=== PATIENT | male | born 1950 | race Caucasian/White ===

== ENCOUNTER 2019-10-07 10:40 | Emergency (ER) | payer MEDICARE ==
[2019-10-07 11:36] LABS: HEMATOCRIT 39.1 % (37.9-51.0); HEMOGLOBIN 13.9 g/dL (13.5-17.0); MEAN CORPUSCULAR HEMOGLOBIN 30.3 pg (27.0-33.4); MEAN CORPUSCULAR HGB CONC 35.4 g/dL (32.0-36.0); MEAN CORPUSCULAR VOLUME 86 fl (80-97); PLATELET COUNT 220 10^3/uL (150-450); RED BLOOD COUNT 4.57 10^6/uL (4.35-5.55); RED CELL DISTRIBUTION WIDTH 13.7 % (11.5-14.0); WHITE BLOOD COUNT 6.3 10^3/uL (4.0-10.5)
[2019-10-07 11:53] LABS: ANION GAP 11 (5-19); BLOOD UREA NITROGEN 20 mg/dL (7-20); CALCIUM 8.8 mg/dL (8.4-10.2); CARBON DIOXIDE 23 mmol/L (22-30); CHLORIDE 102 mmol/L (98-107); GLUCOSE 137 mg/dL (75-110); POTASSIUM 3.9 mmol/L (3.6-5.0)
[2019-10-07 11:56] LABS: APPEARANCE,URINE SLIGHTLY-CLOUDY; BILIRUBIN,URINE NEGATIVE (NEGATIVE); COLOR,URINE YELLOW; GLUCOSE, URINE NEGATIVE (NEGATIVE); KETONES,URINE TRACE mg/dL (NEGATIVE); LEUKOCYTE ESTERASE,URINE NEGATIVE (NEGATIVE); NITRITE,URINE NEGATIVE (NEGATIVE); PROTEIN,URINE 100 mg/dL (NEGATIVE); URINE SPECIFIC GRAVITY 1.024
[2019-10-07 12:05] LABS: CREATINE KINASE MB 0.81 ng/mL (<4.55)
[2019-10-07 12:06] LABS: TROPONIN I < 0.012 ng/mL
[2019-10-07] MEDS ORDERED: ONDANSETRON HCL INJ/PF 4 MG/2 ML SDV IV ONE (12:23)
[2019-10-07] MEDS ORDERED: AZITHROMYCIN 250 MG TABLET PO ONE (13:06)
--- NOTE | 2019-10-07 13:07 | ER Document Report ---
ED GI/ - General Chief Complaint: Nausea/Vomiting/Diarrhea Stated Complaint: NAUSEA/VOMITING/FEVER,COUGH Time Seen by Provider: 10/07/19 12:12 Primary Care Provider: ARELI VIVAS MD [ACTIVE STAFF] - Follow up as needed Notes: CHIEF COMPLAINT: Cough for 3 weeks HPI: 68-year-old male presenting to the emergency department for evaluation of cough nonproductive over the last 3 weeks no chest pain no specific shortness of breath. Developed some nausea with 2-3 episodes of vomiting last night, one episode of diarrhea yesterday. Has had one episode of vomiting today. Denies abdominal pain. Denies fever. States that he was tested for COVID through the [facility] over a week ago and did have a negative result 2 days ago. ROS: See HPI - all other systems were reviewed and are otherwise negative Constitutional: no fever Eyes: no drainage, no blurred vision ENT: no runny nose, no sore throat Cardiovascular: no chest pain Resp: no SOB, + cough GI: + vomiting, + diarrhea, no abdominal pain : no dysuria Integumentary: no rash Allergy: no hives Musculoskeletal: no extremity pain or swelling Neurological: no numbness/tingling, no weakness MEDICATIONS: I agree with the patient medications as charted by the RN. ALLERGIES: I agree with the allergies as charted by the RN. PAST MEDICAL HISTORY/PAST SURGICAL HISTORY: Reviewed and agree as charted by RN. SOCIAL HISTORY: Reviewed and agree as charted by RN. FAMILY HISTORY: No significant familial comorbid conditions directly related to patient complaint EXAM: Reviewed vital signs as charted by RN. CONSTITUTIONAL: Alert and oriented and responds appropriately to questions. Well-appearing; well-nourished HEAD: Normocephalic; atraumatic EYES: PERRL; Conjunctivae clear, sclerae non-icteric ENT: normal nose; no rhinorrhea; moist mucous membranes; pharynx without lesions noted, no uvula edema or deviation, no tonsillar hypertrophy, phonation normal NECK: Supple without meningismus; non-tender; no cervical lymphadenopathy, no masses CARD: RRR; no murmurs, no clicks, no rubs, no gallops; symmetric distal pulses RESP: Normal chest excursion without splinting or tachypnea; breath sounds clear and equal bilaterally; no wheezes, no rhonchi, no rales, pulse oximetry 97% on room air not hypoxic. Does not become dyspneic with speaking ABD/GI: Normal bowel sounds; non-distended; soft, non-tender, no rebound, no guarding; no palpable organomegaly or masses. BACK: The back appears normal and is non-tender to palpation, there is no CVA tenderness EXT: Normal ROM in all joints; non-tender to palpation; no cyanosis, no effusions, no edema SKIN: Normal color for age and race; warm; dry; good turgor; no acute lesions noted NEURO: Moves all extremities equally; Motor and sensory function intact PSYCH: The patient's mood and manner are appropriate. Grooming and personal hygiene are appropriate. MDM: 68-year-old male presenting for cough for 3 weeks, had a negative COVID test approximately a week ago. Has started with vomiting and some diarrhea now. No chest pain no shortness of breath. Given patient's age will obtain baseline screening cardiac labs, treat nausea, obtain chest x-ray to evaluate for infiltrate and will reassess. - Related Data Allergies/Adverse Reactions: No Known Allergies Allergy (Unverified 10/07/19 10:59) Home Medications: Pt. came into the hospital today via personal vehicle, states he was tested for Coivd-19 1 week ago. Test results were negative, however he is still having nausea, vomitting ajnd dierrhea. Pt. has been taking aspirin several times a day for the past week to control symptoms. Pt. is A & O X4, breathes are even and unlabored. NAD at this time. Past Medical History - Social History Smoking Status: Former Smoker Chew tobacco use (# tins/day): No Frequency of alcohol use: Occasional Family History: Reviewed & Not Pertinent Patient has homicidal ideation: No Physical Exam - Vital signs Vitals: Temp Pulse Resp BP Pulse Ox 98.1 F 113 H 20 123/79 98 10/07/19 10:52 10/07/19 10:52 10/07/19 10:52 10/07/19 10:52 10/07/19 10:52 Course - Re-evaluation Re-evalutation: 10/07/19 13:06 Patient's lab work does not at this point show acute emergent abnormalities. His troponin is negative. On review of the chest x-ray patient appears to have a right upper lobe infiltrate possibly some nodular densities. Awaiting official radiologist read. 10/07/19 14:29 Official read of the chest x-ray does show right upper lobe infiltrate. Discussed with the patient. He is also aware he has any cover test pending. Person under investigation quarantine at home. I have given the patient antibiotics here. Will also prescribe antibiotics at home and albuterol inhaler. 10/07/19 14:34 patient mildly tachycardic initially, nursing will recheck HR and notify me of any continued abnormalities - Vital Signs Vital signs: Temp Pulse Resp BP Pulse Ox 98.1 F 113 H 20 123/79 98 10/07/19 11:00 10/07/19 10:52 10/07/19 10:52 10/07/19 10:52 10/07/19 10:52 - Laboratory Result Diagrams: 10/07/19 10:55 10/07/19 10:55 Laboratory results interpreted by me: 10/07/19 10/07/19 10:55 10:55 Sodium 135.6 L Est GFR (MDRD) Non-Af 59 L Glucose 137 H Urine Protein 100 H Urine Ketones TRACE H Urine Blood MODERATE H Urine Urobilinogen 2.0 H Discharge - Discharge Clinical Impression: Person under investigation for COVID-19 Pneumonia involving right lung Qualifiers: Pneumonia type: due to unspecified organism Lung location: upper lobe of lung Qualified Code(s): J18.9 - Pneumonia, unspecified organism Condition: Stable Disposition: HOME, SELF-CARE Additional Instructions: 1. take the medications as prescribed 2. if you were prescribed an Albuterol inhaler, use it as instructed, 2 puffs e very 4 hours as needed for cough/wheezing 3. call your primary care provider as soon as possible to schedule recheck appt. in the office. 4. return to the ED for any worsening condition, shortness of breath or continued fever that does not resolve with Motrin/Tylenol 5. You are considered a person under investigation at this time self quarantine at home until you have a negative COVID study. It was noted that you have pneumonia in the right upper lobe of your lungs. Follow this up with your [facility] care provider for reevaluation and reimaging in 3 to 4 weeks to ensure resolution Prescriptions: Albuterol Sulfate [Proair HFA Inhalation Aerosol 8.5 gm MDI] 2 puff IH Q4H PRN #1 mdi PRN Reason: Azithromycin [Zithromax 250 mg Tablet] 250 mg PO ASDIR PRN #6 tablet PRN Reason: Referrals: ARELI VIVAS MD [ACTIVE STAFF] - Follow up as needed
--- NOTE | 2019-10-07 13:16 | RADIOLOGY REPORT (SQ) ---
EXAM DESCRIPTION: CHEST SINGLE VIEW IMAGES COMPLETED DATE/TIME: 10/07/2019 12:01 pm REASON FOR STUDY: cough COMPARISON: None. EXAM PARAMETERS: NUMBER OF VIEWS: One view. TECHNIQUE: Single frontal radiographic view of the chest acquired. RADIATION DOSE: NA LIMITATIONS: None. FINDINGS: LUNGS AND PLEURA: There is focal consolidation in the right upper lobe suspicious for pneu monia. No pleural effusion or pneumothorax. Elevation of the right hemidiaphragm. Calcified granul priscilla in the left lower lung. MEDIASTINUM AND HILAR STRUCTURES: No masses. Contour normal. HEART AND VASCULAR STRUCTURES: Heart normal in size. Normal vasculature. BONES: No acute findings. HARDWARE: None in the chest. OTHER: No other significant finding. IMPRESSION: Right upper lobe pneumonia. TECHNICAL DOCUMENTATION: JOB ID: [id number] 2010 [employer]- All Rights Reserved Reading location - IP/workstation name: [email or web address]
[2019-10-07] MEDS ORDERED: CEFTRIAXONE 1 GM/D5W RTU 1 GM/50 ML RTUPB IV ONE (14:00)
[2019-10-07 15:15] VITALS: BP 114/74
--- NOTE | 2019-10-08 17:34 | EKG REPORT ---
SEVERITY:- BORDERLINE ECG - SINUS TACHYCARDIA VENTRICULAR PREMATURE COMPLEX BORDERLINE LEFT AXIS DEVIATION BORDERLINE T WAVE ABNORMALITIES : Confirmed by: Josephine Escalona MD 08-Oct-2019 17:34:22
== END 2019-10-07 15:30 | disposition home or self-care (01) ==
LOC: ER 10:40
DX: J18.9 Pneumonia, unspecified organism (principal); Z20.828 Contact with and (suspected) exposure to other viral communicable diseases; R11.2 Nausea with vomiting, unspecified; R19.7 Diarrhea, unspecified; R05 Cough; R50.9 Fever, unspecified; R06.02 Shortness of breath; R00.0 Tachycardia, unspecified; Z87.891 Personal history of nicotine dependence
CPT/HCPCS: 93005; 99283; 96375; 96365; 36415; 87040; 82553; 82550; 85027; 80048; 81001; 84484; 71045; 93010; U0003; A9270; J2405; J0696; C9803; 87635

== ENCOUNTER → 2019-10-26 | Outpatient (CLI) | payer MEDICARE ==
--- NOTE | 2019-10-26 10:02 | RADIOLOGY REPORT (SQ) ---
EXAM DESCRIPTION: CHEST 2 VIEWS IMAGES COMPLETED DATE/TIME: 10/26/2019 9:50 am REASON FOR STUDY: OTHER PNEUMONIA, UNSPEC ORGANISM (J18.8) COMPARISON: 10/07/2019 EXAM PARAMETERS: NUMBER OF VIEWS: two views TECHNIQUE: Digital Frontal and Lateral radiographic views of the chest acquired. RADIATION DOSE: NA LIMITATIONS: none FINDINGS: LUNGS AND PLEURA: Minimal residual airspace disease in the right upper lobe. Low lung vol umes. Calcified granuloma in the left base and left hilum. MEDIASTINUM AND HILAR STRUCTURES: No masses or contour abnormalities. HEART AND VASCULAR STRUCTURES: Heart normal size. No evidence for failure. BONES: No acute findings. HARDWARE: None in the chest. OTHER: No other significant finding. IMPRESSION: Resolving right upper lobe pneumonia. TECHNICAL DOCUMENTATION: JOB ID: [id number] 2010 [employer]- All Rights Reserved Reading location - IP/workstation name: [email or web address]
== END ==
LOC: RAD 09:38
PROVIDERS: ATTEND Internal Medicine
DX: J18.8 Other pneumonia, unspecified organism (principal)
CPT/HCPCS: 71046

== ENCOUNTER 2019-12-13 09:58 | Emergency (ER) | payer MEDICARE ==
[2019-12-13 10:13] VITALS: BP 118/83
--- NOTE | 2019-12-13 10:49 | ER Document Report ---
ED General - General Stated Complaint: SHORTNESS OF BREATH Primary Care Provider: ARELI VIVAS MD [Primary Care Provider] - Follow up as needed Information source: Patient Notes: Patient is a 69-year-old male presenting to the emergency department chief complaint of shortness of breath and generalized weakness. Patient states he has been dealing with these issues for about a month. He states that his primary care provider started him on a azithromycin yesterday and was told if he did not feel any better he should probably go to the hospital for evaluation thus patient is presenting today. Patient does report some nausea and vomiting no diarrhea no recent travel history no obvious sick contacts. Patient's visit with his primary care was a virtual. Patient states that he does do a lot of yard work and may be has just exhausted himself because of the heat. TRAVEL OUTSIDE OF THE [place] IN LAST 30 DAYS: No - HPI Onset: Last week Onset/Duration: Waxing and waning, Worse Quality of pain: Achy Severity: Mild Associated symptoms: Nausea, Vomiting, Shortness of breath. denies: Productive cough, Diarrhea Exacerbated by: Movement, Walking Relieved by: Denies Similar symptoms previously: Yes Recently seen / treated by doctor: Yes - Related Data Allergies/Adverse Reactions: No Known Allergies Allergy (Unverified 10/07/19 10:59) Past Medical History - General Information source: Patient - Social History Smoking Status: Unknown if Ever Smoked Chew tobacco use (# tins/day): No Frequency of alcohol use: None Drug Abuse: None Lives with: Spouse/Significant other Family History: Reviewed & Not Pertinent Patient has suicidal ideation: No Patient has homicidal ideation: No Pulmonary Medical History: Reports: Hx Pneumonia Review of Systems - Review of Systems Notes: REVIEW OF SYSTEMS: CONSTITUTIONAL : Denies fever, chills, or sweats. Denies recent illness. EENT: Denies eye, ear, throat, or mouth pain or symptoms. Denies nasal or sinus congestion. CARDIOVASCULAR: Denies chest pain. RESPIRATORY: Per HPI GASTROINTESTINAL: Per HPI GENITOURINARY: Denies difficulty urinating, painful urination, burning, frequency, or blood in urine. MUSCULOSKELETAL: Denies neck or back pain or joint pain or swelling. SKIN: Denies rash or skin lesions. HEMATOLOGIC : Denies easy bruising or bleeding. NEUROLOGICAL: Denies altered mental status or loss of consciousness. Denies headache. Denies weakness or paralysis or loss of use of either side. Denies problems with gait or speech. Denies sensory or motor loss. PSYCHIATRIC: Denies suicidal or homicidal ideations 10 Systems are negative unless otherwise specified above Physical Exam - Vital signs Vitals: Temp Pulse Resp BP Pulse Ox 98.0 F 125 H 18 118/83 97 12/13/19 10:12 12/13/19 10:12 12/13/19 10:12 12/13/19 10:12 12/13/19 10:12 - Notes Notes: PHYSICAL EXAMINATION: GENERAL: Well-appearing, well-nourished and in no acute distress. HEAD: Atraumatic, normocephalic. EYES: Pupils equal round and reactive to light, extraocular movements intact, sclera anicteric, conjunctiva are normal. ENT: nares patent, oropharynx clear without exudates. Moist mucous membranes. NECK: Normal range of motion, supple without lymphadenopathy, no appreciable JVD LUNGS: Lungs clear to auscultation bilaterally and equal. No wheezes rales or rhonchi. HEART: Regular rate and rhythm without murmurs ABDOMEN: Soft, nontender, normal bowel sounds. No guarding, no rebound. No masses appreciated. EXTREMITIES: Active full range of motion, no pitting or edema. No cyanosis. 2+ pulses x4 NEUROLOGICAL: No focal neurological deficits. Moves all extremities spontaneously and on command. SKIN: Warm, Dry, and intact. Normal turgor, no rashes or lesions noted. Course - Re-evaluation Re-evalutation: 12/13/19 11:05 IV access will be obtained labs urinalysis portable chest x-ray and EKG will be evaluated. 12/13/19 12:53 Patient has been maintained on a residential monitor while in emergency department patient has remained stable without any signs of decompensation. I did review the patient's EKG chest x-ray and laboratory studies and find no significant abnormalities. On most recent reevaluation the patient states that he is agreeable with outpatient management. He did request antiemetic because of intermittent nausea and dry heaves. Patient is recommended to follow-up with his primary care provider over the next several days. Patient was virtually seen by his physician and prescribed an antibiotic but at this point in time the patient states he has not started the new antibiotic and I find no signs of infection and recommend further guidance per the PCP. - Vital Signs Vital signs: Temp Pulse Resp BP Pulse Ox 98.0 F 125 H 18 118/83 97 12/13/19 10:12 12/13/19 10:12 12/13/19 10:12 12/13/19 10:12 12/13/19 10:12 - Laboratory Result Diagrams: 12/13/19 11:11 12/13/19 11:11 Laboratory results interpreted by me: 12/13/19 12/13/19 12/13/19 10:38 11:11 11:11 RBC 4.34 L Hgb 13.0 L Hct 37.7 L RDW 15.5 H Lymph % (Auto) 10.5 L Seg Neutrophils % 83.8 H Sodium 136.7 L NT-Pro-B Natriuret Pep Urine Protein 100 H Urine Ketones TRACE H 12/13/19 11:11 RBC Hgb Hct RDW Lymph % (Auto) Seg Neutrophils % Sodium NT-Pro-B Natriuret Pep 169 H Urine Protein Urine Ketones - Diagnostic Test Radiology reviewed: Reports reviewed - EKG Interpretation by Me EKG shows normal: Sinus rhythm Rate: Tachycardia Rhythm: NSR When compared to previous EKG there are: No significant change Discharge - Discharge Clinical Impression: Shortness of breath Nausea and vomiting Qualifiers: Vomiting type: unspecified Vomiting Intractability: non-intractable Qualified Code(s): R11.2 - Nausea with vomiting, unspecified Condition: Stable Disposition: HOME, SELF-CARE Instructions: Antinausea Medication ([facility]), Vomiting ([facility]) Prescriptions: Ondansetron [Zofran Odt 4 mg Tablet] 1 - 2 tab PO Q4H PRN #15 tab.rapdis PRN Reason: For Nausea/Vomiting Referrals: ARELI VIVAS MD [Primary Care Provider] - Follow up as needed
--- NOTE | 2019-12-13 11:29 | RADIOLOGY REPORT (SQ) ---
EXAM DESCRIPTION: CHEST SINGLE VIEW IMAGES COMPLETED DATE/TIME: 12/13/2019 11:17 am REASON FOR STUDY: sob COMPARISON: None. EXAM PARAMETERS: NUMBER OF VIEWS: One view. TECHNIQUE: Single frontal radiographic view of the chest acquired. RADIATION DOSE: NA LIMITATIONS: None. FINDINGS: LUNGS AND PLEURA: Low lung volumes with mild interstitial crowding. No focal consolidatio n, pleural effusion or pneumothorax. Calcified hilar nodes and left basilar granuloma. MEDIASTINUM AND HILAR STRUCTURES: No masses. Contour normal. HEART AND VASCULAR STRUCTURES: Heart normal in size. Normal vasculature. BONES: No acute findings. HARDWARE: None in the chest. OTHER: No other significant finding. IMPRESSION: Low lung volumes without evidence of acute cardiopulmonary process. TECHNICAL DOCUMENTATION: JOB ID: [id number] 2010 [employer]- All Rights Reserved Reading location - IP/workstation name: [email or web address]
[2019-12-13 11:36] LABS: ABSOLUTE LYMPHOCYTES (AUTO) 0.6 10^3/uL (0.5-4.7); ABSOLUTE MONOCYTES (AUTO) 0.3 10^3/uL (0.1-1.4); ABSOLUTE NEUT (AUTO) 5.2 10^3/uL (1.7-8.2); BASOPHILS % (AUTO) 0.3 % (0-2); EOSINOPHILS % (AUTO) 0.8 % (0-6); HEMATOCRIT 37.7 % (37.9-51.0); LYMPHOCYTES % (AUTO) 10.5 % (13-45); MEAN CORPUSCULAR HEMOGLOBIN 29.9 pg (27.0-33.4); MEAN CORPUSCULAR HGB CONC 34.5 g/dL (32.0-36.0); MEAN CORPUSCULAR VOLUME 87 fl (80-97); MONOCYTES % (AUTO) 4.6 % (3-13); PLATELET COUNT 174 10^3/uL (150-450); RED BLOOD COUNT 4.34 10^6/uL (4.35-5.55); RED CELL DISTRIBUTION WIDTH 15.5 % (11.5-14.0); SEGMENTED NEUTROPHILS % (AUTO) 83.8 % (42-78); TOTAL CELLS COUNTED % (AUTO) 100 %; WHITE BLOOD COUNT 6.2 10^3/uL (4.0-10.5)
[2019-12-13 11:57] LABS: ALBUMIN 3.6 g/dL (3.5-5.0); ALKALINE PHOSPHATASE 85 U/L (38-126); ANION GAP 13 (5-19); ASPARTATE AMINO TRANSFERASE 50 U/L (17-59); BILIRUBIN,DIRECT 0.4 mg/dL (0.0-0.4); BILIRUBIN,TOTAL 0.9 mg/dL (0.2-1.3); BLOOD UREA NITROGEN 19 mg/dL (7-20); CALCIUM 8.9 mg/dL (8.4-10.2); CARBON DIOXIDE 23 mmol/L (22-30); CHLORIDE 101 mmol/L (98-107); CREATINE KINASE 69 U/L (55-170); GLUCOSE 107 mg/dL (75-110); POTASSIUM 4.1 mmol/L (3.6-5.0); TOTAL PROTEIN 7.2 g/dL (6.3-8.2)
[2019-12-13 12:09] LABS: NT PRO BNP 169 pg/mL (<125)
[2019-12-13 12:14] LABS: TROPONIN I < 0.012 ng/mL
[2019-12-13 12:40] LABS: APPEARANCE,URINE SLIGHTLY-CLOUDY; BILIRUBIN,URINE NEGATIVE (NEGATIVE); COLOR,URINE YELLOW; GLUCOSE, URINE NEGATIVE (NEGATIVE); KETONES,URINE TRACE mg/dL (NEGATIVE); LEUKOCYTE ESTERASE,URINE NEGATIVE (NEGATIVE); NITRITE,URINE NEGATIVE (NEGATIVE); PROTEIN,URINE 100 mg/dL (NEGATIVE); URINE SPECIFIC GRAVITY 1.026; UROBILINOGEN,URINE NEGATIVE mg/dL (<2.0)
[2019-12-13] MEDS ORDERED: IPRATROPIUM/ALBUTEROL 0.5-2.5 MG/3 ML AMPUL NEB ONE (13:27)
--- NOTE | 2019-12-13 13:56 | EKG REPORT ---
SEVERITY:- ABNORMAL ECG - SINUS TACHYCARDIA LEFT ANTERIOR FASCICULAR BLOCK CONSIDER ANTEROSEPTAL INFARCT : Confirmed by: Arturo Hui MD 13-Dec-2019 13:55:22
== END 2019-12-13 14:08 | disposition home or self-care (01) ==
LOC: ER 09:58
DX: R06.02 Shortness of breath (principal); R11.2 Nausea with vomiting, unspecified; R53.1 Weakness
CPT/HCPCS: 36415; 71045; 80053; 81001; 82550; 82553; 83690; 83880; 84484; 85025; 93005; 93010; 94640; 99285

== ENCOUNTER → 2019-12-28 | Outpatient (CLI) | payer BC, MEDICARE ==
--- NOTE | 2019-12-28 15:59 | RADIOLOGY REPORT (SQ) ---
EXAM DESCRIPTION: CT CHEST WITH IMAGES COMPLETED DATE/TIME: 12/28/2019 3:07 pm REASON FOR STUDY: R63.4 ABNORMAL WEIGHT LOSS R06.02 SHORTNESS OF BREATH R63.4 ABNORMAL WEIGHT LOSS R06.02 SHORTNESS OF BREATH R50.9 FEVER, UNSPECIFIED COMPARISON: They have two view of the chest from 12/13/2019. TECHNIQUE: CT scan of the chest performed using helical scanning technique with dynamic intravenous contrast injection. Images reviewed with lung, soft tissue and bone windows. Reconstructed coronal and sagittal MPR and MIP images reviewed. All images stored on PACS. All CT scanners at this facility use dose modulation, iterative reconstruction, and/or weight based d osing when appropriate to reduce radiation dose to as low as reasonably achievable (ALARA). [facility]: Dose Right [facility]: CareDose [facility]: Dose Right [facility]: Teradose 4D [facility]: New [employer] (III) [employer] CONTRAST TYPE AND DOSE: Contrast/concentration: Isovue 350.00 mmol/ml; Total Contrast Delivered: 79. 9 ml; Total Saline Delivered: 52.2 ml RENAL FUNCTION: GFR > 60. LIMITATIONS: None. FINDINGS: LUNGS AND PLEURA: The trachea and main bronchi are patent. There is no bronchiectasis or mucus plugging. There are asymmetric multifocal peribronchial ground-glass opacities in the left upp er lobe, left lower lobe, right upper lobe and to a lesser extent the right middle and right lower lo bes that are nonspecific and if acute could represent a multifocal pneumonia. There is no pleural ef fusion or pneumothorax. HILAR AND MEDIASTINAL STRUCTURES: No adenopathy or mass. HEART AND VASCULAR STRUCTURES: The main pulmonary artery measures 4.1 cm in transverse diameter - cli nical correlation to exclude pulmonary hypertension is recommended. The ascending pulmonary artery h as a maximum diameter of 4.3 cm. There is no thoracic aortic dissection or pericardial effusion. HARDWARE: None in the chest. UPPER ABDOMEN: Refer to the separate report of the CT of the abdomen. THYROID AND OTHER SOFT TISSUES: No adenopathy or mass. BONES: No acute fracture or osseous lesion. OTHER: No other finding. IMPRESSION: 1. Asymmetric multifocal peribronchial ground-glass opacities in the left upper lobe, le ft lower lobe, right upper lobe and to a lesser extent the right middle and right lower lobes that ar e nonspecific and if acute could represent a multifocal pneumonia. 2. The ascending pulmonary artery has a maximum diameter of 4.3 cm. TECHNICAL DOCUMENTATION: JOB ID: [id number] Quality ID # [id number]: Final reports with documentation of one or more dose reduction techniques (e.g., Au tomated exposure control, adjustment of the mA and/or kV according to patient size, use of iterative reconstruction technique) 2010 [employer]- All Rights Reserved Reading location - IP/workstation name: [email or web address]
--- NOTE | 2019-12-28 16:18 | RADIOLOGY REPORT (SQ) ---
EXAM DESCRIPTION: CT ABD/PELVIS WITH IV ORAL IMAGES COMPLETED DATE/TIME: 12/28/2019 3:07 pm REASON FOR STUDY: R10.84 GENERALIZED ABDOMINAL PAIN R63.4 ABNORMAL WEIGHT LOSS R06.02 SHORTNESS OF BREATH R50.9 FEVER, UNSPECIFIED COMPARISON: None. TECHNIQUE: CT scan of the abdomen and pelvis performed using helical scanning technique with dynamic intravenous contrast injection. No oral contrast. Images reviewed with lung, soft tissue, and bone windows. Reconstructed coronal and sagittal MPR images reviewed. Delayed images for evaluation of the urinary system also acquired. All images stored on PACS. All CT scanners at this facility use dose modulation, iterative reconstruction, and/or weight based d osing when appropriate to reduce radiation dose to as low as reasonably achievable (ALARA). [facility]: Dose Right [facility]: CareDose [facility]: Dose Right [facility]: Teradose 4D [facility]: [employer] CONTRAST TYPE AND DOSE: 80 Omnipaque 350- low osmolar. RENAL FUNCTION: GFR > 60. RADIATION DOSE: CT Rad equipment meets quality standard of care and radiation dose reduction techniq ues were employed. CTDIvol: 9.6 - 20.7 mGy. DLP: 2929 mGy-cm. LIMITATIONS: None. FINDINGS: LOWER CHEST: Refer to the separate report of the CT of the chest. LIVER: The morphology of the liver is noncirrhotic. The ovoid low-attenuation lesion adjacent to the gallbladder fossa (image 87 of series 3) could represent focal hepatic steatosis. The portal veins are patent. There is no hepatic mass. SPLEEN: The subcentimeter low-attenuation lesion in the spleen (image 88 of series 3) is too small to characterize. There is no splenomegaly. PANCREAS: No acute gross abnormality of the pancreas. GALLBLADDER: No abnormality that is apparent on CT. ADRENAL GLANDS: No mass or asymmetry. RIGHT KIDNEY AND URETER: No solid mass, hydronephrosis, nephrolithiasis, hydroureter or ureterolithia sis. LEFT KIDNEY AND URETER: No solid mass, hydronephrosis, nephrolithiasis, hydroureter or ureterolithias is. AORTA AND VESSELS: No aneurysm or dissection of the abdominal aorta. RETROPERITONEUM: No retroperitoneal adenopathy, hemorrhage or mass. BOWEL AND PERITONEAL CAVITY: No bowel obstruction, bowel wall thickening or pericolonic/ perienteric inflammation. No mesenteric adenopathy, free intraperitoneal fluid mesenteric/ omental inflammation. APPENDIX: Unable to identify the appendix. PELVIS: No abnormality of the urinary bladder or prostate gland. ABDOMINAL WALL: No mass or hernia. BONES: No acute findings. OTHER: No other finding. IMPRESSION: 1. No acute intra-abdominal abnormality. 2. The ovoid low-attenuation lesion adjacent to the gallbladder fossa (image 87 of series 3) could re present focal hepatic steatosis. 3. The subcentimeter low-attenuation lesion in the spleen (image 88 of series 3) is too small to tarun acterize. TECHNICAL DOCUMENTATION: JOB ID: [id number] Quality ID # [id number]: Final reports with documentation of one or more dose reduction techniques (e.g., Au tomated exposure control, adjustment of the mA and/or kV according to patient size, use of iterative reconstruction technique) 2010 [employer] All Rights Reserved Reading location - IP/workstation name: [email or web address]
== END ==
LOC: RAD 13:22
PROVIDERS: ATTEND Internal Medicine Hematology & Oncology
DX: R10.84 Generalized abdominal pain (principal); R50.9 Fever, unspecified; R06.02 Shortness of breath; R63.4 Abnormal weight loss; D73.89 Other diseases of spleen
CPT/HCPCS: 71260; 74177

== ENCOUNTER 2019-12-31 11:59 | Inpatient (IN) | payer MEDICARE ==
[2019-12-31] MEDS ORDERED: CEFEPIME 2 GM/D5W RTU 50 ML IV ONE (12:48)
[2019-12-31] MEDS ORDERED: VANCOMYCIN HCL INJ 1000 MG VIAL IV ONE (12:49)
[2019-12-31] MEDS ORDERED: AZITHROMYCIN INJ 500 MG VIAL IV ONE (12:50)
[2019-12-31 12:51] LABS: ABSOLUTE LYMPHOCYTES (AUTO) 1.1 10^3/uL (0.5-4.7); ABSOLUTE MONOCYTES (AUTO) 0.3 10^3/uL (0.1-1.4); ABSOLUTE NEUT (AUTO) 7.4 10^3/uL (1.7-8.2); BASOPHILS % (AUTO) 0.2 % (0-2); HEMATOCRIT 42.2 % (37.9-51.0); HEMOGLOBIN 14.8 g/dL (13.5-17.0); LYMPHOCYTES % (AUTO) 12.8 % (13-45); MEAN CORPUSCULAR HGB CONC 35.2 g/dL (32.0-36.0); MEAN CORPUSCULAR VOLUME 85 fl (80-97); MONOCYTES % (AUTO) 3.1 % (3-13); PLATELET COUNT 236 10^3/uL (150-450); RED BLOOD COUNT 4.94 10^6/uL (4.35-5.55); RED CELL DISTRIBUTION WIDTH 15.5 % (11.5-14.0); SEGMENTED NEUTROPHILS % (AUTO) 83.9 % (42-78); TOTAL CELLS COUNTED % (AUTO) 100 %; WHITE BLOOD COUNT 8.8 10^3/uL (4.0-10.5)
[2019-12-31] MEDS ORDERED: ONDANSETRON HCL INJ/PF 4 MG/2 ML SDV IV ONE (12:55)
--- NOTE | 2019-12-31 12:58 | RADIOLOGY REPORT (SQ) ---
EXAM DESCRIPTION: CHEST SINGLE VIEW IMAGES COMPLETED DATE/TIME: 12/31/2019 12:46 pm REASON FOR STUDY: short of breath COMPARISON: None. EXAM PARAMETERS: NUMBER OF VIEWS: One view. TECHNIQUE: Single frontal radiographic view of the chest acquired. RADIATION DOSE: NA LIMITATIONS: None. FINDINGS: LUNGS AND PLEURA: There is ill-defined opacification in the left mid and lower lung field. The left hemidiaphragm remains well-defined. The right hemidiaphragm is elevated. MEDIASTINUM AND HILAR STRUCTURES: No masses. Contour normal. HEART AND VASCULAR STRUCTURES: Heart normal in size. Normal vasculature. BONES: No acute findings. HARDWARE: None in the chest. OTHER: No other significant finding. IMPRESSION: Cannot exclude airspace disease in the left mid and lower lung, pneumonia versus atelect asis. TECHNICAL DOCUMENTATION: JOB ID: [id number] 2010 [employer]- All Rights Reserved Reading location - IP/workstation name: [email or web address]
[2019-12-31 13:00] LABS: INTERNATIONAL RATION (INR) 0.95; PROTHROMBIN TIME 12.9 SEC (11.4-15.4)
[2019-12-31 13:03] LABS: D-DIMER 0.74 ug/mL (0.00-0.50)
[2019-12-31] MEDS ORDERED: CEFEPIME HCL 2 GM in DEXTROSE 5%-WATER 50 ML IV ONE (13:30)
[2019-12-31] MEDS: NORMAL SALINE 1000 ML 1,000 ML IV PRN ×2 (13:38→15:20)
[2019-12-31 15:47] LABS: VENOUS BLOOD BASE EXCESS -3.1 mmol/L; VENOUS BLOOD HCO3 22.5 mmol/L (20-32); VENOUS BLOOD PCO2 42.4 mmHg (35-63); VENOUS BLOOD PH 7.34 (7.30-7.42)
--- NOTE | 2019-12-31 15:54 | ER Document Report ---
Entered by JONES PAT SCRIBE 12/31/19 0930 Acting as scribe for:SKYLAR SOTELO MD ED Respiratory Problem - General Chief Complaint: Shortness Of Breath Stated Complaint: SHORTNESS OF BREATH Primary Care Provider: VERNON BERNARD MD [Primary Care Provider] - Follow up as needed Mode of Arrival: Wheelchair Information source: Relative - , Emergency Med Personnel Notes: This 69 year old male patient presents to the ED via POV for evaluation of worsening shortness of breath. Patient was seen here on 10/06 for shortness of breath and was diagnosed with pneumonia; he was started on antibiotics at that time without resolve per . states the patient lost about x60 lbs over the last x3 months and has been more confused and unable to ambulate without assistance. She also mentions episodes of urinary incontinence. Patient had an outpatient CT of the chest done x3 days ago that reveals asymmetric multifocal peribronchial ground-glass opacities in the left lower lobe, right upper lobe and to a lesser extent the right middle and right lower lobes. Dr. Bernard saw the patient this morning in her office and has been tracking the patient's weight loss and pancytopenia. She discloses that the patient has been seen here several times over the summer with respiratory complaints and was placed on antibiotics x3 and steroids without resolve. She further states that the patient's pancytopenia improved with a normal CBC recently. She referred the patient to a geophysical laboratory chief, but the geophysical laboratory chief wanted the patient to be evaluated in the ED due to his O2 sats of 78%. TRAVEL OUTSIDE OF THE [place] IN LAST 30 DAYS: No - Related Data Allergies/Adverse Reactions: No Known Allergies Allergy (Unverified 10/07/19 10:59) Past Medical History - General Information source: Relative - - Social History Smoking Status: Current Some Day Smoker Smoking Education Provided: No Lives with: Spouse/Significant other Family History: Reviewed & Not Pertinent Patient has suicidal ideation: No Patient has homicidal ideation: No Pulmonary Medical History: Reports: Hx Pneumonia Review of Systems - Review of Systems Constitutional: No symptoms reported EENT: No symptoms reported Cardiovascular: No symptoms reported Respiratory: See HPI, Short of breath Gastrointestinal: No symptoms reported Genitourinary: See HPI, Incontinence Male Genitourinary: No symptoms reported Musculoskeletal: No symptoms reported Skin: No symptoms reported Hematologic/Lymphatic: No symptoms reported Neurological/Psychological: See HPI, Confusion -: Yes All other systems reviewed and negative Physical Exam - Vital signs Vitals: Temp Pulse Resp BP Pulse Ox 98.4 F 138 H 24 H 126/84 H 75 L 12/31/19 12:10 12/31/19 12:10 12/31/19 12:10 12/31/19 12:10 12/31/19 12:10 Interpretation: Tachycardic, Hypoxic, Tachypneic. No: Febrile - General General appearance: Alert - Speaks in short sentences due to SOB, Anxious In distress: Severe - HEENT Head: Normocephalic, Atraumatic Eyes: Normal Pupils: PERRL - Respiratory Respiratory status: Tachypnea, Other - Hypoxic, 75% on RA upon arrival Chest status: Nontender Breath sounds: Decreased air movement - Diminished breath sounds in the bases. No: Wheezing Chest palpation: Normal - Cardiovascular Rhythm: Regular, Tachycardia Heart sounds: Normal auscultation, S1 appreciated, S2 appreciated Murmur: No Friction rub: No Gallop: None auscultated - Abdominal Inspection: Normal Distension: No distension Bowel sounds: Normal Tenderness: Nontender - Abdomen soft Organomegaly: No organomegaly - Back Back: Normal, Nontender - Extremities General upper extremity: Normal inspection - Neurological Neuro grossly intact: Yes Stacy Coma Scale Eye Opening: Spontaneous Stacy Coma Scale Verbal: Oriented Stacy Coma Scale Motor: Obeys Commands [employer] Coma Scale Total: 15 - Psychological Associated symptoms: Anxious - Skin Skin Temperature: Warm Skin Moisture: Dry Skin Color: Normal Course - Re-evaluation Re-evalutation: 12/31/19 16:40 Patient agitated confused somewhat uncooperative with keeping his BiPAP apparatus on. Patient is disoriented as well. Patient's vital signs shows tachycardia and oxygenation is within normal range on BiPAP and also prior to that on high flow nonrebreather facemask. - Vital Signs Vital signs: Temp Pulse Resp BP Pulse Ox 98.4 F 138 H 28 H 138/82 H 100 12/31/19 12:10 12/31/19 12:10 12/31/19 15:09 12/31/19 14:05 12/31/19 15:09 12/31/19 16:41 Vital signs shows tachycardia 140 afebrile blood pressure within normal range and tachypneic respirations 28 pulse ox with oxygen 100%. - Laboratory Result Diagrams: 12/31/19 12:36 12/31/19 15:30 Laboratory results interpreted by me: 12/31/19 12/31/19 12/31/19 12:36 12:36 12:36 RDW 15.5 H Lymph % (Auto) 12.8 L Seg Neutrophils % 83.9 H D-Dimer 0.74 H Sodium Glucose Lactic Acid 4.0 H Calcium Lactate Dehydrogenase NT-Pro-B Natriuret Pep Total Protein Albumin Lipase Urine Protein Urine Ketones Urine Blood 12/31/19 12/31/19 12/31/19 15:16 15:30 15:30 RDW Lymph % (Auto) Seg Neutrophils % D-Dimer Sodium 129.5 L Glucose 127 H Lactic Acid Calcium 8.0 L Lactate Dehydrogenase 531 H NT-Pro-B Natriuret Pep 228 H Total Protein 5.8 L Albumin 2.6 L Lipase 462.9 H Urine Protein 100 H Urine Ketones 20 H Urine Blood SMALL H Laboratories disclose a sodium of 129 a normal white blood cell count d-dimer e levation and an elevated lactic acid of 4.0. 12/31/19 12/31/19 12/31/19 12:36 12:36 12:36 RDW 15.5 H Lymph % (Auto) 12.8 L Seg Neutrophils % 83.9 H D-Dimer 0.74 H Sodium Glucose Lactic Acid 4.0 H Calcium Lactate Dehydrogenase NT-Pro-B Natriuret Pep Total Protein Albumin Lipase Urine Protein Urine Ketones Urine Blood 12/31/19 12/31/19 12/31/19 15:16 15:30 15:30 RDW Lymph % (Auto) Seg Neutrophils % D-Dimer Sodium 129.5 L Glucose 127 H Lactic Acid Calcium 8.0 L Lactate Dehydrogenase 531 H NT-Pro-B Natriuret Pep 228 H Total Protein 5.8 L Albumin 2.6 L Lipase 462.9 H Urine Protein 100 H Urine Ketones 20 H Urine Blood SMALL H - Diagnostic Test Radiology reviewed: Image reviewed, Reports reviewed Radiology results interpreted by me: 12/31/19 16:47 Chest X-Ray 12/31/19 12:15 IMPRESSION: Cannot exclude airspace disease in the left mid and lower lung, pneumonia versus atelectasis. Chest x-ray today shows airspace disease in the left mid and lower lung pneumonia versus atelectasis severe. Also concern for COVID-19. Recent CT chest scan was done showing groundglass appearance to infiltrates in the left base and concern for COVID-19. - EKG Interpretation by Me Additional EKG results interpreted by me: 12/31/19 16:48 EKG shows increased artifact obscuring the rhythm and interpretation of this EKG therefore repeat EKG is ordered. - Transfer of Care Care transferred to following provider: Initially, transfer care to Dr. Martinez, however pt is now admitted Critical Care Note - Critical Care Note Total time excluding time spent on procedures (mins): 45 - Acute respiratory distress on arrival requiring oxygen support altered mental status requiring some sedation to control patient's behavior to allow BiPAP mass apparatus to remain in place. Patient has mental status changes that that may be due to oxygen deficit over a period of time prior to arrival. Concern for COVID-19 . Sepsis work-up due to pneumonia tachycardia elevated lactic acid. Discharge - Discharge Clinical Impression: Pneumonia, Acute respiratory distress, Suspected 2019-nCoV infection, Altered mental status, Low O2 saturation, Sepsis Condition: Critical Disposition: ADMITTED INPATIENT Admitting Provider: Blanca (Hospitalist) Unit Admitted: IMCU Referrals: VERNON BERNARD MD [Primary Care Provider] - Follow up as needed I personally performed the services described in the documentation, reviewed and edited the documentation which was dictated to the scribe in my presence, and it accurately records my words and actions.
[2019-12-31] MEDS ORDERED: LORAZEPAM INJ 2 MG/1 ML VIAL IV ONE (15:55)
[2019-12-31 16:09] LABS: ALBUMIN 2.6 g/dL (3.5-5.0); ALKALINE PHOSPHATASE 81 U/L (38-126); ANION GAP 8 (5-19); ASPARTATE AMINO TRANSFERASE 57 U/L (17-59); BILIRUBIN,DIRECT 0.3 mg/dL (0.0-0.4); BILIRUBIN,TOTAL 0.5 mg/dL (0.2-1.3); BLOOD UREA NITROGEN 17 mg/dL (7-20); CARBON DIOXIDE 23 mmol/L (22-30); CHLORIDE 99 mmol/L (98-107); CREATINE KINASE 59 U/L (55-170); GLUCOSE 127 mg/dL (75-110); POTASSIUM 4.5 mmol/L (3.6-5.0); TOTAL PROTEIN 5.8 g/dL (6.3-8.2)
[2019-12-31 16:19] LABS: TROPONIN I 0.013 ng/mL
[2019-12-31 16:22] LABS: APPEARANCE,URINE CLEAR; BILIRUBIN,URINE NEGATIVE (NEGATIVE); COLOR,URINE YELLOW; GLUCOSE, URINE NEGATIVE (NEGATIVE); KETONES,URINE 20 mg/dL (NEGATIVE); LEUKOCYTE ESTERASE,URINE NEGATIVE (NEGATIVE); NITRITE,URINE NEGATIVE (NEGATIVE); PROTEIN,URINE 100 mg/dL (NEGATIVE); URINE SPECIFIC GRAVITY 1.012; UROBILINOGEN,URINE NEGATIVE mg/dL (<2.0)
--- NOTE | 2019-12-31 17:46 | RADIOLOGY REPORT (SQ) ---
EXAM DESCRIPTION: CT HEAD WITHOUT IMAGES COMPLETED DATE/TIME: 12/31/2019 5:29 pm REASON FOR STUDY: altered mental status COMPARISON: None. TECHNIQUE: Axial images acquired through the brain without intravenous contrast. Images reviewed wi th bone, brain and subdural windows. Additional sagittal and coronal reconstructions were generated. Images stored on PACS. All CT scanners at this facility use dose modulation, iterative reconstruction, and/or weight based d osing when appropriate to reduce radiation dose to as low as reasonably achievable (ALARA). [facility]: Dose Right [facility]: CareDose [facility]: Dose Right [facility]: Teradose 4D [facility]: Smart GetPromotd RADIATION DOSE: CT Rad equipment meets quality standard of care and radiation dose reduction techniq ues were employed. CTDIvol: 53.2 mGy. DLP: 1044 mGy-cm. mGy. LIMITATIONS: None. FINDINGS: VENTRICLES: Normal size and contour. CEREBRUM: No masses. No hemorrhage. No midline shift. No evidence for acute infarction. Normal gra y/white matter differentiation. No areas of low density in the white matter. CEREBELLUM: No masses. No hemorrhage. No alteration of density. No evidence for acute infarction. EXTRAAXIAL SPACES: No fluid collections. No masses. ORBITS AND GLOBE: No intra- or extraconal masses. Normal contour of globe without masses. CALVARIUM: No fracture. PARANASAL SINUSES: Tiny mucous retention cyst versus polyp within the left maxillary sinus. No fluid levels. SOFT TISSUES: No mass or hematoma. OTHER: No other significant finding. IMPRESSION: Normal CT appearance of the brain. EVIDENCE OF ACUTE STROKE: NO. COMMENT: Quality ID # [id number]: Final reports with documentation of one or more dose reduction techniques (e.g., Automated exposure control, adjustment of the mA and/or kV according to patient size, use of iterative reconstruction technique) TECHNICAL DOCUMENTATION: JOB ID: [id number] 2010 [employer]- All Rights Reserved Reading location - IP/workstation name: [email or web address]
--- NOTE | 2019-12-31 17:52 | RADIOLOGY REPORT (SQ) ---
EXAM DESCRIPTION: CTA CHEST IMAGES COMPLETED DATE/TIME: 12/31/2019 5:29 pm REASON FOR STUDY: sobr/tachycardia/elevated d dimer COMPARISON: 12/31/2019 and 12/28/2019 TECHNIQUE: CT scan of the chest performed using helical scanning technique with dynamic intravenous contrast injection. Images reviewed with lung, soft tissue and bone windows. Reconstructed coronal and sagittal MPR images reviewed. Additional 3 dimensional post-processing performed to develop Maximal Intensity Projection images (DE P). All images stored on PACS. All CT scanners at this facility use dose modulation, iterative reconstruction, and/or weight based d osing when appropriate to reduce radiation dose to as low as reasonably achievable (ALARA). [facility]: Dose Right [facility]: CareDose [facility]: Dose Right [facility]: Teradose 4D [facility]: [employer] CONTRAST TYPE AND DOSE: contrast/concentration: Isovue 350.00 mmol/ml; Total Contrast Delivered: 67. 0 ml; Total Saline Delivered: 75.0 ml Contrast bolus adequate for pulmonary arteries and aorta. RENAL FUNCTION: BUN 17; creatinine 0.82 RADIATION DOSE: CT Rad equipment meets quality standard of care and radiation dose reduction techniq ues were employed. CTDIvol: 9.9 - 29.8 mGy. DLP: 979 mGy-cm. . LIMITATIONS: None. FINDINGS: LUNGS AND PLEURA: Increasing multifocal airspace opacities. No pleural effusion. No pneu mothorax. AORTA AND GREAT VESSELS: Ectatic ascending aorta. No dissection. HEART: No pericardial effusion. No significant coronary artery calcifications. PULMONARY ARTERIES: No emboli visualized in the main pulmonary arteries or the segmental branches. HILAR AND MEDIASTINAL STRUCTURES: No identified masses or abnormal nodes. HARDWARE: None in the chest. UPPER ABDOMEN: No significant findings. Limited exam. THYROID AND OTHER SOFT TISSUES: No masses. No adenopathy. BONES: No acute or significant finding. 3D MIPS: Confirm above findings. OTHER: No other significant finding. IMPRESSION: 1. No central or segmental pulmonary embolus. 2. Increasing multifocal airspace opacities consistent with worsening multi lobar pneumonia. COMMENT: Quality ID # [id number]: Final reports with documentation of one or more dose reduction techniques (e.g., Automated exposure control, adjustment of the mA and/or kV according to patient size, use of iterative reconstruction technique) TECHNICAL DOCUMENTATION: JOB ID: [id number] 2010 [employer]- All Rights Reserved Reading location - IP/workstation name: [email or web address]
[2019-12-31] MEDS ORDERED: IPRATROPIUM/ALBUTEROL 0.5-2.5 MG/3 ML AMPUL NEB PRN (19:38)
[2019-12-31] MEDS ORDERED: ACETAMINOPHEN 325 MG TABLET PO PRN (19:54)
[2019-12-31] MEDS ORDERED: ONDANSETRON 4 MG TAB.RAPDIS PO PRN (19:54)
--- NOTE | 2019-12-31 20:29 | PDOC H&P ---
History of Present Illness Admission Date/PCP: 12/31/19 19:36 VERONN MCCARTY MD History of Present Illness: ADALBERTO OLSON is a 69 year old male with no PMH who presents to ED after 3 mo nths of recurrent PNA refractory to multiple courses of abx. Pt was seen in ED 3 mo ago and given z-doris and steroids without improvement, 1 week later given levaquin by outpt physician, then given an unknown 3rd abx with brief improvement then severe worsening of sx's. Throughout this course, he had severe cough (dry/wet intermittent), fevers/chills/N/V/D/SOB/TELLEZ/Confusion. Pt began urinating in the floor and demanding to wear multiple shirts at times, extremely strange behavior per who states pt is very healthy and has no medical problems, takes no meds. She does note he has had severe GERD and hiccups recently, which could be consistent with aspiration. ST eval ordered. Vanc/Cefepime started. BCx. RCx. Legionella urine Ag's. MRI brain to rule out malignancy or CVA which could be causing confusion and aspiration. CT head did not show acute abnormalities. CT PA here showed multifocal pneumonia primarily in the lower lobes and worse on the right. Prior CT of the chest showed the same and previous CT abdomen/pelvis did not show any acute abnormalities recently. Inflammatory markers are elevated which could be consistent with COVID pneumonia patient will be in the COVID unit until his COVID test returns. Past Medical History Cardiac Medical History: Reports: None Pulmonary Medical History: Reports: Pneumonia Past Surgical History Past Surgical History: Reports: None Social History Information Source: Relative, Emergency Med Personnel Lives with: Spouse/Significant other Smoking Status: Never Smoker Frequency of Alcohol Use: Rare Hx Recreational Drug Use: No Drugs: None Hx Prescription Drug Abuse: No - Advance Directive Resuscitation Status: Full Code Surrogate healthcare decision maker:: Family History Family History: Reviewed & Not Pertinent Parental Family History Reviewed: Yes Children Family History Reviewed: Yes Sibling(s) Family History Reviewed.: Yes Medication/Allergy Home Medications: Albuterol Sulfate [Proair HFA Inhalation Aerosol 8.5 gm MDI] 2 puff IH Q4H PRN #1 mdi 10/07/19 Azithromycin [Zithromax 250 mg Tablet] 250 mg PO ASDIR PRN #6 tablet 10/07/19 Albuterol Sulfate [Proair HFA Inhalation Aerosol 8.5 gm MDI] 2 puff IH Q4H PRN #1 mdi 12/13/19 Ondansetron [Zofran Odt 4 mg Tablet] 1 - 2 tab PO Q4H PRN #15 tab.rapdis 12/13/19 Allergies/Adverse Reactions: No Known Allergies Allergy (Unverified 10/07/19 10:59) Review of Systems ROS unobtainable: Due to mental status All systems: reviewed and no additional remarkable complaints except as stated - Unable to obtain review of systems Physical Exam Vital Signs: Temp Pulse Resp BP Pulse Ox 98.4 F 138 H 19 113/67 100 12/31/19 12:10 12/31/19 12:10 12/31/19 19:46 12/31/19 19:46 12/31/19 19:46 Intake & Output 12/30/19 12/31/19 01/01/20 06:59 06:59 06:59 Intake Total 1167 Balance 1167 Weight 68.039 kg General appearance: PRESENT: cooperative, disheveled, mild distress, thin Head exam: PRESENT: atraumatic, normocephalic Eye exam: PRESENT: conjunctiva pink. ABSENT: scleral icterus Mouth exam: PRESENT: moist Respiratory exam: PRESENT: crackles, rhonchi, tachypnea. ABSENT: accessory muscle use, chest wall tenderness, unlabored, wheezes Cardiovascular exam: PRESENT: RRR. ABSENT: diastolic murmur, rubs, systolic murmur GI/Abdominal exam: PRESENT: normal bowel sounds, soft. ABSENT: distended, guarding, mass, organolmegaly, rebound, tenderness Rectal exam: PRESENT: deferred Extremities exam: ABSENT: pedal edema Neurological exam: PRESENT: altered. ABSENT: alert, awake Skin exam: PRESENT: dry, intact, warm Results Laboratory Results: 12/31/19 12:36 12/31/19 15:30 12/31/19 12/31/19 12/31/19 12:36 12:36 12:36 WBC 8.8 RBC 4.94 Hgb 14.8 Hct 42.2 MCV 85 MCH 30.0 MCHC 35.2 RDW 15.5 H Plt Count 236 Seg Neutrophils % 83.9 H VBG pH VBG pCO2 VBG HCO3 VBG Base Excess Sodium Cancelled Potassium Cancelled Chloride Cancelled Carbon Dioxide Cancelled Anion Gap Cancelled BUN Cancelled Creatinine Cancelled Est GFR ( Amer) Cancelled Est GFR (Non-Af Amer) Cancelled Glucose Cancelled Lactic Acid 4.0 H Calcium Cancelled Ferritin Total Bilirubin Cancelled AST Cancelled Alkaline Phosphatase Cancelled Total Protein Cancelled Albumin Cancelled Lipase Urine Color Urine Appearance Urine pH Ur Specific [place] Urine Protein Urine Glucose (UA) Urine Ketones Urine Blood Urine Nitrite Ur Leukocyte Esterase Urine WBC (Auto) Urine RBC (Auto) 12/31/19 12/31/19 12/31/19 12:36 13:03 15:16 WBC RBC Hgb Hct MCV MCH MCHC RDW Plt Count Seg Neutrophils % VBG pH VBG pCO2 VBG HCO3 VBG Base Excess Sodium Cancelled Potassium Cancelled Chloride Cancelled Carbon Dioxide Cancelled Anion Gap Cancelled BUN Cancelled Creatinine Cancelled Est GFR ( Amer) Cancelled Est GFR (Non-Af Amer) Cancelled Glucose Cancelled Lactic Acid Calcium Cancelled Ferritin Total Bilirubin Cancelled AST Cancelled Alkaline Phosphatase Cancelled Total Protein Cancelled Albumin Cancelled Lipase Cancelled Cancelled Urine Color YELLOW Urine Appearance CLEAR Urine pH 6.0 Ur Specific [place] 1.012 Urine Protein 100 H Urine Glucose (UA) NEGATIVE Urine Ketones 20 H Urine Blood SMALL H Urine Nitrite NEGATIVE Ur Leukocyte Esterase NEGATIVE Urine WBC (Auto) 1 Urine RBC (Auto) 0 12/31/19 12/31/19 12/31/19 15:30 15:30 15:30 WBC RBC Hgb Hct MCV MCH MCHC RDW Plt Count Seg Neutrophils % VBG pH 7.34 VBG pCO2 42.4 VBG HCO3 22.5 VBG Base Excess -3.1 Sodium 129.5 L Potassium 4.5 Chloride 99 Carbon Dioxide 23 Anion Gap 8 BUN 17 Creatinine 0.82 Est GFR ( Amer) > 60 Est GFR (Non-Af Amer) Glucose 127 H Lactic Acid Calcium 8.0 L Ferritin 926.00 H Total Bilirubin 0.5 AST 57 Alkaline Phosphatase 81 Total Protein 5.8 L Albumin 2.6 L Lipase 462.9 H Urine Color Urine Appearance Urine pH Ur Specific [place] Urine Protein Urine Glucose (UA) Urine Ketones Urine Blood Urine Nitrite Ur Leukocyte Esterase Urine WBC (Auto) Urine RBC (Auto) 12/31/19 12/31/19 12/31/19 12:36 12:36 13:03 Creatine Kinase Cancelled Cancelled Troponin I Cancelled NT-Pro-B Natriuret Pep Cancelled 12/31/19 12/31/19 12/31/19 15:30 15:30 18:11 Creatine Kinase 59 Troponin I 0.013 0.016 NT-Pro-B Natriuret Pep 228 H Impressions: Chest X-Ray 12/31/19 12:15 IMPRESSION: Cannot exclude airspace disease in the left mid and lower lung, pneumonia versus atelectasis. Head CT 12/31/19 16:31 IMPRESSION: Normal CT appearance of the brain. EVIDENCE OF ACUTE STROKE: NO. Chest/Abdomen CTA 12/31/19 16:32 IMPRESSION: 1. No central or segmental pulmonary embolus. 2. Increasing multifocal airspace opacities consistent with worsening multi l obar pneumonia. Assessment and Plan - Diagnosis (1) Multifocal pneumonia Is this a current diagnosis for this admission?: Yes Plan: Suspect gram-negative, possibly aspiration pneumonia from recurrent silent aspiration/GERD Vancomycin/cefepime Respiratory culture, blood culture Duo nebs as needed Supplemental oxygen as needed Pulmonology consulted: They have been made aware of case by Dr. Swartz prior to admission Urine Legionella antigen Consider organizing pneumonia or other ILD etiology if work-up is otherwise negative (2) Acute metabolic encephalopathy Is this a current diagnosis for this admission?: Yes Plan: Likely due to sepsis and hypoxemia CT head with no acute abnormalities MRI brain ordered (3) Acute hypoxemic respiratory failure Is this a current diagnosis for this admission?: Yes Plan: Submental oxygen Duo nebs Due to pneumonia (4) Sepsis Qualifiers: Sepsis type: sepsis due to unspecified organism Sepsis acute organ dysfunction status: with acute organ dysfunction Severe sepsis acute organ dysfunction type: acute respiratory failure Acute respiratory failure type: with hypoxia Severe sepsis shock status: without septic shock Qualified Co de(s): A41.9 - Sepsis, unspecified organism; R65.20 - Severe sepsis without septic shock; J96.01 - Acute respiratory failure with hypoxia Is this a current diagnosis for this admission?: Yes Plan: Source is most likely pneumonia Vancomycin/cefepime Blood cultures, respiratory culture IV fluids (5) Recurrent pneumonia Is this a current diagnosis for this admission?: Yes Plan: Unclear etiology Has been through 3 courses of antibiotics and steroids with no lasting improvement (6) Intractable hiccups Is this a current diagnosis for this admission?: Yes Plan: Unclear etiology Consider Thorazine if these continue (7) Acid reflux Is this a current diagnosis for this admission?: Yes Plan: IV Protonix daily Possibly having silent aspiration from reflux (8) Suspected 2019-nCoV infection Is this a current diagnosis for this admission?: Yes Plan: Cover test pending Placed in isolation unit for coronavirus - Time Time Spent with patient: 35 or more minutes Medications reviewed and adjusted accordingly: Yes Anticipated Discharge Disposition: Home with Home Health Anticipated Discharge Timeframe: Unknown - Inpatient Certification Based on my medical assessment, after consideration of the patient's comorbidities, presenting symptoms, or acuity I expect that the services needed warrant INPATIENT care.: Yes I certify that my determination is in accordance with my understanding of Medicare's requirements for reasonable and necessary INPATIENT services [42 CFR 412.3e].: Yes Medical Necessity: Significant Comorbidiites Make Outpatient Treatment Too Risky, Need Close Monitoring Due to Risk of Patient Decompensation, Need For IV Fluids, Need for IV Antibiotics, Risk of Complication if Not Cared For in Hospital, Risk of Diagnosis Which Will Require Inpatient Eval/Care/Monitoring
--- NOTE | 2019-12-31 20:29 | ADVANCED CARE ---
- Diagnosis (1) Multifocal pneumonia Diagnosis Current: Yes (2) Acute metabolic encephalopathy Diagnosis Current: Yes (3) Acute hypoxemic respiratory failure Diagnosis Current: Yes (4) Sepsis Diagnosis Current: Yes (5) Recurrent pneumonia Diagnosis Current: Yes (6) Intractable hiccups Diagnosis Current: Yes (7) Acid reflux Diagnosis Current: Yes (8) Suspected 2019-nCoV infection Diagnosis Current: Yes Attendance: Patient, , physician Resuscitation Status: Full Code Discussion: All aspects of code status discussed with patient/POA including cardioversion, chest compressions, and intubation and the patient/POA indicated they wish to be full code MPOA is designated as: Time Spent: Greater than 16 minutes
[2019-12-31] MEDS: PANTOPRAZOLE SODIUM 40 MG VIAL IV SCH (20:45)
[2019-12-31] MEDS ORDERED: CEFEPIME 2 GM/D5W RTU 2 GM/50 ML RTUPB IV SCH (22:00)
[2019-12-31] MEDS: CEFEPIME HCL 2 GM in DEXTROSE 5%-WATER 50 ML IV SCH (22:17)
[2019-12-31] MEDS: MELATONIN 5 MG TABLET PO SCH (22:18)
--- NOTE | 2019-12-31 22:33 | RADIOLOGY REPORT (SQ) ---
EXAM DESCRIPTION: [facility]: MR BRAIN WITHOUT THEN WITH IV CONTRAST CLINICAL HISTORY: 69 years Male; confusion, ?CVA, ?Malignancy, ?infection; TECHNIQUE: Routine protocol MRI brain with and without intravenous contrast. COMPARISON: CT 12/31/2019 FINDINGS: No diffusion restriction. Mild diffuse cerebral atrophy. No acute edema or mass effect. No enhancing lesions. No significant hemosiderin deposition, although there is significant motion artifact on the gradient echo images. Calvarial marrow is normal. Paranasal sinuses and mastoid air cells are clear. Normal flow-voids are seen in the major intracranial arteries. IMPRESSION: 1. No acute infarct or other acute intracranial findings 2. Mild cerebral atrophy
[2019-12-31] MEDS: RINGERS SOLUTION,LACTATED 1,000 ML IV PRN (23:44)
[2020-01-01] MEDS ORDERED: METOPROLOL TARTRATE PF/INJ 5 MG/5 ML SDV IV PRN (00:22)
[2020-01-01] MEDS ORDERED: HALOPERIDOL LACTATE INJ 5 MG/1 ML VIAL IV PRN (01:28)
[2020-01-01] MEDS ORDERED: IBUPROFEN 800 MG TABLET PO PRN ×2 (01:42→11:49)
[2020-01-01] MEDS ORDERED: LORAZEPAM INJ 2 MG/1 ML VIAL IV PRN (01:43)
[2020-01-01] MEDS: VANCOMYCIN HCL 1,000 MG in DEXTROSE 5%-WATER 250 ML IV SCH ×2 (05:28→17:24)
[2020-01-01 05:34] LABS: ABSOLUTE LYMPHOCYTES (AUTO) 0.4 10^3/uL (0.5-4.7); ABSOLUTE MONOCYTES (AUTO) 0.2 10^3/uL (0.1-1.4); BASOPHILS % (AUTO) 0.2 % (0-2); HEMATOCRIT 32.1 % (37.9-51.0); LYMPHOCYTES % (AUTO) 7.3 % (13-45); MEAN CORPUSCULAR HEMOGLOBIN 29.8 pg (27.0-33.4); MEAN CORPUSCULAR HGB CONC 35.3 g/dL (32.0-36.0); MEAN CORPUSCULAR VOLUME 85 fl (80-97); MONOCYTES % (AUTO) 3.6 % (3-13); PLATELET COUNT 114 10^3/uL (150-450); RED CELL DISTRIBUTION WIDTH 14.7 % (11.5-14.0); SEGMENTED NEUTROPHILS % (AUTO) 88.9 % (42-78); TOTAL CELLS COUNTED % (AUTO) 100 %; WHITE BLOOD COUNT 5.6 10^3/uL (4.0-10.5)
[2020-01-01 05:39] LABS: HEMOGLOBIN 11.3 g/dL (13.5-17.0)
[2020-01-01 05:49] LABS: ANION GAP 9 (5-19); BLOOD UREA NITROGEN 19 mg/dL (7-20); CARBON DIOXIDE 18 mmol/L (22-30); CHLORIDE 105 mmol/L (98-107); GLUCOSE 97 mg/dL (75-110); PHOSPHORUS 4.6 mg/dL (2.5-4.5); POTASSIUM 4.1 mmol/L (3.6-5.0)
--- NOTE | 2020-01-01 07:40 | PDOC CONSULTATION ---
Consultation Consult Date: 01/01/20 Provider Consulted: VERNON MCCARTY Consult reason:: Hematology/Oncology consultation was requested for patient with pancytopenia and pneumonia. History of Present Illness Admission Date/PCP: 12/31/19 19:36 VERNON MCCARTY MD History of Present Illness: I was not able to see patient today due to COVID-19 restrictions, but I did personally examine him in my office yesterday. ADALBERTO OLSON is a 69 year old male who does not like to see physicians. This summer, he began having respiratory complaints with fever. He has been treated as an outpatient and thr ough the ED with multiple rounds of antibiotics, but his symptoms continue to worsen. CT scan was done as outpatient to rule out a neoplastic process, but this only showed further inflammatory changes. He has been tested several times for COVID-19 but thus far these have all been negative. He is now admitted for worsening hypoxia. Past Medical History Cardiac Medical History: Reports: None Pulmonary Medical History: Reports: Pneumonia Psychiatric Medical History: Denies: Depression Past Surgical History Past Surgical History: Reports: None Social History Lives with: Spouse/Significant other Smoking Status: Never Smoker Frequency of Alcohol Use: Rare Hx Recreational Drug Use: No Drugs: None Hx Prescription Drug Abuse: No - Advance Directive Resuscitation Status: Full Code Family History Family History: Reviewed & Not Pertinent Parental Family History Reviewed: Yes Children Family History Reviewed: Yes Sibling(s) Family History Reviewed.: Yes Medication/Allergy Home Medications: Albuterol Sulfate [Proair HFA Inhalation Aerosol 8.5 gm MDI] 2 puff IH Q4HP PRN 01/01/20 Allergies/Adverse Reactions: No Known Allergies Allergy (Unverified 10/07/19 10:59) Review of Systems Constitutional: PRESENT: fatigue, fever(s), weakness Eyes: ABSENT: visual disturbances Ears: ABSENT: hearing changes Nose, Mouth, and Throat: ABSENT: sore throat Cardiovascular: PRESENT: dyspnea on exertion. ABSENT: chest pain Respiratory: PRESENT: dyspnea Gastrointestinal: ABSENT: constipation, nausea Genitourinary: ABSENT: dysuria Integumentary: ABSENT: rash Neurological: PRESENT: confusion, weakness Hematologic/Lymphatic: ABSENT: easy bleeding Physical Exam Vital Signs: Temp Pulse Resp BP Pulse Ox 98.3 F 102 H 18 94/62 L 99 01/01/20 04:36 01/01/20 04:36 01/01/20 04:36 01/01/20 04:36 01/01/20 04:36 Intake & Output 12/31/19 01/01/20 01/02/20 06:59 06:59 06:59 Intake Total 1537 Balance 1537 Weight 74.6 kg General appearance: PRESENT: mild distress, thin Exam: 69 year old male. Head exam: PRESENT: normocephalic Eye exam: PRESENT: EOMI, PERRLA Mouth exam: PRESENT: moist, tongue midline Neck exam: ABSENT: lymphadenopathy, tenderness Respiratory exam: PRESENT: decreased breath sounds - Right base Cardiovascular exam: PRESENT: tachycardia GI/Abdominal exam: PRESENT: soft. ABSENT: tenderness Extremities exam: ABSENT: pedal edema Neurological exam: PRESENT: alert, awake, other - Hard of hearing Skin exam: PRESENT: cyanosis Results Laboratory Results: 01/01/20 05:16 01/01/20 05:16 12/31/19 12/31/19 12/31/19 12:36 12:36 12:36 WBC 8.8 RBC 4.94 Hgb 14.8 Hct 42.2 MCV 85 MCH 30.0 MCHC 35.2 RDW 15.5 H Plt Count 236 Seg Neutrophils % 83.9 H VBG pH VBG pCO2 VBG HCO3 VBG Base Excess Sodium Cancelled Potassium Cancelled Chloride Cancelled Carbon Dioxide Cancelled Anion Gap Cancelled BUN Cancelled Creatinine Cancelled Est GFR ( Amer) Cancelled Est GFR (Non-Af Amer) Cancelled Glucose Cancelled Lactic Acid 4.0 H Calcium Cancelled Phosphorus Magnesium Ferritin Total Bilirubin Cancelled AST Cancelled Alkaline Phosphatase Cancelled Total Protein Cancelled Albumin Cancelled Lipase Urine Color Urine Appearance Urine pH Ur Specific [place] Urine Protein Urine Glucose (UA) Urine Ketones Urine Blood Urine Nitrite Ur Leukocyte Esterase Urine WBC (Auto) Urine RBC (Auto) 12/31/19 12/31/19 12/31/19 12:36 13:03 15:16 WBC RBC Hgb Hct MCV MCH MCHC RDW Plt Count Seg Neutrophils % VBG pH VBG pCO2 VBG HCO3 VBG Base Excess Sodium Cancelled Potassium Cancelled Chloride Cancelled Carbon Dioxide Cancelled Anion Gap Cancelled BUN Cancelled Creatinine Cancelled Est GFR ( Amer) Cancelled Est GFR (Non-Af Amer) Cancelled Glucose Cancelled Lactic Acid Calcium Cancelled Phosphorus Magnesium Ferritin Total Bilirubin Cancelled AST Cancelled Alkaline Phosphatase Cancelled Total Protein Cancelled Albumin Cancelled Lipase Cancelled Cancelled Urine Color YELLOW Urine Appearance CLEAR Urine pH 6.0 Ur Specific [place] 1.012 Urine Protein 100 H Urine Glucose (UA) NEGATIVE Urine Ketones 20 H Urine Blood SMALL H Urine Nitrite NEGATIVE Ur Leukocyte Esterase NEGATIVE Urine WBC (Auto) 1 Urine RBC (Auto) 0 12/31/19 12/31/19 12/31/19 15:30 15:30 15:30 WBC RBC Hgb Hct MCV MCH MCHC RDW Plt Count Seg Neutrophils % VBG pH 7.34 VBG pCO2 42.4 VBG HCO3 22.5 VBG Base Excess -3.1 Sodium 129.5 L Potassium 4.5 Chloride 99 Carbon Dioxide 23 Anion Gap 8 BUN 17 Creatinine 0.82 Est GFR ( Amer) > 60 Est GFR (Non-Af Amer) Glucose 127 H Lactic Acid Calcium 8.0 L Phosphorus Magnesium Ferritin 926.00 H Total Bilirubin 0.5 AST 57 Alkaline Phosphatase 81 Total Protein 5.8 L Albumin 2.6 L Lipase 462.9 H Urine Color Urine Appearance Urine pH Ur Specific [place] Urine Protein Urine Glucose (UA) Urine Ketones Urine Blood Urine Nitrite Ur Leukocyte Esterase Urine WBC (Auto) Urine RBC (Auto) 01/01/20 01/01/20 05:16 05:16 WBC 5.6 RBC 3.80 L Hgb 11.3 L D Hct 32.1 L MCV 85 MCH 29.8 MCHC 35.3 RDW 14.7 H Plt Count 114 L Seg Neutrophils % 88.9 H VBG pH VBG pCO2 VBG HCO3 VBG Base Excess Sodium 131.9 L Potassium 4.1 Chloride 105 Carbon Dioxide 18 L Anion Gap 9 BUN 19 Creatinine 1.12 Est GFR ( Amer) > 60 Est GFR (Non-Af Amer) Glucose 97 Lactic Acid Calcium 8.0 L Phosphorus 4.6 H Magnesium 1.8 Ferritin Total Bilirubin AST Alkaline Phosphatase Total Protein Albumin Lipase Urine Color Urine Appearance Urine pH Ur Specific [place] Urine Protein Urine Glucose (UA) Urine Ketones Urine Blood Urine Nitrite Ur Leukocyte Esterase Urine WBC (Auto) Urine RBC (Auto) 12/31/19 12/31/19 12/31/19 12:36 12:36 13:03 Creatine Kinase Cancelled Cancelled Troponin I Cancelled NT-Pro-B Natriuret Pep Cancelled 0912/31/19 12/31/19 15:30 15:30 18:11 Creatine Kinase 59 Troponin I 0.013 0.016 NT-Pro-B Natriuret Pep 228 H Impressions: Head MRI 12/31/19 00:00 IMPRESSION: 1. No acute infarct or other acute intracranial findings 2. Mild cerebral atrophy Chest X-Ray 12/31/19 12:15 IMPRESSION: Cannot exclude airspace disease in the left mid and lower lung, pneumonia versus atelectasis. Head CT 12/31/19 16:31 IMPRESSION: Normal CT appearance of the brain. EVIDENCE OF ACUTE STROKE: NO. Chest/Abdomen CTA 12/31/19 16:32 IMPRESSION: 1. No central or segmental pulmonary embolus. 2. Increasing multifocal airspace opacities consistent with worsening multi lobar pneumonia. Status: Image reviewed by me Assessment & Plan - Diagnosis (1) Acute respiratory distress Is this a current diagnosis for this admission?: Yes (2) Recurrent pneumonia Is this a current diagnosis for this admission?: Yes - Plan Summary Plan Summary: His pancytopenia has resolved. This was most likely due to infection and antibiotics. There is currently no evidence of cancer. This looks to be an infectious process. I will only follow from a distance. Patient was discussed with Dr. Siddiqi in Pulmonary just prior to admission. Please consult pulmonary for further outpatient follow-up. Please call with any questions or concerns.
--- NOTE | 2020-01-01 08:35 | EKG REPORT ---
SEVERITY:- ABNORMAL ECG - SINUS TACHYCARDIA VENTRICULAR PREMATURE COMPLEX ABNORMAL T, CONSIDER ISCHEMIA, DIFFUSE LEADS : Confirmed by: Josephine Escalona MD 01-Jan-2020 08:35:07
--- NOTE | 2020-01-01 08:36 | EKG REPORT ---
SEVERITY:- ABNORMAL ECG - A-FLUTTER W/ VARIED AV BLOCK, A-RATE 286 ANTERIOR INFARCT, AGE INDETERMINATE NONSPECIFIC T ABNORMALITIES, INFERIOR LEADS : Confirmed by: Josephine Escalona MD 01-Jan-2020 08:35:31
[2020-01-01] MEDS: ENOXAPARIN SODIUM INJ 40 MG/0.4 ML DISP.SYRIN SUBCUT SCH (09:09)
[2020-01-01] MEDS: CHOLECALCIFEROL (D3) 1,000 UNIT (25 MCG) TABLET PO SCH (09:13)
[2020-01-01] MEDS: ZINC SULFATE 220 MG CAPSULE PO SCH (09:13)
[2020-01-01] MEDS: ASCORBIC ACID 500 MG TABLET PO SCH ×2 (09:13→17:24)
[2020-01-01] MEDS: PANTOPRAZOLE SODIUM 40 MG VIAL IV SCH (09:13)
[2020-01-01] MEDS: DEXAMETHASONE SOD PHOS INJ 10 MG/1 ML VIAL IV SCH (09:13)
[2020-01-01] MEDS: CEFEPIME HCL 2 GM in DEXTROSE 5%-WATER 50 ML IV SCH ×2 (09:43→22:04)
[2020-01-01] MEDS ORDERED: VANCOMYCIN HCL INJ 1000 MG VIAL IV SCH (10:00)
[2020-01-01] MEDS ORDERED: ACETAMINOPHEN 325 MG TABLET PO PRN (11:49)
[2020-01-01] MEDS ORDERED: MAG HYDROX/AL HYDROX/SIMETH SUSP 30 ML UDCUP PO PRN (11:50)
[2020-01-01] MEDS ORDERED: PANTOPRAZOLE SODIUM 40 MG TABLET.DR PO SCH (12:00)
--- NOTE | 2020-01-01 12:11 | PDOC PROGRESS REPORT ---
Subjective Progress Note for:: 01/01/20 Subjective:: Patient today complains of heartburn and reflux. He states that he gets this typically at home and complains of it often. He also had some nausea this morning. Notably has been having hiccups. He is able to vocalize and explain his recent history of pneumonias but he is not able to give me a good timeline. Reason For Visit: MULTIFOCAL PNEUMONIA Physical Exam Vital Signs: Temp Pulse Resp BP Pulse Ox 97.9 F 82 18 103/63 94 01/01/20 07:35 01/01/20 07:35 01/01/20 04:36 01/01/20 07:35 01/01/20 07:35 Intake & Output 12/31/19 01/01/20 01/02/20 06:59 06:59 06:59 Intake Total 1537 250 Balance 1537 250 Weight 74.6 kg General appearance: PRESENT: no acute distress, cooperative, hard of hearing. ABSENT: obese Neck exam: ABSENT: JVD Respiratory exam: PRESENT: crackles - Lower lung li, symmetrical, tachypnea, unlabored. ABSENT: accessory muscle use, stridor, wheezes Cardiovascular exam: PRESENT: +S1, +S2. ABSENT: irregular rhythm, tachycardia GI/Abdominal exam: PRESENT: soft. ABSENT: rebound, rigid, tenderness Neurological exam: PRESENT: alert, awake, oriented to person, oriented to place, oriented to time, oriented to situation, other - Conversational Psychiatric exam: ABSENT: agitated, anxious Results Laboratory Results: 01/01/20 05:16 01/01/20 05:16 12/31/19 12/31/19 12/31/19 12:36 12:36 12:36 WBC 8.8 RBC 4.94 Hgb 14.8 Hct 42.2 MCV 85 MCH 30.0 MCHC 35.2 RDW 15.5 H Plt Count 236 Seg Neutrophils % 83.9 H VBG pH VBG pCO2 VBG HCO3 VBG Base Excess Sodium Cancelled Potassium Cancelled Chloride Cancelled Carbon Dioxide Cancelled Anion Gap Cancelled BUN Cancelled Creatinine Cancelled Est GFR ( Amer) Cancelled Est GFR (Non-Af Amer) Cancelled Glucose Cancelled Lactic Acid 4.0 H Calcium Cancelled Phosphorus Magnesium Ferritin Total Bilirubin Cancelled AST Cancelled Alkaline Phosphatase Cancelled Total Protein Cancelled Albumin Cancelled Lipase Urine Color Urine Appearance Urine pH Ur Specific [place] Urine Protein Urine Glucose (UA) Urine Ketones Urine Blood Urine Nitrite Ur Leukocyte Esterase Urine WBC (Auto) Urine RBC (Auto) 12/31/19 12/31/19 12/31/19 12:36 13:03 15:16 WBC RBC Hgb Hct MCV MCH MCHC RDW Plt Count Seg Neutrophils % VBG pH VBG pCO2 VBG HCO3 VBG Base Excess Sodium Cancelled Potassium Cancelled Chloride Cancelled Carbon Dioxide Cancelled Anion Gap Cancelled BUN Cancelled Creatinine Cancelled Est GFR ( Amer) Cancelled Est GFR (Non-Af Amer) Cancelled Glucose Cancelled Lactic Acid Calcium Cancelled Phosphorus Magnesium Ferritin Total Bilirubin Cancelled AST Cancelled Alkaline Phosphatase Cancelled Total Protein Cancelled Albumin Cancelled Lipase Cancelled Cancelled Urine Color YELLOW Urine Appearance CLEAR Urine pH 6.0 Ur Specific [place] 1.012 Urine Protein 100 H Urine Glucose (UA) NEGATIVE Urine Ketones 20 H Urine Blood SMALL H Urine Nitrite NEGATIVE Ur Leukocyte Esterase NEGATIVE Urine WBC (Auto) 1 Urine RBC (Auto) 0 12/31/19 12/31/19 12/31/19 15:30 15:30 15:30 WBC RBC Hgb Hct MCV MCH MCHC RDW Plt Count Seg Neutrophils % VBG pH 7.34 VBG pCO2 42.4 VBG HCO3 22.5 VBG Base Excess -3.1 Sodium 129.5 L Potassium 4.5 Chloride 99 Carbon Dioxide 23 Anion Gap 8 BUN 17 Creatinine 0.82 Est GFR ( Amer) > 60 Est GFR (Non-Af Amer) Glucose 127 H Lactic Acid Calcium 8.0 L Phosphorus Magnesium Ferritin 926.00 H Total Bilirubin 0.5 AST 57 Alkaline Phosphatase 81 Total Protein 5.8 L Albumin 2.6 L Lipase 462.9 H Urine Color Urine Appearance Urine pH Ur Specific [place] Urine Protein Urine Glucose (UA) Urine Ketones Urine Blood Urine Nitrite Ur Leukocyte Esterase Urine WBC (Auto) Urine RBC (Auto) 01/01/20 01/01/20 05:16 05:16 WBC 5.6 RBC 3.80 L Hgb 11.3 L D Hct 32.1 L MCV 85 MCH 29.8 MCHC 35.3 RDW 14.7 H Plt Count 114 L Seg Neutrophils % 88.9 H VBG pH VBG pCO2 VBG HCO3 VBG Base Excess Sodium 131.9 L Potassium 4.1 Chloride 105 Carbon Dioxide 18 L Anion Gap 9 BUN 19 Creatinine 1.12 Est GFR ( Amer) > 60 Est GFR (Non-Af Amer) Glucose 97 Lactic Acid Calcium 8.0 L Phosphorus 4.6 H Magnesium 1.8 Ferritin Total Bilirubin AST Alkaline Phosphatase Total Protein Albumin Lipase Urine Color Urine Appearance Urine pH Ur Specific [place] Urine Protein Urine Glucose (UA) Urine Ketones Urine Blood Urine Nitrite Ur Leukocyte Esterase Urine WBC (Auto) Urine RBC (Auto) 12/31/19 12/31/19 12/31/19 12:36 12:36 13:03 Creatine Kinase Cancelled Cancelled Troponin I Cancelled NT-Pro-B Natriuret Pep Cancelled 12/31/19 12/31/19 12/31/19 15:30 15:30 18:11 Creatine Kinase 59 Troponin I 0.013 0.016 NT-Pro-B Natriuret Pep 228 H Impressions: Head MRI 12/31/19 00:00 IMPRESSION: 1. No acute infarct or other acute intracranial findings 2. Mild cerebral atrophy Chest X-Ray 12/31/19 12:15 IMPRESSION: Cannot exclude airspace disease in the left mid and lower lung, pneumonia versus atelectasis. Head CT 12/31/19 16:31 IMPRESSION: Normal CT appearance of the brain. EVIDENCE OF ACUTE STROKE: NO. Chest/Abdomen CTA 12/31/19 16:32 IMPRESSION: 1. No central or segmental pulmonary embolus. 2. Increasing multifocal airspace opacities consistent with worsening multi lobar pneumonia. Assessment and Plan - Diagnosis (1) Multifocal pneumonia Is this a current diagnosis for this admission?: Yes Plan: Seems to be most prominent in bilateral lower lung li on CT imaging Reviewed his prior chest imaging which checks x-ray showed right upper lobe pneumonia but September which seem to have improved on imaging done in October but now showing significant infiltrates and bilateral lower and mid lung li. Patient is under investigation for COVID-19 infection Also receiving treatment with IV antibiotics has still could be potentially bacterial pneumonia. Pulmonology was consulted. Continue dexamethasone IV (2) Acute hypoxemic respiratory failure Is this a current diagnosis for this admission?: Yes Plan: Secondary to pneumonia. This morning, I placed patient on 6 L nasal cannula and his SPO2 desat to 81%. Will place patient on Oxymizer at 8 to 9 L NC or can try Ventimask at 50% FiO2. (3) Sepsis Qualifiers: Sepsis type: sepsis due to unspecified organism Sepsis acute organ dysfunction status: with acute organ dysfunction Severe sepsis acute organ dysfunction type: acute respiratory failure Acute respiratory failure type: with hypoxia Severe sepsis shock status: without septic shock Qualified Code(s): A41.9 - Sepsis, unspecified organism; R65.20 - Severe sepsis without septic shock; J96.01 - Acute respiratory failure with hypoxia Is this a current diagnosis for this admission?: Yes Plan: Continue treatment for pneumonia. BP is still soft but MAPs have been adequate. Continue IV fluids. Recheck lactic acid level. (4) Acid reflux Qualifiers: Esophagitis presence: esophagitis presence not specified Qualified Code(s): K21.9 - Gastro-esophageal reflux disease without esophagitis Is this a current diagnosis for this admission?: Yes Plan: Will switch to p.o. Protonix every morning and add bedtime famotidine (5) Acute metabolic encephalopathy Is this a current diagnosis for this admission?: Yes Plan: MRI brain only significant for cerebral atrophy. Today patient is conversational and oriented but does seem to have some gaps in memory. (6) Intractable hiccups Is this a current diagnosis for this admission?: Yes Plan: Persist this morning. We will try some p.o. baclofen as needed. - Time Time Spent with patient: 15-24 minutes Anticipated Discharge Disposition: Home, Self Care Anticipated Discharge Timeframe: within 72 hours
[2020-01-01] MEDS: BACLOFEN 10 MG TABLET PO PRN (17:24)
[2020-01-01] MEDS: MELATONIN 5 MG TABLET PO SCH (21:56)
[2020-01-01] MEDS: FAMOTIDINE 20 MG TABLET PO SCH (21:56)
[2020-01-01] MEDS: ONDANSETRON HCL INJ/PF 4 MG/2 ML SDV IV PRN (21:56)
[2020-01-01] MEDS: RINGERS SOLUTION,LACTATED 1,000 ML IV PRN (23:03)
[2020-01-02] MEDS: VANCOMYCIN HCL 1,000 MG in DEXTROSE 5%-WATER 250 ML IV SCH ×2 (05:22→18:27)
[2020-01-02] MEDS: PANTOPRAZOLE SODIUM 40 MG TABLET.DR PO SCH (05:23)
[2020-01-02 05:37] LABS: ANION GAP 7 (5-19); BLOOD UREA NITROGEN 16 mg/dL (7-20); CALCIUM 8.5 mg/dL (8.4-10.2); CARBON DIOXIDE 21 mmol/L (22-30); CHLORIDE 103 mmol/L (98-107); GLUCOSE 120 mg/dL (75-110); POTASSIUM 4.4 mmol/L (3.6-5.0)
[2020-01-02 05:42] LABS: HEMATOCRIT 31.6 % (37.9-51.0); HEMOGLOBIN 11.3 g/dL (13.5-17.0); MEAN CORPUSCULAR HGB CONC 35.7 g/dL (32.0-36.0); MEAN CORPUSCULAR VOLUME 84 fl (80-97); PLATELET COUNT 122 10^3/uL (150-450); RED BLOOD COUNT 3.75 10^6/uL (4.35-5.55); RED CELL DISTRIBUTION WIDTH 14.9 % (11.5-14.0); WHITE BLOOD COUNT 5.3 10^3/uL (4.0-10.5)
[2020-01-02 05:52] LABS: ABSOLUTE LYMPHOCYTES# (MANUAL) 0.2 10^3/uL (0.5-4.7); ABSOLUTE MONOCYTES # (MANUAL) 0.1 10^3/uL (0.1-1.4); BAND NEUTROPHILS % (MANUAL) 1 % (3-5); BASOPHILS % (MANUAL) 0 % (0-2); EOSINOPHILS % (MANUAL) 0 % (0-6); LYMPHOCYTES % (MANUAL) 3 % (13-45); MONOCYTES % (MANUAL) 1 % (3-13); SEGMENTED NEUTROPHILS % (MAN) 95 % (42-78); TOTAL CELLS COUNTED 100
[2020-01-02 05:53] LABS: ANISOCYTOSIS SLIGHT; OVALOCYTES SLIGHT; PLATELET COMMENT DECREASED
[2020-01-02] MEDS: DEXAMETHASONE SOD PHOS INJ 10 MG/1 ML VIAL IV SCH (09:27)
[2020-01-02] MEDS: ENOXAPARIN SODIUM INJ 40 MG/0.4 ML DISP.SYRIN SUBCUT SCH (09:29)
[2020-01-02] MEDS: ASCORBIC ACID 500 MG TABLET PO SCH ×2 (09:29→17:01)
[2020-01-02] MEDS: CHOLECALCIFEROL (D3) 1,000 UNIT (25 MCG) TABLET PO SCH (09:29)
[2020-01-02] MEDS: ZINC SULFATE 220 MG CAPSULE PO SCH (09:29)
[2020-01-02] MEDS: ONDANSETRON HCL INJ/PF 4 MG/2 ML SDV IV PRN (09:38)
[2020-01-02] MEDS: RINGERS SOLUTION,LACTATED 1,000 ML IV PRN (09:46)
[2020-01-02] MEDS: CEFEPIME HCL 2 GM in DEXTROSE 5%-WATER 50 ML IV SCH ×2 (10:48→21:32)
[2020-01-02] MEDS ORDERED: MORPHINE SULFATE 10 MG/ML INJ ONE (11:06)
[2020-01-02] MEDS ORDERED: FUROSEMIDE INJ/PF 20 MG/2 ML SDV IV ONE (11:13)
--- NOTE | 2020-01-02 11:24 | PDOC PROGRESS REPORT ---
Subjective Progress Note for:: 01/02/20 Subjective:: Patient became severely tachypneic overnight and was placed on bipap. This morning, he remains tachypneic and hypoxic. He was placed on the Ventimask with SPO2 in the low 80s at 50% FiO2. He complains of some shortness of breath but mainly fixated on nausea and is having dry heaves for the most part. Reason For Visit: MULTIFOCAL PNEUMONIA Physical Exam Vital Signs: Temp Pulse Resp BP Pulse Ox 98.5 F 104 H 39 H 132/88 H 99 01/02/20 08:28 01/02/20 08:28 01/02/20 08:28 01/02/20 08:28 01/02/20 08:28 Intake & Output 01/01/20 01/02/20 01/03/20 06:59 06:59 06:59 Intake Total 1537 1670 1054 Balance 1537 1670 1054 Weight 74.6 kg 78.9 kg General appearance: PRESENT: cooperative, other - In mild to moderate distress. ABSENT: morbidly obese, obese Head exam: PRESENT: normocephalic Respiratory exam: PRESENT: prolonged expiratory phas, rhonchi - mild, symmet rical, tachypnea. ABSENT: crackles, retraction, stridor, wheezes Cardiovascular exam: PRESENT: +S1, +S2, tachycardia. ABSENT: irregular rhythm GI/Abdominal exam: PRESENT: soft. ABSENT: rebound, rigid, tenderness Neurological exam: PRESENT: alert, awake Psychiatric exam: PRESENT: anxious. ABSENT: agitated Focused psych exam: ABSENT: pressured speech Skin exam: ABSENT: jaundice Results Laboratory Results: 01/02/20 04:55 01/02/20 04:55 01/01/20 01/02/20 01/02/20 13:31 04:55 04:55 WBC 5.3 RBC 3.75 L Hgb 11.3 L Hct 31.6 L MCV 84 MCH 30.0 MCHC 35.7 RDW 14.9 H Plt Count 122 L Seg Neutrophils % Not Reportable Sodium 131.2 L Potassium 4.4 Chloride 103 Carbon Dioxide 21 L Anion Gap 7 BUN 16 Creatinine 0.80 Est GFR ( Amer) > 60 Glucose 120 H Lactic Acid 0.9 Calcium 8.5 12/31/19 12/31/19 12/31/19 12:36 12:36 13:03 Creatine Kinase Cancelled Cancelled Troponin I Cancelled NT-Pro-B Natriuret Pep Cancelled 12/31/19 12/31/19 12/31/19 15:30 15:30 18:11 Creatine Kinase 59 Troponin I 0.013 0.016 NT-Pro-B Natriuret Pep 228 H Impressions: Head MRI 12/31/19 00:00 IMPRESSION: 1. No acute infarct or other acute intracranial findings 2. Mild cerebral atrophy Head CT 12/31/19 16:31 IMPRESSION: Normal CT appearance of the brain. EVIDENCE OF ACUTE STROKE: NO. Chest/Abdomen CTA 12/31/19 16:32 IMPRESSION: 1. No central or segmental pulmonary embolus. 2. Increasing multifocal airspace opacities consistent with worsening multi lobar pneumonia. Assessment and Plan - Diagnosis (1) Acute hypoxemic respiratory failure Is this a current diagnosis for this admission?: Yes Plan: CT shows airspace & interstitial disease with groundglass opacities diffusely- infectious versus inflammatory. No PE noted. BNP is only minimally elevated. Patient is doing worse this morning despite being on broad-spectrum antibiotics and dexamethasone. His COVID-19 test is showing interstitial infiltrates Notably significantly tachypneic. Repeat chest x-ray showing interstitial infiltrates. Will obtain stat ABG Switch dexamethasone to IV Solu-Medrol We will try a dose of 60 mg IV Lasix to see if that helps with his hypoxia Did not tolerate 50% FiO2 on Ventimask with SPO2 dropping down to 82% so placed back on BiPAP at 40% while awaiting blood gas results. Also tried some IV morphine 2 mg for patient's work of breathing Discussed with Dr. Siddiqi who evaluated patient today. Updated patient's about situation (2) Multifocal pneumonia Is this a current diagnosis for this admission?: Yes Plan: Continue vancomycin and cefepime for now. Blood culture is negative so far. (3) Sepsis Qualifiers: Sepsis type: sepsis due to unspecified organism Sepsis acute organ dysfunction status: with acute organ dysfunction Severe sepsis acute organ dysfunction type: acute respiratory failure Acute respiratory failure type: with hypoxia Severe sepsis shock status: without septic shock Qualified Code(s): A41.9 - Sepsis, unspecified organism; R65.20 - Severe sepsis without septic shock; J96.01 - Acute respiratory failure with hypoxia Is this a current diagnosis for this admission?: Yes (4) Acid reflux Qualifiers: Esophagitis presence: esophagitis presence not specified Qualified Code(s): K21.9 - Gastro-esophageal reflux disease without esophagitis Is this a current diagnosis for this admission?: Yes Plan: Will switch to p.o. Protonix every morning and bedtime famotidine (5) Acute metabolic encephalopathy Is this a current diagnosis for this admission?: Yes Plan: MRI brain only significant for cerebral atrophy. Today patient is conversation al and oriented but does seem to have some gaps in memory. (6) Intractable hiccups Is this a current diagnosis for this admission?: Yes Plan: Persist this morning. We will try some p.o. baclofen as needed. - Time Time Spent with patient: 25-34 minutes Anticipated Discharge Disposition: Home, Self Care Anticipated Discharge Timeframe: Undetermined
--- NOTE | 2020-01-02 11:27 | RADIOLOGY REPORT (SQ) ---
EXAM DESCRIPTION: CHEST SINGLE VIEW IMAGES COMPLETED DATE/TIME: 01/02/2020 11:12 am REASON FOR STUDY: respiratory distress COMPARISON: 12/31/2019 NUMBER OF VIEWS: One view. TECHNIQUE: Single frontal radiographic image of the chest acquired. LIMITATIONS: None. FINDINGS: LUNGS AND PLEURA: No significant interval change allowing for slight differences in degree of inspiration. Persistent interstitial airspace disease. MEDIASTINUM AND HILAR STRUCTURES: Stable heart size and mediastinal structures. HEART AND VASCULAR STRUCTURES: Stable appearance. BONES: No acute findings. HARDWARE: None in the chest. OTHER: No other significant finding. IMPRESSION: STABLE APPEARANCE OF THE CHEST. TECHNICAL DOCUMENTATION: JOB ID: [id number] 2010 [employer]- All Rights Reserved Reading location - IP/workstation name: [email or web address]
[2020-01-02 11:28] LABS: ARTERIAL BLOOD BASE EXCESS -2.7 mmol/L; ARTERIAL BLOOD FIO2 100%; ARTERIAL BLOOD H2CO3 0.95 mmol/L (1.05-1.35); ARTERIAL BLOOD HCO3 20.7 mmol/L (20-24); ARTERIAL BLOOD PCO2 31.5 mmHg (35-45); ARTERIAL BLOOD PH 7.44 (7.35-7.45); ARTERIAL BLOOD PO2 105.5 mmHg (80-100); ARTERIAL BLOOD TOTAL CO2 21.6 mmol/L (23-27)
[2020-01-02] MEDS ORDERED: FUROSEMIDE INJ/PF 100 MG/10 ML SDV IV ONE (12:00)
[2020-01-02] MEDS ORDERED: LORAZEPAM INJ 2 MG/1 ML VIAL IV ONE (12:45)
[2020-01-02 12:51] LABS: A TYPE INFLUENZA AG NEGATIVE (NEGATIVE); B INFLUENZA AG NEGATIVE (NEGATIVE)
[2020-01-02] MEDS ORDERED: MORPHINE SULFATE 10 MG/ML INJ IV ONE (13:00)
[2020-01-02] MEDS: METHYLPREDNISOLONE INJ 40 MG/1 ML SDV IV SCH ×2 (13:07→21:32)
--- NOTE | 2020-01-02 13:59 | PDOC CONSULTATION ---
Consultation Consult Date: 01/02/20 Provider Consulted: DWIGHT JORGENSEN History of Present Illness Admission Date/PCP: 12/31/19 19:36 VERNON MCCARTY MD History of Present Illness: ADALBERTO OLSON is a 69 year old male Who presents with increasing dyspnea and shortness of breath. His CT scan done as an outpatient reveals diffuse pulmonary infiltrates and he is admitted with increasing breathlessness. This patient's history begins approximately 9 months ago when his noted a cough. Parenthetically I will note that all of the history was obtained from the from a telephone call as the patient was not able to give any historical data. The noted also that he has had approximately a 40 to 50 pound weight loss over the last 6 months or so. Beginning approximately 5 months ago the patient complained of cough mild shortness of breath loss of sense of smell and loss of taste. Approximately 3 to 4 months ago the breathlessness increased and he was evaluated in the emergency room on approximately October 07, 2019. Chest x-ray at that time revealed bilateral infiltrates most prominently in the right apical area. Apparently beginning around this time he took several courses of antibiotics. Also around this time he was noted to have pancytopenia. Subsequently because of his pancytopenia weight loss and abnormal chest films he was referred to Dr. Swartz for evaluation for potential cancer. She evaluated the patient on Tuesday of this week after a CT scan done on 12/28/2019 was performed. At the time of her evaluation he was quite short of breath and his CT scan revealed diffuse pulmonary infiltrates. He was admitted to the hospital at that time and a subsequent COVID test has been negative. I am now asked to help evaluate this patient's underlying pulmonary process. Patient's states that he was not a cigarette smoker. She also states he was quite healthy in the recent past. He apparently was also on no medication. Other than the symptoms described above his review of systems was essentially negative. Patient previously worked at [employer]. Past Medical History Cardiac Medical History: Reports: None Pulmonary Medical History: Reports: Pneumonia Psychiatric Medical History: Denies: Depression Past Surgical History Past Surgical History: Unknown at this time because of the patient's overall condition Past Surgical History: Reports: None Social History Information Source: Relative - Occupation: He previously worked for [employer]. Lives with: Spouse/Significant other Smoking Status: Never Smoker Frequency of Alcohol Use: Rare Hx Recreational Drug Use: No Drugs: None Hx Prescription Drug Abuse: No - Advance Directive Resuscitation Status: Full Code Family History Family History: None, Reviewed & Not Pertinent - No significant history of pulmonary disease Parental Family History Reviewed: No - Unable to obtain because the patient is intubated Children Family History Reviewed: No Sibling(s) Family History Reviewed.: No Medication/Allergy Home Medications: Albuterol Sulfate [Proair HFA Inhalation Aerosol 8.5 gm MDI] 2 puff IH Q4HP PRN 01/01/20 Allergies/Adverse Reactions: No Known Allergies Allergy (Unverified 10/07/19 10:59) Review of Systems ROS unobtainable: Due to endotracheal tube Physical Exam Vital Signs: Temp Pulse Resp BP Pulse Ox 98.8 F 115 H 42 H 101/66 97 01/02/20 12:40 01/02/20 12:40 01/02/20 12:40 01/02/20 12:40 01/02/20 12:40 Intake & Output 01/01/20 01/02/20 01/03/20 06:59 06:59 06:59 Intake Total 1537 1670 1330 Balance 1537 1670 1330 Weight 74.6 kg 78.9 kg Exam: This patient's examination was somewhat limited. He was seen in bed with a BiPAP device in place. He was confused and unable to answer direct questions. His respiratory rate was elevated at approximately 26-30. He appeared to be in mild to moderate respiratory distress. His extraocular movements appear to be roughly intact. His neck was supple without adenopathy or bruits. Heart exam revealed tachycardia without obvious murmur. Lung exam revealed diffuse rhonchi no obvious wheezes were appreciated tactile and vocal fremitus could not be obtained abdominal exam revealed absent abdominal sounds. Extremity exam revealed no clubbing or edema he did have faint nailbed cyanosis. Neurologically he grossly appeared confused. Results Laboratory Results: 01/02/20 04:55 01/02/20 04:55 01/01/20 01/02/20 01/02/20 13:31 04:55 04:55 WBC 5.3 RBC 3.75 L Hgb 11.3 L Hct 31.6 L MCV 84 MCH 30.0 MCHC 35.7 RDW 14.9 H Plt Count 122 L Seg Neutrophils % Not Reportable Carbonic Acid HCO3/H2CO3 Ratio ABG pH ABG pCO2 ABG pO2 ABG HCO3 ABG O2 Saturation ABG Base Excess FiO2 Sodium 131.2 L Potassium 4.4 Chloride 103 Carbon Dioxide 21 L Anion Gap 7 BUN 16 Creatinine 0.80 Est GFR ( Amer) > 60 Glucose 120 H Lactic Acid 0.9 Calcium 8.5 01/02/20 10:50 WBC RBC Hgb Hct MCV MCH MCHC RDW Plt Count Seg Neutrophils % Carbonic Acid 0.95 L HCO3/H2CO3 Ratio 21:1 ABG pH 7.44 ABG pCO2 31.5 L ABG pO2 105.5 H ABG HCO3 20.7 ABG O2 Saturation 98.0 ABG Base Excess -2.7 FiO2 100% Sodium Potassium Chloride Carbon Dioxide Anion Gap BUN Creatinine Est GFR ( Amer) Glucose Lactic Acid Calcium 12/31/19 12/31/19 12/31/19 12:36 12:36 13:03 Creatine Kinase Cancelled Cancelled Troponin I Cancelled NT-Pro-B Natriuret Pep Cancelled 12/31/19 12/31/19 12/31/19 15:30 15:30 18:11 Creatine Kinase 59 Troponin I 0.013 0.016 NT-Pro-B Natriuret Pep 228 H Impressions: Head MRI 12/31/19 00:00 IMPRESSION: 1. No acute infarct or other acute intracranial findings 2. Mild cerebral atrophy Head CT 12/31/19 16:31 IMPRESSION: Normal CT appearance of the brain. EVIDENCE OF ACUTE STROKE: NO. Chest/Abdomen CTA 12/31/19 16:32 IMPRESSION: 1. No central or segmental pulmonary embolus. 2. Increasing multifocal airspace opacities consistent with worsening multi lobar pneumonia. Chest X-Ray 01/02/20 00:00 IMPRESSION: STABLE APPEARANCE OF THE CHEST. Status: Image reviewed by me - I have reviewed a series of x-rays as well as CT scans dated back to October 07, 2019. In particular the images of the chest reveal a persistent lung infiltrative process. This is been somewhat waxing and waning and present in different regions of the lung. Assessment & Plan - Diagnosis (1) Acute metabolic encephalopathy Is this a current diagnosis for this admission?: Yes (2) Acute respiratory distress Is this a current diagnosis for this admission?: Yes (5) Multifocal pneumonia Is this a current diagnosis for this admission?: Yes (6) Recurrent pneumonia Is this a current diagnosis for this admission?: Yes (7) Acute hypoxemic respiratory failure Is this a current diagnosis for this admission?: Yes - Plan Summary Plan Summary: This patient presents with a several month history of pulmonary infiltrates and increasing shortness of breath. Notably there does not appear to be a significant history of white cell count elevation or significant prolonged fever. While he should certainly receive aggressive broad-spectrum antibiotic coverage for his pulmonary infiltrative process it seems unlikely that this is an acute pneumonia. More concerning for me is the fact that this may be sequelae from COVID-19. In particular this patient had a loss of taste and sense of smell. While this is not particularly sensitive it is quite specific for COVID-19. Also concerning is the fact that he has had pulmonary infiltrates going back to September of this year. This also would fit a typical post COVID pulmonary complication course. Notably it appears as if the patient had some symptomatology going back as far as 9 months ago which would have been around the April timeframe. The indicates that he noted a cough at that time. She also notes over roughly the last 6 months that he has had a significant weight loss. Additionally this patient had a pancytopenia at some point in the summertime again which would be consistent with a post COVID sequelae. Other diagnoses include autoimmune lung disease, acute interstitial pneumonias, eosinophilic pneumonia, allergic alveolitis, lymphangitic spread of carcinoma, and alveolar cell carcinoma. Should his symptoms worsen I think intubation and transfer to the intensive care unit may be appropriate. At some point we may need to perform a bronchoscopy and/or potentially a lung biopsy. I discussed all of these possibilities with the who is agreeable to proceed with any therapies or diagnostic studies which would be helpful. We will follow with you during this patient's hospitalization.
--- NOTE | 2020-01-02 14:45 | EKG REPORT ---
SEVERITY:- ABNORMAL ECG - SINUS TACHYCARDIA BORDERLINE LEFT AXIS DEVIATION CONSIDER ANTEROSEPTAL INFARCT NONSPECIFIC T ABNORMALITIES, INFERIOR LEADS : Confirmed by: Josephine Escalona MD 02-Jan-2020 14:44:46
[2020-01-02 18:15] LABS: VANCOMYCIN,TROUGH 12.1 ug/mL (5.0-20.0)
[2020-01-02] MEDS: MELATONIN 5 MG TABLET PO SCH (21:32)
[2020-01-02] MEDS: FAMOTIDINE 20 MG TABLET PO SCH (21:33)
[2020-01-03 02:59] LABS: ARTERIAL BLOOD BASE EXCESS -0.7 mmol/L; ARTERIAL BLOOD H2CO3 1.07 mmol/L (1.05-1.35); ARTERIAL BLOOD HCO3 23.1 mmol/L (20-24); ARTERIAL BLOOD PCO2 35.6 mmHg (35-45); ARTERIAL BLOOD PH 7.43 (7.35-7.45); ARTERIAL BLOOD PO2 148.8 mmHg (80-100); ARTERIAL BLOOD TOTAL CO2 24.2 mmol/L (23-27)
[2020-01-03 03:01] LABS: ARTERIAL BLOOD FIO2 65%
[2020-01-03] MEDS: LORAZEPAM INJ 2 MG/1 ML VIAL IV PRN ×3 (03:16→22:30)
[2020-01-03] MEDS: VANCOMYCIN HCL 1,000 MG in DEXTROSE 5%-WATER 250 ML IV SCH ×2 (06:18→18:30)
[2020-01-03] MEDS: PANTOPRAZOLE SODIUM 40 MG TABLET.DR PO SCH (06:19)
[2020-01-03 07:36] LABS: HEMATOCRIT 33.7 % (37.9-51.0); HEMOGLOBIN 11.9 g/dL (13.5-17.0); MEAN CORPUSCULAR HEMOGLOBIN 29.7 pg (27.0-33.4); MEAN CORPUSCULAR HGB CONC 35.2 g/dL (32.0-36.0); MEAN CORPUSCULAR VOLUME 84 fl (80-97); PLATELET COUNT 160 10^3/uL (150-450); RED BLOOD COUNT 3.99 10^6/uL (4.35-5.55); RED CELL DISTRIBUTION WIDTH 14.9 % (11.5-14.0); WHITE BLOOD COUNT 3.7 10^3/uL (4.0-10.5)
[2020-01-03 07:52] LABS: ANION GAP 10 (5-19); BLOOD UREA NITROGEN 27 mg/dL (7-20); CALCIUM 8.8 mg/dL (8.4-10.2); CARBON DIOXIDE 24 mmol/L (22-30); CHLORIDE 102 mmol/L (98-107); GLUCOSE 155 mg/dL (75-110); POTASSIUM 4.3 mmol/L (3.6-5.0)
[2020-01-03 08:16] LABS: ABSOLUTE LYMPHOCYTES# (MANUAL) 0.2 10^3/uL (0.5-4.7); ABSOLUTE MONOCYTES # (MANUAL) 0.2 10^3/uL (0.1-1.4); BASOPHILS % (MANUAL) 0 % (0-2); EOSINOPHILS % (MANUAL) 0 % (0-6); LYMPHOCYTES % (MANUAL) 5 % (13-45); MONOCYTES % (MANUAL) 6 % (3-13); SEGMENTED NEUTROPHILS % (MAN) 89 % (42-78); TOTAL CELLS COUNTED 100
[2020-01-03 08:20] LABS: ANISOCYTOSIS SLIGHT; OVALOCYTES 1+; PLATELET COMMENT ADEQUATE; POIKILOCYTOSIS 1+
[2020-01-03] MEDS: ENOXAPARIN SODIUM INJ 40 MG/0.4 ML DISP.SYRIN SUBCUT SCH (09:44)
[2020-01-03] MEDS: ASCORBIC ACID 500 MG TABLET PO SCH ×2 (09:44→18:30)
[2020-01-03] MEDS: METHYLPREDNISOLONE INJ 40 MG/1 ML SDV IV SCH ×2 (09:46→21:32)
[2020-01-03] MEDS: BACLOFEN 10 MG TABLET PO PRN (09:51)
[2020-01-03] MEDS: CEFEPIME HCL 2 GM in DEXTROSE 5%-WATER 50 ML IV SCH ×2 (09:51→21:32)
[2020-01-03] MEDS: CHOLECALCIFEROL (D3) 1,000 UNIT (25 MCG) TABLET PO SCH (09:56)
[2020-01-03] MEDS: ZINC SULFATE 220 MG CAPSULE PO SCH (09:56)
[2020-01-03] MEDS ORDERED: ONDANSETRON HCL INJ/PF 4 MG/2 ML SDV IV PRN (15:00)
--- NOTE | 2020-01-03 15:45 | PDOC PROGRESS REPORT ---
Subjective Progress Note for:: 01/03/20 Subjective:: In the interim the patient has improved. While he is not completely oriented he is more appropriate today. He is aware of his name and place. He is currently not oriented to time. He indicates that he does feel breathless. He denies cough or mucus production. Reason For Visit: MULTIFOCAL PNEUMONIA Physical Exam Vital Signs: Temp Pulse Resp BP Pulse Ox 97.4 F 100 20 95/62 L 95 01/03/20 10:00 01/03/20 07:00 01/03/20 07:42 01/03/20 04:00 01/03/20 07:42 Intake & Output 01/02/20 01/03/20 01/04/20 06:59 06:59 06:59 Intake Total 1670 1580 Output Total 1850 Balance 1670 -270 Weight 78.9 kg 73.6 kg Exam: Exam today is largely unchanged. He continues to have rales and rhonchi throughout all lung li. Remainder of exam is unchanged. Results Laboratory Results: 01/03/20 06:40 01/03/20 06:40 01/03/20 01/03/20 01/03/20 02:30 06:40 06:40 WBC 3.7 L RBC 3.99 L Hgb 11.9 L Hct 33.7 L MCV 84 MCH 29.7 MCHC 35.2 RDW 14.9 H Plt Count 160 Seg Neutrophils % Not Reportable Carbonic Acid 1.07 HCO3/H2CO3 Ratio 21:1 ABG pH 7.43 ABG pCO2 35.6 ABG pO2 148.8 H ABG HCO3 23.1 ABG O2 Saturation 99.0 H ABG Base Excess -0.7 FiO2 65% Sodium 136.1 L Potassium 4.3 Chloride 102 Carbon Dioxide 24 Anion Gap 10 BUN 27 H Creatinine 0.91 Est GFR ( Amer) > 60 Glucose 155 H Calcium 8.8 12/31/19 12/31/19 12/31/19 12:36 12:36 13:03 Creatine Kinase Cancelled Cancelled Troponin I Cancelled NT-Pro-B Natriuret Pep Cancelled 12/31/19 12/31/19 12/31/19 15:30 15:30 18:11 Creatine Kinase 59 Troponin I 0.013 0.016 NT-Pro-B Natriuret Pep 228 H Impressions: Head MRI 12/31/19 00:00 IMPRESSION: 1. No acute infarct or other acute intracranial findings 2. Mild cerebral atrophy Head CT 12/31/19 16:31 IMPRESSION: Normal CT appearance of the brain. EVIDENCE OF ACUTE STROKE: NO. Chest/Abdomen CTA 12/31/19 16:32 IMPRESSION: 1. No central or segmental pulmonary embolus. 2. Increasing multifocal airspace opacities consistent with worsening multi lobar pneumonia. Chest X-Ray 01/02/20 00:00 IMPRESSION: STABLE APPEARANCE OF THE CHEST. Assessment & Plan - Diagnosis (1) Acute metabolic encephalopathy Is this a current diagnosis for this admission?: Yes (2) Acute respiratory distress Is this a current diagnosis for this admission?: Yes (5) Multifocal pneumonia Is this a current diagnosis for this admission?: Yes (6) Recurrent pneumonia Is this a current diagnosis for this admission?: Yes (7) Acute hypoxemic respiratory failure Is this a current diagnosis for this admission?: Yes - Time Time Spent with patient: 35 or more minutes - Plan Summary Plan Summary: Again this patient has diffuse pulmonary infiltrates with respiratory failure. He is improved in the last 24 hours with marked decrease in his respiratory rate. He has improved oxygen saturations. His chest film is largely unchanged and continues to show a diffuse infiltrative process. While I am still concerned that he may have sequelae from a recent COVID infection he appears to be responding to intravenous antibiotics at this time. We will certainly continue the intravenous antibiotics as well as intravenous steroids. I discussed with the lab possible additional testing including antibody testing for COVID 19. At this time we will proceed with antibody testing to see if he has a recent infection. Going forward I think broad-spectrum antibiotic coverage and intravenous steroids are appropriate. Will continue noninvasive ventilatory support as well. We will follow closely with you during his acute hospital stay.
[2020-01-03] MEDS ORDERED: GABAPENTIN 100 MG CAPSULE PO PRN (18:07)
--- NOTE | 2020-01-03 18:20 | PDOC PROGRESS REPORT ---
Subjective Progress Note for:: 01/03/20 Subjective:: Patient is not tachypneic today. He does still feel short of breath still having persistent hiccups. He was able to walk pretty decently with physical therapy today. Reason For Visit: MULTIFOCAL PNEUMONIA Physical Exam Vital Signs: Temp Pulse Resp BP Pulse Ox 97.4 F 100 20 95/62 L 95 01/03/20 10:00 01/03/20 07:00 01/03/20 07:42 01/03/20 04:00 01/03/20 07:42 Intake & Output 01/02/20 01/03/20 01/04/20 06:59 06:59 06:59 Intake Total 1670 1580 250 Output Total 1850 Balance 1670 -270 250 Weight 78.9 kg 73.6 kg General appearance: PRESENT: no acute distress, cooperative Neck exam: ABSENT: JVD Respiratory exam: PRESENT: rales, symmetrical, tachypnea - MILD, unlabored. ABSENT: stridor, wheezes Cardiovascular exam: PRESENT: RRR, +S1, +S2. ABSENT: tachycardia GI/Abdominal exam: PRESENT: soft. ABSENT: rebound, rigid, tenderness Neurological exam: PRESENT: alert, awake, oriented to person, oriented to place, oriented to time - Disoriented to year but is able to voice month and president Results Laboratory Results: 01/03/20 06:40 01/03/20 06:40 01/03/20 01/03/20 01/03/20 02:30 06:40 06:40 WBC 3.7 L RBC 3.99 L Hgb 11.9 L Hct 33.7 L MCV 84 MCH 29.7 MCHC 35.2 RDW 14.9 H Plt Count 160 Seg Neutrophils % Not Reportable Carbonic Acid 1.07 HCO3/H2CO3 Ratio 21:1 ABG pH 7.43 ABG pCO2 35.6 ABG pO2 148.8 H ABG HCO3 23.1 ABG O2 Saturation 99.0 H ABG Base Excess -0.7 FiO2 65% Sodium 136.1 L Potassium 4.3 Chloride 102 Carbon Dioxide 24 Anion Gap 10 BUN 27 H Creatinine 0.91 Est GFR ( Amer) > 60 Glucose 155 H Calcium 8.8 12/31/19 12/31/19 12/31/19 12:36 12:36 13:03 Creatine Kinase Cancelled Cancelled Troponin I Cancelled NT-Pro-B Natriuret Pep Cancelled 12/31/19 12/31/19 12/31/19 15:30 15:30 18:11 Creatine Kinase 59 Troponin I 0.013 0.016 NT-Pro-B Natriuret Pep 228 H Impressions: Head MRI 12/31/19 00:00 IMPRESSION: 1. No acute infarct or other acute intracranial findings 2. Mild cerebral atrophy Head CT 12/31/19 16:31 IMPRESSION: Normal CT appearance of the brain. EVIDENCE OF ACUTE STROKE: NO. Chest/Abdomen CTA 12/31/19 16:32 IMPRESSION: 1. No central or segmental pulmonary embolus. 2. Increasing multifocal airspace opacities consistent with worsening multi lobar pneumonia. Chest X-Ray 01/02/20 00:00 IMPRESSION: STABLE APPEARANCE OF THE CHEST. Assessment and Plan - Diagnosis (1) Acute hypoxemic respiratory failure Is this a current diagnosis for this admission?: Yes Plan: CT shows airspace & interstitial disease with groundglass opacities diffusely- infectious versus inflammatory. No PE noted. BNP is only minimally elevated. His COVID-19 test is negative -however I do wonder if patient had COVID in the past. Tachypnea has improved. He is tolerating on high flow nasal cannula at FiO2 40% with flow rate of 40 Will wean as tolerated (2) Multifocal pneumonia Is this a current diagnosis for this admission?: Yes Plan: Continue vancomycin and cefepime for now. Blood culture is negative so far. Sputum culture only positive for Matilda which is likely chronic colonization. Fevers have resolved COVID-19 test negative Pulmonology following-recommendations appreciated. Likely need bronch at some point. (3) Intractable hiccups Is this a current diagnosis for this admission?: Yes Plan: Likely etiologies are acid reflux and his pulmonary disease. His MRI of the brain was negative ruling out stroke Receiving PPI therapy. Baclofen 10 mg 3 times daily We will add gabapentin 3 times a day as needed (4) Acid reflux Qualifiers: Esophagitis presence: esophagitis presence not specified Qualified Code(s): K21.9 - Gastro-esophageal reflux disease without esophagitis Is this a current diagnosis for this admission?: Yes Plan: p.o. Protonix every morning and bedtime famotidine (5) Acute metabolic encephalopathy Is this a current diagnosis for this admission?: Yes Plan: MRI brain only significant for cerebral atrophy. Patient is conversational and oriented but does seem to have some gaps in memory. Does not remember the year but does remember the month and who is president. May have some underlying neurocognitive impairment especially given cerebral atrophy. Was able to be taken off restraints. Seems MORE delirious last night. (6) Sepsis Qualifiers: Sepsis type: sepsis due to unspecified organism Sepsis acute organ dysfunction status: with acute organ dysfunction Severe sepsis acute organ dysfunction type: acute respiratory failure Acute respiratory failure type: with hypoxia Severe sepsis shock status: without septic shock Qualified Code(s): A41.9 - Sepsis, unspecified organism; R65.20 - Severe sepsis without septic shock; J96.01 - Acute respiratory failure with hypoxia Is this a current diagnosis for this admission?: Yes Plan: Resolved - Time Time Spent with patient: 15-24 minutes Anticipated Discharge Disposition: Home with Home Health Anticipated Discharge Timeframe: within 72 hours
[2020-01-03] MEDS: BACLOFEN 10 MG TABLET PO SCH (18:30)
[2020-01-03] MEDS: MELATONIN 5 MG TABLET PO SCH (21:32)
[2020-01-03] MEDS: FAMOTIDINE 20 MG TABLET PO SCH (21:32)
[2020-01-04] MEDS: LORAZEPAM INJ 2 MG/1 ML VIAL IV PRN (04:34)
[2020-01-04] MEDS: VANCOMYCIN HCL 1,000 MG in DEXTROSE 5%-WATER 250 ML IV SCH ×2 (05:30→17:26)
[2020-01-04] MEDS: PANTOPRAZOLE SODIUM 40 MG TABLET.DR PO SCH (05:30)
[2020-01-04] MEDS ORDERED: LORAZEPAM INJ 2 MG/1 ML VIAL IV PRN (09:01)
[2020-01-04] MEDS: CEFEPIME HCL 2 GM in DEXTROSE 5%-WATER 50 ML IV SCH ×2 (09:18→22:58)
[2020-01-04] MEDS: BACLOFEN 10 MG TABLET PO SCH ×3 (09:19→17:22)
[2020-01-04] MEDS: CHOLECALCIFEROL (D3) 1,000 UNIT (25 MCG) TABLET PO SCH (09:19)
[2020-01-04] MEDS: ASCORBIC ACID 500 MG TABLET PO SCH ×2 (09:19→17:23)
[2020-01-04] MEDS: ZINC SULFATE 220 MG CAPSULE PO SCH (09:20)
[2020-01-04] MEDS: METHYLPREDNISOLONE INJ 40 MG/1 ML SDV IV SCH (09:21)
[2020-01-04] MEDS: ENOXAPARIN SODIUM INJ 40 MG/0.4 ML DISP.SYRIN SUBCUT SCH (09:21)
--- NOTE | 2020-01-04 12:44 | PDOC PROGRESS REPORT ---
Subjective Progress Note for:: 01/04/20 Subjective:: Overall this patient appears to be slightly worse. He is back on BiPAP. He continues to be quite confused. His respiratory rate is approximately 20-26. He is unable to answer any questions. He continues on Solu-Medrol as well as broad-spectrum antibiotics. Reason For Visit: MULTIFOCAL PNEUMONIA Physical Exam Vital Signs: Temp Pulse Resp BP Pulse Ox 98.1 F 118 H 35 H 145/86 H 97 01/04/20 08:52 01/04/20 08:52 01/04/20 10:50 01/04/20 08:52 01/04/20 10:50 Intake & Output 01/03/20 01/04/20 01/05/20 06:59 06:59 06:59 Intake Total 1580 838 Output Total 1850 1675 Balance -270 -837 Weight 73.6 kg 73.6 kg Exam: On exam today the patient is confused and somewhat combative. Abnormality chest exam revealed scattered rhonchi but otherwise is unremarkable heart exam regular tachycardia without obvious murmur abdomen revealed markedly diminished bowel sounds. Extremity exam revealed no clubbing cyanosis or edema. Results Laboratory Results: 01/03/20 06:40 01/03/20 06:40 12/31/19 15:16 Catheterized Urine Legionella Urinary Antigen - Final 01/01/20 18:50 Sputum Gram Stain - Final 01/01/20 18:50 Sputum Sputum Culture - Final C.albicans/C.dubliniensis Normal Kaylin 12/31/19 12/31/19 12/31/19 12:36 12:36 13:03 Creatine Kinase Cancelled Cancelled Troponin I Cancelled NT-Pro-B Natriuret Pep Cancelled 12/31/19 12/31/19 12/31/19 15:30 15:30 18:11 Creatine Kinase 59 Troponin I 0.013 0.016 NT-Pro-B Natriuret Pep 228 H Impressions: Head MRI 12/31/19 00:00 IMPRESSION: 1. No acute infarct or other acute intracranial findings 2. Mild cerebral atrophy Head CT 12/31/19 16:31 IMPRESSION: Normal CT appearance of the brain. EVIDENCE OF ACUTE STROKE: NO. Chest/Abdomen CTA 12/31/19 16:32 IMPRESSION: 1. No central or segmental pulmonary embolus. 2. Increasing multifocal airspace opacities consistent with worsening multi lobar pneumonia. Chest X-Ray 01/02/20 00:00 IMPRESSION: STABLE APPEARANCE OF THE CHEST. Assessment & Plan - Diagnosis (1) Acute metabolic encephalopathy Is this a current diagnosis for this admission?: Yes (2) Acute respiratory distress Is this a current diagnosis for this admission?: Yes (5) Multifocal pneumonia Is this a current diagnosis for this admission?: Yes (6) Recurrent pneumonia Is this a current diagnosis for this admission?: Yes (7) Acute hypoxemic respiratory failure Is this a current diagnosis for this admission?: Yes - Time Time Spent with patient: 35 or more minutes - Plan Summary Plan Summary: Patient continues to represent something about [place] as to his underlying primary diagnosis. He has an approximately 9-month history of cough, approximately 6 months history of weight loss of approximately 50 to 60 pounds. And multiple hospital evaluations over the last 3 months with pulmonary infiltrates on chest x-ray. He clearly responded to some degree to initiation of broad-spectrum antibiotics and intravenous steroids. However I do not believe that acute bacterial infection as the entire explanation. I have ordered COVID-19 antibodies. According to the [facility] site this involves both IgG, A, and E antibodies. Beyond that somewhat chronic interstitial infiltrates leading to a cough and weight loss would include the acute interstitial pneumonitis lilliam, as well as the more chronic interstitial lung diseases. Transbronchial or open lung biopsy may be indicated at some point in the future if he fails to improve. We will follow with you during this hospitalization.
[2020-01-04] MEDS: DEXTROSE 5%-NORMAL SALINE 1,000 ML IV PRN ×2 (14:49→23:06)
--- NOTE | 2020-01-04 18:27 | PDOC PROGRESS REPORT ---
Subjective Progress Note for:: 01/04/20 Subjective:: Patient continues to get very confused. He did receive some Ativan yesterday as well as earlier in the very early mornings. We will discontinue all Ativan. He also notably still remains hypoxic. Required BiPAP briefly and was transitioned to Ventimask. Reason For Visit: MULTIFOCAL PNEUMONIA Physical Exam Vital Signs: Temp Pulse Resp BP Pulse Ox 97.5 F 119 H 25 H 153/91 H 95 01/04/20 16:57 01/04/20 16:57 01/04/20 16:57 01/04/20 16:57 01/04/20 16:57 Intake & Output 01/03/20 01/04/20 01/05/20 06:59 06:59 06:59 Intake Total 1580 838 250 Output Total 1850 1675 Balance -270 -837 250 Weight 73.6 kg 73.6 kg General appearance: PRESENT: no acute distress, cooperative Neck exam: ABSENT: JVD Respiratory exam: PRESENT: crackles, symmetrical, tachypnea, unlabored. ABSENT: wheezes Cardiovascular exam: PRESENT: +S1, +S2, tachycardia. ABSENT: irregular rhythm GI/Abdominal exam: PRESENT: soft. ABSENT: rebound, rigid, tenderness Neurological exam: PRESENT: alert, awake, oriented to person, other - Quite confused this morning. ABSENT: oriented to place, oriented to time, oriented to situation Psychiatric exam: PRESENT: anxious. ABSENT: agitated Results Laboratory Results: 01/03/20 06:40 01/03/20 06:40 12/31/19 15:16 Catheterized Urine Legionella Urinary Antigen - Final 01/01/20 18:50 Sputum Gram Stain - Final 01/01/20 18:50 Sputum Sputum Culture - Final C.albicans/C.dubliniensis Normal Kaylin 12/31/19 12/31/19 12/31/19 12:36 12:36 13:03 Creatine Kinase Cancelled Cancelled Troponin I Cancelled NT-Pro-B Natriuret Pep Cancelled 12/31/19 12/31/19 12/31/19 15:30 15:30 18:11 Creatine Kinase 59 Troponin I 0.013 0.016 NT-Pro-B Natriuret Pep 228 H Impressions: Head MRI 12/31/19 00:00 IMPRESSION: 1. No acute infarct or other acute intracranial findings 2. Mild cerebral atrophy Head CT 12/31/19 16:31 IMPRESSION: Normal CT appearance of the brain. EVIDENCE OF ACUTE STROKE: NO. Chest/Abdomen CTA 12/31/19 16:32 IMPRESSION: 1. No central or segmental pulmonary embolus. 2. Increasing multifocal airspace opacities consistent with worsening multi lobar pneumonia. Chest X-Ray 01/02/20 00:00 IMPRESSION: STABLE APPEARANCE OF THE CHEST. Assessment and Plan - Diagnosis (1) Acute hypoxemic respiratory failure Is this a current diagnosis for this admission?: Yes Plan: CT shows airspace & interstitial disease with groundglass opacities diffusely- infectious versus inflammatory. No PE noted. BNP is only minimally elevated. His COVID-19 test is negative -however I do wonder if patient had COVID in the past. Required BiPAP earlier this morning as he was noted to be de-satting well on high flow nasal cannula 42% FiO2. I was informed that he was mostly mild breathing and that may have contributed. We did take him off BiPAP and put him to Ventimask which is doing well on currently at 50% FiO2 with adequate SPO2. (2) Multifocal pneumonia Is this a current diagnosis for this admission?: Yes Plan: Continue vancomycin and cefepime for now. Blood culture is negative so far. Sputum culture only positive for Matilda which is likely chronic colonization. Fevers have resolved COVID-19 test negative Pulmonology following-recommendations appreciated. Likely need bronch at some p oint. (3) Acute metabolic encephalopathy Is this a current diagnosis for this admission?: Yes Plan: MRI brain only significant for cerebral atrophy. Patient is conversational and oriented but does seem to have some gaps in memory. Does not remember the year but does remember the month and who is president. May have some underlying neurocognitive impairment especially given cerebral atrophy. Seems to be having a lot of acute delirium in setting of his acute severe illness. Also gets quite anxious persisting with Ativan has only worsened his delirium. Will discontinue all Ativan. We will try to use redirection as much as possible and some soft mittens restraints if needed to deal with his anxiety, agitation and pulling at tubes. I will also put him on small dose of Seroquel nightly. (4) Intractable hiccups Is this a current diagnosis for this admission?: Yes Plan: Likely etiologies are acid reflux and his pulmonary disease. His MRI of the brain was negative ruling out stroke Receiving PPI therapy. Baclofen 10 mg 3 times daily gabapentin 3 times a day as needed (5) Acid reflux Qualifiers: Esophagitis presence: esophagitis presence not specified Qualified Code(s): K21.9 - Gastro-esophageal reflux disease without esophagitis Is this a current diagnosis for this admission?: Yes Plan: p.o. Protonix every morning and bedtime famotidine (6) Sepsis Qualifiers: Sepsis type: sepsis due to unspecified organism Sepsis acute organ dysfunction status: with acute organ dysfunction Severe sepsis acute organ dysfunction type: acute respiratory failure Acute respiratory failure type: with hypoxia Severe sepsis shock status: without septic shock Qualified Code(s): A41.9 - Sepsis, unspecified organism; R65.20 - Severe sepsis without septic shock; J96.01 - Acute respiratory failure with hypoxia Is this a current diagnosis for this admission?: Yes Plan: Resolved - Time Time Spent with patient: 15-24 minutes Anticipated Discharge Disposition: Home with Home Health Anticipated Discharge Timeframe: Undetermined
[2020-01-04] MEDS ORDERED: QUETIAPINE FUMARATE 25 MG TABLET PO SCH (22:00)
[2020-01-04] MEDS: MELATONIN 5 MG TABLET PO SCH (22:56)
[2020-01-04] MEDS: FAMOTIDINE 20 MG TABLET PO SCH (22:56)
[2020-01-05] MEDS: VANCOMYCIN HCL 1,000 MG in DEXTROSE 5%-WATER 250 ML IV SCH ×2 (05:29→17:55)
[2020-01-05] MEDS: PANTOPRAZOLE SODIUM 40 MG TABLET.DR PO SCH (05:30)
[2020-01-05 08:43] LABS: HEMOGLOBIN 12.3 g/dL (13.5-17.0); MEAN CORPUSCULAR HEMOGLOBIN 29.1 pg (27.0-33.4); MEAN CORPUSCULAR HGB CONC 34.2 g/dL (32.0-36.0); MEAN CORPUSCULAR VOLUME 85 fl (80-97); PLATELET COUNT 193 10^3/uL (150-450); RED BLOOD COUNT 4.22 10^6/uL (4.35-5.55); RED CELL DISTRIBUTION WIDTH 14.8 % (11.5-14.0); WHITE BLOOD COUNT 6.1 10^3/uL (4.0-10.5)
[2020-01-05 09:02] LABS: ALBUMIN 2.9 g/dL (3.5-5.0); ALKALINE PHOSPHATASE 72 U/L (38-126); ANION GAP 7 (5-19); ASPARTATE AMINO TRANSFERASE 40 U/L (17-59); BILIRUBIN,DIRECT 0.4 mg/dL (0.0-0.4); BILIRUBIN,TOTAL 0.8 mg/dL (0.2-1.3); BLOOD UREA NITROGEN 30 mg/dL (7-20); CARBON DIOXIDE 26 mmol/L (22-30); CHLORIDE 106 mmol/L (98-107); GLUCOSE 98 mg/dL (75-110); POTASSIUM 3.8 mmol/L (3.6-5.0); TOTAL PROTEIN 6.1 g/dL (6.3-8.2)
[2020-01-05 09:15] LABS: ABSOLUTE LYMPHOCYTES# (MANUAL) 0.1 10^3/uL (0.5-4.7); ABSOLUTE MONOCYTES # (MANUAL) 0.1 10^3/uL (0.1-1.4); ANISOCYTOSIS SLIGHT; BASOPHILS % (MANUAL) 0 % (0-2); EOSINOPHILS % (MANUAL) 0 % (0-6); LYMPHOCYTES % (MANUAL) 2 % (13-45); MONOCYTES % (MANUAL) 1 % (3-13); PLATELET COMMENT ADEQUATE; SEGMENTED NEUTROPHILS % (MAN) 97 % (42-78); TOTAL CELLS COUNTED 100
--- NOTE | 2020-01-05 10:41 | EKG REPORT ---
SEVERITY:- ABNORMAL ECG - SINUS TACHYCARDIA BORDERLINE LEFT AXIS DEVIATION CONSIDER ANTEROSEPTAL INFARCT NONSPECIFIC T ABNORMALITIES, INFERIOR LEADS : Confirmed by: Jsoephine Escalona MD 05-Jan-2020 10:40:44
[2020-01-05] MEDS: CEFEPIME HCL 2 GM in DEXTROSE 5%-WATER 50 ML IV SCH (12:28)
[2020-01-05] MEDS: CHOLECALCIFEROL (D3) 1,000 UNIT (25 MCG) TABLET PO SCH (12:30)
[2020-01-05] MEDS: ASCORBIC ACID 500 MG TABLET PO SCH ×2 (12:30→17:12)
[2020-01-05] MEDS: METHYLPREDNISOLONE INJ 40 MG/1 ML SDV IV SCH (12:31)
[2020-01-05] MEDS: ENOXAPARIN SODIUM INJ 40 MG/0.4 ML DISP.SYRIN SUBCUT SCH (12:31)
[2020-01-05] MEDS: BACLOFEN 10 MG TABLET PO SCH ×3 (12:32→17:12)
[2020-01-05] MEDS ORDERED: MORPHINE SULFATE 10 MG/ML INJ ONE ×2 (12:35→16:06)
[2020-01-05] MEDS ORDERED: MORPHINE SULFATE 10 MG/ML INJ IV ONE ×3 (12:36→17:00)
--- NOTE | 2020-01-05 14:29 | PDOC PROGRESS REPORT ---
Subjective Progress Note for:: 01/05/20 Subjective:: Patient still confused this morning. He was notably restless all night and could not get much sleep. His oxygenation is not getting any worse but does not seem to have improved significantly. I did reduce his Solu-Medrol dosing yesterday to only dually dosing due to confusion. Discussed plan with his over the phone. Reason For Visit: MULTIFOCAL PNEUMONIA Physical Exam Vital Signs: Temp Pulse Resp BP Pulse Ox 97.4 F 108 H 18 142/88 H 92 01/05/20 10:00 01/05/20 09:41 01/05/20 13:36 01/05/20 08:40 01/05/20 13:36 Intake & Output 01/04/20 01/05/20 01/06/20 06:59 06:59 06:59 Intake Total 838 997 Output Total 1675 500 Balance -837 497 Weight 73.6 kg 73.6 kg General appearance: PRESENT: cooperative, mild distress Respiratory exam: PRESENT: crackles - Right base, rhonchi, symmetrical, tachypnea, unlabored. ABSENT: stridor Cardiovascular exam: PRESENT: +S1, +S2, tachycardia. ABSENT: irregular rhythm GI/Abdominal exam: PRESENT: soft. ABSENT: rebound, rigid, tenderness Neurological exam: PRESENT: alert, awake, oriented to person, oriented to place, other - confused. ABSENT: oriented to time, oriented to situation Psychiatric exam: PRESENT: agitated. ABSENT: anxious Results Laboratory Results: 01/05/20 07:38 01/05/20 07:38 01/05/20 01/05/20 07:38 07:38 WBC 6.1 RBC 4.22 L Hgb 12.3 L Hct 36.0 L MCV 85 MCH 29.1 MCHC 34.2 RDW 14.8 H Plt Count 193 Seg Neutrophils % Not Reportable Sodium 139.0 Potassium 3.8 Chloride 106 Carbon Dioxide 26 Anion Gap 7 BUN 30 H Creatinine 0.95 Est GFR ( Amer) > 60 Glucose 98 Calcium 9.0 Magnesium 2.5 H Total Bilirubin 0.8 AST 40 Alkaline Phosphatase 72 Total Protein 6.1 L Albumin 2.9 L 12/31/19 15:16 Catheterized Urine Legionella Urinary Antigen - Final 01/01/20 18:50 Sputum Gram Stain - Final 01/01/20 18:50 Sputum Sputum Culture - Final C.albicans/C.dubliniensis Normal Kaylin 12/31/19 12/31/19 12/31/19 12:36 12:36 13:03 Creatine Kinase Cancelled Cancelled Troponin I Cancelled NT-Pro-B Natriuret Pep Cancelled 12/31/19 12/31/19 12/31/19 15:30 15:30 18:11 Creatine Kinase 59 Troponin I 0.013 0.016 NT-Pro-B Natriuret Pep 228 H Impressions: Head MRI 12/31/19 00:00 IMPRESSION: 1. No acute infarct or other acute intracranial findings 2. Mild cerebral atrophy Head CT 12/31/19 16:31 IMPRESSION: Normal CT appearance of the brain. EVIDENCE OF ACUTE STROKE: NO. Chest/Abdomen CTA 12/31/19 16:32 IMPRESSION: 1. No central or segmental pulmonary embolus. 2. Increasing multifocal airspace opacities consistent with worsening multi lobar pneumonia. Assessment and Plan - Diagnosis (1) Acute hypoxemic respiratory failure Is this a current diagnosis for this admission?: Yes Plan: CT shows airspace & interstitial disease with groundglass opacities diffusely- infectious versus inflammatory. No PE noted. BNP is only minimally elevated. His COVID-19 test is negative -however I do wonder if patient had COVID in the past. Continue on high flow nasal cannula. FiO2 is 40%. (2) Multifocal pneumonia Is this a current diagnosis for this admission?: Yes Plan: Continue vancomycin and cefepime for now. Blood culture is negative so far. Sputum culture only positive for Matilda which is likely chronic colonization. Fevers have resolved COVID-19 test negative Pulmonology following-recommendations appreciated. Likely need bronch at some point. (3) Acute metabolic encephalopathy Is this a current diagnosis for this admission?: Yes Plan: MRI brain only significant for cerebral atrophy. Patient is conversational and oriented but does seem to have some gaps in memory. I did discuss with patient's who states that patient was completely normal mentally w/o dementia and only until about 2 weeks prior to admission before becoming like this. Delirium precautions. Avoid benzodiazepine. Reduced steroid dosing to daily to help limit confusion. We will try to use redirection as much as possible and some soft mittens restraints if needed to deal with his anxiety, agitation and pulling at tubes. Increase Seroquel to 50 mg nightly to help with sleep (4) Intractable hiccups Is this a current diagnosis for this admission?: Yes Plan: Currently seems to be resolving. Likely etiologies are acid reflux and his pulmonary disease. His MRI of the brain was negative ruling out stroke Receiving PPI therapy. Baclofen 10 mg 3 times daily gabapentin 3 times a day as needed--has not needed this so far (5) Acid reflux Qualifiers: Esophagitis presence: esophagitis presence not specified Qualified Code(s): K21.9 - Gastro-esophageal reflux disease without esophagitis Is this a current diagnosis for this admission?: Yes Plan: p.o. Protonix every morning and bedtime famotidine (6) Sepsis Qualifiers: Sepsis type: sepsis due to unspecified organism Sepsis acute organ dysfunction status: with acute organ dysfunction Severe sepsis acute organ dysfunction type: acute respiratory failure Acute respiratory failure type: with hypoxia Severe sepsis shock status: without septic shock Qualified Code(s): A41.9 - Sepsis, unspecified organism; R65.20 - Severe sepsis without septic shock; J96.01 - Acute respiratory failure with hypoxia Is this a current diagnosis for this admission?: Yes Plan: Resolved - Time Time Spent with patient: 15-24 minutes Anticipated Discharge Disposition: Home with Home Health Anticipated Discharge Timeframe: Undetermined
--- NOTE | 2020-01-05 15:45 | RADIOLOGY REPORT (SQ) ---
EXAM DESCRIPTION: CHEST 2 VIEWS IMAGES COMPLETED DATE/TIME: 01/05/2020 12:06 pm REASON FOR STUDY: hypoxia COMPARISON: 01/02/2020. EXAM PARAMETERS: NUMBER OF VIEWS: two views TECHNIQUE: Digital Frontal and Lateral radiographic views of the chest acquired. RADIATION DOSE: NA LIMITATIONS: none FINDINGS: LUNGS AND PLEURA: Low lung volumes. Persistent elevation of the right hemidiaphragm. John nt parenchymal opacities. MEDIASTINUM AND HILAR STRUCTURES: No masses or contour abnormalities. HEART AND VASCULAR STRUCTURES: Heart normal size. No evidence for failure. BONES: No acute findings. HARDWARE: None in the chest. OTHER: No other significant finding. IMPRESSION: NO SIGNIFICANT CHANGE IN APPEARANCE OF CHEST. LOW LUNG VOLUMES WITH FAINT BILATERAL AIR SPACE DISEASE. TECHNICAL DOCUMENTATION: JOB ID: [id number] 2010 [employer]- All Rights Reserved Reading location - IP/workstation name: [email or web address]
[2020-01-05 16:10] LABS: ARTERIAL BLOOD BASE EXCESS -0.7 mmol/L; ARTERIAL BLOOD H2CO3 0.94 mmol/L (1.05-1.35); ARTERIAL BLOOD HCO3 22.1 mmol/L (20-24); ARTERIAL BLOOD O2 SATURATION 89.4 % (94-98); ARTERIAL BLOOD PCO2 31.2 mmHg (35-45); ARTERIAL BLOOD PH 7.47 (7.35-7.45); ARTERIAL BLOOD PO2 52.2 mmHg (80-100); ARTERIAL BLOOD TOTAL CO2 23.1 mmol/L (23-27)
[2020-01-05 17:33] LABS: FREE T4 (FREE THYROXINE) 1.58 ng/dL (0.78-2.19)
[2020-01-05 17:47] LABS: THYROID STIMULATING HORMONE 0.25 uIU/mL (0.47-4.68)
--- NOTE | 2020-01-05 18:32 | Progress Note ---
Provider Note Provider Note: Earlier this afternoon, patient became very tachypneic and tachycardic. Respiratory rate was in the 40s and heart rate was in the 120s to 130s. bus driver/monitor appeared to be sinus tachycardia. On exam patient was very confused with labored respirations and significant tachypnea. Noted retractions. Abdomen was nontender and soft, nondistended. Patient was very restless and agitated but not really able to communicate much. No swelling in his legs. Exam auscultation reveals dry rails with some crackles overall lung bases. No JVD notable. Patient appears dry on exam. Vital signs shows SPO2 of 91%. ABG was obtained while patient was on high flow nasal cannula 55% FiO2 which shows respiratory alkalosis metabolic compensation and significant hypoxia with PO2 of 52. Patient was tried on BiPAP but was still tachypneic in the 50s pulling very large volumes and hyperventilating with tidal volumes in the 700s to 900s. Patient likely has a respiratory alkalosis with hypoxic respiratory failure and ARDS secondary to his interstitial pneumonia. Give patient dose of morphine which helped significantly with his tachypnea and hyperventilation. Put him on FiO2 of 40% on a BiPAP and he is doing much better. His tachycardia has improved into the 100s and his tachypnea has reduced into the 20s. His tidal volumes are now in the 400s. We will continue to treat his interstitial pneumonia which she is getting steroids and broad-spectrum antibiotics. 40 minutes of critical time spent
[2020-01-05] MEDS ORDERED: LORAZEPAM INJ 2 MG/1 ML VIAL IV PRN (18:37)
[2020-01-05] MEDS ORDERED: LEVALBUTEROL HCL NEB 1.25 MG/3 ML AMPUL NEB PRN (18:37)
[2020-01-05] MEDS ORDERED: PIPERACILLIN/TAZOBACTAM 3.375 GM VIAL IV SCH (18:45)
[2020-01-05] MEDS ORDERED: PIPERACILLIN/TAZOBACTAM 3.375 GM VIAL IV PRN (18:52)
[2020-01-05] MEDS: LORAZEPAM INJ 2 MG/1 ML VIAL IV PRN (21:48)
[2020-01-05] MEDS: MORPHINE SULFATE 10 MG/ML INJ IV PRN (21:48)
[2020-01-05] MEDS: MELATONIN 5 MG TABLET PO SCH (21:58)
[2020-01-05] MEDS: FAMOTIDINE 20 MG TABLET PO SCH (21:59)
[2020-01-05] MEDS: QUETIAPINE FUMARATE 25 MG TABLET PO SCH (21:59)
[2020-01-05] MEDS ORDERED: LORAZEPAM INJ 2 MG/1 ML VIAL ONE (22:33)
[2020-01-05] MEDS ORDERED: LORAZEPAM INJ 2 MG/1 ML VIAL IV ONE (23:00)
[2020-01-05] MEDS: PIPERACILLIN SODIUM/TAZOBACTAM 3.375 GM in NORMAL SALINE 100 ML IV SCH (23:38)
[2020-01-06] MEDS: DEXTROSE 5%-NORMAL SALINE 1,000 ML IV PRN ×2 (02:09→18:14)
[2020-01-06] MEDS: LORAZEPAM INJ 2 MG/1 ML VIAL IV PRN ×2 (06:09→22:10)
[2020-01-06] MEDS: PANTOPRAZOLE SODIUM 40 MG TABLET.DR PO SCH (06:10)
[2020-01-06] MEDS: VANCOMYCIN HCL 1,000 MG in DEXTROSE 5%-WATER 250 ML IV SCH (06:13)
[2020-01-06 06:30] LABS: ARTERIAL BLOOD BASE EXCESS -1.4 mmol/L; ARTERIAL BLOOD H2CO3 1.04 mmol/L (1.05-1.35); ARTERIAL BLOOD HCO3 22.3 mmol/L (20-24); ARTERIAL BLOOD O2 SATURATION 94.9 % (94-98); ARTERIAL BLOOD PCO2 34.5 mmHg (35-45); ARTERIAL BLOOD PH 7.43 (7.35-7.45); ARTERIAL BLOOD PO2 71.6 mmHg (80-100); ARTERIAL BLOOD TOTAL CO2 23.3 mmol/L (23-27)
[2020-01-06 06:32] LABS: ARTERIAL BLOOD FIO2 40%
[2020-01-06] MEDS: PIPERACILLIN SODIUM/TAZOBACTAM 3.375 GM in NORMAL SALINE 100 ML IV SCH ×2 (07:00→14:39)
[2020-01-06] MEDS: CHOLECALCIFEROL (D3) 1,000 UNIT (25 MCG) TABLET PO SCH (09:10)
[2020-01-06] MEDS: ASCORBIC ACID 500 MG TABLET PO SCH (09:10)
[2020-01-06] MEDS: BACLOFEN 10 MG TABLET PO SCH ×3 (09:10→17:41)
[2020-01-06] MEDS ORDERED: LIDOCAINE 1% INJ-PF (10 MG/ML) 30 ML SDV ONE (09:38)
[2020-01-06] MEDS ORDERED: MORPHINE SULFATE 10 MG/ML INJ ONE (09:41)
[2020-01-06] MEDS ORDERED: LORAZEPAM INJ 2 MG/1 ML VIAL ONE (09:43)
[2020-01-06] MEDS: METHYLPREDNISOLONE INJ 40 MG/1 ML SDV IV SCH (10:49)
[2020-01-06] MEDS: ENOXAPARIN SODIUM INJ 40 MG/0.4 ML DISP.SYRIN SUBCUT SCH (10:50)
[2020-01-06] MEDS: MORPHINE SULFATE 10 MG/ML INJ IV PRN ×2 (10:57→19:29)
[2020-01-06] MEDS ORDERED: LORAZEPAM INJ 2 MG/1 ML VIAL IV ONE (11:00)
[2020-01-06] MEDS ORDERED: MORPHINE SULFATE 10 MG/ML INJ IV ONE (11:00)
[2020-01-06] MEDS ORDERED: LIDOCAINE 1% INJ-PF (10 MG/ML) 30 ML SDV IV ONE (11:00)
[2020-01-06] MEDS ORDERED: GLUCAGON,HUMAN RECOMB 1 MG INJ SUBCUT PRN (16:44)
[2020-01-06] MEDS ORDERED: DEXTROSE 40% GEL 15 GM TUBE PO PRN ×2 (16:44)
[2020-01-06] MEDS ORDERED: DEXTROSE 50%-WATER 25 GM/50 ML DISP.SYRIN IV PRN ×2 (16:44)
[2020-01-06] MEDS ORDERED: DEXAMETHASONE SOD PHOS INJ 10 MG/1 ML VIAL IV ONE (16:54)
--- NOTE | 2020-01-06 17:46 | PDOC PROGRESS REPORT ---
Subjective Progress Note for:: 01/06/20 Subjective:: Patient still completely out of it. Has bouts where he gets tachypneic and then tachycardic. Often needs medication to help improve his breathing. His oxygenation has actually remained adequate in the mid to high 90s on pulse oximetry on 40% FiO2. I discussed with patient's today who informs me that patient does not drink alcohol and was very healthy before his decline started just about 5 months ago. Initially started with cough constantly hacking, loss of smell, loss of taste and some shortness of breath developed. However, he did get COVID-19 PCR done about 2 weeks after the onset of his symptoms which was negative. This was done at [facility]. Subsequently treated with antibiotics and steroids with no improvement. Treated once again for pneumonia with no improvement still. 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 They do not have any pets besides dogs. No frequent encounters with pigeons/birds. No history of unexplained rashes or arthritis though he has had chronic problems with his back. She endorses 60 pound weight loss past 3-5 months as previously noted. Reason For Visit: MULTIFOCAL PNEUMONIA Physical Exam Vital Signs: Temp Pulse Resp BP Pulse Ox 98.0 F 109 H 21 H 109/66 99 01/06/20 11:56 01/06/20 11:56 01/06/20 14:34 01/06/20 11:56 01/06/20 14:34 Intake & Output 01/05/20 01/06/20 01/07/20 06:59 06:59 06:59 Intake Total 997 1500 250 Output Total 500 1075 Balance 497 425 250 Weight 73.6 kg 71.9 kg General appearance: PRESENT: no acute distress, cooperative Eye exam: PRESENT: EOMI, PERRLA Neck exam: ABSENT: JVD Respiratory exam: PRESENT: rales, symmetrical, tachypnea. ABSENT: accessory muscle use, rhonchi, stridor, wheezes Cardiovascular exam: PRESENT: +S1, +S2, tachycardia. ABSENT: irregular rhythm GI/Abdominal exam: PRESENT: soft. ABSENT: ascites, distended, rebound, rigid, tenderness Extremities exam: ABSENT: pedal edema Neurological exam: PRESENT: altered, other - Altered completely confused agit ated on conversation neurologist mumbles sounds. Moving all extremities.. ABSENT: alert, awake, oriented to person, oriented to place, oriented to time, oriented to situation Results Laboratory Results: 01/05/20 07:38 01/05/20 07:38 01/05/20 01/05/20 01/05/20 15:57 16:35 16:35 Carbonic Acid 0.94 L HCO3/H2CO3 Ratio 23:1 ABG pH 7.47 H ABG pCO2 31.2 L ABG pO2 52.2 L ABG HCO3 22.1 ABG O2 Saturation 89.4 L ABG Base Excess -0.7 FiO2 55% Phosphorus 3.6 TSH 0.25 L Free T4 1.58 01/05/20 01/06/20 20:45 06:05 Carbonic Acid Cancelled 1.04 L HCO3/H2CO3 Ratio Cancelled 21:1 ABG pH Cancelled 7.43 ABG pCO2 Cancelled 34.5 L ABG pO2 Cancelled 71.6 L ABG HCO3 Cancelled 22.3 ABG O2 Saturation Cancelled 94.9 ABG Base Excess Cancelled -1.4 FiO2 Cancelled 40% Phosphorus TSH Free T4 12/31/19 12:55 Blood Blood Culture - Final NO GROWTH IN 5 DAYS 12/31/19 12:36 Blood Blood Culture - Final NO GROWTH IN 5 DAYS 12/31/19 12/31/19 12/31/19 12:36 12:36 13:03 Creatine Kinase Cancelled Cancelled Troponin I Cancelled NT-Pro-B Natriuret Pep Cancelled 12/31/19 12/31/19 12/31/19 15:30 15:30 18:11 Creatine Kinase 59 Troponin I 0.013 0.016 NT-Pro-B Natriuret Pep 228 H 01/05/20 16:35 Creatine Kinase Troponin I < 0.012 NT-Pro-B Natriuret Pep Impressions: Head MRI 12/31/19 00:00 IMPRESSION: 1. No acute infarct or other acute intracranial findings 2. Mild cerebral atrophy Head CT 12/31/19 16:31 IMPRESSION: Normal CT appearance of the brain. EVIDENCE OF ACUTE STROKE: NO. Chest/Abdomen CTA 12/31/19 16:32 IMPRESSION: 1. No central or segmental pulmonary embolus. 2. Increasing multifocal airspace opacities consistent with worsening multi lobar pneumonia. Chest X-Ray 01/05/20 00:00 IMPRESSION: NO SIGNIFICANT CHANGE IN APPEARANCE OF CHEST. LOW LUNG VOLUMES WITH FAINT BILATERAL AIRSPACE DISEASE. Assessment and Plan - Diagnosis (1) Interstitial pneumonia of both lungs Is this a current diagnosis for this admission?: Yes Plan: Has been on broad-spectrum IV antibiotic for 6 days now. Blood culture is negative so far. Sputum culture only positive for Matilda which is likely chronic colonization. Fevers have resolved but cough and hypoxia persistent Influenza test negative COVID-19 test negative I will go ahead and discontinue IV antibiotics as I do not think they are helpful at this point. Continue steroids Will discuss further with pulmonology regarding proceeding with bronchoscopy with BAL to get a tissue specimen as it is still unclear if this is an infectious versus inflammatory interstitial pneumonia/pneumonitis. (2) Acute metabolic encephalopathy Is this a current diagnosis for this admission?: Yes Plan: MRI brain only significant for cerebral atrophy. Patient is conversational and oriented but does seem to have some gaps in memory. I did discuss with patient's who states that patient was completely normal mentally w/o dementia and only until about 2 weeks prior to admission before becoming like this. plan for LP tomorrow (3) Acute hypoxemic respiratory failure Is this a current diagnosis for this admission?: Yes Plan: CT shows airspace & interstitial disease with groundglass opacities diffusely- infectious versus inflammatory. No PE noted. BNP is only minimally elevated. His COVID-19 test is negative -however I do wonder if patient had COVID in the past. placed on oxymizer at 8L (4) Intractable hiccups Is this a current diagnosis for this admission?: Yes Plan: Currently seems to be resolving. Likely etiologies are acid reflux and his pulmonary disease. His MRI of the brain was negative ruling out stroke Receiving PPI therapy. Baclofen 10 mg 3 times daily gabapentin 3 times a day as needed--has not needed this so far (5) Acid reflux Qualifiers: Esophagitis presence: esophagitis presence not specified Qualified Code(s): K21.9 - Gastro-esophageal reflux disease without esophagitis Is this a current diagnosis for this admission?: Yes Plan: IV. Protonix every morning and bedtime famotidine (6) Sepsis Qualifiers: Sepsis type: sepsis due to unspecified organism Sepsis acute organ dysfunction status: with acute organ dysfunction Severe sepsis acute organ dysfunction type: acute respiratory failure Acute respiratory failure type: with hypoxia Severe sepsis shock status: without septic shock Qualified Code(s): A41.9 - Sepsis, unspecified organism; R65.20 - Severe sepsis without septic shock; J96.01 - Acute respiratory failure with hypoxia Is this a current diagnosis for this admission?: Yes - Time Time Spent with patient: 15-24 minutes Anticipated Discharge Disposition: UNKNOWN Anticipated Discharge Timeframe: UNDETERMINED
[2020-01-06] MEDS ORDERED: TUBERCULIN,PURIF.PROT.DERIV. 5 TU/0.1 ML TEST 1 ML VIAL ID ONE ×2 (17:58→18:32)
[2020-01-06] MEDS ORDERED: FAMOTIDINE INJ/PF 20 MG/2 ML SDV IV SCH (22:00)
[2020-01-06] MEDS ORDERED: DEXAMETHASONE SOD PHOSPHATE INJ 4 MG/1 ML VIAL IV SCH (22:00)
[2020-01-06] MEDS: MELATONIN 5 MG TABLET PO SCH (22:12)
[2020-01-06] MEDS: QUETIAPINE FUMARATE 25 MG TABLET PO SCH (22:12)
[2020-01-07] MEDS: MORPHINE SULFATE 10 MG/ML INJ IV PRN ×4 (00:16→14:31)
[2020-01-07] MEDS: LORAZEPAM INJ 2 MG/1 ML VIAL IV PRN ×2 (04:03→10:06)
[2020-01-07] MEDS: DEXTROSE 5%-NORMAL SALINE 1,000 ML IV PRN (05:50)
[2020-01-07 05:59] LABS: INTERNATIONAL RATION (INR) 1.13; PROTHROMBIN TIME 14.7 SEC (11.4-15.4)
[2020-01-07] MEDS ORDERED: DEXAMETHASONE SOD PHOSPHATE INJ 4 MG/1 ML VIAL IV SCH (06:00)
[2020-01-07 06:26] LABS: ALBUMIN 2.4 g/dL (3.5-5.0); ALKALINE PHOSPHATASE 59 U/L (38-126); ANION GAP 5 (5-19); ASPARTATE AMINO TRANSFERASE 66 U/L (17-59); BILIRUBIN,DIRECT 0.3 mg/dL (0.0-0.4); BILIRUBIN,TOTAL 0.7 mg/dL (0.2-1.3); BLOOD UREA NITROGEN 28 mg/dL (7-20); CALCIUM 8.5 mg/dL (8.4-10.2); CARBON DIOXIDE 26 mmol/L (22-30); CHLORIDE 110 mmol/L (98-107); GLUCOSE 152 mg/dL (75-110); TOTAL PROTEIN 5.3 g/dL (6.3-8.2)
[2020-01-07 06:28] LABS: VANCOMYCIN,TROUGH 7.6 ug/mL (5.0-20.0)
[2020-01-07 07:30] LABS: FOLATE 3.12 ng/mL (>2.76)
--- NOTE | 2020-01-07 09:17 | PDOC PROGRESS REPORT ---
Subjective Progress Note for:: 01/07/20 Subjective:: This patient is seen in follow-up for faint diffuse interstitial infiltrates with hypoxemia. In the interim he continues to have significant O2 requirements. He also continues to be confused and poorly responsive to questioning. Reason For Visit: MULTIFOCAL PNEUMONIA Physical Exam Vital Signs: Temp Pulse Resp BP Pulse Ox 97.9 F 101 H 24 H 129/69 H 96 01/07/20 08:03 01/07/20 07:00 01/07/20 00:00 01/06/20 23:48 01/07/20 00:00 Intake & Output 01/06/20 01/07/20 01/08/20 06:59 06:59 06:59 Intake Total 1500 1250 1000 Output Total 1075 595 Balance 550 071 3724 Weight 71.9 kg 74.8 kg Exam: Physical examination today is largely unchanged. He continues on a BiPAP device. His respiratory rate is elevated in the range of 16-20 times per minute. He again exhibits diffuse rhonchi throughout all lung li no obvious wheezes are appreciated. Heart exam reveals a tachycardia without obvious murmur abdominal exam is nondistended nontender although bowel sounds are absent. Logic the patient is nonresponsive to questioning he generally has his eyes closed. Results Laboratory Results: 01/05/20 07:38 01/07/20 05:29 01/07/20 05:29 Sodium 140.7 Potassium 4.0 Chloride 110 H Carbon Dioxide 26 Anion Gap 5 BUN 28 H Creatinine 0.92 Est GFR ( Amer) > 60 Glucose 152 H Calcium 8.5 Magnesium 2.4 H Ferritin 890.00 H Total Bilirubin 0.7 AST 66 H Alkaline Phosphatase 59 Total Protein 5.3 L Albumin 2.4 L Vitamin B12 275.0 Folate 3.12 12/31/19 12/31/19 12/31/19 12:36 12:36 13:03 Creatine Kinase Cancelled Cancelled Troponin I Cancelled NT-Pro-B Natriuret Pep Cancelled 12/31/19 12/31/19 12/31/19 15:30 15:30 18:11 Creatine Kinase 59 Troponin I 0.013 0.016 NT-Pro-B Natriuret Pep 228 H 01/05/20 16:35 Creatine Kinase Troponin I < 0.012 NT-Pro-B Natriuret Pep Impressions: Head MRI 12/31/19 00:00 IMPRESSION: 1. No acute infarct or other acute intracranial findings 2. Mild cerebral atrophy Head CT 12/31/19 16:31 IMPRESSION: Normal CT appearance of the brain. EVIDENCE OF ACUTE STROKE: NO. Chest/Abdomen CTA 12/31/19 16:32 IMPRESSION: 1. No central or segmental pulmonary embolus. 2. Increasing multifocal airspace opacities consistent with worsening multi lobar pneumonia. Chest X-Ray 01/05/20 00:00 IMPRESSION: NO SIGNIFICANT CHANGE IN APPEARANCE OF CHEST. LOW LUNG VOLUMES W ITH FAINT BILATERAL AIRSPACE DISEASE. Status: Image reviewed by me - I have reviewed the chest x-ray from 01/05/2020. This reveals persistent faint diffuse interstitial infiltrates. Assessment & Plan - Diagnosis (1) Acute metabolic encephalopathy Is this a current diagnosis for this admission?: Yes (2) Acute respiratory distress Is this a current diagnosis for this admission?: Yes (5) Multifocal pneumonia Is this a current diagnosis for this admission?: Yes (6) Recurrent pneumonia Is this a current diagnosis for this admission?: Yes (7) Acute hypoxemic respiratory failure Is this a current diagnosis for this admission?: Yes - Time Time Spent with patient: 35 or more minutes - Plan Summary Plan Summary: Because of this patient's confusion a LP is being performed shortly. This is appropriate given that his mental status is inappropriate for his level of oxygenation. While he is in some respiratory distress he is not in extremis. His saturations and PaO2 are maintained on an FiO2 of 0.4. COVID-19 antibiotics are pending at this time. I believe if his COVID-19 antibodies are negative that we should proceed with a bronchoscopy to include brushings washings lavage and potentially transbronchial lung biopsy. I will discuss this further with the patient's . If all of the above are nondiagnostic I think the next step is transfer to a facility with a thoracic surgeon who can perform an open lung biopsy.
[2020-01-07] MEDS: PANTOPRAZOLE SODIUM 40 MG VIAL IV SCH (10:07)
[2020-01-07] MEDS: BACLOFEN 10 MG TABLET PO SCH (10:41)
--- NOTE | 2020-01-07 11:12 | RADIOLOGY REPORT (SQ) ---
EXAM DESCRIPTION: LUMBAR PUNCTURE IMAGES COMPLETED DATE/TIME: 01/07/2020 10:48 am REASON FOR STUDY: rapid mental status decline COMPARISON: None. FLUOROSCOPY TIME: 0.5 minutes. 1 image submitted to PACS. TECHNIQUE: Fluoroscopic Guided Lumbar Puncture. LIMITATIONS: None. PROCEDURE: After written consent and assessment were obtained, the patient was brought into the fluo roscopy room and placed prone on the table. The patient's lower back was prepped in a sterile fashio n and an entry site was selected under live fluoroscopic guidance. The entry site was anesthetized wi th 1% lidocaine. A 20 gauge needle was advanced through the skin and into the thecal sac at the level of L3-L4. After approximately 9 ml was drained, the needle was removed and a sterile bandage was freida nena of the site. Specimens were sent to the lab for testing. A fluoroscopic spot image was saved to PACS confirming level access. FINDINGS: Clear CSF. IMPRESSION: Lumbar puncture under fluoroscopy. No immediate complication. COMMENT: Patient medication list reviewed: Yes- Quality ID# [id number]:Eligible professional attests to doc umenting in the medical record they obtained, updated, or reviewed the patient's current medications. . Quality ID 145: Final reports for procedures using fluoroscopy that document radiation exposure iliana trinh, or exposure time and number of fluorographic images (if radiation exposure indices are not avail able) TECHNICAL DOCUMENTATION: JOB ID: [id number] 2010 [employer]- All Rights Reserved Reading location - IP/workstation name: [email or web address] [id number]
[2020-01-07 11:37] LABS: GLUCOSE,CSF 88 mg/dL (40-70); PROTEIN,CSF 39 mg/dL (12-60)
[2020-01-07 12:18] LABS: APPEARANCE ALL TUBES CLEAR; COLOR ALL TUBES COLORLESS; CSF TUBE NUMBER 3
[2020-01-07 12:20] LABS: RED BLOOD CELL,CSF 11 /uL (0-10)
[2020-01-07 12:25] LABS: WHITE BLOOD CELL,CSF 1 /uL (0-5)
--- NOTE | 2020-01-07 14:14 | PDOC PROGRESS REPORT ---
Subjective Progress Note for:: 01/07/20 Subjective:: No improvement in patient mental status this morning. Still very much altered. Not able to carry out a conversation. Reason For Visit: MULTIFOCAL PNEUMONIA Physical Exam Vital Signs: Temp Pulse Resp BP Pulse Ox 97.9 F 115 H 16 157/85 H 94 01/07/20 12:39 01/07/20 12:39 01/07/20 12:39 01/07/20 12:39 01/07/20 12:39 Intake & Output 01/06/20 01/07/20 01/08/20 06:59 06:59 06:59 Intake Total 1500 1250 1000 Output Total 1075 595 Balance 637 803 2036 Weight 71.9 kg 74.8 kg General appearance: PRESENT: no acute distress, cooperative Neck exam: ABSENT: JVD Respiratory exam: PRESENT: crackles, symmetrical, unlabored. ABSENT: tachypnea, wheezes Cardiovascular exam: PRESENT: +S1, +S2, tachycardia. ABSENT: irregular rhythm GI/Abdominal exam: PRESENT: soft. ABSENT: rebound, rigid, tenderness Neurological exam: PRESENT: alert, awake, other - not conversationsal. mumbles words and grabs at everything.. ABSENT: oriented to person, oriented to place, oriented to time, oriented to situation Psychiatric exam: PRESENT: agitated Results Laboratory Results: 01/05/20 07:38 01/07/20 05:29 01/07/20 01/07/20 01/07/20 05:29 10:36 10:36 Sodium 140.7 Potassium 4.0 Chloride 110 H Carbon Dioxide 26 Anion Gap 5 BUN 28 H Creatinine 0.92 Est GFR ( Amer) > 60 Glucose 152 H Calcium 8.5 Magnesium 2.4 H Ferritin 890.00 H Total Bilirubin 0.7 AST 66 H Alkaline Phosphatase 59 Total Protein 5.3 L Albumin 2.4 L Vitamin B12 275.0 Folate 3.12 Fluid Tube Number 3 CSF Volume 9.0 CSF Appearance CLEAR CSF Color COLORLESS CSF WBC 1 CSF RBC 11 CSF Glucose 88 H CSF Total Protein 39 12/31/19 12/31/19 12/31/19 12:36 12:36 13:03 Creatine Kinase Cancelled Cancelled Troponin I Cancelled NT-Pro-B Natriuret Pep Cancelled 12/31/19 12/31/19 12/31/19 15:30 15:30 18:11 Creatine Kinase 59 Troponin I 0.013 0.016 NT-Pro-B Natriuret Pep 228 H 01/05/20 16:35 Creatine Kinase Troponin I < 0.012 NT-Pro-B Natriuret Pep Impressions: Head MRI 12/31/19 00:00 IMPRESSION: 1. No acute infarct or other acute intracranial findings 2. Mild cerebral atrophy Head CT 12/31/19 16:31 IMPRESSION: Normal CT appearance of the brain. EVIDENCE OF ACUTE STROKE: NO. Chest/Abdomen CTA 12/31/19 16:32 IMPRESSION: 1. No central or segmental pulmonary embolus. 2. Increasing multifocal airspace opacities consistent with worsening multi lobar pneumonia. Chest X-Ray 01/05/20 00:00 IMPRESSION: NO SIGNIFICANT CHANGE IN APPEARANCE OF CHEST. LOW LUNG VOLUMES WITH FAINT BILATERAL AIRSPACE DISEASE. Lumbar Puncture 01/07/20 06:00 IMPRESSION: Lumbar puncture under fluoroscopy. No immediate complication. Assessment and Plan - Diagnosis (1) Interstitial pneumonia of both lungs Is this a current diagnosis for this admission?: Yes Plan: Received broad-spectrum IV antibiotic for 6 days. Blood cultures are negative so far. Sputum culture only positive for Matilda which is likely chronic colonization. Fevers have resolved but cough and hypoxia persistent Influenza test negative COVID-19 test negative COVID Abs requested by Pulm Continue steroids for now. Pulmonology planning for bronchoscopy with BAL to get a tissue specimen as it is still unclear if this is an infectious versus inflammatory interstitial pneumonia/pneumonitis- pending covid antibodies result. (2) Acute metabolic encephalopathy Is this a current diagnosis for this admission?: Yes Plan: Began gradually 2 weeks prior to admission according to but mental status has declined significantly in the past few days and remains persistently altered and not conversational. MRI brain only significant for cerebral atrophy. LP done 01/07/2020: Basic analysis is essentially unremarkable and does not indicate any inflammatory/infectious process. Viral culture, Gram stain/culture, adenosine deaminase and cytology are pending. (3) Acute hypoxemic respiratory failure Is this a current diagnosis for this admission?: Yes Plan: CT shows airspace & interstitial disease with groundglass opacities diffusely- infectious versus inflammatory. No PE noted. BNP is only minimally elevated. His COVID-19 test is negative -however I do wonder if patient had COVID in the past. placed on oxymizer at 8L. Sleeps with CPAP. (4) Intractable hiccups Is this a current diagnosis for this admission?: Yes Plan: Currently improved but still recurrent Likely etiologies are acid reflux vs neck pathology vs interstitial pneumonia. His MRI of the brain was negative ruling out stroke. Receiving PPI therapy. Has not received baclofen in past couple of days -we will discontinue gabapentin 3 times a day prn--has not needed this so far Will probably need to visualize his neck to see if any pathology obstruction (5) Acid reflux Qualifiers: Esophagitis presence: esophagitis presence not specified Qualified Code(s): K21.9 - Gastro-esophageal reflux disease without esophagitis Is this a current diagnosis for this admission?: Yes Plan: IV. Protonix every morning and bedtime famotidine. Switch to po once mental status improves. - Time Time Spent with patient: 15-24 minutes Anticipated Discharge Disposition: Home, Self Care Anticipated Discharge Timeframe: >72hours
[2020-01-07 15:03] LABS: ANTINUCLEAR ANTIBODIES Negative (Negative); SCLERODERMA-70 ANTIBODIES <0.2 AI (0.0-0.9)
[2020-01-07] MEDS ORDERED: LORAZEPAM INJ 2 MG/1 ML VIAL IV PRN (15:05)
[2020-01-07 15:37] LABS: ANTIMYELOPEROXIDASE (MPO) AB <9.0 U/mL (0.0-9.0)
--- NOTE | 2020-01-07 16:02 | RADIOLOGY REPORT (SQ) ---
EXAM DESCRIPTION: CT HEAD WITHOUT IMAGES COMPLETED DATE/TIME: 01/07/2020 3:50 pm REASON FOR STUDY: persistent confusion and not communicating COMPARISON: MRI of the head without contrast from 12/31/2019. TECHNIQUE: Axial images acquired through the brain without intravenous contrast. Images reviewed wi th bone, brain and subdural windows. Additional sagittal and coronal reconstructions were generated. Images stored on PACS. All CT scanners at this facility use dose modulation, iterative reconstruction, and/or weight based d osing when appropriate to reduce radiation dose to as low as reasonably achievable (ALARA). [facility]: Dose Right [facility]: CareDose [facility]: Dose Right [facility]: Teradose 4D [facility]: FilmDoo RADIATION DOSE: CT Rad equipment meets quality standard of care and radiation dose reduction techniq ues were employed. CTDIvol: 53.2 mGy. DLP: 1177 mGy-cm. LIMITATIONS: None. FINDINGS: There is diffuse age-appropriate cerebral and cerebellar volume loss. The caliber of the ventricles is concordant with the degree of sulcation. There is no acute intracranial hemorrhage, va scular territorial infarct, extra-axial fluid collection, mass effect or midline shift. The schroeder-whi te matter differentiation is preserved. There is no effacement of the cerebral sulci or basal subara chnoid cisterns. The orbits and globes are intact. The paranasal sinuses are clear. There is no fracture of the calv arium. IMPRESSION: No acute intracranial abnormality. EVIDENCE OF ACUTE STROKE: NO. COMMENT: Quality ID # 436: Final reports with documentation of one or more dose reduction techniques (e.g., Automated exposure control, adjustment of the mA and/or kV according to patient size, use of iterative reconstruction technique) TECHNICAL DOCUMENTATION: JOB ID: [id number] 2010 [employer]- All Rights Reserved Reading location - IP/workstation name: [email or web address]
--- NOTE | 2020-01-07 16:13 | RADIOLOGY REPORT (SQ) ---
EXAM DESCRIPTION: CT SOFT TISSUE NECK WITH IMAGES COMPLETED DATE/TIME: 01/07/2020 3:50 pm REASON FOR STUDY: persistent hiccups, SOB, weight loss COMPARISON: CT of the chest from 12/31/2019. TECHNIQUE: Post IV contrasted scanning from skull base through lung apices with review of bone, soft tissue and lung windows. Reconstructed coronal and sagittal MPR images reviewed. All images stored on PACS. All CT scanners at this facility use dose modulation, iterative reconstruction, and/or weight based d osing when appropriate to reduce radiation dose to as low as reasonably achievable (ALARA). [facility]: Dose Right [facility]: CareDose [facility]: Dose Right [facility]: Teradose 4D [facility]: Evikon [facility] CONTRAST TYPE AND DOSE: Contrast/concentration: Isovue 350.00 mmol/ml; Total Contrast Delivered: 73. 9 ml; Total Saline Delivered: 51.0 ml RENAL FUNCTION: Creatinine 0.92 milligrams/deciliter. RADIATION DOSE: CT Rad equipment meets quality standard of care and radiation dose reduction techniq ues were employed. CTDIvol: 10.9 mGy. DLP: 332 mGy-cm. LIMITATIONS: None. FINDINGS: SKULL BASE: Intact. MAJOR SALIVARY GLANDS: No mass or asymmetry. LYMPHADENOPATHY: No adenopathy. MUCOSAL MASSES OR ASYMMETRY: No mass or asymmetry. LARYNX/CORDS: No abnormality. VASCULAR STRUCTURES: Patent. LUNG APICES: Patchy bilateral mixed areas of consolidation and ground-glass opacification. BONES: Degenerative spondylosis of the cervical spine. There is no fracture osseous lesion. THYROID: No mass or asymmetry. PARANASAL SINUSES: Clear. OTHER: No other finding. IMPRESSION: 1. No abnormality of the soft tissues of the neck. 2. Patchy bilateral mixed areas of consolidation and ground-glass opacification that have increased s julius 12/31/2019. TECHNICAL DOCUMENTATION: JOB ID: [id number] Quality ID # [id number]: Final reports with documentation of one or more dose reduction techniques (e.g., Au tomated exposure control, adjustment of the mA and/or kV according to patient size, use of iterative reconstruction technique) 2010 [employer]- All Rights Reserved Reading location - IP/workstation name: [email or web address]
[2020-01-07] MEDS ORDERED: PROPOFOL INJ 200 MG/20 ML VIAL IV ONE (16:49)
[2020-01-07] MEDS ORDERED: DEXMEDETOMIDINE IN 0.9 % NACL 400 MCG/100 ML RTUPB IV ONE (17:28)
[2020-01-07] MEDS: DEXMEDETOMIDINE IN 0.9 % NACL 400 MCG/100 ML RTUPB IV PRN ×2 (17:28→22:34)
--- NOTE | 2020-01-07 17:29 | Progress Note ---
Provider Note Provider Note: Patient this afternoon continued to decline in terms of his respiratory status. He became more hypoxic and was placed on nonrebreather. On nonrebreather his SPO2 was in the 70s. He was subsequently placed on the CPAP of 10 at 90% FiO2 with improvement of SPO2 to 96% but remained remained tachypneic in the 40s. She was intubated. Given propofol and sandra. Blood pressure dropped down to 90s over 50s. Given 1 L normal saline bolus. Patient will be transferred to the ICU. Have discussed case and given signout to photo studio assistant. Notified valve seater operator about patient's development. Discussed development with patient's brother and patient's .
--- NOTE | 2020-01-07 17:31 | CRITICAL CARE ADMISSION REPORT ---
HPI Date:: 01/07/20 Time:: 17:00 Reason for ICU Reason:: Intubated for increased WOB Admission Date/Time & PCP: Admission Date/Time: 12/31/19 19:36 Primary Care Provider: VERNON MCCARTY MD HPI: This patient is a 69 yo man with no major past history, no smoking, COPD/asthma who was just intubated for highRR to 40 and WOB. His pulmonary issues include a multifocal PNA or an airspace disease process as he has mbeen on abx for 7 days and has worsened. He is COVID negative by nasopharyngeal testing but a post COVI D sequelae has been suggested by Dr. Siddiqi who has seen him in consult. He also has had an unexplained delerium for which he has had an unremarkable LP and MRI. Chronic aspiration is possible also. He has an elevated R hemidiaphrgm. He has been intubated on the 3rd floor by anesthesia. History obtained from:: Dr. Guillory, old records. - Diagnosis/Plan (1) Acute hypoxemic respiratory failure Is this a current diagnosis for this admission?: Yes Plan: Oxygen saturations have been in the 70s. Not hypoxic now. (2) Acid reflux Qualifiers: Esophagitis presence: esophagitis presence not specified Qualified Code(s): K21.9 - Gastro-esophageal reflux disease without esophagitis Is this a current diagnosis for this admission?: Yes Plan: Chronic aspiration may be possible but this presentation is fairly dramatic for aspiration. (3) Acute metabolic encephalopathy Is this a current diagnosis for this admission?: Yes Plan: He has had a delerium, the cause of which is not known. (4) Intractable hiccups Is this a current diagnosis for this admission?: Yes Plan: With his elevated R diaphragm I'm sure this is related. (5) Suspected 2019-nCoV infection Is this a current diagnosis for this admission?: Yes Plan: His testing is negative but a post COVID sequelae is possible. Plan Summary: Transfer to ICU and Dr. Siddiqi has seen and suggets a brochoscopy. Past Medical History Cardiac Medical History: Reports: None Pulmonary Medical History: Reports: Pneumonia Psychiatric Medical History: Denies: Depression Past Surgical History Past Surgical History: Reports: None Social/Family History - Social History Lives with: Spouse/Significant other Smoking Status: Never Smoker Frequency of Alcohol Use: Rare Hx Recreational Drug Use: No Drugs: None Hx Prescription Drug Abuse: No - Medication/Allergies Home Medications: Albuterol Sulfate [Proair HFA Inhalation Aerosol 8.5 gm MDI] 2 puff IH Q4HP PRN 01/01/20 Allergies/Adverse Reactions: No Known Allergies Allergy (Unverified 10/07/19 10:59) Review of Systems ROS unobtainable: Due to endotracheal tube, Due to mental status Physical Exam Vital Signs: Temp Pulse Resp BP Pulse Ox 97.9 F 115 H 16 157/85 H 94 01/07/20 12:39 01/07/20 12:39 01/07/20 12:39 01/07/20 12:39 01/07/20 12:39 Intake & Output 01/06/20 01/07/20 01/08/20 06:59 06:59 06:59 Intake Total 1500 1250 1000 Output Total 1075 595 Balance 863 976 0424 Weight 71.9 kg 74.8 kg Weight/Height Weight 74.8 kg Height 5 ft 10 in General appearance: PRESENT: disheveled, mild distress Head exam: PRESENT: atraumatic, normocephalic Eye exam: PRESENT: conjunctiva pink, EOMI, PERRLA. ABSENT: scleral icterus Ear exam: PRESENT: normal external ear exam Mouth exam: PRESENT: moist, tongue midline Respiratory exam: PRESENT: clear to auscultation ahsan, decreased breath sounds. ABSENT: rales, rhonchi, wheezes Cardiovascular exam: PRESENT: RRR, tachycardia. ABSENT: diastolic murmur, rubs, systolic murmur GI/Abdominal exam: PRESENT: normal bowel sounds, soft. ABSENT: distended, guarding, mass, organolmegaly, rebound, tenderness Rectal exam: PRESENT: deferred Gentrourinary exam: PRESENT: indwelling catheter Extremities exam: PRESENT: full ROM. ABSENT: calf tenderness, clubbing, pedal e dianne Musculoskeletal exam: PRESENT: normal inspection Neurological exam: PRESENT: altered, CN II-XII grossly intact Psychiatric exam: PRESENT: agitated Skin exam: PRESENT: dry, intact, warm. ABSENT: cyanosis, rash Tubes/Lines: PRESENT: Endotracheal Tube, Nasogastic Tube Laboratory/Radiographs Laboratory Results: 01/05/20 07:38 01/07/20 05:29 01/07/20 01/07/2020 05:29 10:36 10:36 Sodium 140.7 Potassium 4.0 Chloride 110 H Carbon Dioxide 26 Anion Gap 5 BUN 28 H Creatinine 0.92 Est GFR ( Amer) > 60 Glucose 152 H Calcium 8.5 Magnesium 2.4 H Ferritin 890.00 H Total Bilirubin 0.7 AST 66 H Alkaline Phosphatase 59 Total Protein 5.3 L Albumin 2.4 L Vitamin B12 275.0 Folate 3.12 Fluid Tube Number 3 Fluid LDH CSF Volume 9.0 CSF Appearance CLEAR CSF Color COLORLESS CSF WBC 1 CSF RBC 11 CSF Glucose 88 H CSF Total Protein 39 CSF VDRL 01/07/20 01/07/20 10:36 10:36 Sodium Potassium Chloride Carbon Dioxide Anion Gap BUN Creatinine Est GFR ( Amer) Glucose Calcium Magnesium Ferritin Total Bilirubin AST Alkaline Phosphatase Total Protein Albumin Vitamin B12 Folate Fluid Tube Number Fluid LDH Cancelled CSF Volume CSF Appearance CSF Color CSF WBC CSF RBC CSF Glucose CSF Total Protein CSF VDRL Cancelled 12/31/19 12/31/19 12/31/19 12:36 12:36 13:03 Creatine Kinase Cancelled Cancelled Troponin I Cancelled NT-Pro-B Natriuret Pep Cancelled 12/31/19 12/31/19 12/31/19 15:30 15:30 18:11 Creatine Kinase 59 Troponin I 0.013 0.016 NT-Pro-B Natriuret Pep 228 H 01/05/20 16:35 Creatine Kinase Troponin I < 0.012 NT-Pro-B Natriuret Pep Impressions: Head MRI 12/31/19 00:00 IMPRESSION: 1. No acute infarct or other acute intracranial findings 2. Mild cerebral atrophy Chest/Abdomen CTA 12/31/19 16:32 IMPRESSION: 1. No central or segmental pulmonary embolus. 2. Increasing multifocal airspace opacities consistent with worsening multi lobar pneumonia. Chest X-Ray 01/05/20 00:00 IMPRESSION: NO SIGNIFICANT CHANGE IN APPEARANCE OF CHEST. LOW LUNG VOLUMES WITH FAINT BILATERAL AIRSPACE DISEASE. Head CT 01/07/20 00:00 IMPRESSION: No acute intracranial abnormality. EVIDENCE OF ACUTE STROKE: NO. Soft Tissue Neck CT 01/07/20 00:00 IMPRESSION: 1. No abnormality of the soft tissues of the neck. 2. Patchy bilateral mixed areas of consolidation and ground-glass opacification that have increased since 12/31/2019. Lumbar Puncture 01/07/20 06:00 IMPRESSION: Lumbar puncture under fluoroscopy. No immediate complication. All labs, radiographs, diagnostic studies and EKGs were personally reviewed: Yes In addition, reports of radiographic and diagnostic studies were read: Yes Critical Time Critical Time (minutes): 40 -: The care of a critically ill patient is dynamic. This note represents a static moment in the admission process. Orders and treatments may be given simultaneously and urgently, and time is not sales representative facility services of the treatment process. This patient requires Critical Care secondary to life threatening organ or limb dysfunction. Without Critical Care services, the patient is at risk for increased mortality and morbidity.
[2020-01-07] MEDS ORDERED: ONDANSETRON 4 MG TAB.RAPDIS PO PRN (17:32)
[2020-01-07] MEDS ORDERED: IPRATROPIUM/ALBUTEROL 0.5-2.5 MG/3 ML AMPUL NEB PRN (17:32)
[2020-01-07 17:36] LABS: CYTOPLASMIC (C-ANCA) <1:20 titer (Neg:<1:20)
[2020-01-07] MEDS ORDERED: MORPHINE SULFATE 10 MG/ML INJ IV PRN (17:39)
[2020-01-07] MEDS ORDERED: PHARMACY COMMUNICATION ORDER MC NR (17:45)
[2020-01-07] MEDS ORDERED: GABAPENTIN 100 MG CAPSULE NG PRN (17:50)
[2020-01-07] MEDS ORDERED: MAG HYDROX/AL HYDROX/SIMETH SUSP 30 ML UDCUP NG PRN (17:50)
[2020-01-07 17:57] LABS: ARTERIAL BLOOD H2CO3 1.23 mmol/L (1.05-1.35); ARTERIAL BLOOD HCO3 23.2 mmol/L (20-24); ARTERIAL BLOOD O2 SATURATION 98.8 % (94-98); ARTERIAL BLOOD PH 7.37 (7.35-7.45); ARTERIAL BLOOD PO2 146.2 mmHg (80-100); ARTERIAL BLOOD TOTAL CO2 24.4 mmol/L (23-27)
[2020-01-07 17:58] LABS: ARTERIAL BLOOD FIO2 100%
[2020-01-07] MEDS ORDERED: ROCURONIUM BROMIDE INJ 50 MG/5 ML VIAL IV ONE (18:37)
--- NOTE | 2020-01-07 18:45 | RADIOLOGY REPORT (SQ) ---
EXAM DESCRIPTION: CHEST SINGLE VIEW IMAGES COMPLETED DATE/TIME: 01/07/2020 6:32 pm REASON FOR STUDY: ETT and NG verification COMPARISON: 01/05/2020 EXAM PARAMETERS: NUMBER OF VIEWS: One view. TECHNIQUE: Single frontal radiographic view of the chest acquired. RADIATION DOSE: NA LIMITATIONS: None. FINDINGS: LUNGS AND PLEURA: Perihilar edema, slightly asymmetrical, more prominent on the right. MEDIASTINUM AND HILAR STRUCTURES: No masses. Contour normal. HEART AND VASCULAR STRUCTURES: Heart normal in size. Normal vasculature. BONES: No acute findings. HARDWARE: Endotracheal tube has its tip 2 cm above the goyo. An NG tube extends to the stomach. OTHER: No other significant finding. IMPRESSION: Endotracheal tube and NG tube as described. Pulmonary edema. TECHNICAL DOCUMENTATION: JOB ID: [id number] 2010 [employer]- All Rights Reserved Reading location - IP/workstation name: [email or web address]
[2020-01-07] MEDS: ACETAMINOPHEN 325 MG TABLET NG PRN (20:31)
[2020-01-07] MEDS: RINGERS SOLUTION,LACTATED 1,000 ML IV PRN (20:40)
[2020-01-07] MEDS ORDERED: QUETIAPINE FUMARATE 25 MG TABLET PO SCH (22:00)
[2020-01-07] MEDS ORDERED: RINGERS SOLUTION,LACTATED 1,000 ML IV ONE ×2 (22:10→23:27)
[2020-01-07] MEDS ORDERED: PIPERACILLIN/TAZOBACTAM 3.375 GM VIAL IV PRN (22:19)
[2020-01-07] MEDS: QUETIAPINE FUMARATE 25 MG TABLET NG SCH (22:19)
[2020-01-07] MEDS ORDERED: DEXTROSE 5%-WATER 250 ML with NOREPINEPHRINE BITARTRATE 4 MG IV PRN ×2 (23:26)
[2020-01-07] MEDS ORDERED: NOREPINEPHRINE BITARTRATE INJ/PF 4 MG/4 ML SDV IV ONE (23:32)
[2020-01-08] MEDS ORDERED: PIPERACILLIN/TAZOBACTAM 3.375 GM VIAL IV ONE ×2 (00:46→05:13)
[2020-01-08] MEDS: PIPERACILLIN SODIUM/TAZOBACTAM 3.375 GM in NORMAL SALINE 100 ML IV SCH ×5 (01:00→23:32)
[2020-01-08] MEDS: FENTANYL CITRATE/PF 600 MCG/60 ML BAG IV PRN ×4 (04:00→22:10)
[2020-01-08] MEDS: DEXMEDETOMIDINE IN 0.9 % NACL 400 MCG/100 ML RTUPB IV PRN ×4 (04:00→22:43)
[2020-01-08] MEDS: ACETAMINOPHEN 325 MG TABLET NG PRN (05:15)
[2020-01-08 05:39] LABS: HEMATOCRIT 30.8 % (37.9-51.0); HEMOGLOBIN 10.8 g/dL (13.5-17.0); MEAN CORPUSCULAR HEMOGLOBIN 29.7 pg (27.0-33.4); MEAN CORPUSCULAR HGB CONC 34.9 g/dL (32.0-36.0); MEAN CORPUSCULAR VOLUME 85 fl (80-97); PLATELET COUNT 153 10^3/uL (150-450); RED BLOOD COUNT 3.63 10^6/uL (4.35-5.55); RED CELL DISTRIBUTION WIDTH 14.6 % (11.5-14.0)
[2020-01-08 06:04] LABS: ALBUMIN 2.1 g/dL (3.5-5.0); ALKALINE PHOSPHATASE 62 U/L (38-126); ANION GAP 5 (5-19); ASPARTATE AMINO TRANSFERASE 66 U/L (17-59); BILIRUBIN,DIRECT 0.5 mg/dL (0.0-0.4); BLOOD UREA NITROGEN 27 mg/dL (7-20); CALCIUM 8.3 mg/dL (8.4-10.2); CARBON DIOXIDE 25 mmol/L (22-30); CHLORIDE 110 mmol/L (98-107); GLUCOSE 79 mg/dL (75-110); TOTAL PROTEIN 4.8 g/dL (6.3-8.2)
[2020-01-08 06:37] LABS: ABSOLUTE LYMPHOCYTES# (MANUAL) 0.1 10^3/uL (0.5-4.7); ABSOLUTE MONOCYTES # (MANUAL) 0.1 10^3/uL (0.1-1.4); BASOPHILS % (MANUAL) 0 % (0-2); EOSINOPHILS % (MANUAL) 0 % (0-6); LYMPHOCYTES % (MANUAL) 1 % (13-45); MONOCYTES % (MANUAL) 1 % (3-13); SEGMENTED NEUTROPHILS % (MAN) 98 % (42-78); TOTAL CELLS COUNTED 100
[2020-01-08 06:38] LABS: ANISOCYTOSIS SLIGHT; OVALOCYTES SLIGHT
[2020-01-08 06:39] LABS: PLATELET COMMENT ADEQUATE
[2020-01-08 07:12] LABS: ATYPICAL PANCA <1:20 titer (Neg:<1:20)
[2020-01-08] MEDS: RINGERS SOLUTION,LACTATED 1,000 ML IV PRN ×2 (08:06→16:08)
--- NOTE | 2020-01-08 09:16 | PDOC CRITICAL CARE PROG REPORT ---
General Date:: 01/08/20 ICU Day:: 2 Ventilator Day:: 2 Hospital Day:: 8 Resuscitation Status: Full Code Events in the past 12 to 24 Hours:: Intubated and to get a bronchoscopy today. Review of systems relevant to events:: Pulmonary. Reason for ICU Addmission:: Intubated for increased WOB - Medications: Medications reviewed and adjusted accordingly: Yes Vasopressors:: Was on norepinephrine overnight. Sedation:: Precedex. Physical Exam Vital Signs: Temp Pulse Resp BP Pulse Ox 104 F H 119 H 18 118/72 95 01/08/20 06:15 01/08/20 05:42 01/08/20 06:00 01/08/20 05:49 01/08/20 08:00 Intake & Output 01/07/20 01/08/20 01/09/20 06:59 06:59 06:59 Intake Total 1250 2200 83 Output Total 595 710 175 Balance 655 1490 -92 Weight 74.8 kg 75.1 kg Weight/Height Weight 75.1 kg Height 5 ft 10 in General appearance: PRESENT: no acute distress, thin Head exam: PRESENT: atraumatic, normocephalic Eye exam: PRESENT: conjunctiva pink, EOMI, PERRLA. ABSENT: scleral icterus Ear exam: PRESENT: normal external ear exam Respiratory exam: PRESENT: clear to auscultation ahsan, decreased breath sounds, rhonchi. ABSENT: rales, wheezes Cardiovascular exam: PRESENT: RRR. ABSENT: diastolic murmur, rubs, systolic murmur GI/Abdominal exam: PRESENT: normal bowel sounds, soft. ABSENT: distended, guarding, mass, organolmegaly, rebound, tenderness Rectal exam: PRESENT: deferred Gentrourinary exam: PRESENT: indwelling catheter Extremities exam: PRESENT: +1 edema Musculoskeletal exam: PRESENT: normal inspection Neurological exam: PRESENT: altered, other - Sedated. Skin exam: PRESENT: dry, intact, warm. ABSENT: cyanosis, rash Tubes/Lines: PRESENT: Endotracheal Tube, Nasogastic Tube Laboratory/Radiographs Laboratory Results: 01/08/20 05:14 01/08/20 05:14 01/07/20 01/07/20 01/07/20 10:36 10:36 10:36 WBC RBC Hgb Hct MCV MCH MCHC RDW Plt Count Seg Neutrophils % Carbonic Acid HCO3/H2CO3 Ratio ABG pH ABG pCO2 ABG pO2 ABG HCO3 ABG O2 Saturation ABG Base Excess FiO2 Sodium Potassium Chloride Carbon Dioxide Anion Gap BUN Creatinine Est GFR ( Amer) Glucose Calcium Total Bilirubin AST Alkaline Phosphatase Total Protein Albumin Fluid Tube Number 3 Fluid LDH CSF Volume 9.0 CSF Appearance CLEAR CSF Color COLORLESS CSF WBC 1 CSF RBC 11 CSF Glucose 88 H CSF Total Protein 39 CSF VDRL Cancelled 01/07/20 01/07/20 01/08/20 10:36 17:43 05:14 WBC 5.0 RBC 3.63 L Hgb 10.8 L Hct 30.8 L MCV 85 MCH 29.7 MCHC 34.9 RDW 14.6 H Plt Count 153 Seg Neutrophils % Not Reportable Carbonic Acid 1.23 HCO3/H2CO3 Ratio 18:1 ABG pH 7.37 ABG pCO2 41.0 ABG pO2 146.2 H ABG HCO3 23.2 ABG O2 Saturation 98.8 H ABG Base Excess -2.0 FiO2 100% Sodium Potassium Chloride Carbon Dioxide Anion Gap BUN Creatinine Est GFR ( Amer) Glucose Calcium Total Bilirubin AST Alkaline Phosphatase Total Protein Albumin Fluid Tube Number Fluid LDH Cancelled CSF Volume CSF Appearance CSF Color CSF WBC CSF RBC CSF Glucose CSF Total Protein CSF VDRL 01/08/20 05:14 WBC RBC Hgb Hct MCV MCH MCHC RDW Plt Count Seg Neutrophils % Carbonic Acid HCO3/H2CO3 Ratio ABG pH ABG pCO2 ABG pO2 ABG HCO3 ABG O2 Saturation ABG Base Excess FiO2 Sodium 140.1 Potassium 4.0 Chloride 110 H Carbon Dioxide 25 Anion Gap 5 BUN 27 H Creatinine 0.89 Est GFR ( Amer) > 60 Glucose 79 Calcium 8.3 L Total Bilirubin 1.0 AST 66 H Alkaline Phosphatase 62 Total Protein 4.8 L Albumin 2.1 L Fluid Tube Number Fluid LDH CSF Volume CSF Appearance CSF Color CSF WBC CSF RBC CSF Glucose CSF Total Protein CSF VDRL 12/31/19 12/31/19 12/31/19 12:36 12:36 13:03 Creatine Kinase Cancelled Cancelled Troponin I Cancelled NT-Pro-B Natriuret Pep Cancelled 12/31/19 12/31/19 12/31/19 15:30 15:30 18:11 Creatine Kinase 59 Troponin I 0.013 0.016 NT-Pro-B Natriuret Pep 228 H 01/05/20 16:35 Creatine Kinase Troponin I < 0.012 NT-Pro-B Natriuret Pep Impressions: Head MRI 12/31/19 00:00 IMPRESSION: 1. No acute infarct or other acute intracranial findings 2. Mild cerebral atrophy Chest/Abdomen CTA 12/31/19 16:32 IMPRESSION: 1. No central or segmental pulmonary embolus. 2. Increasing multifocal airspace opacities consistent with worsening multi lobar pneumonia. Chest X-Ray 01/07/20 00:00 IMPRESSION: Endotracheal tube and NG tube as described. Pulmonary edema. Head CT 01/07/20 00:00 IMPRESSION: No acute intracranial abnormality. EVIDENCE OF ACUTE STROKE: NO. Soft Tissue Neck CT 01/07/20 00:00 IMPRESSION: 1. No abnormality of the soft tissues of the neck. 2. Patchy bilateral mixed areas of consolidation and ground-glass opacification that have increased since 12/31/2019. Lumbar Puncture 01/07/20 06:00 IMPRESSION: Lumbar puncture under fluoroscopy. No immediate complication. All labs, radiographs, diagnostic studies and EKGs were personally reviewed: Yes In addition, reports of radiographic and diagnostic studies were read: Yes Assessment and Plan - Diagnosis (1) Acute hypoxemic respiratory failure Is this a current diagnosis for this admission?: Yes Plan: He has made little progres overnight but is to get a bronchoscopy by Dr. Siddiqi today. 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 Possible PNA or even lung CA. Very much doubt TB. (2) Acid reflux Qualifiers: Esophagitis presence: esophagitis presence not specified Qualified Code(s): K21.9 - Gastro-esophageal reflux disease without esophagitis Is this a current diagnosis for this admission?: Yes Plan: Not enough to exhibit severity of symptoms. (3) Acute metabolic encephalopathy Is this a current diagnosis for this admission?: Yes Plan: Likely as a consequence of his illness. (4) Intractable hiccups Is this a current diagnosis for this admission?: Yes Plan: He has had none overnight. Probably related to elevated R hemidiaphragm Plan Summary: Try to wean after bronchoscopy. I doubt he will be extubatable and will start TF. Critical Time Critical Time (minutes): 35 Level of Care: ICU Anticipated discharge: SNF Anticipated DC Timeframe: Other -: 1. The care of a critical patient is a dynamic process. 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 The timeframe for treatments given in order is not necessarily the actual time these treatments may have been done. 2. This patient requires critical care secondary to ongoing requirements for therapy not offered or safe outside the critical care environment. Transfer to a lower level of care will result in altered life or limb morbidity and mortality. 3. Multidisciplinary rounds completed. 4. ABCDE bundle addressed.
[2020-01-08] MEDS: PANTOPRAZOLE SODIUM 40 MG VIAL IV SCH (10:16)
[2020-01-08] MEDS: ENOXAPARIN SODIUM INJ 40 MG/0.4 ML DISP.SYRIN SUBCUT SCH (10:17)
[2020-01-08] MEDS ORDERED: HYDROMORPHONE HCL INJ/PF 2 MG/ML AMPULE IV ONE (10:50)
[2020-01-08] MEDS ORDERED: HYDROMORPHONE HCL INJ/PF 2 MG/ML AMPULE ONE ×2 (10:50→18:44)
--- NOTE | 2020-01-08 12:27 | Operative Report ---
Operative Report DATE OF SURGERY: 01/08/20 PREOPERATIVE DIAGNOSIS: Diffuse pulmonary infiltrates all li. POSTOPERATIVE DIAGNOSIS: Diffuse pulmonary infiltrates all li. No obvious endobronchial tumor. No obvious mucus plugging. OPERATION: Fiberoptic bronchoscopy via endotracheal tube. SURGEON: DWIGHT JORGENSEN ANESTHESIA: Moderate Sedation TISSUE REMOVED OR ALTERED: BAL right middle lobe. COMPLICATIONS: None ESTIMATED BLOOD LOSS: Less than 5 cc PROCEDURE: Informed consent was obtained from the . Patient was prepped and draped in the usual fashion. FiO2 was placed on 1.0. Bronchoscope was introduced via the endotracheal tube without complication. The tip of the endotracheal tube was in good position above the goyo. Goyo was visualized and was sharp. The left mainstem left upper lobe left lower lobe bronchi as well as her segments and subsegments were visualized and were normal. Social Media Marketing Manager photographs were taken of this left side. The right mainstem right upper lobe bronchus intermedius right middle lobe and right lower lobe bronchi were visualized and were normal. Photographs were also taken of the right side. Bronchoscope was then wedged in a lateral subsegment of the right middle lobe. Approximately 120 cc of cold saline was instilled. Approximately 55 cc of return was aspirated. The bronchoscope was then withdrawn slightly and additional washings were taken as the bronchoscope was withdrawn. Patient tolerated procedure well specimens were sent for cell count flow cytometry cytology routine AFB and fungal culture and smear. Further discussed with Dr. Jernigan and the patient's .
[2020-01-08] MEDS ORDERED: METHYLPREDNISOLONE INJ 40 MG/1 ML SDV IV SCH (15:00)
[2020-01-08] MEDS: METHYLPREDNISOLONE INJ 125 MG/2 ML SDV IV SCH ×2 (16:08→21:58)
[2020-01-08 16:30] LABS: FLUID APPEARANCE TURBID; FLUID COLOR RED; FLUID SOURCE LUNG; FLUID TYPE BRONCHIAL WASH; FLUID VISCOSITY LIQUID
[2020-01-08] MEDS: HYDROMORPHONE HCL INJ/PF 2 MG/ML AMPULE IV PRN ×2 (18:49→22:52)
[2020-01-08] MEDS: QUETIAPINE FUMARATE 25 MG TABLET NG SCH (22:09)
[2020-01-09] MEDS: RINGERS SOLUTION,LACTATED 1,000 ML IV PRN ×2 (02:41→12:36)
[2020-01-09] MEDS: FENTANYL CITRATE/PF 600 MCG/60 ML BAG IV PRN ×5 (03:41→20:28)
[2020-01-09] MEDS: DEXMEDETOMIDINE IN 0.9 % NACL 400 MCG/100 ML RTUPB IV PRN ×2 (04:12→10:26)
[2020-01-09 04:35] LABS: HEMATOCRIT 31.2 % (37.9-51.0); HEMOGLOBIN 10.9 g/dL (13.5-17.0); MEAN CORPUSCULAR HGB CONC 34.9 g/dL (32.0-36.0); MEAN CORPUSCULAR VOLUME 86 fl (80-97); PLATELET COUNT 149 10^3/uL (150-450); RED BLOOD COUNT 3.63 10^6/uL (4.35-5.55); WHITE BLOOD COUNT 5.4 10^3/uL (4.0-10.5)
[2020-01-09 04:53] LABS: ANION GAP 6 (5-19); BLOOD UREA NITROGEN 31 mg/dL (7-20); CALCIUM 7.8 mg/dL (8.4-10.2); CARBON DIOXIDE 24 mmol/L (22-30); CHLORIDE 108 mmol/L (98-107); GLUCOSE 206 mg/dL (75-110); POTASSIUM 4.1 mmol/L (3.6-5.0)
[2020-01-09] MEDS: PIPERACILLIN SODIUM/TAZOBACTAM 3.375 GM in NORMAL SALINE 100 ML IV SCH ×3 (05:45→17:02)
[2020-01-09] MEDS: HYDROMORPHONE HCL INJ/PF 2 MG/ML AMPULE IV PRN ×3 (06:47→17:27)
[2020-01-09 08:00] LABS: EPSTEIN BARR NUCLEAR AG IGG AB 23.3 U/mL (0.0-17.9); EPSTEIN BARR VCA IGM AB <36.0 U/mL (0.0-35.9); HOMOCYST(E)INE PLASMA 8.4 umol/L (0.0-17.2)
[2020-01-09] MEDS ORDERED: HYDROMORPHONE HCL INJ/PF 2 MG/ML AMPULE IV ONE ×2 (08:54→22:30)
[2020-01-09] MEDS: PANTOPRAZOLE SODIUM 40 MG VIAL IV SCH (09:48)
[2020-01-09] MEDS: ENOXAPARIN SODIUM INJ 40 MG/0.4 ML DISP.SYRIN SUBCUT SCH (09:48)
[2020-01-09] MEDS: METHYLPREDNISOLONE INJ 125 MG/2 ML SDV IV SCH ×2 (09:48→22:06)
[2020-01-09 10:13] LABS: ARTERIAL BLOOD BASE EXCESS -4.7 mmol/L; ARTERIAL BLOOD H2CO3 1.03 mmol/L (1.05-1.35); ARTERIAL BLOOD HCO3 19.7 mmol/L (20-24); ARTERIAL BLOOD O2 SATURATION 95.9 % (94-98); ARTERIAL BLOOD PCO2 34.1 mmHg (35-45); ARTERIAL BLOOD PH 7.38 (7.35-7.45); ARTERIAL BLOOD PO2 80.8 mmHg (80-100); ARTERIAL BLOOD TOTAL CO2 20.8 mmol/L (23-27)
[2020-01-09 10:55] LABS: ARTERIAL BLOOD FIO2 80%
--- NOTE | 2020-01-09 11:55 | PDOC CRITICAL CARE PROG REPORT ---
General Date:: 01/09/20 ICU Day:: 2 Ventilator Day:: 2 Hospital Day:: 10 Resuscitation Status: Full Code Events in the past 12 to 24 Hours:: Labs show HIV-1 positivity. Review of systems relevant to events:: Pulmonary Reason for ICU Addmission:: Intubated for increased WOB - Medications: Medications reviewed and adjusted accordingly: Yes Vasopressors:: None Sedation:: None Physical Exam Vital Signs: Temp Pulse Resp BP Pulse Ox 100.2 F 74 20 107/71 95 01/09/20 08:00 01/09/20 10:00 01/09/20 10:00 01/09/20 10:00 01/09/20 10:00 Intake & Output 01/08/20 01/09/20 01/10/20 06:59 06:59 06:59 Intake Total 2200 2470 93 Output Total 710 1388 210 Balance 1490 1082 -117 Weight 75.1 kg 80.2 kg Weight/Height Weight 80.2 kg Height 5 ft 10 in General appearance: PRESENT: no acute distress, thin Head exam: PRESENT: atraumatic, normocephalic Eye exam: PRESENT: conjunctiva pink, EOMI, PERRLA. ABSENT: scleral icterus Ear exam: PRESENT: normal external ear exam Mouth exam: PRESENT: moist, tongue midline Respiratory exam: PRESENT: clear to auscultation ahsan, crackles, rhonchi. ABSENT: rales, wheezes Cardiovascular exam: PRESENT: RRR. ABSENT: diastolic murmur, rubs, systolic murmur GI/Abdominal exam: PRESENT: normal bowel sounds, soft. ABSENT: distended, guarding, mass, organolmegaly, rebound, tenderness Rectal exam: PRESENT: deferred Extremities exam: PRESENT: full ROM. ABSENT: calf tenderness, clubbing, pedal edema Musculoskeletal exam: PRESENT: normal inspection Neurological exam: PRESENT: altered, other - Sedated. Skin exam: PRESENT: dry, intact, warm. ABSENT: cyanosis, rash Tubes/Lines: PRESENT: Endotracheal Tube, Nasogastic Tube Laboratory/Radiographs Laboratory Results: 01/09/20 04:23 01/09/20 04:23 01/08/20 01/09/20 01/09/20 11:50 04:23 04:23 WBC 5.4 RBC 3.63 L Hgb 10.9 L Hct 31.2 L MCV 86 MCH 30.0 MCHC 34.9 RDW 15.0 H Plt Count 149 L Carbonic Acid HCO3/H2CO3 Ratio ABG pH ABG pCO2 ABG pO2 ABG HCO3 ABG O2 Saturation ABG Base Excess FiO2 Sodium 138.4 Potassium 4.1 Chloride 108 H Carbon Dioxide 24 Anion Gap 6 BUN 31 H Creatinine 0.81 Est GFR ( Amer) > 60 Glucose 206 H Calcium 7.8 L Fluid Type BRONCHIAL WASH Fluid Source LUNG Fluid Color RED Fluid Appearance TURBID Fluid Viscosity LIQUID Fluid WBC 960 Fluid RBC 46452 01/09/20 09:38 WBC RBC Hgb Hct MCV MCH MCHC RDW Plt Count Carbonic Acid 1.03 L HCO3/H2CO3 Ratio 19:1 ABG pH 7.38 ABG pCO2 34.1 L ABG pO2 80.8 ABG HCO3 19.7 L ABG O2 Saturation 95.9 ABG Base Excess -4.7 FiO2 80% Sodium Potassium Chloride Carbon Dioxide Anion Gap BUN Creatinine Est GFR ( Amer) Glucose Calcium Fluid Type Fluid Source Fluid Color Fluid Appearance Fluid Viscosity Fluid WBC Fluid RBC 12/31/19 12/31/19 12/31/19 12:36 12:36 13:03 Creatine Kinase Cancelled Cancelled Troponin I Cancelled NT-Pro-B Natriuret Pep Cancelled 12/31/19 12/31/19 12/31/19 15:30 15:30 18:11 Creatine Kinase 59 Troponin I 0.013 0.016 NT-Pro-B Natriuret Pep 228 H 01/05/20 16:35 Creatine Kinase Troponin I < 0.012 NT-Pro-B Natriuret Pep Impressions: Head MRI 12/31/19 00:00 IMPRESSION: 1. No acute infarct or other acute intracranial findings 2. Mild cerebral atrophy Chest/Abdomen CTA 12/31/19 16:32 IMPRESSION: 1. No central or segmental pulmonary embolus. 2. Increasing multifocal airspace opacities consistent with worsening multi lobar pneumonia. Chest X-Ray 01/07/20 00:00 IMPRESSION: Endotracheal tube and NG tube as described. Pulmonary edema. Head CT 01/07/20 00:00 IMPRESSION: No acute intracranial abnormality. EVIDENCE OF ACUTE STROKE: NO. Soft Tissue Neck CT 01/07/20 00:00 IMPRESSION: 1. No abnormality of the soft tissues of the neck. 2. Patchy bilateral mixed areas of consolidation and ground-glass opacification that have increased since 12/31/2019. Lumbar Puncture 01/07/20 06:00 IMPRESSION: Lumbar puncture under fluoroscopy. No immediate complication. All labs, radiographs, diagnostic studies and EKGs were personally reviewed: Yes In addition, reports of radiographic and diagnostic studies were read: Yes Assessment and Plan - Diagnosis (1) Acute hypoxemic respiratory failure Is this a current diagnosis for this admission?: Yes Plan: He is still intubated, weaning begun. RR decreased but still at 80% and O2 saturations 92-94% Not extubatable. (2) Acid reflux Qualifiers: Esophagitis presence: esophagitis presence not specified Qualified Code(s): K21.9 - Gastro-esophageal reflux disease without esophagitis Is this a current diagnosis for this admission?: Yes Plan: Not a significant problem and not the reason for his lung disorder. (3) Acute metabolic encephalopathy Is this a current diagnosis for this admission?: Yes Plan: Impossible to say how severe while sedated. (4) Intractable hiccups Is this a current diagnosis for this admission?: Yes Plan: Resolved (5) HIV antibody positive Is this a current diagnosis for this admission?: Yes Plan: His labs show positivity for HIV-1. informed. ID consult pending. Dr. Siddiqi notified. Plan Summary: There is an ID consult pending. IV bactrim until then. Critical Time Critical Time (minutes): 45 Level of Care: ICU Anticipated discharge: Home Anticipated DC Timeframe: Other -: 1. The care of a critical patient is a dynamic process. This note is a operations representative synopsis but static in nature. The timeframe for treatments given in order is not necessarily the actual time these treatments may have been done. 2. This patient requires critical care secondary to ongoing requirements for therapy not offered or safe outside the critical care environment. Transfer to a lower level of care will result in altered life or limb morbidity and mortality. 3. Multidisciplinary rounds completed. 4. ABCDE bundle addressed.
[2020-01-09] MEDS: ACETAMINOPHEN 325 MG TABLET NG PRN (12:01)
--- NOTE | 2020-01-09 12:56 | PDOC PROGRESS REPORT ---
Subjective Progress Note for:: 01/09/20 Subjective:: On mechanical ventilation in the intensive care unit Reason For Visit: MULTIFOCAL PNA INTUBATED This patient remains on mechanical ventilation with an FiO2 of 0.8. In the interim diagnostic studies have returned. Clinically he has little changed from yesterday. He continues on moderately high ventilatory settings to maintain an appropriate saturation. The nurses note no other new findings at this time. Note is made of the fact that he is medically sedated. Physical Exam Vital Signs: Temp Pulse Resp BP Pulse Ox 100.8 F H 71 22 H 115/78 96 01/09/20 11:55 01/09/20 11:55 01/09/20 11:55 01/09/20 11:55 01/09/20 11:55 Intake & Output 01/08/20 01/09/20 01/10/20 06:59 06:59 06:59 Intake Total 2200 2470 1085 Output Total 710 1388 360 Balance 1490 1082 725 Weight 75.1 kg 80.2 kg Exam: Exam is largely unchanged from yesterday. He continues to have scattered rhonchi throughout all lung li. Remainder of exam is unchanged. Results Laboratory Results: 01/09/20 04:23 01/09/20 04:23 01/08/20 01/09/20 01/09/20 11:50 04:23 04:23 WBC 5.4 RBC 3.63 L Hgb 10.9 L Hct 31.2 L MCV 86 MCH 30.0 MCHC 34.9 RDW 15.0 H Plt Count 149 L Carbonic Acid HCO3/H2CO3 Ratio ABG pH ABG pCO2 ABG pO2 ABG HCO3 ABG O2 Saturation ABG Base Excess FiO2 Sodium 138.4 Potassium 4.1 Chloride 108 H Carbon Dioxide 24 Anion Gap 6 BUN 31 H Creatinine 0.81 Est GFR ( Amer) > 60 Glucose 206 H Calcium 7.8 L Fluid Type BRONCHIAL WASH Fluid Source LUNG Fluid Color RED Fluid Appearance TURBID Fluid Viscosity LIQUID Fluid WBC 960 Fluid [place] 7[address] 01/09/20 09:38 WBC RBC Hgb Hct MCV MCH MCHC RDW Plt Count Carbonic Acid 1.03 L HCO3/H2CO3 Ratio 19:1 ABG pH 7.38 ABG pCO2 34.1 L ABG pO2 80.8 ABG HCO3 19.7 L ABG O2 Saturation 95.9 ABG Base Excess -4.7 FiO2 80% Sodium Potassium Chloride Carbon Dioxide Anion Gap BUN Creatinine Est GFR ( Amer) Glucose Calcium Fluid Type Fluid Source Fluid Color Fluid Appearance Fluid Viscosity Fluid WBC Fluid RBC 12/31/19 12/31/19 12/31/19 12:36 12:36 13:03 Creatine Kinase Cancelled Cancelled Troponin I Cancelled NT-Pro-B Natriuret Pep Cancelled 12/31/19 12/31/19 12/31/19 15:30 15:30 18:11 Creatine Kinase 59 Troponin I 0.013 0.016 NT-Pro-B Natriuret Pep 228 H 01/05/20 16:35 Creatine Kinase Troponin I < 0.012 NT-Pro-B Natriuret Pep Impressions: Head MRI 12/31/19 00:00 IMPRESSION: 1. No acute infarct or other acute intracranial findings 2. Mild cerebral atrophy Chest/Abdomen CTA 12/31/19 16:32 IMPRESSION: 1. No central or segmental pulmonary embolus. 2. Increasing multifocal airspace opacities consistent with worsening multi lobar pneumonia. Chest X-Ray 01/07/20 00:00 IMPRESSION: Endotracheal tube and NG tube as described. Pulmonary edema. Head CT 01/07/20 00:00 IMPRESSION: No acute intracranial abnormality. EVIDENCE OF ACUTE STROKE: NO. Soft Tissue Neck CT 01/07/20 00:00 IMPRESSION: 1. No abnormality of the soft tissues of the neck. 2. Patchy bilateral mixed areas of consolidation and ground-glass opacification that have increased since 12/31/2019. Lumbar Puncture 01/07/20 06:00 IMPRESSION: Lumbar puncture under fluoroscopy. No immediate complication. Assessment & Plan - Diagnosis (1) Acute metabolic encephalopathy Is this a current diagnosis for this admission?: Yes (2) Acute respiratory distress Is this a current diagnosis for this admission?: Yes (5) Multifocal pneumonia Is this a current diagnosis for this admission?: Yes (6) Recurrent pneumonia Is this a current diagnosis for this admission?: Yes (7) Acute hypoxemic respiratory failure Is this a current diagnosis for this admission?: Yes - Time Time Spent with patient: 35 or more minutes - Plan Summary Plan Summary: Most significant finding in the interim is that of his positive HIV-1 antibodies. Clinically this actually makes sense now. The patient had approximately 6 to 9-month history of weight loss. An approximately 6-month history of cough. And beginning early in the summer he noted shortness of breath accompanied by a diffuse interstitial infiltrate on chest x-ray. Serial antibiotics and treatment did not resolve this patient's infiltrative process. It now seems likely that he has an opportunistic lung infection possibly pneu mocystis possibly other fungal organisms. A bronchoscopy was performed yesterday with BAL. Cytologic evaluation as well as AFB and fungal smears are still pending at this time. I will discuss these findings further with the .
[2020-01-09] MEDS ORDERED: PROPOFOL 1,000 MG/100 ML INFUS..BTL IV PRN (15:01)
[2020-01-09] MEDS: SULFAMETHOXAZOLE/TRIMETHOPRIM 400 MG in DEXTROSE 5%-WATER 500 ML IV SCH ×2 (15:46→21:30)
--- NOTE | 2020-01-09 16:04 | RADIOLOGY REPORT (SQ) ---
EXAM DESCRIPTION: CHEST SINGLE VIEW IMAGES COMPLETED DATE/TIME: 01/09/2020 3:39 pm REASON FOR STUDY: Sudden desaturation COMPARISON: 01/07/2020 NUMBER OF VIEWS: One view. TECHNIQUE: Single frontal radiographic image of the chest acquired. LIMITATIONS: Expiratory film. FINDINGS: LUNGS AND PLEURA: Diffuse bilateral airspace disease with partial silhouetting of both diaz phragms. No pneumothorax. No evidence of cavitation. MEDIASTINUM AND HEART: Stable heart size and mediastinal structures. SUPPORT DEVICES: Appropriate location without change. BONY STRUCTURES: No acute findings. HARDWARE: None. OTHER: No other significant finding. IMPRESSION: Worsening edema or sepsis. No pneumothorax. Reading location - IP[facility]workstation name[email or web address]
[2020-01-09] MEDS: ALBUMIN HUMAN 12.5 GM/50 ML RTUINJ IV SCH ×2 (17:02→17:30)
[2020-01-09] MEDS: DEXMEDETOMIDINE IN NS 400 MCG/100 ML RTUPB IV PRN (17:31)
[2020-01-09] MEDS: QUETIAPINE FUMARATE 25 MG TABLET NG SCH (22:06)
--- NOTE | 2020-01-10 00:04 | Operative Report ---
Bedside Procedure - History of Present Illness History of Present Illness: Procedure: Central line placement Indication: Vasoactive medications, IV fluids, blood draws. Procedure track laying equipment operator: ETHEL Vázquez Attending physician: Dr. Madrid Consent: Consent was obtained from_prior to the procedure. Indications, risks, and benefits were explained and all questions were addressed. Procedure summary: The [facility] central line insertion practice form was completed by RN. A timeout was performed. My hands were washed immediately prior to the procedure. I wore surgical cap, mask with protective eyewear, full gown and sterile gloves throughout the procedure. The patient was placed in Trendelenburg position. Right chest region was prepped using chlorhexidine scrub and draped in sterile fashion using a full drape. Sterile probe cover was placed on ultrasound probe. The medial and lateral heads of the sternocle idomastoid muscle were identified as was the carotid pulse. The internal jugular vein was identified using ultrasound. Anesthesia was achieved over the vein using 4 cc of 1% lidocaine. Using real-time out of plane guidance, the introducer needle was inserted into the internal jugular vein under direct ultrasound visualization. Venous blood was withdrawn. The syringe was removed and a guidewire was advanced into the introducer needle. The guidewire was visualized in the internal jugular vein by ultrasound. A small incision was made at the skin surface with a scalpel and the introducer needle was exchanged for a dilator over the guidewire. After appropriate dilation was obtained, the dilator was exchanged over a wire for a 7 Welsh, 20 cm central venous catheter. The wire was removed and the catheter was sutured in place at 15 cm. A IO patch was placed and a sterile Sorbaview shield was placed over the catheter at the insertion site. The patient tolerated the procedure well without any hemodynamic compromise. At time of procedure completion, all ports aspirated and flushed properly. Postprocedure x-ray shows central line in proper place. Estimated blood loss is approximately 10 cc. Indication for Procedure: Vasoactive medications, antibiotics, blood draws. Date: 01/09/20 Provider: CAMILLE BRICEÑO - Central Line Right Internal jugular Time completed: 11:45 Consent obtained: Yes Central line pre-insertion: Sterile PPE donned, Chloraprep applied, Sterile drapes applied Central line lumen type: Triple Anesthetic type: 1% Lidocaine mL's of anesthesia: 3 Ultrasound guided: Yes CM at insertion site: 15 Line secured with sutures: Yes Central line post-insertion: Blood return from lumens, Biopatch applied, Sutured, Sterile dressing applied, Position confirmed w/ CXR Number of attempts: 1 Complications: No
[2020-01-10] MEDS ORDERED: NORMAL SALINE INJ/PF 0.9% 10 ML SDV IV PRN (00:20)
[2020-01-10] MEDS: FENTANYL CITRATE/PF 600 MCG/60 ML BAG IV PRN ×8 (00:27→23:37)
[2020-01-10] MEDS: PIPERACILLIN SODIUM/TAZOBACTAM 3.375 GM in NORMAL SALINE 100 ML IV SCH ×5 (00:27→23:37)
[2020-01-10] MEDS: DEXMEDETOMIDINE IN NS 400 MCG/100 ML RTUPB IV PRN ×2 (00:33→05:10)
--- NOTE | 2020-01-10 01:01 | RADIOLOGY REPORT (SQ) ---
EXAM DESCRIPTION: XR CHEST 1 VIEW COMPLETED DATE/TME: 01/09/2020 00:00 CLINICAL HISTORY: 69 years, Male, Central Line Placement COMPARISON: 01/09/2020 chest NUMBER OF VIEWS: 1 TECHNIQUE: Portable chest LIMITATIONS: None. FINDINGS: Stable cardiomegaly. Central venous catheter with the tip in the cavoatrial junction. Endotracheal and enteric tubes remain in place. Extensive interstitial and airspace opacities bilaterally. No pneumothorax IMPRESSION: Tip of the central line in the cavoatrial junction. Other findings stable. copyright 2010 [email or web address]- All Rights Reserved
[2020-01-10] MEDS: SULFAMETHOXAZOLE/TRIMETHOPRIM 400 MG in DEXTROSE 5%-WATER 500 ML IV SCH ×4 (02:15→22:32)
[2020-01-10] MEDS: HYDROMORPHONE HCL INJ/PF 2 MG/ML AMPULE IV PRN ×4 (03:35→19:42)
[2020-01-10] MEDS: RINGERS SOLUTION,LACTATED 1,000 ML IV PRN ×2 (03:42→13:45)
[2020-01-10 04:23] LABS: ARTERIAL BLOOD BASE EXCESS -2.2 mmol/L; ARTERIAL BLOOD H2CO3 1.22 mmol/L (1.05-1.35); ARTERIAL BLOOD HCO3 22.9 mmol/L (20-24); ARTERIAL BLOOD O2 SATURATION 94.2 % (94-98); ARTERIAL BLOOD PCO2 40.6 mmHg (35-45); ARTERIAL BLOOD PH 7.37 (7.35-7.45); ARTERIAL BLOOD PO2 72.6 mmHg (80-100); ARTERIAL BLOOD TOTAL CO2 24.2 mmol/L (23-27)
[2020-01-10 04:24] LABS: ARTERIAL BLOOD FIO2 80%
[2020-01-10 04:25] LABS: HEMATOCRIT 26.8 % (37.9-51.0); HEMOGLOBIN 9.4 g/dL (13.5-17.0); MEAN CORPUSCULAR HEMOGLOBIN 30.2 pg (27.0-33.4); MEAN CORPUSCULAR HGB CONC 35.1 g/dL (32.0-36.0); MEAN CORPUSCULAR VOLUME 86 fl (80-97); PLATELET COUNT 150 10^3/uL (150-450); RED BLOOD COUNT 3.12 10^6/uL (4.35-5.55); RED CELL DISTRIBUTION WIDTH 15.2 % (11.5-14.0); WHITE BLOOD COUNT 7.2 10^3/uL (4.0-10.5)
[2020-01-10] MEDS ORDERED: IPRATROPIUM/ALBUTEROL 0.5-2.5 MG/3 ML AMPUL NEB PRN (04:34)
[2020-01-10 04:45] LABS: ANION GAP 6 (5-19); BLOOD UREA NITROGEN 28 mg/dL (7-20); CALCIUM 7.8 mg/dL (8.4-10.2); CARBON DIOXIDE 25 mmol/L (22-30); CHLORIDE 105 mmol/L (98-107); GLUCOSE 195 mg/dL (75-110); POTASSIUM 4.2 mmol/L (3.6-5.0)
[2020-01-10] MEDS ORDERED: RINGERS SOLUTION,LACTATED 1,000 ML IV ONE (05:41)
[2020-01-10 08:08] LABS: HSV SOURCE CSF
[2020-01-10] MEDS ORDERED: HYDROMORPHONE HCL INJ/PF 2 MG/ML AMPULE IV ONE ×3 (08:52→21:20)
[2020-01-10] MEDS ORDERED: HYDROMORPHONE HCL INJ/PF 2 MG/ML AMPULE ONE ×3 (08:52→20:59)
--- NOTE | 2020-01-10 09:05 | PDOC CRITICAL CARE PROG REPORT ---
General Date:: 01/10/20 ICU Day:: 3 Ventilator Day:: 3 Hospital Day:: 11 Resuscitation Status: Full Code Events in the past 12 to 24 Hours:: HIV test back as positive. Found to be in ARDS. Review of systems relevant to events:: Pulmonary, ID Reason for ICU Addmission:: Intubated for increased WOB - Medications: Medications reviewed and adjusted accordingly: Yes Vasopressors:: None Sedation:: Propofol Physical Exam Vital Signs: Temp Pulse Resp BP Pulse Ox 96.8 F L 59 L 17 89/69 L 92 01/10/20 08:00 01/10/20 08:00 01/10/20 08:00 01/10/20 08:00 01/10/20 08:00 Intake & Output 01/09/20 01/10/20 01/11/20 06:59 06:59 06:59 Intake Total 2470 3832 Output Total 1388 1595 150 Balance 1082 2237 -150 Weight 80.2 kg 82.9 kg Weight/Height Weight 82.9 kg Height 5 ft 10 in General appearance: PRESENT: mild distress, thin Head exam: PRESENT: atraumatic, normocephalic Eye exam: PRESENT: conjunctiva pink, EOMI, PERRLA. ABSENT: scleral icterus Ear exam: PRESENT: normal external ear exam Mouth exam: PRESENT: moist, tongue midline Respiratory exam: PRESENT: accessory muscle use, clear to auscultation ahsan, decreased breath sounds, symmetrical Cardiovascular exam: PRESENT: RRR. ABSENT: diastolic murmur, rubs, systolic murmur GI/Abdominal exam: PRESENT: normal bowel sounds, soft. ABSENT: distended, guarding, mass, organolmegaly, rebound, tenderness Rectal exam: PRESENT: deferred Gentrourinary exam: PRESENT: indwelling catheter Extremities exam: PRESENT: full ROM. ABSENT: calf tenderness, clubbing, pedal edema Musculoskeletal exam: PRESENT: normal inspection Neurological exam: PRESENT: altered, other - Sedated. Skin exam: PRESENT: dry, intact, warm. ABSENT: cyanosis, rash Tubes/Lines: PRESENT: Endotracheal Tube, Central Line, Nasogastic Tube Laboratory/Radiographs Laboratory Results: 01/10/20 04:07 01/10/20 04:07 01/09/20 01/09/20 01/10/20 09:38 16:17 04:07 WBC RBC Hgb Hct MCV MCH MCHC RDW Plt Count Carbonic Acid 1.03 L HCO3/H2CO3 Ratio 19:1 ABG pH 7.38 ABG pCO2 34.1 L ABG pO2 80.8 ABG HCO3 19.7 L ABG O2 Saturation 95.9 ABG Base Excess -4.7 FiO2 80% Sodium 135.7 L Potassium 4.2 Chloride 105 Carbon Dioxide 25 Anion Gap 6 BUN 28 H Creatinine 0.90 Est GFR ( Amer) > 60 Glucose 195 H Calcium 7.8 L Triglycerides 124 01/10/20 01/10/20 04:07 04:07 WBC 7.2 RBC 3.12 L Hgb 9.4 L Hct 26.8 L MCV 86 MCH 30.2 MCHC 35.1 RDW 15.2 H Plt Count 150 Carbonic Acid 1.22 HCO3/H2CO3 Ratio 18:1 ABG pH 7.37 ABG pCO2 40.6 ABG pO2 72.6 L ABG HCO3 22.9 ABG O2 Saturation 94.2 ABG Base Excess -2.2 FiO2 80% Sodium Potassium Chloride Carbon Dioxide Anion Gap BUN Creatinine Est GFR ( Amer) Glucose Calcium Triglycerides 12/31/19 12/31/19 12/31/19 12:36 12:36 13:03 Creatine Kinase Cancelled Cancelled Troponin I Cancelled NT-Pro-B Natriuret Pep Cancelled 12/31/19 12/31/19 12/31/19 15:30 15:30 18:11 Creatine Kinase 59 Troponin I 0.013 0.016 NT-Pro-B Natriuret Pep 228 H 01/05/20 16:35 Creatine Kinase Troponin I < 0.012 NT-Pro-B Natriuret Pep Impressions: Head MRI 12/31/19 00:00 IMPRESSION: 1. No acute infarct or other acute intracranial findings 2. Mild cerebral atrophy Chest/Abdomen CTA 12/31/19 16:32 IMPRESSION: 1. No central or segmental pulmonary embolus. 2. Increasing multifocal airspace opacities consistent with worsening multi lobar pneumonia. Head CT 01/07/20 00:00 IMPRESSION: No acute intracranial abnormality. EVIDENCE OF ACUTE STROKE: NO. Soft Tissue Neck CT 01/07/20 00:00 IMPRESSION: 1. No abnormality of the soft tissues of the neck. 2. Patchy bilateral mixed areas of consolidation and ground-glass opacification that have increased since 12/31/2019. Lumbar Puncture 01/07/20 06:00 IMPRESSION: Lumbar puncture under fluoroscopy. No immediate complication. Chest X-Ray 01/09/20 14:57 IMPRESSION: Worsening edema or sepsis. No pneumothorax. All labs, radiographs, diagnostic studies and EKGs were personally reviewed: Yes In addition, reports of radiographic and diagnostic studies were read: Yes Assessment and Plan - Diagnosis (1) Acute respiratory distress syndrome (ARDS) Is this a current diagnosis for this admission?: Yes Plan: By [place] criteria he had a PaO2/Fio2 gradient of 80 with bilateral non- cardiogenic infiltrates. Ratio today 112. Still in ARDS. On low volume ventilat ion and pressure control. (2) Acute hypoxemic respiratory failure Is this a current diagnosis for this admission?: Yes Plan: Improved somewhat don to 65% FiO2. (3) HIV antibody positive Is this a current diagnosis for this admission?: Yes Plan: On IV bactrim to treat presumed pneumocystis. Zosyn for other bacteria with cultures pending. (4) Acid reflux Qualifiers: Esophagitis presence: esophagitis presence not specified Qualified Code(s): K21.9 - Gastro-esophageal reflux disease without esophagitis Is this a current diagnosis for this admission?: Yes Plan: Inactive (5) Acute metabolic encephalopathy Is this a current diagnosis for this admission?: Yes Plan: Impossible to gauge with sedation. (6) Intractable hiccups Is this a current diagnosis for this admission?: Yes Plan: Resolved Plan Summary: Continue to wean FiO2. Await ID input. Not extubatable. Critical Time Critical Time (minutes): 35 Level of Care: ICU Anticipated discharge: SNF Anticipated DC Timeframe: Other -: 1. The care of a critical patient is a dynamic process. This note is a call center support representative synopsis but static in nature. The timeframe for treatments given in order is not necessarily the actual time these treatments may have been done. 2. This patient requires critical care secondary to ongoing requirements for therapy not offered or safe outside the critical care environment. Transfer to a lower level of care will result in altered life or limb morbidity and mortality. 3. Multidisciplinary rounds completed. 4. ABCDE bundle addressed.
[2020-01-10] MEDS: METHYLPREDNISOLONE INJ 125 MG/2 ML SDV IV SCH ×2 (09:34→22:31)
[2020-01-10] MEDS: PANTOPRAZOLE SODIUM 40 MG VIAL IV SCH (09:34)
[2020-01-10] MEDS: ENOXAPARIN SODIUM INJ 40 MG/0.4 ML DISP.SYRIN SUBCUT SCH (09:34)
[2020-01-10] MEDS ORDERED: DEXMEDETOMIDINE IN 0.9 % NACL 400 MCG/100 ML RTUPB IV ONE (11:43)
[2020-01-10] MEDS: AMINO AC/PROTEIN HYDR/WHEY PRO 11 GM/45 ML PKT NG SCH ×3 (12:24→17:21)
--- NOTE | 2020-01-10 12:26 | Progress Note ---
Provider Note Provider Note: [facility] Telephone Advice Consultation Chart reviewed, patient not examined. This is a 69-year-old man who was admitted on 12/30 due to altered mental status, weight loss and chronic shortness of breath. He has lost around 50 lb within the past 6 months. His behavior was also changing per . He started presenting a dry cough few months ago. He was seen by other physicians and he completed different courses of antibiotics including azithromycin, levofloxacin, etc. He also received steroids as outpatient. His symptoms kept worsening, mental status worsening as well. He was evaluated in the ED. WBC in lower side, anemia, thrombocytopenia, LDH 531. He had a CT scan of the head an MRI, which didn't show significant abnormalities except for some cerebral atrophy (age related vs disease related?). CXR was consistent with pneumonia. CT scan of the chest described multifocal pneumonia. He developed hiccups. Patient was started on vancomycin and cefepime. He was evaluated by hematology/oncology, an infectious etiology for his symptoms was suggested. Pulmonary consult as well. He continued worsening with mild improvement in between his hospital admission. He had a lumbar puncture on 01/06, opening pressure was not documented, but WBC was 1, RBC 11, glucose 88 and protein 39. He was intubated on 01/06 and required pressors as well. His HIV test came back positive. He had a diagnostic bronchoscopy on 01/06. BAL cultures (fungal and AFB) are in process. Cytology didn't identify any cells suggestive of malignancy. BAL WBC 960, RBC 36,850. Unable to find if pathology performed stains (GMS) for PJP. He was started on Bactrim for presumptive PJP. He continued with low grade fever. ID consulted for recommendations. Allergies: No Known Allergies Allergy (Unverified 10/07/19 10:59) Medications: Albuterol Sulfate [Proair HFA Inhalation Aerosol 8.5 gm MDI] 2 puff IH Q4HP PRN 01/01/20 Vital Signs: Temp Pulse Resp BP Pulse Ox 96.8 F L 74 16 99/76 L 90 L 01/10/20 08:00 01/10/20 09:53 01/10/20 09:53 01/10/20 09:53 01/10/20 09:53 Intake & Output 01/09/20 01/10/20 01/11/20 06:59 06:59 06:59 Intake Total 5114 5870 Output Total 1181 1595 275 Balance 1082 2762 -275 Weight 80.2 kg 82.9 kg Weight/Height Weight 82.9 kg Height 5 ft 10 in Laboratories: 01/10/20 04:07 01/10/20 04:07 MCV 86 fl (80-97) 01/10/20 04:07 MCH 30.2 pg (27.0-33.4) 01/10/20 04:07 MCHC 35.1 g/dL (32.0-36.0) 01/10/20 04:07 RDW 15.2 % (11.5-14.0) H 01/10/20 04:07 Seg Neutrophils % Not Reportable 01/08/20 05:14 Carbonic Acid 1.22 mmol/L (1.05-1.35) 01/10/20 04:07 HCO3/H2CO3 Ratio 18:1 01/10/20 04:07 ABG pH 7.37 (7.35-7.45) 01/10/20 04:07 ABG pCO2 40.6 mmHg (35-45) 01/10/20 04:07 ABG pO2 72.6 mmHg (80-100) L 01/10/20 04:07 ABG HCO3 22.9 mmol/L (20-24) 01/10/20 04:07 ABG O2 Saturation 94.2 % (94-98) 01/10/20 04:07 ABG Base Excess -2.2 mmol/L 01/10/20 04:07 VBG pH 7.34 (7.30-7.42) 12/31/19 15:30 VBG pCO2 42.4 mmHg (35-63) 12/31/19 15:30 VBG HCO3 22.5 mmol/L (20-32) 12/31/19 15:30 VBG Base Excess -3.1 mmol/L 12/31/19 15:30 FiO2 80% 01/10/20 04:07 Chloride 105 mmol/L (98-107) 01/10/20 04:07 Carbon Dioxide 25 mmol/L (22-30) 01/10/20 04:07 Anion Gap 6 (5-19) 01/10/20 04:07 Est GFR ( Amer) > 60 (>60) 01/10/20 04:07 Est GFR (Non-Af Amer) Cancelled 12/31/19 13:03 Glucose 195 mg/dL (75-110) H 01/10/20 04:07 Lactic Acid 0.9 mmol/L (0.7-2.1) 01/01/20 13:31 Calcium 7.8 mg/dL (8.4-10.2) L 01/10/20 04:07 Phosphorus 3.6 mg/dL (2.5-4.5) 01/05/20 16:35 Magnesium 2.4 mg/dL (1.6-2.3) H 01/07/20 05:29 Ferritin 890.00 ng/mL (17.9-464.0) H 01/07/20 05:29 Total Bilirubin 1.0 mg/dL (0.2-1.3) 01/08/20 05:14 AST 66 U/L (17-59) H 01/08/20 05:14 Alkaline Phosphatase 62 U/L (38-126) 01/08/20 05:14 Total Protein 4.8 g/dL (6.3-8.2) L 01/08/20 05:14 Albumin 2.1 g/dL (3.5-5.0) L 01/08/20 05:14 Triglycerides 124 mg/dL (<150) 01/09/20 16:17 Lipase 462.9 U/L (23-300) H 12/31/19 15:30 Vitamin B12 275.0 pg/mL (239-931) 01/07/20 05:29 Folate 3.12 ng/mL (>2.76) 01/07/20 05:29 TSH 0.25 uIU/mL (0.47-4.68) L 01/05/20 16:35 Free T4 1.58 ng/dL (0.78-2.19) 01/05/20 16:35 Urine Color YELLOW 12/31/19 15:16 Urine Appearance CLEAR 12/31/19 15:16 Urine pH 6.0 (5.0-9.0) 12/31/19 15:16 Ur Specific Grandin 1.012 12/31/19 15:16 Urine Protein 100 mg/dL (NEGATIVE) H 12/31/19 15:16 Urine Glucose (UA) NEGATIVE mg/dL (NEGATIVE) 12/31/19 15:16 Urine Ketones 20 mg/dL (NEGATIVE) H 12/31/19 15:16 Urine Blood SMALL (NEGATIVE) H 12/31/19 15:16 Urine Nitrite NEGATIVE (NEGATIVE) 12/31/19 15:16 Ur Leukocyte Esterase NEGATIVE (NEGATIVE) 12/31/19 15:16 Urine WBC (Auto) 1 /HPF 12/31/19 15:16 Urine RBC (Auto) 0 /HPF 12/31/19 15:16 Fluid Type BRONCHIAL WASH 01/08/20 11:50 Fluid Source LUNG 01/08/20 11:50 Fluid Tube Number 3 01/07/20 10:36 Fluid Color RED 01/08/20 11:50 Fluid Appearance TURBID 01/08/20 11:50 Fluid Viscosity LIQUID 01/08/20 11:50 Fluid WBC 960 /uL 01/08/20 11:50 Fluid RBC 11564 /uL 01/08/20 11:50 Fluid LDH Cancelled 01/07/20 10:36 CSF Volume 9.0 CC 01/07/20 10:36 CSF Appearance CLEAR 01/07/20 10:36 CSF Color COLORLESS 01/07/20 10:36 CSF WBC 1 /uL (0-5) 01/07/20 10:36 CSF RBC 11 /uL (0-10) 01/07/20 10:36 CSF Glucose 88 mg/dL (40-70) H 01/07/20 10:36 CSF Total Protein 39 mg/dL (12-60) 01/07/20 10:36 CSF VDRL Cancelled 01/07/20 10:36 12/31/19 12/31/19 12/31/19 12:36 12:36 13:03 Creatine Kinase Cancelled Cancelled Troponin I Cancelled NT-Pro-B Natriuret Pep Cancelled 12/31/19 12/31/19 12/31/19 15:30 15:30 18:11 Creatine Kinase 59 Troponin I 0.013 0.016 NT-Pro-B Natriuret Pep 228 H 01/05/20 16:35 Creatine Kinase Troponin I < 0.012 NT-Pro-B Natriuret Pep Microbiology: Blood culture 12/30 Negative Respiratory culture 12/31 Matilda spp, normal rome CSF culture 01/06 Negative CMV pending Viral culture pending HSV negative AFB pending BAL culture 01/07 AFB and Fungal pending Matilda spp Cytology - no malignancy Radiology: Head MRI 12/31/19 00:00 IMPRESSION: 1. No acute infarct or other acute intracranial findings 2. Mild cerebral atrophy Chest/Abdomen CTA 12/31/19 16:32 IMPRESSION: 1. No central or segmental pulmonary embolus. 2. Increasing multifocal airspace opacities consistent with worsening multi lobar pneumonia. Head CT 01/07/20 00:00 IMPRESSION: No acute intracranial abnormality. EVIDENCE OF ACUTE STROKE: NO. Soft Tissue Neck CT 01/07/20 00:00 IMPRESSION: 1. No abnormality of the soft tissues of the neck. 2. Patchy bilateral mixed areas of consolidation and ground-glass opacification that have increased since 12/31/2019. Lumbar Puncture 01/07/20 06:00 IMPRESSION: Lumbar puncture under fluoroscopy. No immediate complication. Chest X-Ray 01/09/20 14:57 IMPRESSION: Worsening edema or sepsis. No pneumothorax. Assessment and Recommendations: Patient newly diagnosed with HIV initially admitted for multifocal pneumonia of unknown etiology and encephalopathy. He has been on broad spectrum antibiotics for about 10 days. No bacterial infection has been proven so far, consider to discontinue zosyn. Due to his HIV status, will need HIV RNA and CD4 count (not reliable during acute illness though). Differential diagnosis is broad, although the most common would be PJP for which he is already on Bactrim. 1,3 Beta D glucan has a good positive predictive value for PJP, can order it toget her with GMS from BAL. Other potential causes of pneumonia would be Cryptococcus neoformans which can affect [employer] as well. Consider Cryptococcal antigen from serum and CSF. MTB always in the differential of pneumonia in HIV patients and can affect [employer] as well, AFBs in process, consider Quantiferon Gold. MAC can also cause infection in AIDS patients although usually disseminated > pulmonary disease. CMV can cause [employer] infection, viral culture pending. Syphilis can also cause AMS, consider T pal Abs and RPR. Rhodococcus equii can also cause pulmonary and [employer] infection in these patients, but different findings. Nocardia as well, bust usually presents with abscesses. For now, continue Bactrim awaiting for GMS stains from BAL (histopathology) and rest of work up. Once HIV RNA is available, may consider ordering a genotype, patients with HIV and PJP should initiate ARV within 2 weeks. He will need to be linked to an HIV clinic/provider for follow up. Please call if any questions/updates. Natalee Mei MD [facility] [id number]
[2020-01-10] MEDS: DEXMEDETOMIDINE IN 0.9 % NACL 400 MCG/100 ML RTUPB IV PRN ×3 (13:10→22:31)
--- NOTE | 2020-01-10 13:16 | PDOC PROGRESS REPORT ---
Subjective Progress Note for:: 01/10/20 Reason For Visit: MULTIFOCAL PNA INTUBATED Above the recent studies noted. Further diagnostic studies are pending. Unfortunately we do not yet have his fungal smears available. I think this will establish the underlying causative organism. In the interim the patient has a slightly smaller oxygen requirement. FiO2 has been decreased to 0.6. Physical Exam Vital Signs: Temp Pulse Resp BP Pulse Ox 98.8 F 69 16 91/69 L 92 01/10/20 12:55 01/10/20 12:00 01/10/20 12:55 01/10/20 12:55 01/10/20 12:55 Intake & Output 01/09/20 01/10/20 01/11/20 06:59 06:59 06:59 Intake Total 2470 4357 180 Output Total 1388 1595 450 Balance 1082 2762 -270 Weight 80.2 kg 82.9 kg Exam: Physical examination today is largely unchanged he still has coarse breath s ounds throughout her lung li. Results Laboratory Results: 01/10/20 04:07 01/10/20 04:07 01/09/20 01/10/20 01/10/20 16:17 04:07 04:07 WBC 7.2 RBC 3.12 L Hgb 9.4 L Hct 26.8 L MCV 86 MCH 30.2 MCHC 35.1 RDW 15.2 H Plt Count 150 Carbonic Acid HCO3/H2CO3 Ratio ABG pH ABG pCO2 ABG pO2 ABG HCO3 ABG O2 Saturation ABG Base Excess FiO2 Sodium 135.7 L Potassium 4.2 Chloride 105 Carbon Dioxide 25 Anion Gap 6 BUN 28 H Creatinine 0.90 Est GFR ( Amer) > 60 Glucose 195 H Calcium 7.8 L Triglycerides 124 01/10/20 04:07 WBC RBC Hgb Hct MCV MCH MCHC RDW Plt Count Carbonic Acid 1.22 HCO3/H2CO3 Ratio 18:1 ABG pH 7.37 ABG pCO2 40.6 ABG pO2 72.6 L ABG HCO3 22.9 ABG O2 Saturation 94.2 ABG Base Excess -2.2 FiO2 80% Sodium Potassium Chloride Carbon Dioxide Anion Gap BUN Creatinine Est GFR ( Amer) Glucose Calcium Triglycerides 01/08/20 11:50 Bronchial Washings Gram Stain - Final 01/08/20 11:50 Bronchial Washings Bronchial Washings Culture - Final Yeast, Not Matilda Albicans Reduced Normal Kaylin 01/07/20 10:36 Cerebral Spinal Fluid - Csf Gram Stain - Final 01/07/20 10:36 Cerebral Spinal Fluid - Csf CSF Culture - Final NO GROWTH 3 DAYS 12/31/19 12/31/19 12/31/19 12:36 12:36 13:03 Creatine Kinase Cancelled Cancelled Troponin I Cancelled NT-Pro-B Natriuret Pep Cancelled 12/31/19 12/31/19 12/31/19 15:30 15:30 18:11 Creatine Kinase 59 Troponin I 0.013 0.016 NT-Pro-B Natriuret Pep 228 H 01/05/20 16:35 Creatine Kinase Troponin I < 0.012 NT-Pro-B Natriuret Pep Impressions: Head MRI 12/31/19 00:00 IMPRESSION: 1. No acute infarct or other acute intracranial findings 2. Mild cerebral atrophy Chest/Abdomen CTA 12/31/19 16:32 IMPRESSION: 1. No central or segmental pulmonary embolus. 2. Increasing multifocal airspace opacities consistent with worsening multi lobar pneumonia. Head CT 01/07/20 00:00 IMPRESSION: No acute intracranial abnormality. EVIDENCE OF ACUTE STROKE: NO. Soft Tissue Neck CT 01/07/20 00:00 IMPRESSION: 1. No abnormality of the soft tissues of the neck. 2. Patchy bilateral mixed areas of consolidation and ground-glass opacification that have increased since 12/31/2019. Lumbar Puncture 01/07/20 06:00 IMPRESSION: Lumbar puncture under fluoroscopy. No immediate complication. Chest X-Ray 01/09/20 14:57 IMPRESSION: Worsening edema or sepsis. No pneumothorax. Assessment & Plan - Diagnosis (1) Acute metabolic encephalopathy Is this a current diagnosis for this admission?: Yes (2) Acute respiratory distress Is this a current diagnosis for this admission?: Yes (5) Multifocal pneumonia Is this a current diagnosis for this admission?: Yes (6) Recurrent pneumonia Is this a current diagnosis for this admission?: Yes (7) Acute hypoxemic respiratory failure Is this a current diagnosis for this admission?: Yes - Time Time Spent with patient: 25-34 minutes - Plan Summary Plan Summary: Of course the most significant findings here are the recent diagnosis of HIV an tibodies. Again this likely explains his underlying patient's clinical course. We are awaiting GMS and fungal smears to establish a diagnosis. Have discussed extensively with the . Wait further recommendations per ID related to anti- retroviral therapy. Continue to wean FiO2 as tolerated by his oxygenation.
[2020-01-10 15:37] LABS: ALPHA-1-GLOBULIN 1 4.8 % (1.1-6.6); ALPHA-2-GLOBULIN 8.3 % (3.0-12.6); CSF ALBUMIN 50.8 % (56.8-76.4); PRE ALBUMIN 4.1 % (2.2-7.1); TOTAL PROTEIN CSF PE 23.5 mg/dL (0.0-44.0)
[2020-01-10] MEDS: ACETAMINOPHEN 325 MG TABLET NG PRN (20:29)
[2020-01-10] MEDS: QUETIAPINE FUMARATE 25 MG TABLET NG SCH (22:31)
[2020-01-11] MEDS: HYDROMORPHONE HCL INJ/PF 2 MG/ML AMPULE IV PRN ×5 (02:27→20:12)
[2020-01-11] MEDS: RINGERS SOLUTION,LACTATED 1,000 ML IV PRN ×2 (02:32→12:47)
[2020-01-11] MEDS: SULFAMETHOXAZOLE/TRIMETHOPRIM 400 MG in DEXTROSE 5%-WATER 500 ML IV SCH ×4 (02:32→21:22)
[2020-01-11] MEDS: FENTANYL CITRATE/PF 600 MCG/60 ML BAG IV PRN ×8 (02:33→22:45)
[2020-01-11] MEDS ORDERED: MIDAZOLAM 2 MG/2 ML INJ ONE (03:43)
[2020-01-11] MEDS: MIDAZOLAM 2 MG/2 ML INJ IV PRN ×5 (03:45→20:12)
[2020-01-11] MEDS: DEXMEDETOMIDINE IN 0.9 % NACL 400 MCG/100 ML RTUPB IV PRN ×5 (03:51→20:06)
[2020-01-11 04:42] LABS: ANION GAP 9 (5-19); BLOOD UREA NITROGEN 28 mg/dL (7-20); CALCIUM 7.7 mg/dL (8.4-10.2); CARBON DIOXIDE 22 mmol/L (22-30); CHLORIDE 103 mmol/L (98-107); GLUCOSE 174 mg/dL (75-110); POTASSIUM 4.1 mmol/L (3.6-5.0)
[2020-01-11 05:01] LABS: HEMATOCRIT 25.3 % (37.9-51.0); HEMOGLOBIN 8.8 g/dL (13.5-17.0); MEAN CORPUSCULAR HEMOGLOBIN 30.1 pg (27.0-33.4); MEAN CORPUSCULAR HGB CONC 34.8 g/dL (32.0-36.0); MEAN CORPUSCULAR VOLUME 87 fl (80-97); PLATELET COUNT 133 10^3/uL (150-450); RED BLOOD COUNT 2.93 10^6/uL (4.35-5.55); RED CELL DISTRIBUTION WIDTH 15.2 % (11.5-14.0); WHITE BLOOD COUNT 4.6 10^3/uL (4.0-10.5)
[2020-01-11 05:05] LABS: ABSOLUTE LYMPHOCYTES# (MANUAL) 0.1 10^3/uL (0.5-4.7); BAND NEUTROPHILS % (MANUAL) 1 % (3-5); BASOPHILS % (MANUAL) 0 % (0-2); EOSINOPHILS % (MANUAL) 0 % (0-6); LYMPHOCYTES % (MANUAL) 2 % (13-45); MONOCYTES % (MANUAL) 1 % (3-13); SEGMENTED NEUTROPHILS % (MAN) 96 % (42-78); TOTAL CELLS COUNTED 100
[2020-01-11 05:06] LABS: ANISOCYTOSIS SLIGHT; OVALOCYTES SLIGHT; PLATELET COMMENT DECREASED; POIKILOCYTOSIS SLIGHT; POLYCHROMASIA SLIGHT; TOXIC GRANULATION SLIGHT
[2020-01-11] MEDS: PIPERACILLIN SODIUM/TAZOBACTAM 3.375 GM in NORMAL SALINE 100 ML IV SCH ×3 (06:18→17:49)
[2020-01-11 07:01] LABS: CSF PE GAMMA GLOBULIN 9.2 % (3.0-13.0)
[2020-01-11 07:02] LABS: PROT ELEC MSPIKE Not Observed % (Not Observ)
[2020-01-11] MEDS: AMINO AC/PROTEIN HYDR/WHEY PRO 11 GM/45 ML PKT NG SCH ×3 (09:30→17:49)
[2020-01-11] MEDS: PANTOPRAZOLE SODIUM 40 MG VIAL IV SCH (09:31)
[2020-01-11] MEDS: ENOXAPARIN SODIUM INJ 40 MG/0.4 ML DISP.SYRIN SUBCUT SCH (09:31)
[2020-01-11] MEDS: METHYLPREDNISOLONE INJ 125 MG/2 ML SDV IV SCH ×2 (09:31→21:22)
--- NOTE | 2020-01-11 09:31 | PDOC CRITICAL CARE PROG REPORT ---
General Date:: 01/11/20 ICU Day:: 4 Ventilator Day:: 4 Hospital Day:: 11 Resuscitation Status: Full Code Events in the past 12 to 24 Hours:: Still about the same Review of systems relevant to events:: Pulmonary, ID Reason for ICU Addmission:: Intubated for increased WOB, multifocal PNA - Medications: Medications reviewed and adjusted accordingly: Yes Vasopressors:: None Sedation:: Precedex Physical Exam Vital Signs: Temp Pulse Resp BP Pulse Ox 100.6 F H 73 24 H 102/72 92 01/11/20 06:05 01/11/20 07:38 01/11/20 06:05 01/11/20 06:05 01/11/20 06:05 Intake & Output 01/10/20 01/11/20 01/12/20 06:59 06:59 06:59 Intake Total 4357 4760 100 Output Total 1595 1910 Balance 2762 2850 100 Weight 82.9 kg 87.6 kg Weight/Height Weight 87.6 kg Height 5 ft 10 in General appearance: PRESENT: no acute distress, disheveled Head exam: PRESENT: atraumatic, normocephalic Eye exam: PRESENT: conjunctiva pink, EOMI, PERRLA. ABSENT: scleral icterus Ear exam: PRESENT: normal external ear exam Mouth exam: PRESENT: moist, tongue midline Respiratory exam: PRESENT: crackles, decreased breath sounds, rhonchi, tachypnea - Mild Cardiovascular exam: PRESENT: RRR. ABSENT: diastolic murmur, rubs, systolic murmur GI/Abdominal exam: PRESENT: normal bowel sounds, soft. ABSENT: distended, guarding, mass, organolmegaly, rebound, tenderness Rectal exam: PRESENT: deferred Gentrourinary exam: PRESENT: indwelling catheter Extremities exam: PRESENT: full ROM. ABSENT: calf tenderness, clubbing, pedal edema Neurological exam: PRESENT: altered, other - Sedated. Tubes/Lines: PRESENT: Endotracheal Tube, Nasogastic Tube Laboratory/Radiographs Laboratory Results: 01/11/20 04:10 01/11/20 04:10 01/07/20 01/11/20 01/11/20 10:36 04:10 04:10 WBC 4.6 RBC 2.93 L Hgb 8.8 L Hct 25.3 L MCV 87 MCH 30.1 MCHC 34.8 RDW 15.2 H Plt Count 133 L Seg Neutrophils % Not Reportable Sodium 134.4 L Potassium 4.1 Chloride 103 Carbon Dioxide 22 Anion Gap 9 BUN 28 H Creatinine 1.06 Est GFR ( Amer) > 60 Glucose 174 H Calcium 7.7 L CSF Total Protein PEP 23.5 CSF Prealbumin 4.1 CSF Albumin 50.8 L CSF Uxyqp-8-Qjdqoxcw 4.8 CSF Xpfgm-4-Hcwcozne 8.3 CSF Beta Globulin 22.8 H CSF Gamma Globulin 9.2 CSF PEP M-Cruz Not Observed 01/09/20 12:20 Sputum AFB Smear Concentration - Final 01/09/20 12:20 Sputum Acid Fast Bacilli Smear - Final 01/08/20 11:50 Bronchial Washings AFB Smear Concentration - Final 01/08/20 11:50 Bronchial Washings Acid Fast Bacilli Smear - Final 01/07/20 10:36 Cerebral Spinal Fluid - Csf AFB Smear Concentration - Final 01/07/20 10:36 Cerebral Spinal Fluid - Csf Acid Fast Bacilli Smear - Final 01/08/20 11:50 Bronchial Washings Gram Stain - Final 01/08/20 11:50 Bronchial Washings Bronchial Washings Culture - Final Yeast, Not Matilda Albicans Reduced Normal Kaylin 01/07/20 10:36 Cerebral Spinal Fluid - Csf Gram Stain - Final 01/07/20 10:36 Cerebral Spinal Fluid - Csf CSF Culture - Final NO GROWTH 3 DAYS 12/31/19 12/31/19 12/31/19 12:36 12:36 13:03 Creatine Kinase Cancelled Cancelled Troponin I Cancelled NT-Pro-B Natriuret Pep Cancelled 12/31/19 12/31/19 12/31/19 15:30 15:30 18:11 Creatine Kinase 59 Troponin I 0.013 0.016 NT-Pro-B Natriuret Pep 228 H 01/05/20 16:35 Creatine Kinase Troponin I < 0.012 NT-Pro-B Natriuret Pep Impressions: Head MRI 12/31/19 00:00 IMPRESSION: 1. No acute infarct or other acute intracranial findings 2. Mild cerebral atrophy Chest/Abdomen CTA 12/31/19 16:32 IMPRESSION: 1. No central or segmental pulmonary embolus. 2. Increasing multifocal airspace opacities consistent with worsening multi lobar pneumonia. Head CT 01/07/20 00:00 IMPRESSION: No acute intracranial abnormality. EVIDENCE OF ACUTE STROKE: NO. Soft Tissue Neck CT 01/07/20 00:00 IMPRESSION: 1. No abnormality of the soft tissues of the neck. 2. Patchy bilateral mixed areas of consolidation and ground-glass opacification that have increased since 12/31/2019. Lumbar Puncture 01/07/20 06:00 IMPRESSION: Lumbar puncture under fluoroscopy. No immediate complication. Chest X-Ray 01/09/20 14:57 IMPRESSION: Worsening edema or sepsis. No pneumothorax. All labs, radiographs, diagnostic studies and EKGs were personally reviewed: Yes In addition, reports of radiographic and diagnostic studies were read: Yes Assessment and Plan - Diagnosis (1) Acute respiratory distress syndrome (ARDS) Is this a current diagnosis for this admission?: Yes Plan: Still on low volume ventilation. (2) Acute hypoxemic respiratory failure Is this a current diagnosis for this admission?: Yes Plan: Patient is still hypoxic at 80% FiO2 with an O2 saturation of 93%. Try to wean as tolerated. (3) HIV antibody positive Is this a current diagnosis for this admission?: Yes Plan: The possibility that this could be pneumocystis or other opportunistic infection exists. Keep on Bactrim and await cultures, (4) Acid reflux Qualifiers: Esophagitis presence: esophagitis presence not specified Qualified Code(s): K21.9 - Gastro-esophageal reflux disease without esophagitis Is this a current diagnosis for this admission?: Yes Plan: Inactive. (5) Acute metabolic encephalopathy Is this a current diagnosis for this admission?: Yes Plan: Difficult to gauge. Plan Summary: Try to wean FiO2 and await cultures. Critical Time Critical Time (minutes): 35 Level of Care: ICU Anticipated discharge: SNF Anticipated DC Timeframe: Other -: 1. The care of a critical patient is a dynamic process. This note is a rep resentative synopsis but static in nature. The timeframe for treatments given in order is not necessarily the actual time these treatments may have been done. 2. This patient requires critical care secondary to ongoing requirements for therapy not offered or safe outside the critical care environment. Transfer to a lower level of care will result in altered life or limb morbidity and mortality. 3. Multidisciplinary rounds completed. 4. ABCDE bundle addressed.
[2020-01-11] MEDS ORDERED: BISACODYL 10 MG SUPP.RECT PR ONE (11:00)
[2020-01-11 12:37] LABS: CD BASOPHILS 0 % (Not Estab.); CD EOSINOPHILS 0 % (Not Estab.); CD MONOCYTES 2 % (Not Estab.); CD NEUTROPHILS 97 % (Not Estab.); IMMATURE GRANULOCYTES 0 % (Not Estab.); LYMPHS(ABSOLUTE) 0.1 x10E3/uL (0.7-3.1); MCHC 32.3 g/dL (31.5-35.7); MCV 90 fL (79-97); PLATELETS 162 x10E3/uL (150-450); RBC 3.09 x10E6/uL (4.14-5.80); RDW 14.7 % (11.6-15.4); WBC 6.6 x10E3/uL (3.4-10.8)
--- NOTE | 2020-01-11 13:31 | PDOC PROGRESS REPORT ---
Subjective Progress Note for:: 01/11/20 Subjective:: He is on mechanical ventilation. Reason For Visit: MULTIFOCAL PNA INTUBATED Patient continues on mechanical ventilation. Unfortunately fungal smears are not yet available. Patient's FiO2 is increased to 0.8. His respiratory rate is approximately 24-26. Family conference was held yesterday evening. No other subjective new findings are noted. Physical Exam Vital Signs: Temp Pulse Resp BP Pulse Ox 100.8 F H 75 24 H 110/80 94 01/11/20 12:00 01/11/20 12:00 01/11/20 12:00 01/11/20 12:00 01/11/20 12:00 Intake & Output 01/10/20 01/11/20 01/12/20 06:59 06:59 06:59 Intake Total 4357 4760 1200 Output Total 1595 1910 410 Balance 2762 2850 790 Weight 82.9 kg 87.6 kg Exam: Exam today is largely unchanged. He continues to have coarse breath sounds throughout all lung li. Remainder of exam is unchanged. Results Laboratory Results: 01/11/20 04:10 01/11/20 04:10 01/07/20 01/11/20 01/11/20 10:36 04:10 04:10 WBC 4.6 RBC 2.93 L Hgb 8.8 L Hct 25.3 L MCV 87 MCH 30.1 MCHC 34.8 RDW 15.2 H Plt Count 133 L Seg Neutrophils % Not Reportable Sodium 134.4 L Potassium 4.1 Chloride 103 Carbon Dioxide 22 Anion Gap 9 BUN 28 H Creatinine 1.06 Est GFR ( Amer) > 60 Glucose 174 H Calcium 7.7 L CSF Total Protein PEP 23.5 CSF Prealbumin 4.1 CSF Albumin 50.8 L CSF Wlumq-9-Ljdupyur 4.8 CSF Lndkv-2-Btetdkvg 8.3 CSF Beta Globulin 22.8 H CSF Gamma Globulin 9.2 CSF PEP M-Cruz Not Observed 01/09/20 12:20 Sputum AFB Smear Concentration - Final 01/09/20 12:20 Sputum Acid Fast Bacilli Smear - Final 01/08/20 11:50 Bronchial Washings AFB Smear Concentration - Final 01/08/20 11:50 Bronchial Washings Acid Fast Bacilli Smear - Final 01/07/20 10:36 Cerebral Spinal Fluid - Csf AFB Smear Concentration - Final 01/07/20 10:36 Cerebral Spinal Fluid - Csf Acid Fast Bacilli Smear - Final 01/08/20 11:50 Bronchial Washings Gram Stain - Final 01/08/20 11:50 Bronchial Washings Bronchial Washings Culture - Final Yeast, Not Matilda Albicans Reduced Normal Kaylin 01/07/20 10:36 Cerebral Spinal Fluid - Csf Gram Stain - Final 01/07/20 10:36 Cerebral Spinal Fluid - Csf CSF Culture - Final NO GROWTH 3 DAYS 12/31/19 12/31/19 12/31/19 12:36 12:36 13:03 Creatine Kinase Cancelled Cancelled Troponin I Cancelled NT-Pro-B Natriuret Pep Cancelled 12/31/19 12/31/19 12/31/19 15:30 15:30 18:11 Creatine Kinase 59 Troponin I 0.013 0.016 NT-Pro-B Natriuret Pep 228 H 01/05/20 16:35 Creatine Kinase Troponin I < 0.012 NT-Pro-B Natriuret Pep Impressions: Head MRI 12/31/19 00:00 IMPRESSION: 1. No acute infarct or other acute intracranial findings 2. Mild cerebral atrophy Chest/Abdomen CTA 12/31/19 16:32 IMPRESSION: 1. No central or segmental pulmonary embolus. 2. Increasing multifocal airspace opacities consistent with worsening multi lobar pneumonia. Head CT 01/07/20 00:00 IMPRESSION: No acute intracranial abnormality. EVIDENCE OF ACUTE STROKE: NO. Soft Tissue Neck CT 01/07/20 00:00 IMPRESSION: 1. No abnormality of the soft tissues of the neck. 2. Patchy bilateral mixed areas of consolidation and ground-glass opacification that have increased since 12/31/2019. Lumbar Puncture 01/07/20 06:00 IMPRESSION: Lumbar puncture under fluoroscopy. No immediate complication. Chest X-Ray 01/09/20 14:57 IMPRESSION: Worsening edema or sepsis. No pneumothorax. Status: Image reviewed by me - Chest x-rays as well as arterial blood gases have been reviewed by me. He continues to have a diffuse interstitial infiltrative process that is worsening over time. Assessment & Plan - Diagnosis (1) Acute metabolic encephalopathy Is this a current diagnosis for this admission?: Yes (2) Acute respiratory distress Is this a current diagnosis for this admission?: Yes (5) Multifocal pneumonia Is this a current diagnosis for this admission?: Yes (6) Recurrent pneumonia Is this a current diagnosis for this admission?: Yes (7) Acute hypoxemic respiratory failure Is this a current diagnosis for this admission?: Yes (8) HIV antibody positive Is this a current diagnosis for this admission?: Yes (9) Interstitial pneumonia of both lungs Is this a current diagnosis for this admission?: Yes - Time Time Spent with patient: 35 or more minutes - Plan Summary Plan Summary: Patient continues on mechanical ventilation. I think we can matches set rate with his current ventilatory rate. Await further recommendations per ID. Also await further bronchoscopy findings from Tuesday. Overall prognosis is still somewhat guarded given his acutely ill state. We will follow with you.
[2020-01-11 13:37] LABS: METHYLMALONIC ACID TEST 184 nmol/L (0-378)
[2020-01-11] MEDS ORDERED: HYDROMORPHONE HCL INJ/PF 2 MG/ML AMPULE ONE (13:40)
[2020-01-11] MEDS ORDERED: HYDROMORPHONE HCL INJ/PF 2 MG/ML AMPULE IV ONE (15:30)
[2020-01-11] MEDS ORDERED: MIDAZOLAM HCL 50 MG/100 ML RTUINJ ONE (16:32)
[2020-01-11] MEDS: MIDAZOLAM HCL 50 MG/100 ML RTUINJ IV PRN (16:36)
[2020-01-11] MEDS: ACETAMINOPHEN 325 MG TABLET NG PRN (17:56)
[2020-01-11] MEDS ORDERED: NORMAL SALINE 1000 ML 1,000 ML IV ONE (20:15)
[2020-01-11] MEDS: QUETIAPINE FUMARATE 25 MG TABLET NG SCH (21:22)
[2020-01-11 22:27] LABS: ARTERIAL BLOOD BASE EXCESS -7.4 mmol/L; ARTERIAL BLOOD H2CO3 1.09 mmol/L (1.05-1.35); ARTERIAL BLOOD HCO3 18.1 mmol/L (20-24); ARTERIAL BLOOD O2 SATURATION 87.8 % (94-98); ARTERIAL BLOOD PCO2 36.3 mmHg (35-45); ARTERIAL BLOOD PH 7.32 (7.35-7.45); ARTERIAL BLOOD PO2 57.4 mmHg (80-100); ARTERIAL BLOOD TOTAL CO2 19.2 mmol/L (23-27)
[2020-01-11 22:28] LABS: ARTERIAL BLOOD FIO2 70%
[2020-01-12] MEDS: PIPERACILLIN SODIUM/TAZOBACTAM 3.375 GM in NORMAL SALINE 100 ML IV SCH ×4 (00:14→17:03)
[2020-01-12] MEDS: DEXMEDETOMIDINE IN 0.9 % NACL 400 MCG/100 ML RTUPB IV PRN ×8 (00:15→21:57)
[2020-01-12] MEDS: FENTANYL CITRATE/PF 600 MCG/60 ML BAG IV PRN ×7 (00:46→20:36)
[2020-01-12] MEDS: MIDAZOLAM 2 MG/2 ML INJ IV PRN ×2 (01:25→19:28)
[2020-01-12] MEDS: HYDROMORPHONE HCL INJ/PF 2 MG/ML AMPULE IV PRN ×5 (01:25→22:26)
[2020-01-12] MEDS: RINGERS SOLUTION,LACTATED 1,000 ML IV PRN ×2 (02:17→10:28)
[2020-01-12] MEDS: SULFAMETHOXAZOLE/TRIMETHOPRIM 400 MG in DEXTROSE 5%-WATER 500 ML IV SCH ×4 (02:17→21:55)
[2020-01-12 04:28] LABS: ANION GAP 6 (5-19); BLOOD UREA NITROGEN 28 mg/dL (7-20); CALCIUM 7.5 mg/dL (8.4-10.2); CARBON DIOXIDE 23 mmol/L (22-30); CHLORIDE 105 mmol/L (98-107); GLUCOSE 201 mg/dL (75-110); POTASSIUM 4.4 mmol/L (3.6-5.0)
[2020-01-12 04:41] LABS: HEMATOCRIT 24.6 % (37.9-51.0); HEMOGLOBIN 8.4 g/dL (13.5-17.0); MEAN CORPUSCULAR HEMOGLOBIN 29.9 pg (27.0-33.4); MEAN CORPUSCULAR HGB CONC 34.3 g/dL (32.0-36.0); MEAN CORPUSCULAR VOLUME 87 fl (80-97); PLATELET COUNT 139 10^3/uL (150-450); RED BLOOD COUNT 2.82 10^6/uL (4.35-5.55); RED CELL DISTRIBUTION WIDTH 15.1 % (11.5-14.0); WHITE BLOOD COUNT 4.4 10^3/uL (4.0-10.5)
[2020-01-12 04:57] LABS: BASOPHILS % (MANUAL) 0 % (0-2); EOSINOPHILS % (MANUAL) 0 % (0-6); LYMPHOCYTES % (MANUAL) 1 % (13-45); MONOCYTES % (MANUAL) 1 % (3-13); NUCLEATED RED BLOOD CELLS 1 /100 WBC (0); SEGMENTED NEUTROPHILS % (MAN) 98 % (42-78); TOTAL CELLS COUNTED 100
[2020-01-12 04:58] LABS: ANISOCYTOSIS SLIGHT; POIKILOCYTOSIS SLIGHT; POLYCHROMASIA SLIGHT; TOXIC GRANULATION 1+
[2020-01-12 04:59] LABS: OVALOCYTES 1+; PLATELET COMMENT ADEQUATE; SCHISTOCYTES SLIGHT
--- NOTE | 2020-01-12 09:27 | PDOC CRITICAL CARE PROG REPORT ---
General Date:: 01/12/20 ICU Day:: 5 Ventilator Day:: 5 Hospital Day:: 13 Resuscitation Status: Full Code Events in the past 12 to 24 Hours:: Essentially no change Review of systems relevant to events:: Pulmonary Reason for ICU Addmission:: Intubated for increased WOB, multifocal PNA, HIV may be pneumocystis - Medications: Medications reviewed and adjusted accordingly: Yes Vasopressors:: None Sedation:: Precedex Physical Exam Vital Signs: Temp Pulse Resp BP Pulse Ox 98.9 F 68 26 H 103/73 93 01/12/20 08:00 01/12/20 08:00 01/12/20 08:00 01/12/20 08:00 01/12/20 08:00 Intake & Output 01/11/20 01/12/20 01/13/20 06:59 06:59 06:59 Intake Total 4760 5826 Output Total 1910 3357 325 Balance 2850 2469 -325 Weight 87.6 kg 92.5 kg Weight/Height Weight 92.5 kg Height 5 ft 10 in General appearance: PRESENT: mild distress, other - Breathing fast. Head exam: PRESENT: atraumatic, normocephalic Eye exam: PRESENT: conjunctiva pink, EOMI, PERRLA. ABSENT: scleral icterus Ear exam: PRESENT: normal external ear exam Mouth exam: PRESENT: moist, tongue midline Respiratory exam: PRESENT: crackles, decreased breath sounds, rhonchi, symmetrical, tachypnea Cardiovascular exam: PRESENT: RRR. ABSENT: diastolic murmur, rubs, systolic murmur GI/Abdominal exam: PRESENT: normal bowel sounds, soft. ABSENT: distended, guarding, mass, organolmegaly, rebound, tenderness Rectal exam: PRESENT: deferred Extremities exam: PRESENT: full ROM. ABSENT: calf tenderness, clubbing, pedal edema Musculoskeletal exam: PRESENT: normal inspection Neurological exam: PRESENT: altered, other - Sedated Psychiatric exam: PRESENT: agitated - At times Skin exam: PRESENT: dry, intact, warm. ABSENT: cyanosis, rash Tubes/Lines: PRESENT: Endotracheal Tube, Nasogastic Tube Laboratory/Radiographs Laboratory Results: 01/12/20 03:50 01/12/20 03:50 01/11/20 01/12/20 01/12/20 22:05 03:50 03:50 WBC RBC Hgb Hct MCV MCH MCHC RDW Plt Count Seg Neutrophils % Carbonic Acid 1.09 HCO3/H2CO3 Ratio 16:1 ABG pH 7.32 L ABG pCO2 36.3 ABG pO2 57.4 L ABG HCO3 18.1 L ABG O2 Saturation 87.8 L ABG Base Excess -7.4 FiO2 70% Sodium 133.5 L Potassium 4.4 Chloride 105 Carbon Dioxide 23 Anion Gap 6 BUN 28 H Creatinine 1.02 Est GFR ( Amer) > 60 Glucose 201 H Calcium 7.5 L Ionized Calcium Minoo 1.12 L 01/12/20 03:50 WBC 4.4 RBC 2.82 L Hgb 8.4 L Hct 24.6 L MCV 87 MCH 29.9 MCHC 34.3 RDW 15.1 H Plt Count 139 L Seg Neutrophils % Not Reportable Carbonic Acid HCO3/H2CO3 Ratio ABG pH ABG pCO2 ABG pO2 ABG HCO3 ABG O2 Saturation ABG Base Excess FiO2 Sodium Potassium Chloride Carbon Dioxide Anion Gap BUN Creatinine Est GFR ( Amer) Glucose Calcium Ionized Calcium Minoo 12/31/19 12/31/19 12/31/19 12:36 12:36 13:03 Creatine Kinase Cancelled Cancelled Troponin I Cancelled NT-Pro-B Natriuret Pep Cancelled 12/31/19 12/31/19 12/31/19 15:30 15:30 18:11 Creatine Kinase 59 Troponin I 0.013 0.016 NT-Pro-B Natriuret Pep 228 H 01/05/20 16:35 Creatine Kinase Troponin I < 0.012 NT-Pro-B Natriuret Pep Impressions: Head MRI 12/31/19 00:00 IMPRESSION: 1. No acute infarct or other acute intracranial findings 2. Mild cerebral atrophy Chest/Abdomen CTA 12/31/19 16:32 IMPRESSION: 1. No central or segmental pulmonary embolus. 2. Increasing multifocal airspace opacities consistent with worsening multi lobar pneumonia. Head CT 01/07/20 00:00 IMPRESSION: No acute intracranial abnormality. EVIDENCE OF ACUTE STROKE: NO. Soft Tissue Neck CT 01/07/20 00:00 IMPRESSION: 1. No abnormality of the soft tissues of the neck. 2. Patchy bilateral mixed areas of consolidation and ground-glass opacification that have increased since 12/31/2019. Lumbar Puncture 01/07/20 06:00 IMPRESSION: Lumbar puncture under fluoroscopy. No immediate complication. Chest X-Ray 01/09/20 14:57 IMPRESSION: Worsening edema or sepsis. No pneumothorax. All labs, radiographs, diagnostic studies and EKGs were personally reviewed: Yes In addition, reports of radiographic and diagnostic studies were read: Yes Assessment and Plan - Diagnosis (1) Acute respiratory distress syndrome (ARDS) Is this a current diagnosis for this admission?: Yes Plan: Still on PCV at low volume ventilation. Very slightly improved (2) Acute hypoxemic respiratory failure Is this a current diagnosis for this admission?: Yes Plan: There is still a high O2 need. He is on 70% with an O2 saturation of only 92%. (3) HIV antibody positive Is this a current diagnosis for this admission?: Yes Plan: Pending are final cultures, other labs that are likely send out labs. (4) Acute metabolic encephalopathy Is this a current diagnosis for this admission?: Yes Plan: Sedated difficult to tell. Plan Summary: Keep on low volume ventilation until out of ARDS. Bactrim pending final cultures and TF. Anticipate fairly long ICU course. Critical Time Critical Time (minutes): 35 Level of Care: ICU Anticipated discharge: SNF Anticipated DC Timeframe: Other -: 1. The care of a critical patient is a dynamic process. This note is a circulation representative synopsis but static in nature. The timeframe for treatments given in order is not necessarily the actual time these treatments may have been done. 2. This patient requires critical care secondary to ongoing requirements for therapy not offered or safe outside the critical care environment. Transfer to a lower level of care will result in altered life or limb morbidity and mortality. 3. Multidisciplinary rounds completed. 4. ABCDE bundle addressed.
[2020-01-12] MEDS ORDERED: CALCIUM GLUCONATE 1000 MG/10 ML INJ IV ONE (09:28)
[2020-01-12] MEDS: PANTOPRAZOLE SODIUM 40 MG VIAL IV SCH (09:57)
[2020-01-12] MEDS: AMINO AC/PROTEIN HYDR/WHEY PRO 11 GM/45 ML PKT NG SCH ×3 (09:57→17:03)
[2020-01-12] MEDS: ENOXAPARIN SODIUM INJ 40 MG/0.4 ML DISP.SYRIN SUBCUT SCH (09:57)
[2020-01-12] MEDS: METHYLPREDNISOLONE INJ 125 MG/2 ML SDV IV SCH ×2 (09:58→22:15)
[2020-01-12] MEDS: MIDAZOLAM HCL 50 MG/100 ML RTUINJ IV PRN ×2 (10:18→21:28)
[2020-01-12] MEDS: CALCIUM GLUCONATE 1 GM/NS 50 ML RTU IV SCH ×2 (10:41→11:53)
[2020-01-12] MEDS ORDERED: DEXTROSE 50%-WATER 25 GM/50 ML DISP.SYRIN IV PRN ×2 (18:59)
[2020-01-12] MEDS ORDERED: GLUCAGON,HUMAN RECOMB 1 MG INJ IM PRN (18:59)
[2020-01-12] MEDS ORDERED: DEXTROSE 40% GEL 15 GM TUBE PO PRN ×2 (18:59)
[2020-01-12] MEDS: INSULIN REG, HUMAN 100 UNIT/ML 3 ML VIAL (PYX) SUBCUT SCH (19:44)
[2020-01-12] MEDS: FLUCONAZOLE 200 MG/NS RTU 200 MG/100 ML RTUPB IV SCH (22:21)
[2020-01-13] MEDS: FENTANYL CITRATE/PF 600 MCG/60 ML BAG IV PRN ×7 (00:21→22:37)
[2020-01-13] MEDS: RINGERS SOLUTION,LACTATED 1,000 ML IV PRN ×2 (00:23→10:49)
[2020-01-13] MEDS: INSULIN REG, HUMAN 100 UNIT/ML 3 ML VIAL (PYX) SUBCUT SCH ×4 (00:31→17:56)
[2020-01-13] MEDS: PIPERACILLIN SODIUM/TAZOBACTAM 3.375 GM in NORMAL SALINE 100 ML IV SCH ×4 (00:32→17:26)
[2020-01-13] MEDS: DEXMEDETOMIDINE IN 0.9 % NACL 400 MCG/100 ML RTUPB IV PRN ×5 (01:04→13:37)
[2020-01-13] MEDS: SULFAMETHOXAZOLE/TRIMETHOPRIM 400 MG in DEXTROSE 5%-WATER 500 ML IV SCH ×4 (03:26→20:33)
[2020-01-13] MEDS: HYDROMORPHONE HCL INJ/PF 2 MG/ML AMPULE IV PRN ×5 (04:17→21:59)
[2020-01-13 05:09] LABS: HEMATOCRIT 28.6 % (37.9-51.0); HEMOGLOBIN 9.9 g/dL (13.5-17.0); MEAN CORPUSCULAR HEMOGLOBIN 29.8 pg (27.0-33.4); MEAN CORPUSCULAR HGB CONC 34.6 g/dL (32.0-36.0); MEAN CORPUSCULAR VOLUME 86 fl (80-97); PLATELET COUNT 165 10^3/uL (150-450); RED BLOOD COUNT 3.33 10^6/uL (4.35-5.55); RED CELL DISTRIBUTION WIDTH 15.2 % (11.5-14.0); WHITE BLOOD COUNT 8.7 10^3/uL (4.0-10.5)
[2020-01-13 05:24] LABS: ANION GAP 9 (5-19); BLOOD UREA NITROGEN 25 mg/dL (7-20); CALCIUM 7.8 mg/dL (8.4-10.2); CARBON DIOXIDE 22 mmol/L (22-30); CHLORIDE 103 mmol/L (98-107); GLUCOSE 141 mg/dL (75-110); POTASSIUM 4.7 mmol/L (3.6-5.0)
[2020-01-13] MEDS: MIDAZOLAM 2 MG/2 ML INJ IV PRN ×3 (05:45→20:23)
[2020-01-13 06:25] LABS: ARTERIAL BLOOD BASE EXCESS -5.8 mmol/L; ARTERIAL BLOOD FIO2 65%; ARTERIAL BLOOD H2CO3 1.02 mmol/L (1.05-1.35); ARTERIAL BLOOD HCO3 18.9 mmol/L (20-24); ARTERIAL BLOOD PH 7.36 (7.35-7.45); ARTERIAL BLOOD PO2 61.4 mmHg (80-100); ARTERIAL BLOOD TOTAL CO2 19.9 mmol/L (23-27)
--- NOTE | 2020-01-13 07:55 | PDOC CRITICAL CARE PROG REPORT ---
General Date:: 01/13/20 ICU Day:: 7 Ventilator Day:: 7 Hospital Day:: 14 Resuscitation Status: Full Code Events in the past 12 to 24 Hours:: Ventilator adjusted by Ra Mcclure overnight with better tolerance Review of systems relevant to events:: Pulmonary, ID Reason for ICU Addmission:: Intubated for increased WOB, multifocal PNA, HIV may be pneumocystis - Medications: Medications reviewed and adjusted accordingly: Yes Vasopressors:: None Sedation:: Precedex, versed Physical Exam Vital Signs: Temp Pulse Resp BP Pulse Ox 98.9 F 74 28 H 117/75 91 L 01/13/20 05:41 01/12/20 20:00 01/13/20 06:00 01/13/20 05:53 01/13/20 06:00 Intake & Output 01/12/20 01/13/20 01/14/20 06:59 06:59 06:59 Intake Total 5826 4404 625 Output Total 3357 3925 Balance 2469 479 625 Weight 92.5 kg 93 kg Weight/Height Weight 93 kg Height 5 ft 10 in General appearance: PRESENT: no acute distress Head exam: PRESENT: atraumatic, normocephalic Eye exam: PRESENT: conjunctiva pink, EOMI, PERRLA. ABSENT: scleral icterus Ear exam: PRESENT: normal external ear exam Mouth exam: PRESENT: moist, tongue midline Respiratory exam: PRESENT: clear to auscultation ahsan, crackles - Crackles heard more on L side at end expiration., decreased breath sounds. ABSENT: rales, rhonchi, wheezes Cardiovascular exam: PRESENT: RRR. ABSENT: diastolic murmur, rubs, systolic murmur GI/Abdominal exam: PRESENT: normal bowel sounds, soft. ABSENT: distended, guarding, mass, organolmegaly, rebound, tenderness Rectal exam: PRESENT: deferred Gentrourinary exam: PRESENT: indwelling catheter Extremities exam: PRESENT: full ROM. ABSENT: calf tenderness, clubbing, pedal edema Musculoskeletal exam: PRESENT: normal inspection Neurological exam: PRESENT: altered, other - Sedated Skin exam: PRESENT: dry, intact, warm. ABSENT: cyanosis, rash Tubes/Lines: PRESENT: Endotracheal Tube, Nasogastic Tube Laboratory/Radiographs Laboratory Results: 01/13/20 04:35 01/13/20 04:35 01/12/20 01/13/20 01/13/20 19:10 04:35 04:35 WBC 8.7 RBC 3.33 L Hgb 9.9 L Hct 28.6 L MCV 86 MCH 29.8 MCHC 34.6 RDW 15.2 H Plt Count 165 Carbonic Acid Cancelled HCO3/H2CO3 Ratio Cancelled ABG pH Cancelled ABG pCO2 Cancelled ABG pO2 Cancelled ABG HCO3 Cancelled ABG O2 Saturation Cancelled ABG Base Excess Cancelled FiO2 Cancelled Sodium Potassium Chloride Carbon Dioxide Anion Gap BUN Creatinine Est GFR ( Amer) Glucose Calcium Ionized Calcium Minoo 1.19 Triglycerides 226 H 01/13/20 01/13/20 04:35 05:22 WBC RBC Hgb Hct MCV MCH MCHC RDW Plt Count Carbonic Acid 1.02 L HCO3/H2CO3 Ratio 18:1 ABG pH 7.36 ABG pCO2 34.0 L ABG pO2 61.4 L ABG HCO3 18.9 L ABG O2 Saturation 91.0 L ABG Base Excess -5.8 FiO2 65% Sodium 133.5 L Potassium 4.7 Chloride 103 Carbon Dioxide 22 Anion Gap 9 BUN 25 H Creatinine 0.92 Est GFR ( Amer) > 60 Glucose 141 H Calcium 7.8 L Ionized Calcium Minoo Triglycerides 01/08/20 11:50 Bronchial Washings Fungal Smear - Final 01/08/20 11:50 Bronchial Washings Fungal Smear - Final 12/31/19 12/31/19 12/31/19 12:36 12:36 13:03 Creatine Kinase Cancelled Cancelled Troponin I Cancelled NT-Pro-B Natriuret Pep Cancelled 12/31/19 12/31/19 12/31/19 15:30 15:30 18:11 Creatine Kinase 59 Troponin I 0.013 0.016 NT-Pro-B Natriuret Pep 228 H 01/05/20 16:35 Creatine Kinase Troponin I < 0.012 NT-Pro-B Natriuret Pep Impressions: Head MRI 12/31/19 00:00 IMPRESSION: 1. No acute infarct or other acute intracranial findings 2. Mild cerebral atrophy Chest/Abdomen CTA 12/31/19 16:32 IMPRESSION: 1. No central or segmental pulmonary embolus. 2. Increasing multifocal airspace opacities consistent with worsening multi lobar pneumonia. Head CT 01/07/20 00:00 IMPRESSION: No acute intracranial abnormality. EVIDENCE OF ACUTE STROKE: NO. Soft Tissue Neck CT 01/07/20 00:00 IMPRESSION: 1. No abnormality of the soft tissues of the neck. 2. Patchy bilateral mixed areas of consolidation and ground-glass opacification that have increased since 12/31/2019. Lumbar Puncture 01/07/20 06:00 IMPRESSION: Lumbar puncture under fluoroscopy. No immediate complication. All labs, radiographs, diagnostic studies and EKGs were personally reviewed: Yes In addition, reports of radiographic and diagnostic studies were read: Yes Assessment and Plan - Diagnosis (1) Acute respiratory distress syndrome (ARDS) Is this a current diagnosis for this admission?: Yes Plan: His CXR is improved, he no longer has bilateral infiltrates although there is still an elevated R hemidiphragm. Maybe paralyzed which would contribute to his WOB before intubation. (2) Acute hypoxemic respiratory failure Is this a current diagnosis for this admission?: Yes Plan: He is still having an O2 saturation of 92% on 65% FiO2 (3) HIV antibody positive Is this a current diagnosis for this admission?: Yes Plan: Awaiting outside labs. (4) Acute metabolic encephalopathy Is this a current diagnosis for this admission?: Yes Plan: Hard to tell on sedation. Plan Summary: Wean as tolerated but not much progress. Now that CXR looks improved hope that his clinical status also improves. Critical Time Critical Time (minutes): 35 Level of Care: ICU Anticipated discharge: SNF Anticipated DC Timeframe: Other -: 1. The care of a critical patient is a dynamic process. This note is a renewals representative synopsis but static in nature. The timeframe for treatments given in order is not necessarily the actual time these treatments may have been done. 2. This patient requires critical care secondary to ongoing requirements for therapy not offered or safe outside the critical care environment. Transfer to a lower level of care will result in altered life or limb morbidity and mortality. 3. Multidisciplinary rounds completed. 4. ABCDE bundle addressed.
[2020-01-13] MEDS ORDERED: BISACODYL 10 MG SUPP.RECT PR PRN (08:09)
--- NOTE | 2020-01-13 08:10 | RADIOLOGY REPORT (SQ) ---
EXAM DESCRIPTION: CHEST SINGLE VIEW IMAGES COMPLETED DATE/TIME: 01/13/2020 5:43 am REASON FOR STUDY: Respiratory Failure COMPARISON: 01/10/2020. EXAM PARAMETERS: NUMBER OF VIEWS: One view. TECHNIQUE: Single frontal radiographic view of the chest acquired. RADIATION DOSE: NA LIMITATIONS: None. FINDINGS: LUNGS AND PLEURA: Diffuse bilateral airspace disease. Somewhat improved aeration. MEDIASTINUM AND HILAR STRUCTURES: No masses. Contour normal. HEART AND VASCULAR STRUCTURES: Heart normal in size. Normal vasculature. BONES: No acute findings. HARDWARE: Stable endotracheal tube, nasogastric tube, and central line. OTHER: No other significant finding. IMPRESSION: DIFFUSE AIRSPACE DISEASE. SOMEWHAT IMPROVED AERATION. TECHNICAL DOCUMENTATION: JOB ID: [id number] 2010 [employer] All Rights Reserved Reading location - IP/workstation name: [email or web address]
[2020-01-13] MEDS: MIDAZOLAM HCL 50 MG/100 ML RTUINJ IV PRN ×2 (10:26→21:18)
[2020-01-13] MEDS: METHYLPREDNISOLONE INJ 125 MG/2 ML SDV IV SCH ×2 (10:48→21:43)
[2020-01-13] MEDS: ENOXAPARIN SODIUM INJ 40 MG/0.4 ML DISP.SYRIN SUBCUT SCH (10:48)
[2020-01-13] MEDS: PANTOPRAZOLE SODIUM 40 MG VIAL IV SCH (10:48)
[2020-01-13] MEDS: AMINO AC/PROTEIN HYDR/WHEY PRO 11 GM/45 ML PKT NG SCH ×3 (11:01→17:29)
[2020-01-13] MEDS ORDERED: PROPOFOL 1,000 MG/100 ML INFUS..BTL IV ONE (14:03)
[2020-01-13] MEDS: PROPOFOL 1,000 MG/100 ML INFUS..BTL IV PRN ×2 (14:05→19:45)
[2020-01-13] MEDS ORDERED: FUROSEMIDE INJ/PF 40 MG/4 ML SDV ONE (14:20)
[2020-01-13] MEDS ORDERED: FUROSEMIDE INJ/PF 40 MG/4 ML SDV IV ONE (14:21)
[2020-01-13] MEDS: FLUCONAZOLE 200 MG/NS RTU 200 MG/100 ML RTUPB IV SCH (21:43)
[2020-01-14] MEDS: INSULIN REG, HUMAN 100 UNIT/ML 3 ML VIAL (PYX) SUBCUT SCH ×4 (00:42→18:03)
[2020-01-14] MEDS: PIPERACILLIN SODIUM/TAZOBACTAM 3.375 GM in NORMAL SALINE 100 ML IV SCH ×4 (00:44→18:04)
[2020-01-14] MEDS: FENTANYL CITRATE/PF 600 MCG/60 ML BAG IV PRN ×6 (02:18→21:44)
[2020-01-14] MEDS: HYDROMORPHONE HCL INJ/PF 2 MG/ML AMPULE IV PRN ×2 (02:25→04:50)
[2020-01-14] MEDS: PROPOFOL 1,000 MG/100 ML INFUS..BTL IV PRN ×5 (02:28→21:32)
[2020-01-14] MEDS ORDERED: NA PHOS,M-B/NA PHOS,DI-BA (ADULT) 133 ML ENEMA PR ONE (02:30)
[2020-01-14] MEDS: SULFAMETHOXAZOLE/TRIMETHOPRIM 400 MG in DEXTROSE 5%-WATER 500 ML IV SCH ×4 (03:38→21:40)
[2020-01-14 05:30] LABS: HEMOGLOBIN 9.7 g/dL (13.5-17.0); MEAN CORPUSCULAR HEMOGLOBIN 29.9 pg (27.0-33.4); MEAN CORPUSCULAR HGB CONC 34.5 g/dL (32.0-36.0); MEAN CORPUSCULAR VOLUME 87 fl (80-97); PLATELET COUNT 171 10^3/uL (150-450); RED BLOOD COUNT 3.23 10^6/uL (4.35-5.55); RED CELL DISTRIBUTION WIDTH 15.4 % (11.5-14.0); WHITE BLOOD COUNT 14.8 10^3/uL (4.0-10.5)
[2020-01-14 05:49] LABS: ARTERIAL BLOOD BASE EXCESS -5.1 mmol/L; ARTERIAL BLOOD H2CO3 1.76 mmol/L (1.05-1.35); ARTERIAL BLOOD HCO3 23.3 mmol/L (20-24); ARTERIAL BLOOD O2 SATURATION 86.8 % (94-98); ARTERIAL BLOOD PCO2 58.4 mmHg (35-45); ARTERIAL BLOOD PH 7.22 (7.35-7.45); ARTERIAL BLOOD PO2 62.6 mmHg (80-100)
[2020-01-14 05:50] LABS: ARTERIAL BLOOD FIO2 70%
[2020-01-14 06:13] LABS: ALBUMIN 2.1 g/dL (3.5-5.0); ALKALINE PHOSPHATASE 80 U/L (38-126); ANION GAP 13 (5-19); ASPARTATE AMINO TRANSFERASE 24 U/L (17-59); BILIRUBIN,DIRECT 0.3 mg/dL (0.0-0.4); BILIRUBIN,TOTAL 0.3 mg/dL (0.2-1.3); BLOOD UREA NITROGEN 25 mg/dL (7-20); CALCIUM 7.3 mg/dL (8.4-10.2); CARBON DIOXIDE 21 mmol/L (22-30); CHLORIDE 100 mmol/L (98-107); GLUCOSE 187 mg/dL (75-110); POTASSIUM 3.9 mmol/L (3.6-5.0); TOTAL PROTEIN 4.2 g/dL (6.3-8.2)
[2020-01-14] MEDS: MIDAZOLAM HCL 50 MG/100 ML RTUINJ IV PRN ×2 (06:52→16:00)
[2020-01-14] MEDS: ENOXAPARIN SODIUM INJ 40 MG/0.4 ML DISP.SYRIN SUBCUT SCH (09:55)
[2020-01-14] MEDS: PANTOPRAZOLE SODIUM 40 MG VIAL IV SCH (09:55)
[2020-01-14 10:03] LABS: ARTERIAL BLOOD H2CO3 1.53 mmol/L (1.05-1.35); ARTERIAL BLOOD HCO3 21.3 mmol/L (20-24); ARTERIAL BLOOD O2 SATURATION 92.6 % (94-98); ARTERIAL BLOOD PCO2 50.7 mmHg (35-45); ARTERIAL BLOOD PH 7.24 (7.35-7.45); ARTERIAL BLOOD PO2 75.3 mmHg (80-100); ARTERIAL BLOOD TOTAL CO2 22.9 mmol/L (23-27)
[2020-01-14 10:04] LABS: ARTERIAL BLOOD FIO2 80%
[2020-01-14] MEDS: METHYLPREDNISOLONE INJ 125 MG/2 ML SDV IV SCH ×2 (10:23→22:09)
[2020-01-14] MEDS: AMINO AC/PROTEIN HYDR/WHEY PRO 11 GM/45 ML PKT NG SCH ×3 (10:24→18:05)
[2020-01-14 13:17] LABS: HIV-1 RNA PCR QUANT 922000 copies/mL (.)
[2020-01-14] MEDS: METOCLOPRAMIDE HCL ORAL SOLN 10 MG/10 ML UDCUP NG SCH ×2 (13:26→18:04)
[2020-01-14 13:48] LABS: POTASSIUM 4.3 mmol/L (3.6-5.0)
[2020-01-14] MEDS: ALBUMIN HUMAN 12.5 GM/50 ML RTUINJ IV SCH ×4 (14:10→18:04)
--- NOTE | 2020-01-14 15:13 | RADIOLOGY REPORT (SQ) ---
EXAM DESCRIPTION: CHEST SINGLE VIEW IMAGES COMPLETED DATE/TIME: 01/14/2020 1:47 pm REASON FOR STUDY: Acute Ventricular ectopy on vent With absent bs R COMPARISON: None. EXAM PARAMETERS: NUMBER OF VIEWS: One view. TECHNIQUE: Single frontal radiographic view of the chest acquired. RADIATION DOSE: NA LIMITATIONS: None. FINDINGS: LUNGS AND PLEURA: Considerable opacification bilaterally, right more than left. There is fairly dense opacification right upper lobe particularly. Air bronchograms are seen. MEDIASTINUM AND HILAR STRUCTURES: No masses. Contour normal. HEART AND VASCULAR STRUCTURES: Heart normal in size. Normal vasculature. BONES: No acute findings. HARDWARE: Endotracheal tube terminates 3 cm above the goyo. Right internal jugular catheter is pre sent. OTHER: No other significant finding. IMPRESSION: Bilateral airspace disease, right worse than left. TECHNICAL DOCUMENTATION: JOB ID: [id number] 2010 [employer]- All Rights Reserved Reading location - IP/workstation name: [email or web address]
[2020-01-14] MEDS ORDERED: ACETAMINOPHEN 325 MG TABLET NG PRN (18:03)
--- NOTE | 2020-01-14 18:53 | PDOC CRITICAL CARE PROG REPORT ---
General Date:: 01/14/20 ICU Day:: 8 Ventilator Day:: 8 Hospital Day:: 15 Resuscitation Status: Full Code Events in the past 12 to 24 Hours:: This 69-year-old male presented to [facility] on 12/31/19 and was admitted with a clinical impression of refractory pneumonia despite multiple courses of antibiotics. He was initially admitted to the floor. On 01/07/2020 the patient demonstrated increased work of breathing, prompting endotracheal intubation and transfer to the ICU. 01/13: Case discussed with Dr. Siddiqi. He is on propofol, Versed and fentanyl infusions for sedation. ABG this a.m. 7./63 on FiO2 70%. He is empirically on Zosyn/Bactrim/Diflucan for empiric coverage of pneumonia in an immunocompromised host. Clinically, suspicious for Pneumocystis jiroveci pneumonia, although Dr. Siddiqi reports that GMS stain of BAL fluid was negative for Pneumocystis. Currently off tube feeds due to high residuals. Having short runs of nonsustained ventricular tachycardia. Review of systems relevant to events:: Pulmonary, ID Reason for ICU Addmission:: Intubated for increased WOB, multifocal PNA, HIV may be pneumocystis - Medications: Medications reviewed and adjusted accordingly: Yes Physical Exam Vital Signs: Temp Pulse Resp BP Pulse Ox 98.6 F 114 H 24 H 103/65 91 L 01/14/20 11:23 01/14/20 10:00 01/14/20 11:23 01/14/20 11:23 01/14/20 11:23 Intake & Output 01/13/20 01/14/20 01/15/20 06:59 06:59 06:59 Intake Total 4387 0167 525 Output Total 8285 5495 800 Balance 479 -719 -275 Weight 93 kg 92.5 kg Weight/Height Weight 92.5 kg Height 1.78 m General appearance: PRESENT: no acute distress, well-developed Head exam: PRESENT: atraumatic, normocephalic Eye exam: PRESENT: conjunctiva pink, EOMI, PERRLA. ABSENT: scleral icterus Mouth exam: PRESENT: moist, tongue midline Respiratory exam: PRESENT: rales, rhonchi. ABSENT: accessory muscle use, wheezes Cardiovascular exam: PRESENT: RRR, tachycardia. ABSENT: diastolic murmur, rubs, systolic murmur Pulses: PRESENT: normal dorsalis pedis pul GI/Abdominal exam: PRESENT: normal bowel sounds, soft. ABSENT: distended, guarding, mass, organolmegaly, rebound, tenderness Gentrourinary exam: PRESENT: indwelling catheter Extremities exam: PRESENT: full ROM. ABSENT: calf tenderness, clubbing, pedal edema Neurological exam: PRESENT: altered, CN II-XII grossly intact. ABSENT: motor sensory deficit Psychiatric exam: ABSENT: agitated, anxious Skin exam: PRESENT: dry, intact, warm. ABSENT: cyanosis, rash Tubes/Lines: PRESENT: Central Line - Right IJ Laboratory/Radiographs Laboratory Results: 01/14/20 05:00 01/14/20 05:00 01/14/20 01/14/20 01/14/20 05:00 05:00 05:00 WBC 14.8 H RBC 3.23 L Hgb 9.7 L Hct 28.0 L MCV 87 MCH 29.9 MCHC 34.5 RDW 15.4 H Plt Count 171 Carbonic Acid 1.76 H HCO3/H2CO3 Ratio 13:1 ABG pH 7.22 L ABG pCO2 58.4 H ABG pO2 62.6 L ABG HCO3 23.3 ABG O2 Saturation 86.8 L ABG Base Excess -5.1 FiO2 70% Sodium 133.7 L Potassium 3.9 Chloride 100 Carbon Dioxide 21 L Anion Gap 13 BUN 25 H Creatinine 0.85 Est GFR ( Amer) > 60 Glucose 187 H Calcium 7.3 L Magnesium 2.4 H Total Bilirubin 0.3 AST 24 Alkaline Phosphatase 80 Total Protein 4.2 L Albumin 2.1 L 01/14/20 09:42 WBC RBC Hgb Hct MCV MCH MCHC RDW Plt Count Carbonic Acid 1.53 H HCO3/H2CO3 Ratio 13:1 ABG pH 7.24 L ABG pCO2 50.7 H ABG pO2 75.3 L ABG HCO3 21.3 ABG O2 Saturation 92.6 L ABG Base Excess -6.0 FiO2 80% Sodium Potassium Chloride Carbon Dioxide Anion Gap BUN Creatinine Est GFR ( Amer) Glucose Calcium Magnesium Total Bilirubin AST Alkaline Phosphatase Total Protein Albumin 12/31/19 12/31/19 12/31/19 12:36 12:36 13:03 Creatine Kinase Cancelled Cancelled Troponin I Cancelled NT-Pro-B Natriuret Pep Cancelled 12/31/19 12/31/19 12/31/19 15:30 15:30 18:11 Creatine Kinase 59 Troponin I 0.013 0.016 NT-Pro-B Natriuret Pep 228 H 01/05/20 16:35 Creatine Kinase Troponin I < 0.012 NT-Pro-B Natriuret Pep Impressions: Head MRI 12/31/19 00:00 IMPRESSION: 1. No acute infarct or other acute intracranial findings 2. Mild cerebral atrophy Chest/Abdomen CTA 12/31/19 16:32 IMPRESSION: 1. No central or segmental pulmonary embolus. 2. Increasing multifocal airspace opacities consistent with worsening multi lobar pneumonia. Head CT 01/07/20 00:00 IMPRESSION: No acute intracranial abnormality. EVIDENCE OF ACUTE STROKE: NO. Soft Tissue Neck CT 01/07/20 00:00 IMPRESSION: 1. No abnormality of the soft tissues of the neck. 2. Patchy bilateral mixed areas of consolidation and ground-glass opacification that have increased since 12/31/2019. Lumbar Puncture 01/07/20 06:00 IMPRESSION: Lumbar puncture under fluoroscopy. No immediate complication. Chest X-Ray 01/13/20 00:00 IMPRESSION: DIFFUSE AIRSPACE DISEASE. SOMEWHAT IMPROVED AERATION. All labs, radiographs, diagnostic studies and EKGs were personally reviewed: Yes In addition, reports of radiographic and diagnostic studies were read: Yes Assessment and Plan - Diagnosis (1) Acute hypoxemic respiratory failure Is this a current diagnosis for this admission?: Yes Plan: Titrate vent settings based on ABG results. Treat sedation for RASS -2. (2) Recurrent pneumonia Is this a current diagnosis for this admission?: Yes Plan: * Unclear etiology. Clinically, suspicious for pneumocystis pneumonia. Has been through 3 courses of antibiotics and steroids with no lasting improvement. * Continue empiric Zosyn/Bactrim/fluconazole. (3) Acute metabolic encephalopathy Is this a current diagnosis for this admission?: Yes Plan: Hard to tell on sedation. (4) Interstitial pneumonia of both lungs Is this a current diagnosis for this admission?: Yes Plan: * Received broad-spectrum IV antibiotic for 6 days. Blood cultures are negative so far. Sputum culture only positive for Matilda which is likely chronic colonization. * Fevers have resolved but cough and hypoxia persistent * Influenza negative * COVID-19 negative * COVID Abs PENDING * Continue steroids for now. (6) HIV antibody positive Is this a current diagnosis for this admission?: Yes Plan: Awaiting outside labs. (7) Hypoalbuminemia due to protein-calorie malnutrition Is this a current diagnosis for this admission?: Yes Plan: * Check prealbumin. * Add Reglan in hopes of improving gastric motility. (8) NSVT (nonsustained ventricular tachycardia) Is this a current diagnosis for this admission?: Yes Plan: * Recheck potassium, magnesium. * Ggive albumin 50 g IV in lieu of fluid bolus. Critical Time Critical Time (minutes): 60 Level of Care: ICU -: 1. The care of a critical patient is a dynamic process. This note is a insurance sales representative synopsis but static in nature. The timeframe for treatments given in order is not necessarily the actual time these treatments may have been done. 2. This patient requires critical care secondary to ongoing requirements for therapy not offered or safe outside the critical care environment. Transfer to a lower level of care will result in altered life or limb morbidity and mortality. 3. Multidisciplinary rounds completed. 4. ABCDE bundle addressed.
[2020-01-14] MEDS ORDERED: FUROSEMIDE INJ/PF 40 MG/4 ML SDV IV ONE (19:00)
--- NOTE | 2020-01-14 21:54 | EKG REPORT ---
SEVERITY:- ABNORMAL ECG - SINUS TACHYCARDIA MULTIFORM VENTRICULAR PREMATURE COMPLEXES PROBABLE LEFT ATRIAL ABNORMALITY NONSPECIFIC T ABNORMALITIES, DIFFUSE LEADS : Confirmed by: Josephine Escalona MD 14-Jan-2020 21:53:14
[2020-01-14] MEDS: FLUCONAZOLE 200 MG/NS RTU 200 MG/100 ML RTUPB IV SCH (22:09)
[2020-01-15] MEDS: PIPERACILLIN SODIUM/TAZOBACTAM 3.375 GM in NORMAL SALINE 100 ML IV SCH ×2
[2020-01-15] MEDS: METOCLOPRAMIDE HCL ORAL SOLN 10 MG/10 ML UDCUP NG SCH ×3 (00:01→11:55)
[2020-01-15] MEDS: MIDAZOLAM HCL 50 MG/100 ML RTUINJ IV PRN ×3 (01:00→18:32)
[2020-01-15] MEDS: FENTANYL CITRATE/PF 600 MCG/60 ML BAG IV PRN ×6 (01:26→20:16)
[2020-01-15] MEDS: SULFAMETHOXAZOLE/TRIMETHOPRIM 400 MG in DEXTROSE 5%-WATER 500 ML IV SCH (03:45)
[2020-01-15] MEDS: PROPOFOL 1,000 MG/100 ML INFUS..BTL IV PRN ×4 (04:01→21:42)
[2020-01-15 04:41] LABS: ARTERIAL BLOOD BASE EXCESS -4.7 mmol/L; ARTERIAL BLOOD H2CO3 1.67 mmol/L (1.05-1.35); ARTERIAL BLOOD HCO3 22.9 mmol/L (20-24); ARTERIAL BLOOD O2 SATURATION 96.9 % (94-98); ARTERIAL BLOOD PCO2 55.6 mmHg (35-45); ARTERIAL BLOOD PH 7.23 (7.35-7.45); ARTERIAL BLOOD PO2 107.2 mmHg (80-100); ARTERIAL BLOOD TOTAL CO2 24.6 mmol/L (23-27)
[2020-01-15 04:43] LABS: ARTERIAL BLOOD FIO2 80%
[2020-01-15] MEDS: INSULIN REG, HUMAN 100 UNIT/ML 3 ML VIAL (PYX) SUBCUT SCH ×4 (05:42→17:57)
[2020-01-15 06:03] LABS: HEMATOCRIT 24.7 % (37.9-51.0); HEMOGLOBIN 8.6 g/dL (13.5-17.0); MEAN CORPUSCULAR HEMOGLOBIN 30.3 pg (27.0-33.4); MEAN CORPUSCULAR VOLUME 87 fl (80-97); PLATELET COUNT 130 10^3/uL (150-450); RED BLOOD COUNT 2.85 10^6/uL (4.35-5.55); RED CELL DISTRIBUTION WIDTH 15.6 % (11.5-14.0); WHITE BLOOD COUNT 7.9 10^3/uL (4.0-10.5)
[2020-01-15 06:34] LABS: ANION GAP 11 (5-19); BLOOD UREA NITROGEN 30 mg/dL (7-20); CARBON DIOXIDE 24 mmol/L (22-30); CHLORIDE 101 mmol/L (98-107); GLUCOSE 187 mg/dL (75-110); POTASSIUM 4.8 mmol/L (3.6-5.0)
[2020-01-15 06:55] LABS: CALCIUM 6.9 mg/dL (8.4-10.2)
--- NOTE | 2020-01-15 09:59 | PDOC PROGRESS REPORT ---
Subjective Progress Note for:: 01/14/20 Subjective:: He continues on mechanical ventilation without significant regional climate change analyst the last 24 hours. In the last 15 minutes he is developed some neck arrhythmia. Otherwise there is not significant change in his overall status. Reason For Visit: MULTIFOCAL PNA INTUBATED Continues on MV without sig change. Physical Exam Vital Signs: Temp Pulse Resp BP Pulse Ox 98.2 F 109 H 24 H 104/51 L 96 01/14/20 21:50 01/14/20 18:00 01/14/20 18:13 01/14/20 18:13 01/14/20 20:01 Intake & Output 01/13/20 01/14/20 01/15/20 06:59 06:59 06:59 Intake Total 7065 0552 2005 Output Total 0905 3022 4681 Balance 994 -229 -183 Weight 93 kg 92.5 kg Exam: Largely unchanged. He continues to have coarse breath sounds throughout all lung li. Results Laboratory Results: 01/14/20 05:00 01/14/20 13:04 01/14/20 01/14/20 01/14/20 05:00 05:00 05:00 WBC 14.8 H RBC 3.23 L Hgb 9.7 L Hct 28.0 L MCV 87 MCH 29.9 MCHC 34.5 RDW 15.4 H Plt Count 171 Carbonic Acid 1.76 H HCO3/H2CO3 Ratio 13:1 ABG pH 7.22 L ABG pCO2 58.4 H ABG pO2 62.6 L ABG HCO3 23.3 ABG O2 Saturation 86.8 L ABG Base Excess -5.1 FiO2 70% Sodium 133.7 L Potassium 3.9 Chloride 100 Carbon Dioxide 21 L Anion Gap 13 BUN 25 H Creatinine 0.85 Est GFR ( Amer) > 60 Glucose 187 H Calcium 7.3 L Magnesium 2.4 H Total Bilirubin 0.3 AST 24 Alkaline Phosphatase 80 Total Protein 4.2 L Albumin 2.1 L 01/14/20 01/14/20 09:42 13:04 WBC RBC Hgb Hct MCV MCH MCHC RDW Plt Count Carbonic Acid 1.53 H HCO3/H2CO3 Ratio 13:1 ABG pH 7.24 L ABG pCO2 50.7 H ABG pO2 75.3 L ABG HCO3 21.3 ABG O2 Saturation 92.6 L ABG Base Excess -6.0 FiO2 80% Sodium Potassium 4.3 Chloride Carbon Dioxide Anion Gap BUN Creatinine Est GFR ( Amer) Glucose Calcium Magnesium 2.5 H Total Bilirubin AST Alkaline Phosphatase Total Protein Albumin 12/31/19 12/31/19 12/31/19 12:36 12:36 13:03 Creatine Kinase Cancelled Cancelled Troponin I Cancelled NT-Pro-B Natriuret Pep Cancelled 12/31/19 12/31/19 12/31/19 15:30 15:30 18:11 Creatine Kinase 59 Troponin I 0.013 0.016 NT-Pro-B Natriuret Pep 228 H 01/05/20 16:35 Creatine Kinase Troponin I < 0.012 NT-Pro-B Natriuret Pep Impressions: Head MRI 12/31/19 00:00 IMPRESSION: 1. No acute infarct or other acute intracranial findings 2. Mild cerebral atrophy Chest/Abdomen CTA 12/31/19 16:32 IMPRESSION: 1. No central or segmental pulmonary embolus. 2. Increasing multifocal airspace opacities consistent with worsening multi lobar pneumonia. Head CT 01/07/20 00:00 IMPRESSION: No acute intracranial abnormality. EVIDENCE OF ACUTE STROKE: NO. Soft Tissue Neck CT 01/07/20 00:00 IMPRESSION: 1. No abnormality of the soft tissues of the neck. 2. Patchy bilateral mixed areas of consolidation and ground-glass opacification that have increased since 12/31/2019. Lumbar Puncture 01/07/20 06:00 IMPRESSION: Lumbar puncture under fluoroscopy. No immediate complication. Chest X-Ray 01/14/20 00:00 IMPRESSION: Bilateral airspace disease, right worse than left. Assessment & Plan - Diagnosis (1) Acute metabolic encephalopathy Is this a current diagnosis for this admission?: Yes (2) Acute respiratory distress Is this a current diagnosis for this admission?: Yes (5) Multifocal pneumonia Is this a current diagnosis for this admission?: Yes (6) Recurrent pneumonia Is this a current diagnosis for this admission?: Yes (7) Acute hypoxemic respiratory failure Is this a current diagnosis for this admission?: Yes (8) HIV antibody positive Is this a current diagnosis for this admission?: Yes (9) Interstitial pneumonia of both lungs Is this a current diagnosis for this admission?: Yes - Time Time Spent with patient: 35 or more minutes - Plan Summary Plan Summary: Little to add to his current treatment plan. Continues critically ill. We will sign off for now. If help is needed in the future please not hesitate to contact me.
[2020-01-15 10:00] LABS: ARTERIAL BLOOD BASE EXCESS -1.6 mmol/L; ARTERIAL BLOOD FIO2 70%; ARTERIAL BLOOD H2CO3 1.53 mmol/L (1.05-1.35); ARTERIAL BLOOD HCO3 24.9 mmol/L (20-24); ARTERIAL BLOOD O2 SATURATION 98.3 % (94-98); ARTERIAL BLOOD PCO2 50.7 mmHg (35-45); ARTERIAL BLOOD PH 7.31 (7.35-7.45); ARTERIAL BLOOD PO2 130.6 mmHg (80-100); ARTERIAL BLOOD TOTAL CO2 26.5 mmol/L (23-27)
[2020-01-15] MEDS: SULFAMETHOXAZOLE IV SCH ×3 (10:06→21:15)
[2020-01-15] MEDS: TRIMETHOPRIM IV SCH ×3 (10:06→21:15)
[2020-01-15] MEDS: DEXTROSE 5% IV SCH ×3 (10:06→21:15)
[2020-01-15] MEDS: WATER IV SCH ×3 (10:06→21:15)
[2020-01-15] MEDS: METHYLPREDNISOLONE INJ 125 MG/2 ML SDV IV SCH ×2 (10:29→21:16)
[2020-01-15] MEDS: ENOXAPARIN SODIUM INJ 40 MG/0.4 ML DISP.SYRIN SUBCUT SCH (10:29)
[2020-01-15] MEDS: AMINO AC/PROTEIN HYDR/WHEY PRO 11 GM/45 ML PKT NG SCH ×3 (10:29→17:57)
[2020-01-15] MEDS ORDERED: PANTOPRAZOLE SODIUM 40 MG VIAL IV SCH (12:00)
--- NOTE | 2020-01-15 13:55 | Progress Note ---
Provider Note Provider Note: ID Note- I was asked to give recommendations for treatment of newly diagnosed HIV. Please see note of Dr. Mei. Easiest medication for this patient would be a single-tablet regimen. While awaiting the HIV genotype, I would recommend one of the followin. Biktarvy- one tablet daily. 2. Symtuza- one tablet daily. 3. Descovy and Tivicay- one tablet of each daily. Please contact me if there are questions. Janes Rankin MD Pager: [phone]
--- NOTE | 2020-01-15 14:10 | Progress Note ---
Provider Note Provider Note: ID Note (addendum)- Based on what HIV medications are available in the hospital, I recommend the following medications while the patient is hospitalized: Truvada- one tab per day. Isentress- 400 mg tab BID. Both of these can be crushed and put down an NG tube. Once the patient is ready for discharge, would send home with Biktarvy- one tab daily. He can follow up in our HIV clinic if he needs a place to go for HIV care after this hospitalization. Please call if there are questions. Janes Rankin MD Pager: [phone]
[2020-01-15] MEDS ORDERED: FUROSEMIDE INJ/PF 40 MG/4 ML SDV IV ONE (15:30)
--- NOTE | 2020-01-15 17:23 | PDOC CRITICAL CARE PROG REPORT ---
General Date:: 01/15/20 ICU Day:: 9 Ventilator Day:: 9 Hospital Day:: 16 Resuscitation Status: Full Code Events in the past 12 to 24 Hours:: This 69-year-old male presented to [facility] on 12/31/19 and was admitted with a clinical impression of refractory pneumonia despite multiple courses of antibiotics. He was initially admitted to the floor. On 01/07/2020 the patient demonstrated increased work of breathing, prompting endotracheal intubation and transfer to the ICU. 01/13: Case discussed with Dr. Siddiqi. He is on propofol, Versed and fentanyl infusions for sedation. ABG this a.m. 7./ on FiO2 70%. He is empirically on Zosyn/Bactrim/Diflucan for empiric coverage of pneumonia in an immunocompromised host. Clinically, suspicious for Pneumocystis jiroveci pneumonia, although Dr. Siddiqi reports that GMS stain of BAL fluid was negative for Pneumocystis. Currently off tube feeds due to high residuals. Having short runs of nonsustained ventricular tachycardia. 01/14: Had bouts of nonsustained ventricular tachycardia yesterday. No overt electrolyte abnormalities. Twelve-lead EKG showed sinus tachycardia with multiform PVCs. Rhythm appeared to stabilize to normal sinus rhythm/sinus tachycardia with improvement in sedation. Still having high tube feed residuals (over 300 mL) despite initiation of Reglan. Review of systems relevant to events:: Pulmonary, ID Reason for ICU Addmission:: Intubated for increased WOB, multifocal PNA, HIV may be pneumocystis - Medications: Medications reviewed and adjusted accordingly: Yes Physical Exam Vital Signs: Temp Pulse Resp BP Pulse Ox 97.9 F 98 22 H 110/71 90 L 01/15/20 08:14 01/15/20 07:47 01/15/20 08:14 01/15/20 08:14 01/15/20 08:14 Intake & Output 01/14/20 01/15/20 01/16/20 06:59 06:59 06:59 Intake Total 3397 3417 170 Output Total 5495 5100 0 Balance -184 -7962 170 Weight 92.5 kg 88.4 kg Weight/Height Weight 88.4 kg Height 1.78 m General appearance: PRESENT: no acute distress, well-developed Head exam: PRESENT: atraumatic, normocephalic Eye exam: PRESENT: conjunctiva pink, EOMI, PERRLA. ABSENT: scleral icterus Mouth exam: PRESENT: moist, tongue midline Neck exam: ABSENT: carotid bruit, JVD, lymphadenopathy, thyromegaly Respiratory exam: PRESENT: clear to auscultation ahsan. ABSENT: rales, rhonchi, wheezes Cardiovascular exam: PRESENT: RRR, tachycardia. ABSENT: diastolic murmur, rubs, systolic murmur Pulses: PRESENT: normal dorsalis pedis pul Vascular exam: PRESENT: normal capillary refill GI/Abdominal exam: PRESENT: normal bowel sounds, soft. ABSENT: distended, guarding, mass, organolmegaly, rebound, tenderness Gentrourinary exam: PRESENT: indwelling catheter Extremities exam: PRESENT: full ROM, pedal edema, +1 edema. ABSENT: calf tenderness, clubbing Musculoskeletal exam: PRESENT: normal inspection. ABSENT: deformity Neurological exam: PRESENT: altered, reflexes normal, CN II-XII grossly intact. ABSENT: motor sensory deficit Psychiatric exam: ABSENT: agitated, anxious Skin exam: PRESENT: dry, intact, warm. ABSENT: cyanosis, rash Tubes/Lines: PRESENT: Endotracheal Tube, Central Line - Right IJ Laboratory/Radiographs Laboratory Results: 01/15/20 05:36 01/15/20 05:36 01/14/20 01/14/20 01/15/20 09:42 13:04 04:28 WBC RBC Hgb Hct MCV MCH MCHC RDW Plt Count Carbonic Acid 1.53 H 1.67 H HCO3/H2CO3 Ratio 13:1 13:1 ABG pH 7.24 L 7.23 L ABG pCO2 50.7 H 55.6 H ABG pO2 75.3 L 107.2 H ABG HCO3 21.3 22.9 ABG O2 Saturation 92.6 L 96.9 ABG Base Excess -6.0 -4.7 FiO2 80% 80% Sodium Potassium 4.3 Chloride Carbon Dioxide Anion Gap BUN Creatinine Est GFR ( Amer) Glucose Calcium Magnesium 2.5 H Prealbumin 01/15/20 01/15/20 01/15/20 05:36 05:36 05:36 WBC 7.9 RBC 2.85 L Hgb 8.6 L Hct 24.7 L MCV 87 MCH 30.3 MCHC 35.0 RDW 15.6 H Plt Count 130 L Carbonic Acid HCO3/H2CO3 Ratio ABG pH ABG pCO2 ABG pO2 ABG HCO3 ABG O2 Saturation ABG Base Excess FiO2 Sodium 136.1 L Potassium 4.8 Chloride 101 Carbon Dioxide 24 Anion Gap 11 BUN 30 H Creatinine 1.34 H Est GFR ( Amer) > 60 Glucose 187 H Calcium 6.9 L* Magnesium Prealbumin 20.6 12/31/19 12/31/19 12/31/19 12:36 12:36 13:03 Creatine Kinase Cancelled Cancelled Troponin I Cancelled NT-Pro-B Natriuret Pep Cancelled 12/31/19 12/31/19 12/31/19 15:30 15:30 18:11 Creatine Kinase 59 Troponin I 0.013 0.016 NT-Pro-B Natriuret Pep 228 H 01/05/20 16:35 Creatine Kinase Troponin I < 0.012 NT-Pro-B Natriuret Pep Impressions: Head MRI 12/31/19 00:00 IMPRESSION: 1. No acute infarct or other acute intracranial findings 2. Mild cerebral atrophy Chest/Abdomen CTA 12/31/19 16:32 IMPRESSION: 1. No central or segmental pulmonary embolus. 2. Increasing multifocal airspace opacities consistent with worsening multi lobar pneumonia. Head CT 01/07/20 00:00 IMPRESSION: No acute intracranial abnormality. EVIDENCE OF ACUTE STROKE: NO. Soft Tissue Neck CT 01/07/20 00:00 IMPRESSION: 1. No abnormality of the soft tissues of the neck. 2. Patchy bilateral mixed areas of consolidation and ground-glass opacification that have increased since 12/31/2019. Lumbar Puncture 01/07/20 06:00 IMPRESSION: Lumbar puncture under fluoroscopy. No immediate complication. Chest X-Ray 01/14/20 00:00 IMPRESSION: Bilateral airspace disease, right worse than left. All labs, radiographs, diagnostic studies and EKGs were personally reviewed: Yes In addition, reports of radiographic and diagnostic studies were read: Yes Assessment and Plan - Diagnosis (1) Acute hypoxemic respiratory failure Is this a current diagnosis for this admission?: Yes Plan: * Change ventilator mode PRVC (f 24, VT 480, FiO2 70%, PEEP 10). * Titrate vent settings based on ABG results. * Titrate sedation for RASS -2. * Furosemide 40 mg IV single dose today. (2) Recurrent pneumonia Is this a current diagnosis for this admission?: Yes Plan: * Unclear etiology. Clinically, suspicious for Pneumocystis pneumonia. Has been through 3 courses of antibiotics and steroids with no lasting improvement. * Trach aspirate (01/12) is isolating gram-negative rods and Matilda species. * Continue empiric Zosyn/Bactrim/fluconazole. (3) Acute metabolic encephalopathy Is this a current diagnosis for this admission?: Yes Plan: Hard to tell on sedation. (4) Interstitial pneumonia of both lungs Is this a current diagnosis for this admission?: Yes Plan: * Received broad-spectrum IV antibiotic for 6 days. Blood cultures are negative so far. Sputum culture only positive for Matilda which is likely chronic colonization. * Fevers have resolved but cough and hypoxia persistent * Influenza negative * COVID-19 negative * COVID Abs PENDING * Continue steroids for now. (6) HIV antibody positive Is this a current diagnosis for this admission?: Yes Plan: * HIV-1 viral load 922,000 (log 10 viral load 5.965). * Check CD4 count, HIV-1 genotype. * Need to initiate HAART. Start efavirenz/emtricitabine/tenofovir disoproxil. (7) Hypoalbuminemia due to protein-calorie malnutrition Is this a current diagnosis for this admission?: Yes (8) NSVT (nonsustained ventricular tachycardia) Is this a current diagnosis for this admission?: Yes Plan Summary: Family updated by conference call. Critical Time Critical Time (minutes): 90 Level of Care: ICU -: 1. The care of a critical patient is a dynamic process. This note is a field support representative synopsis but static in nature. The timeframe for treatments given in order is not necessarily the actual time these treatments may have been done. 2. This patient requires critical care secondary to ongoing requirements for therapy not offered or safe outside the critical care environment. Transfer to a lower level of care will result in altered life or limb morbidity and mortality. 3. Multidisciplinary rounds completed. 4. ABCDE bundle addressed.
[2020-01-15] MEDS: METOCLOPRAMIDE HCL INJ/PF 10 MG/2 ML SDV IV SCH (18:15)
[2020-01-15] MEDS: EFAVIRENZ/EMTRICITAB/TENOFOVIR (600-200-300 MG) TABLET NG SCH (21:16)
[2020-01-15] MEDS: FLUCONAZOLE 200 MG/NS RTU 200 MG/100 ML RTUPB IV SCH (21:16)
[2020-01-15 22:57] LABS: ARTERIAL BLOOD BASE EXCESS -2.3 mmol/L; ARTERIAL BLOOD H2CO3 1.74 mmol/L (1.05-1.35); ARTERIAL BLOOD HCO3 25.1 mmol/L (20-24); ARTERIAL BLOOD O2 SATURATION 91.6 % (94-98); ARTERIAL BLOOD PCO2 57.8 mmHg (35-45); ARTERIAL BLOOD PH 7.26 (7.35-7.45); ARTERIAL BLOOD PO2 71.5 mmHg (80-100); ARTERIAL BLOOD TOTAL CO2 26.9 mmol/L (23-27)
[2020-01-15 22:59] LABS: ARTERIAL BLOOD FIO2 70%
[2020-01-16] MEDS: FENTANYL CITRATE/PF 600 MCG/60 ML BAG IV PRN ×7 (00:11→23:43)
[2020-01-16] MEDS: INSULIN REG, HUMAN 100 UNIT/ML 3 ML VIAL (PYX) SUBCUT SCH ×5 (00:38→23:42)
[2020-01-16] MEDS: METOCLOPRAMIDE HCL INJ/PF 10 MG/2 ML SDV IV SCH ×5 (00:38→23:43)
[2020-01-16] MEDS: MIDAZOLAM HCL 50 MG/100 ML RTUINJ IV PRN ×3 (03:56→20:39)
[2020-01-16] MEDS: SULFAMETHOXAZOLE IV SCH ×4 (03:56→22:09)
[2020-01-16] MEDS: DEXTROSE 5% IV SCH ×4 (03:56→22:09)
[2020-01-16] MEDS: WATER IV SCH ×4 (03:56→22:09)
[2020-01-16] MEDS: TRIMETHOPRIM IV SCH ×4 (03:56→22:09)
[2020-01-16] MEDS: PROPOFOL 1,000 MG/100 ML INFUS..BTL IV PRN ×4 (03:59→21:29)
[2020-01-16 05:09] LABS: HEMATOCRIT 24.3 % (37.9-51.0); HEMOGLOBIN 8.5 g/dL (13.5-17.0); MEAN CORPUSCULAR HEMOGLOBIN 30.3 pg (27.0-33.4); MEAN CORPUSCULAR VOLUME 87 fl (80-97); PLATELET COUNT 119 10^3/uL (150-450); RED CELL DISTRIBUTION WIDTH 15.6 % (11.5-14.0); WHITE BLOOD COUNT 7.2 10^3/uL (4.0-10.5)
[2020-01-16 05:15] LABS: ARTERIAL BLOOD BASE EXCESS -4.9 mmol/L; ARTERIAL BLOOD H2CO3 1.69 mmol/L (1.05-1.35); ARTERIAL BLOOD O2 SATURATION 95.5 % (94-98); ARTERIAL BLOOD PCO2 56.2 mmHg (35-45); ARTERIAL BLOOD PH 7.23 (7.35-7.45); ARTERIAL BLOOD PO2 92.7 mmHg (80-100); ARTERIAL BLOOD TOTAL CO2 24.7 mmol/L (23-27)
[2020-01-16 05:16] LABS: ARTERIAL BLOOD FIO2 80%
[2020-01-16 05:25] LABS: ANION GAP 10 (5-19); BLOOD UREA NITROGEN 39 mg/dL (7-20); CARBON DIOXIDE 25 mmol/L (22-30); CHLORIDE 97 mmol/L (98-107); GLUCOSE 183 mg/dL (75-110); PHOSPHORUS 5.8 mg/dL (2.5-4.5); POTASSIUM 5.1 mmol/L (3.6-5.0)
[2020-01-16 05:41] LABS: ANISOCYTOSIS 1+; BASOPHILS % (MANUAL) 0 % (0-2); EOSINOPHILS % (MANUAL) 0 % (0-6); LYMPHOCYTES % (MANUAL) 0 % (13-45); MONOCYTES % (MANUAL) 0 % (3-13); NUCLEATED RED BLOOD CELLS 2 /100 WBC (0); PLATELET COMMENT DECREASED; SEGMENTED NEUTROPHILS % (MAN) 100 % (42-78); TOTAL CELLS COUNTED 100; TOXIC GRANULATION SLIGHT
[2020-01-16] MEDS ORDERED: FUROSEMIDE INJ/PF 40 MG/4 ML SDV IV ONE (05:44)
[2020-01-16] MEDS ORDERED: CALCIUM GLUCONATE 1000 MG/10 ML INJ IV ONE (05:44)
[2020-01-16 05:53] LABS: CALCIUM 6.9 mg/dL (8.4-10.2)
--- NOTE | 2020-01-16 09:43 | RADIOLOGY REPORT (SQ) ---
EXAM DESCRIPTION: CHEST SINGLE VIEW IMAGES COMPLETED DATE/TIME: 01/16/2020 6:19 am REASON FOR STUDY: ETT tube COMPARISON: 01/14/2020 EXAM PARAMETERS: NUMBER OF VIEWS: One view. TECHNIQUE: Single frontal radiographic view of the chest acquired. RADIATION DOSE: NA LIMITATIONS: None. FINDINGS: LUNGS AND PLEURA: Somewhat improved aeration of the lungs with persistent multifocal airsp zulma opacities, right greater than left. No pneumothorax. MEDIASTINUM AND HILAR STRUCTURES: No masses. Contour normal. HEART AND VASCULAR STRUCTURES: Heart normal in size. Normal vasculature. BONES: No acute findings. HARDWARE: Endotracheal tube, enteric tube, and right internal jugular vascular access catheter each a ppears stable in position. OTHER: No other significant finding. IMPRESSION: 1. Slightly improved aeration of the lungs with persistent bilateral multifocal airspac e opacities. 2. Stable lines and tubes. TECHNICAL DOCUMENTATION: JOB ID: [id number] 2010 [employer]- All Rights Reserved Reading location - IP/workstation name: [email or web address]
[2020-01-16 10:37] LABS: CD BASOPHILS 0 % (Not Estab.); CD EOSINOPHILS 0 % (Not Estab.); CD MONOCYTES 1 % (Not Estab.); HEMOGLOBIN 8.8 g/dL (13.0-17.7); IMMATURE GRANULOCYTES 2 % (Not Estab.); IMMATURE GRANULOCYTES (ABS) 0.1 x10E3/uL (0.0-0.1); LYMPHS(ABSOLUTE) 0.1 x10E3/uL (0.7-3.1); MCHC 32.8 g/dL (31.5-35.7); MCV 88 fL (79-97); PLATELETS 153 x10E3/uL (150-450); RBC 3.06 x10E6/uL (4.14-5.80); RDW 15.3 % (11.6-15.4); WBC 8.1 x10E3/uL (3.4-10.8)
[2020-01-16] MEDS: AMINO AC/PROTEIN HYDR/WHEY PRO 11 GM/45 ML PKT NG SCH ×3 (11:26→18:06)
[2020-01-16] MEDS: PANTOPRAZOLE SODIUM 40 MG VIAL IV SCH ×2 (11:27→22:11)
[2020-01-16] MEDS: METHYLPREDNISOLONE INJ 125 MG/2 ML SDV IV SCH (11:28)
[2020-01-16 13:20] LABS: CD NEUTROPHILS 96 % (Not Estab.)
[2020-01-16] MEDS: IPRATROPIUM/ALBUTEROL 0.5-2.5 MG/3 ML AMPUL NEB SCH ×3 (13:48→20:17)
[2020-01-16] MEDS ORDERED: ALBUTEROL SULFATE 0.083% NEB 2.5 MG/3 ML AMPUL NEB PRN (14:30)
[2020-01-16 16:30] LABS: ARTERIAL BLOOD BASE EXCESS -4.8 mmol/L; ARTERIAL BLOOD H2CO3 1.57 mmol/L (1.05-1.35); ARTERIAL BLOOD HCO3 22.3 mmol/L (20-24); ARTERIAL BLOOD PCO2 52.2 mmHg (35-45); ARTERIAL BLOOD PH 7.25 (7.35-7.45); ARTERIAL BLOOD PO2 86.7 mmHg (80-100); ARTERIAL BLOOD TOTAL CO2 23.9 mmol/L (23-27)
[2020-01-16 16:31] LABS: ARTERIAL BLOOD FIO2 90%
--- NOTE | 2020-01-16 19:25 | PDOC CRITICAL CARE PROG REPORT ---
General Date:: 01/16/20 ICU Day:: 10 Ventilator Day:: 10 Hospital Day:: 17 Resuscitation Status: Full Code Events in the past 12 to 24 Hours:: This 69-year-old male presented to [facility] on 2019 and was admitted with a clinical impression of refractory pneumonia despite multiple courses of antibiotics. He was initially admitted to the floor. On 01/07/2020 the patient demonstrated increased work of breathing, prompting endotracheal intubation and transfer to the ICU. 01/13: Case discussed with Dr. Siddiqi. He is on propofol, Versed and fentanyl infusions for sedation. ABG this a.m. 7. on FiO2 70%. He is empirically on Zosyn/Bactrim/Diflucan for empiric coverage of pneumonia in an immunocompromised host. Clinically, suspicious for Pneumocystis jiroveci pneumonia, although Dr. Siddiqi reports that GMS stain of BAL fluid was negative for Pneumocystis. Currently off tube feeds due to high residuals. Having short runs of nonsustained ventricular tachycardia. 01/14: Had bouts of nonsustained ventricular tachycardia yesterday. No overt electrolyte abnormalities. Twelve-lead EKG showed sinus tachycardia with multiform PVCs. Rhythm appeared to stabilize to normal sinus rhythm/sinus tachycardia with improvement in sedation. Still having high tube feed residuals (over 300 mL) despite initiation of Reglan. 01/15: Again had bouts of nonsustained ventricular tachycardia yesterday, in retrospect, this only seems to occur during attempts to adjust his sedation. In fact, he was immediately put back on his previous sedation with propofol/Versed/fentanyl with prompt resolution. Remains intubated on the on mechanical ventilatory support. Tolerated transition to PRVC mode. FiO2 70%, PEEP now down to 8. On Bactrim for presumptive treatment of Pneumocystis. Additionally, tracheal aspirate (01/12) isolated Acinetobacter baumanii complex, sensitive to Bactrim. Started on IV Reglan for high tube feed residuals, which has improved. During gastric residual checks, it was noted that the patient had brown content. This was found to be Gastroccult positive. Got a dose of furosemide 40 mg IV single dose overnight. Review of systems relevant to events:: Pulmonary, ID Reason for ICU Addmission:: Intubated for increased WOB, multifocal PNA, HIV may be pneumocystis - Medications: Medications reviewed and adjusted accordingly: Yes Physical Exam Vital Signs: Temp Pulse Resp BP Pulse Ox 97.9 F 61 24 H 100/68 90 L 01/16/20 11:14 01/16/20 10:00 01/16/20 11:14 01/16/20 11:14 01/16/20 11:14 Intake & Output 01/15/20 01/16/20 01/17/20 06:59 06:59 06:59 Intake Total 3417 3303 974 Output Total 5100 4475 920 Balance -1683 -1172 54 Weight 88.4 kg 90.5 kg Weight/Height Weight 90.5 kg Height 1.78 m General appearance: PRESENT: no acute distress, well-developed, well-nourished Head exam: PRESENT: atraumatic, normocephalic Eye exam: PRESENT: conjunctiva pink, EOMI, PERRLA. ABSENT: scleral icterus Mouth exam: PRESENT: moist, tongue midline Neck exam: ABSENT: carotid bruit, JVD, lymphadenopathy, thyromegaly Respiratory exam: PRESENT: clear to auscultation ahsan. ABSENT: rales, rhonchi, wheezes Cardiovascular exam: PRESENT: RRR. ABSENT: diastolic murmur, rubs, systolic murmur Pulses: PRESENT: normal dorsalis pedis pul GI/Abdominal exam: PRESENT: normal bowel sounds, soft. ABSENT: distended, guarding, mass, organolmegaly, rebound, tenderness Extremities exam: PRESENT: full ROM, pedal edema, +1 edema. ABSENT: calf tenderness, clubbing Musculoskeletal exam: PRESENT: normal inspection. ABSENT: deformity Neurological exam: PRESENT: altered, CN II-XII grossly intact. ABSENT: motor sensory deficit Psychiatric exam: ABSENT: agitated, anxious Skin exam: PRESENT: dry, intact, warm. ABSENT: cyanosis, rash Tubes/Lines: PRESENT: Endotracheal Tube, Central Line Laboratory/Radiographs Laboratory Results: 01/16/20 04:30 01/16/20 04:30 01/15/20 01/15/20 01/16/20 17:20 22:35 04:30 WBC RBC Hgb Hct MCV MCH MCHC RDW Plt Count Seg Neutrophils % Carbonic Acid 1.74 H 1.69 H HCO3/H2CO3 Ratio 14:1 13:1 ABG pH 7.26 L 7.23 L ABG pCO2 57.8 H 56.2 H ABG pO2 71.5 L 92.7 ABG HCO3 25.1 H 23.0 ABG O2 Saturation 91.6 L 95.5 ABG Base Excess -2.3 -4.9 FiO2 70% 80% Sodium Potassium Chloride Carbon Dioxide Anion Gap BUN Creatinine Est GFR ( Amer) Glucose Calcium Phosphorus Magnesium Triglycerides 195 H 01/16/20 01/16/20 04:30 04:30 WBC 7.2 RBC 2.80 L Hgb 8.5 L Hct 24.3 L MCV 87 MCH 30.3 MCHC 35.0 RDW 15.6 H Plt Count 119 L Seg Neutrophils % Not Reportable Carbonic Acid HCO3/H2CO3 Ratio ABG pH ABG pCO2 ABG pO2 ABG HCO3 ABG O2 Saturation ABG Base Excess FiO2 Sodium 131.5 L Potassium 5.1 H Chloride 97 L Carbon Dioxide 25 Anion Gap 10 BUN 39 H Creatinine 1.55 H Est GFR ( Amer) 54 L Glucose 183 H Calcium 6.9 L* Phosphorus 5.8 H Magnesium 2.6 H Triglycerides 01/07/20 10:36 Cerebral Spinal Fluid - Csf Cytomegalovirus Culture - Final 01/07/20 10:36 Cerebral Spinal Fluid - Csf Viral Culture - Final 01/13/20 04:02 Tracheal Aspirate Gram Stain - Final 01/13/20 04:02 Tracheal Aspirate Sputum Culture - Final Acinetobacter Baumannii/Haem C.albicans/C.dubliniensis Reduced Normal Kaylin 12/31/19 12/31/19 12/31/19 12:36 12:36 13:03 Creatine Kinase Cancelled Cancelled Troponin I Cancelled NT-Pro-B Natriuret Pep Cancelled 12/31/19 12/31/19 12/31/19 15:30 15:30 18:11 Creatine Kinase 59 Troponin I 0.013 0.016 NT-Pro-B Natriuret Pep 228 H 01/05/20 01/16/20 16:35 04:30 Creatine Kinase Troponin I < 0.012 NT-Pro-B Natriuret Pep 9890 H Impressions: Head MRI 12/31/19 00:00 IMPRESSION: 1. No acute infarct or other acute intracranial findings 2. Mild cerebral atrophy Chest/Abdomen CTA 12/31/19 16:32 IMPRESSION: 1. No central or segmental pulmonary embolus. 2. Increasing multifocal airspace opacities consistent with worsening multi lob ar pneumonia. Head CT 01/07/20 00:00 IMPRESSION: No acute intracranial abnormality. EVIDENCE OF ACUTE STROKE: NO. Soft Tissue Neck CT 01/07/20 00:00 IMPRESSION: 1. No abnormality of the soft tissues of the neck. 2. Patchy bilateral mixed areas of consolidation and ground-glass opacification that have increased since 12/31/2019. Lumbar Puncture 01/07/20 06:00 IMPRESSION: Lumbar puncture under fluoroscopy. No immediate complication. Chest X-Ray 01/16/20 05:00 IMPRESSION: 1. Slightly improved aeration of the lungs with persistent bilateral multifocal airspace opacities. 2. Stable lines and tubes. All labs, radiographs, diagnostic studies and EKGs were personally reviewed: Yes In addition, reports of radiographic and diagnostic studies were read: Yes Assessment and Plan - Diagnosis (1) Acute hypoxemic respiratory failure Is this a current diagnosis for this admission?: Yes Plan: * Continue PRVC mode. In light of his suspected Pneumocystis pneumonia, wean PEEP as tolerated. * Titrate vent settings based on ABG results. * Titrate sedation for RASS -2. * Furosemide 40 mg IV single dose again today. 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 Clinically, also suspicious for concurrent pneumocystis pneumonia. * Continue empiric Zosyn/Bactrim/fluconazole. (3) Acute metabolic encephalopathy Is this a current diagnosis for this admission?: Yes (4) Interstitial pneumonia of both lungs Is this a current diagnosis for this admission?: Yes (6) HIV antibody positive Is this a current diagnosis for this admission?: Yes (7) Hypoalbuminemia due to protein-calorie malnutrition Is this a current diagnosis for this admission?: Yes (8) NSVT (nonsustained ventricular tachycardia) Is this a current diagnosis for this admission?: Yes Plan Summary: Family updated by telephone conference. Critical Time Critical Time (minutes): 90 Level of Care: ICU -: 1. The care of a critical patient is a dynamic process. This note is a risk control field representative synopsis but static in nature. The timeframe for treatments given in order is not necessarily the actual time these treatments may have been done. 2. This patient requires critical care secondary to ongoing requirements for therapy not offered or safe outside the critical care environment. Transfer to a lower level of care will result in altered life or limb morbidity and mortality. 3. Multidisciplinary rounds completed. 4. ABCDE bundle addressed.
[2020-01-16] MEDS: BUDESONIDE NEB 0.25 MG/2 ML AMPUL NEB SCH (20:17)
[2020-01-16] MEDS: FLUCONAZOLE 200 MG/NS RTU 200 MG/100 ML RTUPB IV SCH (22:11)
[2020-01-16] MEDS: EFAVIRENZ/EMTRICITAB/TENOFOVIR (600-200-300 MG) TABLET NG SCH (22:12)
[2020-01-17] MEDS: IPRATROPIUM/ALBUTEROL 0.5-2.5 MG/3 ML AMPUL NEB SCH ×4 (02:45→20:24)
[2020-01-17] MEDS: WATER IV SCH ×2 (02:47→09:10)
[2020-01-17] MEDS: TRIMETHOPRIM IV SCH ×2 (02:47→09:10)
[2020-01-17] MEDS: SULFAMETHOXAZOLE IV SCH ×2 (02:47→09:10)
[2020-01-17] MEDS: DEXTROSE 5% IV SCH ×2 (02:47→09:10)
[2020-01-17] MEDS: PROPOFOL 1,000 MG/100 ML INFUS..BTL IV PRN ×5 (02:47→23:51)
[2020-01-17] MEDS: FENTANYL CITRATE/PF 600 MCG/60 ML BAG IV PRN ×5 (03:12→22:11)
[2020-01-17 04:05] LABS: ARTERIAL BLOOD BASE EXCESS -9.3 mmol/L; ARTERIAL BLOOD H2CO3 1.79 mmol/L (1.05-1.35); ARTERIAL BLOOD HCO3 20.3 mmol/L (20-24); ARTERIAL BLOOD O2 SATURATION 94.6 % (94-98); ARTERIAL BLOOD PCO2 59.6 mmHg (35-45); ARTERIAL BLOOD PO2 92.6 mmHg (80-100); ARTERIAL BLOOD TOTAL CO2 22.1 mmol/L (23-27)
[2020-01-17 04:06] LABS: ARTERIAL BLOOD FIO2 85%
[2020-01-17 04:07] LABS: ARTERIAL BLOOD PH 7.15 (7.35-7.45)
[2020-01-17 04:12] LABS: HEMATOCRIT 25.3 % (37.9-51.0); HEMOGLOBIN 8.5 g/dL (13.5-17.0); MEAN CORPUSCULAR HEMOGLOBIN 30.1 pg (27.0-33.4); MEAN CORPUSCULAR HGB CONC 33.6 g/dL (32.0-36.0); MEAN CORPUSCULAR VOLUME 89 fl (80-97); RED BLOOD COUNT 2.83 10^6/uL (4.35-5.55); RED CELL DISTRIBUTION WIDTH 15.7 % (11.5-14.0); WHITE BLOOD COUNT 7.4 10^3/uL (4.0-10.5)
[2020-01-17] MEDS ORDERED: SODIUM BICARBONATE 8.4% INJ 50 MEQ/50 ML DISP.SYRIN IV ONE (04:34)
[2020-01-17 04:35] LABS: BAND NEUTROPHILS % (MANUAL) 1 % (3-5); BASOPHILS % (MANUAL) 0 % (0-2); EOSINOPHILS % (MANUAL) 0 % (0-6); LYMPHOCYTES % (MANUAL) 0 % (13-45); MONOCYTES % (MANUAL) 0 % (3-13); SEGMENTED NEUTROPHILS % (MAN) 99 % (42-78); TOTAL CELLS COUNTED 100
[2020-01-17 04:36] LABS: POLYCHROMASIA SLIGHT; RBC MORPHOLOGY COMMENT NORMO-CYTIC/CHROMIC; TOXIC GRANULATION SLIGHT
[2020-01-17 04:37] LABS: ANISOCYTOSIS SLIGHT; OVALOCYTES SLIGHT; PLATELET CLUMPS PRESENT; PLATELET COMMENT ADEQUATE
[2020-01-17 04:38] LABS: PLATELET COUNT 127 10^3/uL (150-450)
[2020-01-17 05:00] LABS: ANION GAP 14 (5-19); BLOOD UREA NITROGEN 49 mg/dL (7-20); CARBON DIOXIDE 22 mmol/L (22-30); CHLORIDE 94 mmol/L (98-107); GLUCOSE 219 mg/dL (75-110); POTASSIUM 5.6 mmol/L (3.6-5.0)
[2020-01-17 05:15] LABS: CALCIUM 6.9 mg/dL (8.4-10.2)
[2020-01-17] MEDS ORDERED: CALCIUM GLUC IN NACL, ISO-OSM 1 GM/50 ML RTUPB IV ONE (05:41)
[2020-01-17] MEDS: INSULIN REG, HUMAN 100 UNIT/ML 3 ML VIAL (PYX) SUBCUT SCH ×4 (05:48→23:51)
[2020-01-17] MEDS: METOCLOPRAMIDE HCL INJ/PF 10 MG/2 ML SDV IV SCH ×4 (05:48→23:51)
[2020-01-17] MEDS: MIDAZOLAM HCL 50 MG/100 ML RTUINJ IV PRN ×3 (05:48→23:30)
[2020-01-17] MEDS: BUDESONIDE NEB 0.25 MG/2 ML AMPUL NEB SCH ×2 (08:41→20:24)
--- NOTE | 2020-01-17 08:44 | RADIOLOGY REPORT (SQ) ---
EXAM DESCRIPTION: KUB/ABDOMEN (SINGLE VIEW) IMAGES COMPLETED DATE/TIME: 01/17/2020 8:05 am REASON FOR STUDY: Abdominal distention COMPARISON: None. NUMBER OF VIEWS: One view. TECHNIQUE: Supine radiographic image of the abdomen acquired. LIMITATIONS: None. FINDINGS: BOWEL GAS PATTERN: Normal bowel gas pattern. No dilated loops. CALCIFICATIONS: No suspicious calcifications. SOFT TISSUES: No gross mass or suggestion of organomegaly. HARDWARE: Pelvic hardware. BONES: No acute fracture. No worrisome bone lesions. OTHER: No other significant finding. IMPRESSION: NO RADIOGRAPHIC EVIDENCE FOR ACUTE ABDOMINAL DISEASE. TECHNICAL DOCUMENTATION: JOB ID: [id number] 2010 [employer]- All Rights Reserved Reading location - IP/workstation name: [email or web address]
[2020-01-17] MEDS: SULFAMETHOXAZOLE/TRIMETHOPRIM 400 MG in DEXTROSE 5%-WATER 500 ML IV SCH ×3 (09:09→21:30)
[2020-01-17] MEDS: PANTOPRAZOLE SODIUM 40 MG VIAL IV SCH ×2 (09:10→21:31)
[2020-01-17] MEDS: METHYLPREDNISOLONE INJ 125 MG/2 ML SDV IV SCH (09:10)
--- NOTE | 2020-01-17 09:54 | RADIOLOGY REPORT (SQ) ---
EXAM DESCRIPTION: CHEST SINGLE VIEW IMAGES COMPLETED DATE/TIME: 01/17/2020 6:12 am REASON FOR STUDY: ETT tube COMPARISON: 01/16/2020. EXAM PARAMETERS: NUMBER OF VIEWS: One view. TECHNIQUE: Single frontal radiographic view of the chest acquired. RADIATION DOSE: NA LIMITATIONS: None. FINDINGS: LUNGS AND PLEURA: Diffuse bilateral airspace disease, worse on the right. MEDIASTINUM AND HILAR STRUCTURES: No masses. Contour normal. HEART AND VASCULAR STRUCTURES: Heart normal in size. Normal vasculature. BONES: No acute findings. HARDWARE: Stable endotracheal tube, nasogastric tube, and central line. OTHER: No other significant finding. IMPRESSION: NO SIGNIFICANT CHANGE IN APPEARANCE OF THE CHEST. TECHNICAL DOCUMENTATION: JOB ID: [id number] 2010 [employer]- All Rights Reserved Reading location - IP/workstation name: [email or web address]
[2020-01-17 10:06] LABS: ARTERIAL BLOOD BASE EXCESS -4.7 mmol/L; ARTERIAL BLOOD H2CO3 1.73 mmol/L (1.05-1.35); ARTERIAL BLOOD O2 SATURATION 91.9 % (94-98); ARTERIAL BLOOD PCO2 57.4 mmHg (35-45); ARTERIAL BLOOD PH 7.22 (7.35-7.45); ARTERIAL BLOOD TOTAL CO2 24.8 mmol/L (23-27)
[2020-01-17 10:09] LABS: ARTERIAL BLOOD FIO2 80%
[2020-01-17] MEDS: AMINO AC/PROTEIN HYDR/WHEY PRO 11 GM/45 ML PKT NG SCH ×3 (11:00→17:10)
--- NOTE | 2020-01-17 17:08 | PDOC CRITICAL CARE PROG REPORT ---
General Date:: 01/17/20 ICU Day:: 11 Ventilator Day:: 11 Hospital Day:: 18 Resuscitation Status: Full Code Events in the past 12 to 24 Hours:: This 69-year-old male presented to [facility] on 2019 and was admitted with a clinical impression of refractory pneumonia despite multiple courses of antibiotics. He was initially admitted to the floor. On 01/07/2020 the patient demonstrated increased work of breathing, prompting endotracheal intubation and transfer to the ICU. 01/13: Case discussed with Dr. Siddiqi. He is on propofol, Versed and fentanyl infusions for sedation. ABG this a.m. 7./63 on FiO2 70%. He is empirically on Zosyn/Bactrim/Diflucan for empiric coverage of pneumonia in an immunocompromised host. Clinically, suspicious for Pneumocystis jiroveci pneumonia, although Dr. Siddiqi reports that GMS stain of BAL fluid was negative for Pneumocystis. Currently off tube feeds due to high residuals. Having short runs of nonsustained ventricular tachycardia. 01/14: Had bouts of nonsustained ventricular tachycardia yesterday. No overt electrolyte abnormalities. Twelve-lead EKG showed sinus tachycardia with multiform PVCs. Rhythm appeared to stabilize to normal sinus rhythm/sinus tachycardia with improvement in sedation. Still having high tube feed residuals (over 300 mL) despite initiation of Reglan. 01/15: Again had bouts of nonsustained ventricular tachycardia yesterday, in retrospect, this only seems to occur during attempts to adjust his sedation. In fact, he was immediately put back on his previous sedation with propofol/Versed/fentanyl with prompt resolution. Remains intubated on the on mechanical ventilatory support. Tolerated transition to PRVC mode. FiO2 70%, PEEP now down to 8. On Bactrim for presumptive treatment of Pneumocystis. Additionally, tracheal aspirate (01/12) isolated Acinetobacter baumanii complex, sensitive to Bactrim. Started on IV Reglan for high tube feed residuals, which has improved. During gastric residual checks, it was noted that the patient had brown content. This was found to be Gastroccult positive. Got a dose of furosemide 40 mg IV single dose overnight. 01/16: Sinus rhythm/sinus tachycardia. Remains intubated, on mechanical ventilatory support. PRVC 24/480/80/8. ABG this a.m. 7.22/57/75. On TMP-SMX for Acinetobacter baumanii pneumonia with suspected concurrent Pneumocystis pneumonia. Still continues to have high gastric residuals despite discontinuation of tube feeds. Review of systems relevant to events:: Pulmonary, ID Reason for ICU Addmission:: Intubated for increased WOB, multifocal PNA, HIV may be pneumocystis - Medications: Medications reviewed and adjusted accordingly: Yes Physical Exam Vital Signs: Temp Pulse Resp BP Pulse Ox 98.8 F 117 H 24 H 99/63 L 90 L 01/17/20 10:35 01/17/20 10:00 01/17/20 10:35 01/17/20 10:35 01/17/20 10:35 Intake & Output 01/16/20 01/17/20 01/18/20 06:59 06:59 06:59 Intake Total 3303 4957 100 Output Total 4475 3670 200 Balance -1172 1287 -100 Weight 90.5 kg 93.1 kg Weight/Height Weight 93.1 kg Height 1.78 m General appearance: PRESENT: no acute distress, well-developed, well-nourished Head exam: PRESENT: atraumatic, normocephalic Eye exam: PRESENT: conjunctiva pink, EOMI, PERRLA. ABSENT: scleral icterus Neck exam: PRESENT: carotid bruit Respiratory exam: PRESENT: rales. ABSENT: rhonchi Cardiovascular exam: PRESENT: RRR, tachycardia. ABSENT: diastolic murmur, rubs, systolic murmur Pulses: PRESENT: normal dorsalis pedis pul GI/Abdominal exam: PRESENT: normal bowel sounds, soft. ABSENT: distended, guarding, mass, organolmegaly, rebound, tenderness Extremities exam: PRESENT: calf tenderness, pedal edema, +2 edema Neurological exam: PRESENT: altered, reflexes normal, CN II-XII grossly intact. ABSENT: motor sensory deficit Psychiatric exam: ABSENT: agitated, anxious Tubes/Lines: PRESENT: Endotracheal Tube, Central Line - Right IJ Laboratory/Radiographs Laboratory Results: 01/17/20 03:18 01/17/20 04:15 01/16/20 01/17/20 01/17/20 16:20 03:18 03:18 WBC RBC Hgb Hct MCV MCH MCHC RDW Plt Count Seg Neutrophils % Carbonic Acid 1.57 H 1.79 H HCO3/H2CO3 Ratio 14:1 11:1 ABG pH 7.25 L 7.15 L* ABG pCO2 52.2 H 59.6 H ABG pO2 86.7 92.6 ABG HCO3 22.3 20.3 ABG O2 Saturation 95.0 94.6 ABG Base Excess -4.8 -9.3 FiO2 90% 85% Sodium Cancelled Potassium Cancelled Chloride Cancelled Carbon Dioxide Cancelled Anion Gap Cancelled BUN Cancelled Creatinine Cancelled Est GFR ( Amer) Cancelled Est GFR (Non-Af Amer) Cancelled Glucose Cancelled Calcium Cancelled Phosphorus Cancelled Magnesium Cancelled 01/17/20 01/17/20 01/17/20 03:18 04:15 09:41 WBC 7.4 RBC 2.83 L Hgb 8.5 L Hct 25.3 L MCV 89 MCH 30.1 MCHC 33.6 RDW 15.7 H Plt Count 127 L Seg Neutrophils % Not Reportable Carbonic Acid 1.73 H HCO3/H2CO3 Ratio 13:1 ABG pH 7.22 L ABG pCO2 57.4 H ABG pO2 75.0 L ABG HCO3 23.0 ABG O2 Saturation 91.9 L ABG Base Excess -4.7 FiO2 80% Sodium 129.7 L Potassium 5.6 H Chloride 94 L Carbon Dioxide 22 Anion Gap 14 BUN 49 H Creatinine 1.78 H Est GFR ( Amer) 46 L Est GFR (Non-Af Amer) Glucose 219 H Calcium 6.9 L* Phosphorus 6.0 H Magnesium 2.8 H 01/07/20 10:36 Cerebral Spinal Fluid - Csf Cytomegalovirus Culture - Final 01/07/20 10:36 Cerebral Spinal Fluid - Csf Viral Culture - Final 12/31/19 12/31/19 12/31/19 12:36 12:36 13:03 Creatine Kinase Cancelled Cancelled Troponin I Cancelled NT-Pro-B Natriuret Pep Cancelled 12/31/19 12/31/19 12/31/19 15:30 15:30 18:11 Creatine Kinase 59 Troponin I 0.013 0.016 NT-Pro-B Natriuret Pep 228 H 01/05/20 01/16/20 16:35 04:30 Creatine Kinase Troponin I < 0.012 NT-Pro-B Natriuret Pep 9890 H Impressions: Head MRI 12/31/19 00:00 IMPRESSION: 1. No acute infarct or other acute intracranial findings 2. Mild cerebral atrophy Chest/Abdomen CTA 12/31/19 16:32 IMPRESSION: 1. No central or segmental pulmonary embolus. 2. Increasing multifocal airspace opacities consistent with worsening multi lobar pneumonia. Head CT 01/07/20 00:00 IMPRESSION: No acute intracranial abnormality. EVIDENCE OF ACUTE STROKE: NO. Soft Tissue Neck CT 01/07/20 00:00 IMPRESSION: 1. No abnormality of the soft tissues of the neck. 2. Patchy bilateral mixed areas of consolidation and ground-glass opacification that have increased since 12/31/2019. Lumbar Puncture 01/07/20 06:00 IMPRESSION: Lumbar puncture under fluoroscopy. No immediate complication. KUB X-Ray 01/17/20 00:00 IMPRESSION: NO RADIOGRAPHIC EVIDENCE FOR ACUTE ABDOMINAL DISEASE. Chest X-Ray 01/17/20 05:00 IMPRESSION: NO SIGNIFICANT CHANGE IN APPEARANCE OF THE CHEST. All labs, radiographs, diagnostic studies and EKGs were personally reviewed: Yes In addition, reports of radiographic and diagnostic studies were read: Yes Assessment and Plan - Diagnosis (1) Acute hypoxemic respiratory failure Is this a current diagnosis for this admission?: Yes Plan: * Continue PRVC mode. * Titrate vent settings based on ABG results. * Decrease fentanyl infusion to 100 mcg/h. Titrate sedation for RASS -2. * Furosemide 40 mg IV single dose again today. 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 Clinically, also suspicious for concurrent Pneumocystis pneumonia. * ID consult. * Continue empiric Zosyn/Bactrim/fluconazole. (3) Acute metabolic encephalopathy Is this a current diagnosis for this admission?: Yes Plan: Hard to tell on sedation. (4) Interstitial pneumonia of both lungs Is this a current diagnosis for this admission?: Yes Plan: * Received broad-spectrum IV antibiotic for 6 days. Blood cultures are negative so far. Sputum culture only positive for Matilda which is likely chronic colonization. * Fevers have resolved but cough and hypoxia persistent * Influenza negative * COVID-19 negative * COVID Abs PENDING * Continue steroids for now. (5) Lymphocytopenia Is this a current diagnosis for this admission?: Yes (6) HIV antibody positive Is this a current diagnosis for this admission?: Yes Plan: * HIV-1 viral load 922,000 (log 10 viral load 5.965). * Check CD4 count, HIV-1 genotype. * Continue efavirenz/emtricitabine/tenofovir disoproxil. (7) Hypoalbuminemia due to protein-calorie malnutrition Is this a current diagnosis for this admission?: Yes Plan: * Check prealbumin. * Add senna in hopes of improving GI transit. (8) NSVT (nonsustained ventricular tachycardia) Is this a current diagnosis for this admission?: Yes Plan Summary: Family (brother) updated at bedside. Critical Time Critical Time (minutes): 90 Level of Care: ICU -: 1. The care of a critical patient is a dynamic process. This note is a public health representative synopsis but static in nature. The timeframe for treatments g iven in order is not necessarily the actual time these treatments may have been done. 2. This patient requires critical care secondary to ongoing requirements for therapy not offered or safe outside the critical care environment. Transfer to a lower level of care will result in altered life or limb morbidity and mortality. 3. Multidisciplinary rounds completed. 4. ABCDE bundle addressed.
[2020-01-17] MEDS ORDERED: FUROSEMIDE INJ/PF 40 MG/4 ML SDV IV ONE (18:52)
[2020-01-17] MEDS ORDERED: FUROSEMIDE INJ/PF 40 MG/4 ML SDV ONE (18:53)
[2020-01-17] MEDS ORDERED: METHYLPREDNISOLONE INJ 125 MG/2 ML SDV IV ONE (19:00)
--- NOTE | 2020-01-17 19:13 | Progress Note ---
Provider Note Provider Note: [facility] ID Telephone / Remote consultation follow up note Asked by Pharmacy to review case and comment on dose of Bactrim that is being used for presumptive PJP pneumonia. To address this in brief, currently, the typical dose of Bactrim for PJP is 15 mg/kg of the trimethoprim component (then divided q6h or q8h for a dministration). This is around 320 mg of the trimethoprim component q 6h. Currently he is getting half of the full amount, which would be appropriate if his renal function continues to worsen and CrCl is indeed below 30. If it improves, the dose should be adjusted upward. The patient has acute kidney injury with creatinine increasing over the past 3 days from <1 to 1.8 most recently. It is not clear to me whether this could continue worsen or will turn around. It will need to be monitored. Bactrim is the first line treatment for pneumocystis pneumonia, but if major adverse effects limit its continuation despite mitigating attempts (e.g. pharmacy might be able to reduce the amount of D5W if the water load becomes a problem), then IV clindamycin 900 mg q8h plus primaquine 30 mg (base) per tube daily is an alternative. Would need to check for G6PD deficiency prior to switching and avoid if present due to risk for methemoglobinemia. Castro Rodriguez MD [facility] Infectious Diseases pager [phone]
[2020-01-17] MEDS: FLUCONAZOLE 200 MG/NS RTU 200 MG/100 ML RTUPB IV SCH (21:31)
[2020-01-17] MEDS: EFAVIRENZ/EMTRICITAB/TENOFOVIR (600-200-300 MG) TABLET NG SCH (21:31)
[2020-01-18] MEDS: SULFAMETHOXAZOLE/TRIMETHOPRIM 400 MG in DEXTROSE 5%-WATER 500 ML IV SCH ×2 (02:23→09:18)
[2020-01-18] MEDS: IPRATROPIUM/ALBUTEROL 0.5-2.5 MG/3 ML AMPUL NEB SCH ×4 (02:50→20:38)
[2020-01-18] MEDS: FENTANYL CITRATE/PF 600 MCG/60 ML BAG IV PRN ×4 (04:03→19:25)
[2020-01-18] MEDS: PROPOFOL 1,000 MG/100 ML INFUS..BTL IV PRN ×3 (04:18→14:24)
[2020-01-18 05:04] LABS: ALBUMIN 2.2 g/dL (3.5-5.0); ALKALINE PHOSPHATASE 93 U/L (38-126); ANION GAP 14 (5-19); ASPARTATE AMINO TRANSFERASE 41 U/L (17-59); BILIRUBIN,DIRECT 0.3 mg/dL (0.0-0.4); BILIRUBIN,TOTAL 0.3 mg/dL (0.2-1.3); BLOOD UREA NITROGEN 67 mg/dL (7-20); CARBON DIOXIDE 20 mmol/L (22-30); CHLORIDE 91 mmol/L (98-107); GLUCOSE 183 mg/dL (75-110); PHOSPHORUS 6.8 mg/dL (2.5-4.5); TOTAL PROTEIN 4.5 g/dL (6.3-8.2)
[2020-01-18 05:14] LABS: HEMATOCRIT 22.7 % (37.9-51.0); MEAN CORPUSCULAR HEMOGLOBIN 29.8 pg (27.0-33.4); MEAN CORPUSCULAR HGB CONC 33.2 g/dL (32.0-36.0); MEAN CORPUSCULAR VOLUME 90 fl (80-97); RED BLOOD COUNT 2.52 10^6/uL (4.35-5.55); RED CELL DISTRIBUTION WIDTH 15.7 % (11.5-14.0); WHITE BLOOD COUNT 5.4 10^3/uL (4.0-10.5)
[2020-01-18 05:16] LABS: CALCIUM 6.7 mg/dL (8.4-10.2)
[2020-01-18] MEDS ORDERED: CALCIUM GLUCONATE 1000 MG/10 ML INJ IV ONE ×5 (05:20→22:58)
[2020-01-18] MEDS ORDERED: SODIUM BICARBONATE 8.4% INJ 50 MEQ/50 ML DISP.SYRIN IV ONE ×3 (05:21→22:59)
[2020-01-18] MEDS ORDERED: SODIUM BICARBONATE 8.4% INJ 50 MEQ/50 ML DISP.SYRIN ONE ×3 (05:27→22:57)
[2020-01-18] MEDS: METOCLOPRAMIDE HCL INJ/PF 10 MG/2 ML SDV IV SCH ×3 (05:34→19:49)
[2020-01-18] MEDS: INSULIN REG, HUMAN 100 UNIT/ML 3 ML VIAL (PYX) SUBCUT SCH ×3 (05:38→19:51)
[2020-01-18 05:45] LABS: BASOPHILS % (MANUAL) 0 % (0-2); EOSINOPHILS % (MANUAL) 0 % (0-6); LYMPHOCYTES % (MANUAL) 0 % (13-45); MONOCYTES % (MANUAL) 0 % (3-13); NUCLEATED RED BLOOD CELLS 1 /100 WBC (0); SEGMENTED NEUTROPHILS % (MAN) 100 % (42-78); TOTAL CELLS COUNTED 100
[2020-01-18 05:47] LABS: ANISOCYTOSIS 1+; PLATELET COMMENT ADEQUATE; PLATELET COUNT 76 10^3/uL (150-450); POLYCHROMASIA SLIGHT; TOXIC GRANULATION SLIGHT
[2020-01-18 05:49] LABS: HEMOGLOBIN 7.5 g/dL (13.5-17.0)
[2020-01-18 05:51] LABS: ARTERIAL BLOOD BASE EXCESS -8.4 mmol/L; ARTERIAL BLOOD H2CO3 1.64 mmol/L (1.05-1.35); ARTERIAL BLOOD HCO3 19.6 mmol/L (20-24); ARTERIAL BLOOD O2 SATURATION 91.9 % (94-98); ARTERIAL BLOOD PCO2 54.6 mmHg (35-45); ARTERIAL BLOOD PO2 78.1 mmHg (80-100); ARTERIAL BLOOD TOTAL CO2 21.3 mmol/L (23-27)
[2020-01-18] MEDS ORDERED: DEXTROSE 5%-WATER 250 ML with NOREPINEPHRINE BITARTRATE 4 MG IV PRN ×2 (06:12)
[2020-01-18 06:14] LABS: ARTERIAL BLOOD FIO2 80%; ARTERIAL BLOOD PH 7.17 (7.35-7.45)
[2020-01-18] MEDS ORDERED: NOREPINEPHRINE BITARTRATE INJ/PF 4 MG/4 ML SDV IV ONE (06:27)
[2020-01-18] MEDS: DEXTROSE 5%-WATER 250 ML with NOREPINEPHRINE BITARTRATE 4 MG IV PRN ×2 (06:46)
[2020-01-18 07:01] LABS: INTERNATIONAL RATION (INR) 1.05; PROTHROMBIN TIME 13.9 SEC (11.4-15.4)
[2020-01-18 07:02] LABS: PARTIAL THROMBOPLASTIN TIME 26.5 SEC (23.5-35.8)
[2020-01-18] MEDS: BUDESONIDE NEB 0.25 MG/2 ML AMPUL NEB SCH ×2 (08:13→20:38)
--- NOTE | 2020-01-18 08:14 | RADIOLOGY REPORT (SQ) ---
EXAM DESCRIPTION: CHEST SINGLE VIEW IMAGES COMPLETED DATE/TIME: 01/18/2020 6:54 am REASON FOR STUDY: ETT tube COMPARISON: 01/17/2020 FINDINGS: One-view chest AP portable semi-upright. Endotracheal and nasogastric tubes, right IJ line remain in place and grossly appropriate. Slight progressive hazy airspace edema in the lungs, some of which may be due to differences in techn ique. Subsegmental left basilar volume loss. No gross pneumothorax. TECHNICAL DOCUMENTATION: JOB ID: [id number] Reading location - IP/workstation name: [email or web address]
[2020-01-18] MEDS ORDERED: INSULIN REG, HUMAN 100 UNIT/ML 3 ML VIAL (PYX) IV ONE (08:15)
[2020-01-18] MEDS ORDERED: DEXTROSE 50%-WATER 25 GM/50 ML DISP.SYRIN IV ONE ×2 (08:15→12:00)
[2020-01-18 08:27] LABS: ARTERIAL BLOOD BASE EXCESS -6.5 mmol/L; ARTERIAL BLOOD FIO2 80%; ARTERIAL BLOOD H2CO3 1.33 mmol/L (1.05-1.35); ARTERIAL BLOOD HCO3 19.9 mmol/L (20-24); ARTERIAL BLOOD O2 SATURATION 95.7 % (94-98); ARTERIAL BLOOD PCO2 44.1 mmHg (35-45); ARTERIAL BLOOD PH 7.27 (7.35-7.45); ARTERIAL BLOOD PO2 89.5 mmHg (80-100); ARTERIAL BLOOD TOTAL CO2 21.2 mmol/L (23-27)
[2020-01-18] MEDS: PANTOPRAZOLE SODIUM 40 MG VIAL IV SCH ×2 (09:16→21:32)
[2020-01-18] MEDS: METHYLPREDNISOLONE INJ 125 MG/2 ML SDV IV SCH (09:16)
[2020-01-18] MEDS: AMINO AC/PROTEIN HYDR/WHEY PRO 11 GM/45 ML PKT NG SCH ×3 (09:16→19:49)
[2020-01-18 09:18] LABS: ANION GAP 16 (5-19); BLOOD UREA NITROGEN 69 mg/dL (7-20); CARBON DIOXIDE 22 mmol/L (22-30); CHLORIDE 90 mmol/L (98-107); GLUCOSE 144 mg/dL (75-110)
[2020-01-18 09:41] LABS: CALCIUM 6.7 mg/dL (8.4-10.2); POTASSIUM 6.2 mmol/L (3.6-5.0)
[2020-01-18] MEDS: CLINDAMYCIN 900 MG/D5W RTU 900 MG/50 ML RTUPB IV SCH ×3 (10:27→21:45)
[2020-01-18] MEDS: PRIMAQUINE PHOSPHATE 26.3 MG TABLET NG SCH (10:28)
[2020-01-18] MEDS ORDERED: DOXYCYCLINE HYCLATE 100 MG in DEXTROSE 5%-WATER 250 ML IV SCH (11:00)
[2020-01-18] MEDS: SENNOSIDES/DOCUSATE 8.6-50 MG 1 EACH TABLET PO SCH (11:51)
[2020-01-18 12:00] LABS: HEMATOCRIT 21.8 % (37.9-51.0); MEAN CORPUSCULAR HEMOGLOBIN 30.1 pg (27.0-33.4); MEAN CORPUSCULAR HGB CONC 33.9 g/dL (32.0-36.0); MEAN CORPUSCULAR VOLUME 89 fl (80-97); RED BLOOD COUNT 2.46 10^6/uL (4.35-5.55); RED CELL DISTRIBUTION WIDTH 16.1 % (11.5-14.0); WHITE BLOOD COUNT 5.4 10^3/uL (4.0-10.5)
[2020-01-18] MEDS ORDERED: INSULIN REG, HUMAN 100 UNIT/ML 3 ML VIAL (PYX) SUBCUT ONE (12:00)
[2020-01-18 12:08] LABS: HEMOGLOBIN 7.4 g/dL (13.5-17.0); PLATELET COUNT 77 10^3/uL (150-450)
[2020-01-18 12:22] LABS: ANION GAP 14 (5-19); BLOOD UREA NITROGEN 72 mg/dL (7-20); CARBON DIOXIDE 22 mmol/L (22-30); CHLORIDE 90 mmol/L (98-107); GLUCOSE 149 mg/dL (75-110)
[2020-01-18 12:28] LABS: ABSOLUTE MONOCYTES # (MANUAL) 0.1 10^3/uL (0.1-1.4); BASOPHILS % (MANUAL) 0 % (0-2); EOSINOPHILS % (MANUAL) 0 % (0-6); LYMPHOCYTES % (MANUAL) 0 % (13-45); MONOCYTES % (MANUAL) 1 % (3-13); NUCLEATED RED BLOOD CELLS 2 /100 WBC (0); SEGMENTED NEUTROPHILS % (MAN) 99 % (42-78); TOTAL CELLS COUNTED 100
[2020-01-18 12:34] LABS: ANISOCYTOSIS 1+; OVALOCYTES SLIGHT; PLATELET COMMENT DECREASED; POIKILOCYTOSIS SLIGHT; SCHISTOCYTES SLIGHT
[2020-01-18 12:35] LABS: ABSOLUTE RETICS # 0.126 10^6/uL (0.028-0.122); RETICULOCYTE COUNT (AUTO) 5.08 % (0.66-2.85)
[2020-01-18 12:46] LABS: CALCIUM 6.7 mg/dL (8.4-10.2); POTASSIUM 6.4 mmol/L (3.6-5.0)
[2020-01-18] MEDS ORDERED: NORMAL SALINE 250 ML IV PRN ×2 (13:12)
[2020-01-18 16:46] LABS: ARTERIAL BLOOD BASE EXCESS -10.3 mmol/L; ARTERIAL BLOOD FIO2 100%; ARTERIAL BLOOD H2CO3 1.72 mmol/L (1.05-1.35); ARTERIAL BLOOD HCO3 18.8 mmol/L (20-24); ARTERIAL BLOOD O2 SATURATION 93.3 % (94-98); ARTERIAL BLOOD PCO2 57.3 mmHg (35-45); ARTERIAL BLOOD PO2 86.8 mmHg (80-100); ARTERIAL BLOOD TOTAL CO2 20.5 mmol/L (23-27)
[2020-01-18 16:51] LABS: ARTERIAL BLOOD PH 7.13 (7.35-7.45)
[2020-01-18 17:09] LABS: ANION GAP 15 (5-19); BLOOD UREA NITROGEN 80 mg/dL (7-20); CARBON DIOXIDE 21 mmol/L (22-30); CHLORIDE 89 mmol/L (98-107); GLUCOSE 186 mg/dL (75-110)
[2020-01-18] MEDS ORDERED: NORMAL SALINE 500 ML with ROCURONIUM BROMIDE 500 MG IV PRN ×4 (17:15→18:00)
[2020-01-18 17:20] LABS: CALCIUM 6.9 mg/dL (8.4-10.2)
[2020-01-18 17:21] LABS: POTASSIUM 6.7 mmol/L (3.6-5.0)
[2020-01-18] MEDS ORDERED: FOLIC ACID INJ 5 MG/1 ML 10 ML VIAL IV SCH (17:45)
[2020-01-18] MEDS ORDERED: HEPARIN SODIUM,PORCINE/D5W 25,000 UNIT/250 ML RTUINJ IV PRN (17:57)
[2020-01-18] MEDS ORDERED: FUROSEMIDE INJ/PF 40 MG/4 ML SDV IV ONE (18:00)
[2020-01-18] MEDS ORDERED: HEPARIN SOD (PORCINE) 1,000 UNIT/ML 10 ML VIAL IV ONE (18:15)
--- NOTE | 2020-01-18 18:44 | PDOC CRITICAL CARE PROG REPORT ---
General Date:: 01/18/20 ICU Day:: 12 Ventilator Day:: 12 Hospital Day:: 19 Resuscitation Status: Full Code Events in the past 12 to 24 Hours:: This 69-year-old male presented to [facility] on 2019 and was admitted with a clinical impression of refractory pneumonia despite multiple courses of antibiotics. He was initially admitted to the floor. On 01/07/2020 the patient demonstrated increased work of breathing, prompting endotracheal intubation and transfer to the ICU. 01/13: Case discussed with Dr. Siddiqi. He is on propofol, Versed and fentanyl infusions for sedation. ABG this a.m. 7./63 on FiO2 70%. He is empirically on Zosyn/Bactrim/Diflucan for empiric coverage of pneumonia in an immunocompromised host. Clinically, suspicious for Pneumocystis jiroveci pneumonia, although Dr. Siddiqi reports that GMS stain of BAL fluid was negative for Pneumocystis. Currently off tube feeds due to high residuals. Having short runs of nonsustained ventricular tachycardia. 01/14: Had bouts of nonsustained ventricular tachycardia yesterday. No overt electrolyte abnormalities. Twelve-lead EKG showed sinus tachycardia with multiform PVCs. Rhythm appeared to stabilize to normal sinus rhythm/sinus tachycardia with improvement in sedation. Still having high tube feed residuals (over 300 mL) despite initiation of Reglan. 01/15: Again had bouts of nonsustained ventricular tachycardia yesterday, in retrospect, this only seems to occur during attempts to adjust his sedation. In fact, he was immediately put back on his previous sedation with propofol/Versed/fentanyl with prompt resolution. Remains intubated on the on mechanical ventilatory support. Tolerated transition to PRVC mode. FiO2 70%, PEEP now down to 8. On Bactrim for presumptive treatment of Pneumocystis. Additionally, tracheal aspirate (01/12) isolated Acinetobacter baumanii complex, sensitive to Bactrim. Started on IV Reglan for high tube feed residuals, which has improved. During gastric residual checks, it was noted that the patient had brown content. This was found to be Gastroccult positive. Got a dose of furosemide 40 mg IV single dose overnight. 01/16: Sinus rhythm/sinus tachycardia. Remains intubated, on mechanical ventilatory support. PRVC 24/480/80/8. ABG this a.m. 7.22/57/75. On TMP-SMX for Acinetobacter baumanii pneumonia with suspected concurrent Pneumocystis pneumonia. Still continues to have high gastric residuals despite discontinuation of tube feeds. 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 Labs today demonstrate worsening renal function and worsening hyperkalemia: Cr 2.8, K 6.4. Also, the patient is noted to have a drop in his hemoglobin to 7.4 today with concurrent downward trend in WBC and platelet count (impending pancytopenia?). He does continue to have brownish output from the NG tube, which is previously been proven to be Gastroccult positive; however, volume has not increased. Previously, he did not demonstrate hemodynamic compromise. Hemolytic anemia evaluation pending. Review of systems relevant to events:: Pulmonary, ID Reason for ICU Addmission:: Intubated for increased WOB, multifocal PNA, HIV may be pneumocystis - Medications: Medications reviewed and adjusted accordingly: Yes Physical Exam Vital Signs: Temp Pulse Resp BP Pulse Ox 97.7 F 102 H 24 H 103/56 L 86 L 01/18/20 10:01 01/18/20 10:00 01/18/20 10:01 01/18/20 10:01 01/18/20 12:00 Intake & Output 01/17/20 01/18/20 01/19/20 06:59 06:59 06:59 Intake Total 4957 3122 192 Output Total 3670 1405 300 Balance 1287 1717 -108 Weight 93.1 kg 94.1 kg Weight/Height Weight 94.1 kg Height 1.78 m Laboratory/Radiographs Laboratory Results: 01/18/20 11:30 01/18/20 11:30 01/18/20 01/18/20 01/18/20 04:08 04:08 05:15 WBC 5.4 RBC 2.52 L Hgb 7.5 L Hct 22.7 L MCV 90 MCH 29.8 MCHC 33.2 RDW 15.7 H Plt Count 76 L Seg Neutrophils % Not Reportable Retic Count (auto) Carbonic Acid 1.64 H HCO3/H2CO3 Ratio 11:1 ABG pH 7.17 L* ABG pCO2 54.6 H ABG pO2 78.1 L ABG HCO3 19.6 L ABG O2 Saturation 91.9 L ABG Base Excess -8.4 FiO2 80% Sodium 124.9 L Potassium 6.1 H* Chloride 91 L Carbon Dioxide 20 L Anion Gap 14 BUN 67 H Creatinine 2.41 H Est GFR ( Amer) 33 L Glucose 183 H Lactic Acid Calcium 6.7 L* Phosphorus 6.8 H Magnesium 2.8 H Total Bilirubin 0.3 AST 41 Alkaline Phosphatase 93 Total Protein 4.5 L Albumin 2.2 L Blood Type Antibody Screen 01/18/20 01/18/20 01/18/20 08:00 08:00 08:00 WBC RBC Hgb Hct MCV MCH MCHC RDW Plt Count Seg Neutrophils % Retic Count (auto) Carbonic Acid 1.33 HCO3/H2CO3 Ratio 14:1 ABG pH 7.27 L ABG pCO2 44.1 ABG pO2 89.5 ABG HCO3 19.9 L ABG O2 Saturation 95.7 ABG Base Excess -6.5 FiO2 80% Sodium Potassium Chloride Carbon Dioxide Anion Gap BUN Creatinine Est GFR ( Amer) Glucose Lactic Acid 5.1 H Calcium Phosphorus Magnesium Total Bilirubin AST Alkaline Phosphatase Total Protein Albumin Blood Type B POSITIVE Antibody Screen NEGATIVE 01/18/20 01/18/20 01/18/20 08:22 11:30 11:30 WBC 5.4 RBC 2.46 L Hgb 7.4 L Hct 21.8 L MCV 89 MCH 30.1 MCHC 33.9 RDW 16.1 H Plt Count 77 L Seg Neutrophils % Not Reportable Retic Count (auto) 5.08 H Carbonic Acid HCO3/H2CO3 Ratio ABG pH ABG pCO2 ABG pO2 ABG HCO3 ABG O2 Saturation ABG Base Excess FiO2 Sodium 128.1 L 126.2 L Potassium 6.2 H* 6.4 H* Chloride 90 L 90 L Carbon Dioxide 22 22 Anion Gap 16 14 BUN 69 H 72 H Creatinine 2.78 H 2.80 H Est GFR ( Amer) 28 L 27 L Glucose 144 H 149 H Lactic Acid Calcium 6.7 L* 6.7 L* Phosphorus Magnesium Total Bilirubin AST Alkaline Phosphatase Total Protein Albumin Blood Type Antibody Screen 12/31/19 12/31/19 12/31/19 12:36 12:36 13:03 Creatine Kinase Cancelled Cancelled Troponin I Cancelled NT-Pro-B Natriuret Pep Cancelled 09/21/20 09/21/20 09/21/20 15:30 15:30 18:11 Creatine Kinase 59 Troponin I 0.013 0.016 NT-Pro-B Natriuret Pep 228 H 01/05/20 01/16/20 16:35 04:30 Creatine Kinase Troponin I < 0.012 NT-Pro-B Natriuret Pep 9890 H Impressions: Head MRI 12/31/19 00:00 IMPRESSION: 1. No acute infarct or other acute intracranial findings 2. Mild cerebral atrophy Chest/Abdomen CTA 12/31/19 16:32 IMPRESSION: 1. No central or segmental pulmonary embolus. 2. Increasing multifocal airspace opacities consistent with worsening multi lobar pneumonia. Head CT 01/07/20 00:00 IMPRESSION: No acute intracranial abnormality. EVIDENCE OF ACUTE STROKE: NO. Soft Tissue Neck CT 01/07/20 00:00 IMPRESSION: 1. No abnormality of the soft tissues of the neck. 2. Patchy bilateral mixed areas of consolidation and ground-glass opacification that have increased since 12/31/2019. Lumbar Puncture 01/07/20 06:00 IMPRESSION: Lumbar puncture under fluoroscopy. No immediate complication. KUB X-Ray 01/17/20 00:00 IMPRESSION: NO RADIOGRAPHIC EVIDENCE FOR ACUTE ABDOMINAL DISEASE. Assessment and Plan - Diagnosis (1) Acute hypoxemic respiratory failure Is this a current diagnosis for this admission?: Yes Plan: * Continue PRVC mode. * Titrate vent settings based on ABG results. * May benefit from neuromuscular blockade to decrease work of breathing and overall metabolic demand. * U/S B LE. * CVP monitoring. 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 Clinically, also suspicious for concurrent Pneumocystis pneumonia. * ID consult note reviewed. Input appreciated. * Curiously, many, if not all, of the laboratory abnormalities may be attributable to adverse effects of trimethoprim-sulfamethoxazole therapy. With his worsening renal function, I believe it is in the best interest of the patient to change from Bactrim to primaquine/clindamycin. Stop Bactrim. * Will start Rocephin for Acinetobacter coverage (reported to be pansensitive). * Continue fluconazole. (3) Acute metabolic encephalopathy Is this a current diagnosis for this admission?: Yes (4) Interstitial pneumonia of both lungs Is this a current diagnosis for this admission?: Yes (5) Lymphocytopenia Is this a current diagnosis for this admission?: Yes (6) HIV antibody positive Is this a current diagnosis for this admission?: Yes (7) Hypoalbuminemia due to protein-calorie malnutrition Is this a current diagnosis for this admission?: Yes (8) NSVT (nonsustained ventricular tachycardia) Is this a current diagnosis for this admission?: Yes (9) Anemia Qualifiers: Anemia type: unspecified type Qualified Code(s): D64.9 - Anemia, unspecified Is this a current diagnosis for this admission?: Yes Plan: * Direct Emelyn test, LDH, haptoglobin pending. * Transfuse 2 units PRBC today. (10) Thrombocytopenia associated with AIDS Is this a current diagnosis for this admission?: Yes Plan: * Lovenox was discontinued today. Will need to check heparin induced antiplatelet antibodies after 24 hours. (11) Acute kidney injury Is this a current diagnosis for this admission?: Yes Plan: * Renal dosing of medications. * Avoid nephrotoxic drugs. * Based on the clinical history and lab abnormalities, this is suspicious for type IV RTA. * Check CVP. If CVP > 8, diurese. * Check renin/nino. May need fludrocortisone. Already on SoluMedrol. Critical Time Critical Time (minutes): 120 Level of Care: ICU -: 1. The care of a critical patient is a dynamic process. This note is a accounting representative synopsis but static in nature. The timeframe for treatments given in order is not necessarily the actual time these treatments may have been done. 2. This patient requires critical care secondary to ongoing requirements for therapy not offered or safe outside the critical care environment. Transfer to a lower level of care will result in altered life or limb morbidity and mortality. 3. Multidisciplinary rounds completed. 4. ABCDE bundle addressed.
--- NOTE | 2020-01-18 18:51 | RADIOLOGY REPORT (SQ) ---
EXAM DESCRIPTION: VENOUS BILATERAL LOWER IMAGES COMPLETED DATE/TIME: 01/18/2020 6:40 pm REASON FOR STUDY: swelling COMPARISON: None. TECHNIQUE: Dynamic and static schroeder scale and color images acquired of both lower extremity venous sy stems. Selected spectral images acquired with additional compression and augmentation maneuvers. Imag es stored on PACS. LIMITATIONS: None. FINDINGS: RIGHT LEG COMMON FEMORAL AND FEMORAL: There appears to be some chronic nonocclusive thrombus in the common femo ral vein near the saphenofemoral junction. POPLITEAL: Normal compression and augmentation. No visualized echogenic material on schroeder scale. No de fects on color images. CALF VESSELS: Normal compression and augmentation. No visualized echogenic material on schroeder scale. No defects on color image. GSV AND SSV: Normal compression. No visualized echogenic material on schroeder scale. No defects on color images. ANY DEEP VENOUS INSUFFICIENCY: Not evaluated. ANY EVIDENCE OF POPLITEAL CYST: No. OTHER: No other significant finding. LEFT LEG COMMON FEMORAL AND FEMORAL: Normal phasicity, compression and augmentation. No visualized echogenic m aterial on schroeder scale. No defects on color images. POPLITEAL: Normal compression and augmentation. No visualized echogenic material on schroeder scale. No de fects on color images. CALF VESSELS: Normal compression and augmentation. No visualized echogenic material on schroeder scale. No defects on color images. GSV AND SSV: Normal compression. No visualized echogenic material on schroeder scale. No defects on color images. ANY DEEP VENOUS INSUFFICIENCY: Not evaluated. ANY EVIDENCE POPLITEAL CYST: No. OTHER: No other significant finding. IMPRESSION: There appears to be sounds small amount of chronic nonocclusive thrombus in the right co mmon femoral vein as described. No acute DVT or SVT. TECHNICAL DOCUMENTATION: JOB ID: [id number] 2010 [employer]- All Rights Reserved Reading location - IP/workstation name: [email or web address]
[2020-01-18] MEDS ORDERED: CEFTRIAXONE 1 GM/D5W RTU 1 GM/50 ML RTUPB IV SCH (19:00)
[2020-01-18 19:41] LABS: ARTERIAL BLOOD BASE EXCESS -6.3 mmol/L; ARTERIAL BLOOD FIO2 100%; ARTERIAL BLOOD H2CO3 1.69 mmol/L (1.05-1.35); ARTERIAL BLOOD HCO3 21.7 mmol/L (20-24); ARTERIAL BLOOD O2 SATURATION 78.5 % (94-98); ARTERIAL BLOOD PCO2 56.2 mmHg (35-45); ARTERIAL BLOOD PH 7.21 (7.35-7.45); ARTERIAL BLOOD TOTAL CO2 23.4 mmol/L (23-27)
[2020-01-18] MEDS ORDERED: FOLIC ACID 1 MG in NORMAL SALINE 250 ML IV SCH (20:00)
[2020-01-18] MEDS ORDERED: ROCURONIUM BROMIDE INJ 50 MG/5 ML VIAL IV ONE ×2 (20:15→21:04)
[2020-01-18 20:31] LABS: ARTERIAL BLOOD BASE EXCESS -7.2 mmol/L; ARTERIAL BLOOD H2CO3 1.68 mmol/L (1.05-1.35); ARTERIAL BLOOD HCO3 21.1 mmol/L (20-24); ARTERIAL BLOOD O2 SATURATION 90.9 % (94-98); ARTERIAL BLOOD PCO2 55.7 mmHg (35-45); ARTERIAL BLOOD PO2 73.2 mmHg (80-100); ARTERIAL BLOOD TOTAL CO2 22.8 mmol/L (23-27)
[2020-01-18 20:35] LABS: ARTERIAL BLOOD FIO2 100%
[2020-01-18] MEDS ORDERED: HEPARIN SOD (PORCINE) 1,000 UNIT/ML 10 ML VIAL IV PRN (20:57)
[2020-01-18] MEDS ORDERED: FUROSEMIDE INJ/PF 100 MG/10 ML SDV IV ONE (21:00)
[2020-01-18] MEDS: METHYLPREDNISOLONE INJ 40 MG/1 ML SDV IV SCH (21:31)
[2020-01-18 21:42] LABS: MEAN CORPUSCULAR HGB CONC 33.9 g/dL (32.0-36.0); MEAN CORPUSCULAR VOLUME 89 fl (80-97); RED BLOOD COUNT 3.27 10^6/uL (4.35-5.55); RED CELL DISTRIBUTION WIDTH 15.4 % (11.5-14.0); WHITE BLOOD COUNT 7.3 10^3/uL (4.0-10.5)
[2020-01-18] MEDS: EFAVIRENZ/EMTRICITAB/TENOFOVIR (600-200-300 MG) TABLET NG SCH (21:44)
[2020-01-18 21:50] LABS: APPEARANCE,URINE CLOUDY; BILIRUBIN,URINE NEGATIVE (NEGATIVE); CALCIUM OXALATE CRYSTALS,URINE RARE /HPF; COLOR,URINE YELLOW; GLUCOSE, URINE NEGATIVE (NEGATIVE); KETONES,URINE NEGATIVE (NEGATIVE); LEUKOCYTE ESTERASE,URINE NEGATIVE (NEGATIVE); NITRITE,URINE NEGATIVE (NEGATIVE); PROTEIN,URINE 30 mg/dL (NEGATIVE); URINE SPECIFIC GRAVITY 1.016; UROBILINOGEN,URINE NEGATIVE mg/dL (<2.0)
[2020-01-18 21:58] LABS: PLATELET COUNT 65 10^3/uL (150-450)
[2020-01-18 21:59] LABS: HEMOGLOBIN 9.8 g/dL (13.5-17.0)
[2020-01-18] MEDS ORDERED: METHYLPREDNISOLONE INJ 125 MG/2 ML SDV IV SCH ×2 (22:00)
[2020-01-18 22:01] LABS: ABSOLUTE LYMPHOCYTES# (MANUAL) 0.1 10^3/uL (0.5-4.7); BASOPHILS % (MANUAL) 0 % (0-2); EOSINOPHILS % (MANUAL) 0 % (0-6); LYMPHOCYTES % (MANUAL) 1 % (13-45); MONOCYTES % (MANUAL) 0 % (3-13); SEGMENTED NEUTROPHILS % (MAN) 99 % (42-78); TOTAL CELLS COUNTED 100
[2020-01-18 22:04] LABS: ANISOCYTOSIS SLIGHT; OVALOCYTES 2+; PLATELET COMMENT DECREASED
[2020-01-18 22:06] LABS: ALBUMIN 2.5 g/dL (3.5-5.0); ALKALINE PHOSPHATASE 101 U/L (38-126); ASPARTATE AMINO TRANSFERASE 74 U/L (17-59); BILIRUBIN,DIRECT 0.4 mg/dL (0.0-0.4); BILIRUBIN,TOTAL 0.4 mg/dL (0.2-1.3); CREATINE KINASE 1119 U/L (55-170); TOTAL PROTEIN 5.3 g/dL (6.3-8.2)
[2020-01-18 22:17] LABS: ERYTHROCYTE SEDIMENTATION RATE 34 mm/hr (0-20)
[2020-01-18] MEDS: FLUCONAZOLE 200 MG/NS RTU 200 MG/100 ML RTUPB IV SCH (22:56)
[2020-01-18] MEDS ORDERED: CALCIUM GLUC IN NACL, ISO-OSM 1 GM/50 ML RTUPB IV ONE (22:57)
[2020-01-18] MEDS: SODIUM BICARBONATE 8.4% INJ 50 MEQ/50 ML DISP.SYRIN ONE (23:40)
[2020-01-18 23:55] LABS: ANION GAP 14 (5-19); BLOOD UREA NITROGEN 85 mg/dL (7-20); CARBON DIOXIDE 24 mmol/L (22-30); CHLORIDE 89 mmol/L (98-107); GLUCOSE 148 mg/dL (75-110)
[2020-01-19] MEDS: INSULIN REG, HUMAN 100 UNIT/ML 3 ML VIAL (PYX) SUBCUT SCH ×2 (00:01→05:30)
[2020-01-19] MEDS: METOCLOPRAMIDE HCL INJ/PF 10 MG/2 ML SDV IV SCH ×2 (00:02→06:14)
[2020-01-19] MEDS: MIDAZOLAM HCL 50 MG/100 ML RTUINJ IV PRN ×2 (00:02→08:51)
[2020-01-19] MEDS: CALCIUM GLUCONATE 1 GM/NS 50 ML RTU IV SCH ×2 (00:02→01:04)
[2020-01-19 00:07] LABS: CALCIUM 6.8 mg/dL (8.4-10.2); POTASSIUM 6.6 mmol/L (3.6-5.0)
[2020-01-19] MEDS ORDERED: ALBUTEROL SULFATE 0.042% NEB (1.25 MG/3 ML) AMPUL NEB ONE (00:13)
[2020-01-19] MEDS ORDERED: CALCIUM GLUCONATE 1000 MG/10 ML INJ IV ONE (00:14)
[2020-01-19] MEDS ORDERED: FUROSEMIDE INJ/PF 100 MG/10 ML SDV IV ONE (00:16)
[2020-01-19] MEDS ORDERED: SODIUM BICARBONATE 8.4% INJ 50 MEQ/50 ML DISP.SYRIN IV ONE ×2 (00:30→13:00)
[2020-01-19 00:39] LABS: ARTERIAL BLOOD H2CO3 1.69 mmol/L (1.05-1.35); ARTERIAL BLOOD HCO3 21.1 mmol/L (20-24); ARTERIAL BLOOD O2 SATURATION 90.1 % (94-98); ARTERIAL BLOOD PCO2 56.1 mmHg (35-45); ARTERIAL BLOOD PO2 71.1 mmHg (80-100); ARTERIAL BLOOD TOTAL CO2 22.9 mmol/L (23-27)
[2020-01-19 00:41] LABS: ARTERIAL BLOOD FIO2 100%; ARTERIAL BLOOD PH 7.19 (7.35-7.45)
--- NOTE | 2020-01-19 01:02 | EKG REPORT ---
SEVERITY:- ABNORMAL ECG - SINUS TACHYCARDIA RIGHT BUNDLE BRANCH BLOCK : Confirmed by: Josephine Escalona MD 19-Jan-2020 01:01:44
[2020-01-19] MEDS ORDERED: SODIUM BICARBONATE 8.4% INJ 50 MEQ/50 ML DISP.SYRIN ONE ×3 (01:13→11:56)
[2020-01-19] MEDS: SODIUM BICARBONATE 8.4% INJ 50 MEQ/50 ML DISP.SYRIN ONE (01:32)
[2020-01-19] MEDS: FENTANYL CITRATE/PF 600 MCG/60 ML BAG IV PRN ×2 (02:19→09:00)
[2020-01-19] MEDS: IPRATROPIUM/ALBUTEROL 0.5-2.5 MG/3 ML AMPUL NEB SCH ×2 (02:19→07:51)
[2020-01-19 04:43] LABS: ARTERIAL BLOOD BASE EXCESS -5.6 mmol/L; ARTERIAL BLOOD H2CO3 1.69 mmol/L (1.05-1.35); ARTERIAL BLOOD HCO3 22.3 mmol/L (20-24); ARTERIAL BLOOD PCO2 56.3 mmHg (35-45); ARTERIAL BLOOD PH 7.22 (7.35-7.45); ARTERIAL BLOOD PO2 66.9 mmHg (80-100)
[2020-01-19 04:44] LABS: ARTERIAL BLOOD FIO2 100%
[2020-01-19 05:13] LABS: ALBUMIN 2.4 g/dL (3.5-5.0); ALKALINE PHOSPHATASE 103 U/L (38-126); ANION GAP 15 (5-19); ASPARTATE AMINO TRANSFERASE 83 U/L (17-59); BILIRUBIN,DIRECT 0.3 mg/dL (0.0-0.4); BILIRUBIN,TOTAL 0.3 mg/dL (0.2-1.3); BLOOD UREA NITROGEN 94 mg/dL (7-20); CALCIUM 7.2 mg/dL (8.4-10.2); CARBON DIOXIDE 22 mmol/L (22-30); CHLORIDE 92 mmol/L (98-107); GLUCOSE 125 mg/dL (75-110); TOTAL PROTEIN 4.9 g/dL (6.3-8.2)
[2020-01-19 05:21] LABS: HEMATOCRIT 26.1 % (37.9-51.0); HEMOGLOBIN 8.9 g/dL (13.5-17.0); MEAN CORPUSCULAR HEMOGLOBIN 30.2 pg (27.0-33.4); MEAN CORPUSCULAR HGB CONC 34.3 g/dL (32.0-36.0); MEAN CORPUSCULAR VOLUME 88 fl (80-97); RED BLOOD COUNT 2.96 10^6/uL (4.35-5.55); RED CELL DISTRIBUTION WIDTH 15.8 % (11.5-14.0); WHITE BLOOD COUNT 7.6 10^3/uL (4.0-10.5)
[2020-01-19 05:25] LABS: POTASSIUM 6.9 mmol/L (3.6-5.0)
[2020-01-19] MEDS ORDERED: INSULIN REG, HUMAN 100 UNIT/ML 3 ML VIAL (PYX) IV ONE (05:29)
[2020-01-19] MEDS ORDERED: DEXTROSE 50%-WATER 25 GM/50 ML DISP.SYRIN IV ONE ×2 (06:00→06:18)
[2020-01-19 06:05] LABS: PLATELET COUNT 55 10^3/uL (150-450)
[2020-01-19 06:09] LABS: ABSOLUTE LYMPHOCYTES# (MANUAL) 0.2 10^3/uL (0.5-4.7); BASOPHILS % (MANUAL) 0 % (0-2); EOSINOPHILS % (MANUAL) 1 % (0-6); LYMPHOCYTES % (MANUAL) 2 % (13-45); MONOCYTES % (MANUAL) 0 % (3-13); SEGMENTED NEUTROPHILS % (MAN) 97 % (42-78); TOTAL CELLS COUNTED 100
[2020-01-19 06:10] LABS: ANISOCYTOSIS SLIGHT; OVALOCYTES SLIGHT; PLATELET COMMENT DECREASED; TOXIC GRANULATION 1+
[2020-01-19] MEDS ORDERED: SODIUM POLYSTYRENE SULFONATE 15 GM/60 ML PR ONE (06:15)
[2020-01-19] MEDS: CLINDAMYCIN 900 MG/D5W RTU 900 MG/50 ML RTUPB IV SCH (06:16)
[2020-01-19] MEDS: DEXTROSE 50%-WATER 25 GM/50 ML DISP.SYRIN IV ONE ×2 (06:16→06:24)
[2020-01-19] MEDS ORDERED: INSULIN REG, HUMAN 100 UNIT/ML 3 ML VIAL (PYX) ONE (06:19)
[2020-01-19] MEDS: DEXTROSE 5%-WATER 250 ML with NOREPINEPHRINE BITARTRATE 4 MG IV PRN ×2 (06:52)
[2020-01-19] MEDS: BUDESONIDE NEB 0.25 MG/2 ML AMPUL NEB SCH (07:51)
--- NOTE | 2020-01-19 08:21 | RADIOLOGY REPORT (SQ) ---
EXAM DESCRIPTION: U/S RETROPERITON (RENAL/AORTA) IMAGES COMPLETED DATE/TIME: 01/19/2020 7:52 am REASON FOR STUDY: Worsening Renal funstion COMPARISON: None. TECHNIQUE: Dynamic and static grayscale images acquired of the kidneys and bladder and recorded on P ACS. Additional selected color Doppler and spectral images recorded. LIMITATIONS: None. FINDINGS: RIGHT KIDNEY: Normal size. Normal echogenicity. No solid or suspicious masses. No hydronep hrosis. No calcifications. LEFT KIDNEY: Normal size. Normal echogenicity. No solid or suspicious masses. No hydronephrosis. No calcifications. BLADDER: No masses. OTHER FINDINGS: No other significant finding. IMPRESSION: NORMAL RENAL AND BLADDER ULTRASOUND. TECHNICAL DOCUMENTATION: JOB ID: [id number] 2010 [employer]- All Rights Reserved Reading location - IP/workstation name: [email or web address]
--- NOTE | 2020-01-19 08:50 | RADIOLOGY REPORT (SQ) ---
EXAM DESCRIPTION: CHEST SINGLE VIEW IMAGES COMPLETED DATE/TIME: 01/19/2020 5:24 am REASON FOR STUDY: ETT tube COMPARISON: 01/18/2020 EXAM PARAMETERS: NUMBER OF VIEWS: One view TECHNIQUE: Single frontal radiograph of the chest. RADIATION DOSE: N/A LIMITATIONS: None. FINDINGS: TEMPORARY SUPPORT DEVICES:ETT in expected location. NG tube courses below the leatha-diaphr agm in to the stomach. Central venous access catheter tip is in expected location. LUNGS AND PLEURA: Diffuse parenchymal opacities without chin improvement. No effusions. No masses. N o pneumothorax. MEDIASTINUM AND HILAR STRUCTURES: No masses. Contour normal. HEART AND VASCULAR STRUCTURES: Heart normal in size. normal vascularity. Aorta normal for age. BONES: No acute findings. OTHER: No other significant finding. IMPRESSION: Stable radiographic appearance of the chest without improvement. SUPPORT DEVICE(S) IN EXPECTED LOCATIONS. TECHNICAL DOCUMENTATION: JOB ID: [id number] 2010 [employer]- All Rights Reserved Reading location - IP/workstation name: [email or web address]
[2020-01-19] MEDS ORDERED: VASOPRESSIN INJ 20 UNIT/1 ML VIAL ONE (09:43)
[2020-01-19] MEDS ORDERED: FLUDROCORTISONE ACETATE 0.1 MG TABLET NG ONE (10:00)
[2020-01-19] MEDS ORDERED: SODIUM POLYSTYRENE SULFONATE 15 GM/60 ML NG ONE (10:00)
[2020-01-19] MEDS ORDERED: DEXTROSE 10% IV ONE ×2 (10:30)
[2020-01-19] MEDS ORDERED: WATER IV ONE ×2 (10:30)
[2020-01-19] MEDS ORDERED: HUMAN IV ONE ×2 (10:30)
[2020-01-19] MEDS ORDERED: INSULIN REGULAR IV ONE ×2 (10:30)
[2020-01-19] MEDS: SENNOSIDES/DOCUSATE 8.6-50 MG 1 EACH TABLET PO SCH (10:34)
[2020-01-19] MEDS: AMINO AC/PROTEIN HYDR/WHEY PRO 11 GM/45 ML PKT NG SCH (10:35)
[2020-01-19] MEDS: PANTOPRAZOLE SODIUM 40 MG VIAL IV SCH (10:35)
[2020-01-19] MEDS: METHYLPREDNISOLONE INJ 40 MG/1 ML SDV IV SCH (10:35)
[2020-01-19] MEDS ORDERED: DEXTROSE 10% SUBCUT ONE ×2 (11:00)
[2020-01-19] MEDS: PRIMAQUINE PHOSPHATE 26.3 MG TABLET NG SCH (11:00)
[2020-01-19] MEDS ORDERED: HUMAN SUBCUT ONE ×2 (11:00)
[2020-01-19] MEDS ORDERED: INSULIN REGULAR SUBCUT ONE ×2 (11:00)
[2020-01-19] MEDS ORDERED: WATER SUBCUT ONE ×2 (11:00)
[2020-01-19 11:25] VITALS: BP 86/63
[2020-01-19] MEDS ORDERED: PHENYLEPHRINE HCL INJ/PF 10 MG/1 ML SDV ONE (11:50)
[2020-01-19] MEDS ORDERED: DEXTROSE 5%-WATER 250 ML with PHENYLEPHRINE HCL 40 MG IV PRN ×2 (11:54)
--- NOTE | 2020-01-19 12:42 | PDOC CRITICAL CARE PROG REPORT ---
General Date:: 01/19/20 ICU Day:: 13 Ventilator Day:: 13 Hospital Day:: 20 Resuscitation Status: Full Code Events in the past 12 to 24 Hours:: This 69-year-old male presented to [facility] on 2019 and was admitted with a clinical impression of refractory pneumonia despite multiple courses of antibiotics. He was initially admitted to the floor. On 01/07/2020 the patient demonstrated increased work of breathing, prompting endotracheal intubation and transfer to the ICU. 01/13: Case discussed with Dr. Siddiqi. He is on propofol, Versed and fentanyl infusions for sedation. ABG this a.m. 7./63 on FiO2 70%. He is empirically on Zosyn/Bactrim/Diflucan for empiric coverage of pneumonia in an immunocompromised host. Clinically, suspicious for Pneumocystis jiroveci pneumonia, although Dr. Siddiqi reports that GMS stain of BAL fluid was negative for Pneumocystis. Currently off tube feeds due to high residuals. Having short runs of nonsustained ventricular tachycardia. 01/14: Had bouts of nonsustained ventricular tachycardia yesterday. No overt electrolyte abnormalities. Twelve-lead EKG showed sinus tachycardia with multiform PVCs. Rhythm appeared to stabilize to normal sinus rhythm/sinus tachycardia with improvement in sedation. Still having high tube feed residuals (over 300 mL) despite initiation of Reglan. 01/15: Again had bouts of nonsustained ventricular tachycardia yesterday, in retrospect, this only seems to occur during attempts to adjust his sedation. In fact, he was immediately put back on his previous sedation with propofol/Versed/fentanyl with prompt resolution. Remains intubated on the on mechanical ventilatory support. Tolerated transition to PRVC mode. FiO2 70%, PEEP now down to 8. On Bactrim for presumptive treatment of Pneumocystis. Additionally, tracheal aspirate (01/12) isolated Acinetobacter baumanii complex, sensitive to Bactrim. Started on IV Reglan for high tube feed residuals, which has improved. During gastric residual checks, it was noted that the patient had brown content. This was found to be Gastroccult positive. Got a dose of furosemide 40 mg IV single dose overnight. 01/16: Sinus rhythm/sinus tachycardia. Remains intubated, on mechanical ventilatory support. PRVC 24/480/80/8. ABG this a.m. 7.. On TMP-SMX for Acinetobacter baumanii pneumonia with suspected concurrent Pneumocystis pneumonia. Still continues to have high gastric residuals despite discontinuation of tube feeds. 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 Labs today demonstrate worsening renal function and worsening hyperkalemia: Cr 2.8, K 6.4. Also, the patient is noted to have a drop in his hemoglobin to 7.4 today with concurrent downward trend in WBC and platelet count (impending pancytopenia?). He does continue to have brownish output from the NG tube, which is previously been proven to be Gastroccult positive; however, volume has not increased. Previously, he did not demonstrate hemodynamic compromise. Hemolytic anemia evaluation pending. 01/18: The patient has taken a downturn clinically in the interim. Despite maximal ventilatory support, the patient remains hypercapnic and is becoming progressively more hypoxemic. SPO2 in the 80s despite 100%, PEEP 8. CVP monitoring yesterday revealed CVP 14, which felt to 6 with diuresis overnight. Overnight, the patient was requiring more norepinephrine, currently at 13 mcg/min. In the interim, he was started on rocuronium infusion for neuromuscular blockade to decrease work of breathing and metabolic demand. Bactrim was discontinued in the interim due to concerns that his hyponatremia (129), hyperkalemia (6.9) and worsening renal failure (BUN 94, Cr 3.2), along with anemia and thrombocytopenia (55) may be related to Bactrim administration. He has been switched to primaqine/clindamycin. He continues on Solu-Medrol. Overnight interventions for his hyperkalemia included multiple rounds of calcium gluconate, insulin/D50 and Kayexalate. The patient was also started on heparin infusion in the interim, presumptively, after twelve-lead EKG revealed right bundle branch block. Ultrasound of the lower extremities showed evidence of chronic nonocclusive clot but showed no acute DVT. Heparin infusion has been discontinued this morning after NG tube content was demonstrated to become significantly darker (more coffee-ground in appearance) in light of the patient's hemodynamic change, albeit a small volume output. Hemolytic anemia evaluation is pending. Review of systems relevant to events:: Pulmonary, ID Reason for ICU Addmission:: Intubated for increased WOB, multifocal PNA, HIV may be pneumocystis - Medications: Medications reviewed and adjusted accordingly: Yes Vasopressors:: Norepinephrine Sedation:: Propofol, Versed, fentanyl Physical Exam Vital Signs: Temp Pulse Resp BP Pulse Ox 99.0 F 103 H 32 H 84/52 L 86 L 01/19/20 08:00 01/19/20 10:00 01/19/20 10:00 01/19/20 10:00 01/19/20 10:00 Intake & Output 01/18/20 01/19/20 01/20/20 06:59 06:59 06:59 Intake Total 3122 1864 201 Output Total 1405 1915 30 Balance 1717 -51 171 Weight 94.1 kg 96.5 kg Weight/Height Weight 96.5 kg Height 1.78 m General appearance: PRESENT: no acute distress, well-developed, well-nourished Head exam: PRESENT: atraumatic, normocephalic Eye exam: PRESENT: conjunctiva pink, periorbital swelling, PERRLA. ABSENT: scleral icterus Mouth exam: PRESENT: moist, tongue midline Neck exam: ABSENT: carotid bruit, JVD, lymphadenopathy, thyromegaly Respiratory exam: PRESENT: crackles, rhonchi. ABSENT: rales, wheezes Cardiovascular exam: PRESENT: RRR, tachycardia. ABSENT: diastolic murmur, rubs, systolic murmur Pulses: PRESENT: normal dorsalis pedis pul GI/Abdominal exam: PRESENT: normal bowel sounds, soft. ABSENT: distended, guarding, mass, organolmegaly, rebound, tenderness Extremities exam: PRESENT: full ROM. ABSENT: calf tenderness, clubbing, pedal edema Musculoskeletal exam: PRESENT: normal inspection. ABSENT: deformity Neurological exam: PRESENT: other - Paralyzed on rocuronium infusion. Skin exam: PRESENT: dry, intact, warm. ABSENT: cyanosis, rash Tubes/Lines: PRESENT: Endotracheal Tube, Central Line - IJ Laboratory/Radiographs Laboratory Results: 01/19/20 04:18 01/19/20 04:18 01/18/20 01/18/20 01/18/20 08:00 11:30 11:30 WBC 5.4 RBC 2.46 L Hgb 7.4 L Hct 21.8 L MCV 89 MCH 30.1 MCHC 33.9 RDW 16.1 H Plt Count 77 L Seg Neutrophils % Not Reportable Retic Count (auto) 5.08 H Carbonic Acid HCO3/H2CO3 Ratio ABG pH ABG pCO2 ABG pO2 ABG HCO3 ABG O2 Saturation ABG Base Excess Methemoglobin FiO2 Sodium 126.2 L Potassium 6.4 H* Chloride 90 L Carbon Dioxide 22 Anion Gap 14 BUN 72 H Creatinine 2.80 H Est GFR ( Amer) 27 L Glucose 149 H Lactic Acid Calcium 6.7 L* Ionized Calcium Minoo Magnesium Ferritin Total Bilirubin AST Alkaline Phosphatase Total Protein Albumin Triglycerides Urine Color Urine Appearance Urine pH Ur Specific [place] Urine Protein Urine Glucose (UA) Urine Ketones Urine Blood Urine Nitrite Ur Leukocyte Esterase Urine WBC (Auto) Urine RBC (Auto) Blood Type B POSITIVE Antibody Screen NEGATIVE 01/18/20 01/18/20 01/18/20 11:30 14:29 15:11 WBC RBC Hgb Hct MCV MCH MCHC RDW Plt Count Seg Neutrophils % Retic Count (auto) Carbonic Acid HCO3/H2CO3 Ratio ABG pH ABG pCO2 ABG pO2 ABG HCO3 ABG O2 Saturation ABG Base Excess Methemoglobin 1.4 FiO2 Sodium Potassium Chloride Carbon Dioxide Anion Gap BUN Creatinine Est GFR ( Amer) Glucose Lactic Acid 5.4 H Calcium Ionized Calcium Minoo Magnesium Ferritin Total Bilirubin AST Alkaline Phosphatase Total Protein Albumin Triglycerides 187 H Urine Color Urine Appearance Urine pH Ur Specific [place] Urine Protein Urine Glucose (UA) Urine Ketones Urine Blood Urine Nitrite Ur Leukocyte Esterase Urine WBC (Auto) Urine RBC (Auto) Blood Type Antibody Screen 01/18/20 01/18/20 01/18/20 16:30 16:30 18:00 WBC RBC Hgb Hct MCV MCH MCHC RDW Plt Count Seg Neutrophils % Retic Count (auto) Carbonic Acid 1.72 H 1.69 H HCO3/H2CO3 Ratio 10:1 12:1 ABG pH 7.13 L* 7.21 L ABG pCO2 57.3 H 56.2 H ABG pO2 86.8 52.0 L ABG HCO3 18.8 L 21.7 ABG O2 Saturation 93.3 L 78.5 L ABG Base Excess -10.3 -6.3 Methemoglobin FiO2 100% 100% Sodium 124.8 L Potassium 6.7 H* Chloride 89 L Carbon Dioxide 21 L Anion Gap 15 BUN 80 H Creatinine 2.82 H Est GFR ( Amer) 27 L Glucose 186 H Lactic Acid Calcium 6.9 L* Ionized Calcium Mino[place] Magnesium Ferritin Total Bilirubin AST Alkaline Phosphatase Total Protein Albumin Triglycerides Urine Color Urine Appearance Urine pH Ur Specific [place] Urine Protein Urine Glucose (UA) Urine Ketones Urine Blood Urine Nitrite Ur Leukocyte Esterase Urine WBC (Auto) Urine RBC (Auto) Blood Type Antibody Screen 01/18/20 01/18/20 01/18/20 20:22 21:19 21:19 WBC RBC Hgb Hct MCV MCH MCHC RDW Plt Count Seg Neutrophils % Retic Count (auto) Carbonic Acid 1.68 H HCO3/H2CO3 Ratio 12:1 ABG pH 7.20 L* ABG pCO2 55.7 H ABG pO2 73.2 L ABG HCO3 21.1 ABG O2 Saturation 90.9 L ABG Base Excess -7.2 Methemoglobin FiO2 100% Sodium Potassium Chloride Carbon Dioxide Anion Gap BUN Creatinine Est GFR ( Amer) Glucose Lactic Acid Calcium Ionized Calcium Minoo Magnesium Ferritin 1940.00 H Total Bilirubin 0.4 AST 74 H Alkaline Phosphatase 101 Total Protein 5.3 L Albumin 2.5 L Triglycerides Urine Color YELLOW Urine Appearance CLOUDY Urine pH 5.0 Ur Specific [place] 1.016 Urine Protein 30 H Urine Glucose (UA) NEGATIVE Urine Ketones NEGATIVE Urine Blood LARGE H Urine Nitrite NEGATIVE Ur Leukocyte Esterase NEGATIVE Urine WBC (Auto) 3 Urine RBC (Auto) 10 Blood Type Antibody Screen 01/18/20 01/18/20 01/18/20 21:19 23:32 23:32 WBC 7.3 RBC 3.27 L Hgb 9.8 L D Hct 29.0 L MCV 89 MCH 30.0 MCHC 33.9 RDW 15.4 H Plt Count 65 L Seg Neutrophils % Not Reportable Retic Count (auto) Carbonic Acid HCO3/H2CO3 Ratio ABG pH ABG pCO2 ABG pO2 ABG HCO3 ABG O2 Saturation ABG Base Excess Methemoglobin FiO2 Sodium 127.1 L Potassium 6.6 H* Chloride 89 L Carbon Dioxide 24 Anion Gap 14 BUN 85 H Creatinine 2.87 H Est GFR ( Amer) 27 L Glucose 148 H Lactic Acid 3.8 H Calcium 6.8 L* Ionized Calcium Minoo Magnesium Ferritin Total Bilirubin AST Alkaline Phosphatase Total Protein Albumin Triglycerides Urine Color Urine Appearance Urine pH Ur Specific [place] Urine Protein Urine Glucose (UA) Urine Ketones Urine Blood Urine Nitrite Ur Leukocyte Esterase Urine WBC (Auto) Urine RBC (Auto) Blood Type Antibody Screen 01/19/20 01/19/20 01/19/20 00:28 04:18 04:18 WBC 7.6 RBC 2.96 L Hgb 8.9 L Hct 26.1 L MCV 88 MCH 30.2 MCHC 34.3 RDW 15.8 H Plt Count 55 L Seg Neutrophils % Not Reportable Retic Count (auto) Carbonic Acid 1.69 H 1.69 H HCO3/H2CO3 Ratio 12:1 13:1 ABG pH 7.19 L* 7.22 L ABG pCO2 56.1 H 56.3 H ABG pO2 71.1 L 66.9 L ABG HCO3 21.1 22.3 ABG O2 Saturation 90.1 L 89.0 L ABG Base Excess -7.0 -5.6 Methemoglobin FiO2 100% 100% Sodium Potassium Chloride Carbon Dioxide Anion Gap BUN Creatinine Est GFR ( Amer) Glucose Lactic Acid Calcium Ionized Calcium Minoo Magnesium Ferritin Total Bilirubin AST Alkaline Phosphatase Total Protein Albumin Triglycerides Urine Color Urine Appearance Urine pH Ur Specific [place] Urine Protein Urine Glucose (UA) Urine Ketones Urine Blood Urine Nitrite Ur Leukocyte Esterase Urine WBC (Auto) Urine RBC (Auto) Blood Type Antibody Screen 01/19/20 01/19/20 01/19/20 04:18 04:18 10:04 WBC RBC Hgb Hct MCV MCH MCHC RDW Plt Count Seg Neutrophils % Retic Count (auto) Carbonic Acid HCO3/H2CO3 Ratio ABG pH ABG pCO2 ABG pO2 ABG HCO3 ABG O2 Saturation ABG Base Excess Methemoglobin FiO2 Sodium 128.5 L Potassium 6.9 H* Chloride 92 L Carbon Dioxide 22 Anion Gap 15 BUN 94 H Creatinine 3.17 H Est GFR ( Amer) 24 L Glucose 125 H Lactic Acid 4.0 H Calcium 7.2 L Ionized Calcium Minoo 0.98 L Magnesium 2.7 H Ferritin Total Bilirubin 0.3 AST 83 H Alkaline Phosphatase 103 Total Protein 4.9 L Albumin 2.4 L Triglycerides Urine Color Urine Appearance Urine pH Ur Specific [place] Urine Protein Urine Glucose (UA) Urine Ketones Urine Blood Urine Nitrite Ur Leukocyte Esterase Urine WBC (Auto) Urine RBC (Auto) Blood Type Antibody Screen 12/31/19 12/31/19 12/31/19 12:36 12:36 13:03 Creatine Kinase Cancelled Cancelled Troponin I Cancelled NT-Pro-B Natriuret Pep Cancelled 12/31/19 12/31/1912/30/20 15:30 15:30 18:11 Creatine Kinase 59 Troponin I 0.013 0.016 NT-Pro-B Natriuret Pep 228 H 01/05/20 01/16/20 01/18/20 16:35 04:30 21:19 Creatine Kinase 1119 H Troponin I < 0.012 NT-Pro-B Natriuret Pep 9890 H 01/18/20 21:19 Creatine Kinase Troponin I 0.087 NT-Pro-B Natriuret Pep Impressions: Head MRI 12/31/19 00:00 IMPRESSION: 1. No acute infarct or other acute intracranial findings 2. Mild cerebral atrophy Chest/Abdomen CTA 12/31/19 16:32 IMPRESSION: 1. No central or segmental pulmonary embolus. 2. Increasing multifocal airspace opacities consistent with worsening multi lobar pneumonia. Head CT 01/07/20 00:00 IMPRESSION: No acute intracranial abnormality. EVIDENCE OF ACUTE STROKE: NO. Soft Tissue Neck CT 01/07/20 00:00 IMPRESSION: 1. No abnormality of the soft tissues of the neck. 2. Patchy bilateral mixed areas of consolidation and ground-glass opacification that have increased since 12/31/2019. Lumbar Puncture 01/07/20 06:00 IMPRESSION: Lumbar puncture under fluoroscopy. No immediate complication. KUB X-Ray 01/17/20 00:00 IMPRESSION: NO RADIOGRAPHIC EVIDENCE FOR ACUTE ABDOMINAL DISEASE. Venous Doppler Study 01/18/20 00:00 IMPRESSION: There appears to be sounds small amount of chronic nonocclusive thrombus in the right common femoral vein as described. No acute DVT or SVT. Chest X-Ray 01/19/20 04:00 IMPRESSION: Stable radiographic appearance of the chest without improvement. SUPPORT DEVICE(S) IN EXPECTED LOCATIONS. Renal Ultrasound 01/19/20 06:45 IMPRESSION: NORMAL RENAL AND BLADDER ULTRASOUND. Assessment and Plan - Diagnosis (1) Acute hypoxemic respiratory failure Is this a current diagnosis for this admission?: Yes Plan: * ARDS. * Continue PRVC mode. * Titrate vent settings based on ABG results. * Rocuronium infusion * U/S B LE. * CVP monitoring. * On Rocephin for treatment of Acinetobacter pneumonia. * On primaquine/clindamycin for presumptive treatment of Pneumocystis pneumonia. * Continue fluconazole. (2) Infection due to acinetobacter baumannii Is this a current diagnosis for this admission?: Yes Plan: * Clinically, also suspicious for concurrent Pneumocystis pneumonia. * Was on Bactrim, which has been discontinued due to concern for multiple metabolic and hematologic abnormalities suspected to be due to adverse drug effect. * Now on Rocephin for Acinetobacter coverage. (3) Acute metabolic encephalopathy Is this a current diagnosis for this admission?: Yes (4) Interstitial pneumonia of both lungs Is this a current diagnosis for this admission?: Yes (5) Lymphocytopenia Is this a current diagnosis for this admission?: Yes (6) HIV antibody positive Is this a current diagnosis for this admission?: Yes Plan: * HIV-1 viral load 922,000 (log 10 viral load 5.965). * Check CD4 count, HIV-1 genotype. * Continue efavirenz/emtricitabine/tenofovir disoproxil. (7) Hypoalbuminemia due to protein-calorie malnutrition Is this a current diagnosis for this admission?: Yes (8) NSVT (nonsustained ventricular tachycardia) Is this a current diagnosis for this admission?: Yes (9) Anemia Qualifiers: Anemia type: unspecified type Qualified Code(s): D64.9 - Anemia, unspecified Is this a current diagnosis for this admission?: Yes (10) Thrombocytopenia associated with AIDS Is this a current diagnosis for this admission?: Yes (11) Acute kidney injury Is this a current diagnosis for this admission?: Yes Plan Summary: The patient's family called in for an update at a time when the patient was actively clinically deteriorating. Instructions were given to the bedside nursing team. I updated the patient's over the phone (along with other family members). The patient stipulated that the patient should be made DNR. She understood this to mean that we would continue to new to provide definitive care; however, in the event of cardiac arrest, no resuscitative measures would be performed. In fact, during the phone conversation, the patient experienced PEA arrest. I returned to the patient's bedside to see CPR in progress. I ordered discontinuation of resuscitative efforts based on the patient's 's decisions. ] Critical Time Critical Time (minutes): 120 Level of Care: ICU -: 1. The care of a critical patient is a dynamic process. This note is a customer field representative synopsis but static in nature. The timeframe for treatments given in order is not necessarily the actual time these treatments may have been done. 2. This patient requires critical care secondary to ongoing requirements for therapy not offered or safe outside the critical care environment. Transfer to a lower level of care will result in altered life or limb morbidity and mortality. 3. Multidisciplinary rounds completed. 4. ABCDE bundle addressed.
--- NOTE | 2020-01-19 13:23 | Progress Note ---
Provider Note Provider Note: Called to see patient for CPR in progress. CPR was discontinued per instruction of the patient's . On exam, the patient is unresponsive to verbal, physical or noxious stimuli. No heart sounds. No breath sounds. No peripheral pulses. Peripheral pulses. Pupils are fixed and dilated. Patient pronounced at 12:11 (24 hour format). (Gertrude Flores) notified. Autopsy declined. x ray examiner of aircraft ([place]) declined examination.
--- NOTE | 2020-01-19 13:59 | Death Summary ---
Summary Date : 01/19/20 Time of :: 12:11 Autopsy: No Resuscitation Status: Do Not Resuscitate - Final Diagnosis (1) Septic shock Is this a current diagnosis for this admission?: Yes (2) Multiorgan failure Is this a current diagnosis for this admission?: Yes (3) Acute hypoxemic respiratory failure Is this a current diagnosis for this admission?: Yes (4) Infection due to acinetobacter baumannii Is this a current diagnosis for this admission?: Yes (5) Acute kidney injury Is this a current diagnosis for this admission?: Yes (6) AIDS Is this a current diagnosis for this admission?: Yes (7) HIV antibody positive Is this a current diagnosis for this admission?: Yes (8) Lymphocytopenia Is this a current diagnosis for this admission?: Yes (9) Acute metabolic encephalopathy Is this a current diagnosis for this admission?: Yes (10) Interstitial pneumonia of both lungs Is this a current diagnosis for this admission?: Yes (11) Hypoalbuminemia due to protein-calorie malnutrition Is this a current diagnosis for this admission?: Yes (12) NSVT (nonsustained ventricular tachycardia) Is this a current diagnosis for this admission?: Yes (13) Anemia Is this a current diagnosis for this admission?: Yes (14) Thrombocytopenia associated with AIDS Is this a current diagnosis for this admission?: Yes Hospital Course:: This 69-year-old male presented to [facility] on 12/31/2019 and was admitted with a clinical impression of refractory pneumonia despite multiple courses of antibiotics. He was initially admitted to the floor. However, the patient failed to improve clinically. In fact, in addition to respiratory symptoms, the patient was developing delirium. He was seen in consultation by Dr. Malvin Siddiqi on 01/02/2020 for recommendations on further evaluation and management of acute hypoxemic respiratory failure and recurrent pneumonia. On 01/07/2020, the patient demonstrated increased work of breathing, prompting endotracheal intubation and transfer to the ICU. On the following day the patient underwent fiberoptic bronchoscopy with bronchoalveolar lavage performed by Dr. Siddiqi. While the patient's bronchoscopic studies failed to reveal any definitive diagnosis, concurrent HIV-1 antibody testing was positive. Subsequent confirmatory tests did confirm that the patient had HIV, making his clinical presentation compatible with AIDS. This led to clinical suspicion for Pneumocystis pneumonia. Additionally, subsequent tracheal aspirate samples isolated Acinetobacter baumanii. Trimethoprim-sulfamethoxazole was added to the patient's empiric antibiotic regimen along with systemic glucocorticoids. Despite maximal ongoing supportive care, the patient continued to steadily decline clinically. Despite mechanical ventilatory support, the patient's FiO2 requirement and ventilatory support requirements continued to increase. Additionally, the patient's blood pressure began to deteriorate, requiring initiation of vasopressor therapy. Also, laboratory evaluation revealed that he developed renal failure with associated electrolyte abnormalities (hyponatremia and hyperkalemia). These findings in addition to worsening anemia and thrombocytopenia, raised concern for the possibility of an adverse drug reaction to trimethoprim-sulfamethoxazole. This medication was discontinued, and an alternate regimen (primaquine/clindamycin) was initiated. ICU care continued to focus on mechanical ventilatory support, hemodynamic support, correction of acid-base disorder and metabolic derangements. Despite maximal support, the patient continued to have deterioration in hemodynamics, which worsened his oxygenation status. On 01/19/2020, the patient's (another family members) called into the ICU for an update, at which time the family was informed that the patient was experiencing hemodynamic collapse despite maximal medical therapy. At this time, the patient's stipulated that the patient should not receive any cardiopulmonary resuscitation in the event of cardiac arrest. During the phone call, the patient experienced PEA arrest. As the patient was still full CODE STATUS in the EMR at the time of the phone call, the ICU team immediately responded appropriately with CPR. At the conclusion of the phone call, I instructed the team to discontinue CPR efforts. Ultimately, it is believed that the patient succumbed to septic shock with multiorgan failure secondary to Acinetobacter (and suspected Pneumocystis) pneumonia, secondary to AIDS, secondary to HIV infection. PROCEDURES performed: Endotracheal intubation (01/06/2020) LP (01/07/2020) CTA chest/abdomen (12/31/2019) CT head (12/31/2019, 01/07/2020) MRI brain (12/31/2019): No acute infarct or other acute intracranial findings. Mild cerebral atrophy. CT neck (01/07/2020) Bronchoscopy (01/08/2020) Central line placement (01/09/2020) Ultrasound lower extremities (01/18/2020) small amount of chronic nonocclusive thrombus in the right common femoral vein. No acute DVT. Renal ultrasound (01/19/2020): Normal findings SIGNIFICANT LAB values on 01/19/2020: WBC 7.6 (97% neutrophils, 2% lymphocytes), hemoglobin 8.9, hematocrit 26.1, platelets 55. Sodium 129, potassium 6.9, chloride 92, bicarbonate 22, BUN 94, creatinine 3.2. Protein 4.9, albumin 2.4. ABG: pH 7.22, PCO2 56, PO2 67
[2020-01-19] MEDS ORDERED: EPINEPHRINE INJ 1 MG/10 ML DISP.SYRIN ONE (15:20)
[2020-01-20 11:37] LABS: G-6-PD QUANT U/10E12 RBC 371 (127-427)
[2020-01-22 00:25] LABS: POTASSIUM 6.1 mmol/L (3.6-5.0)
== END 2020-01-19 14:00 | DRG 974 ==
LOC: ER 11:59 → EH 19:36 → 3W 23:34 → 5 01-02 08:43 → 3S 01-06 18:33 → ICU 01-07 17:26
PROVIDERS: ADMIT Anesthesiology; ATTEND Anesthesiology
PROC: 5A09357 Assistance with Respiratory Ventilation, Less than 24 Consecutive Hours, Continuous Positive Airway Pressure (ICD-10-PCS; 2019-12-31)
PROC: 009U3ZX Drainage of Spinal Canal, Percutaneous Approach, Diagnostic (ICD-10-PCS; 2020-01-07)
PROC: B01BZZZ Fluoroscopy of Spinal Cord (ICD-10-PCS; 2020-01-07)
PROC: 0BH17EZ Insertion of Endotracheal Airway into Trachea, Via Natural or Artificial Opening (ICD-10-PCS; 2020-01-07)
PROC: 5A1945Z Respiratory Ventilation, 24-96 Consecutive Hours (ICD-10-PCS; 2020-01-07)
PROC: 0B9D7ZX Drainage of Right Middle Lung Lobe, Via Natural or Artificial Opening, Diagnostic (ICD-10-PCS; 2020-01-08)
PROC: 02HV33Z Insertion of Infusion Device into Superior Vena Cava, Percutaneous Approach (ICD-10-PCS; 2020-01-09)
PROC: B548ZZA Ultrasonography of Superior Vena Cava, Guidance (ICD-10-PCS; 2020-01-09)
PROC: 5A1955Z Respiratory Ventilation, Greater than 96 Consecutive Hours (ICD-10-PCS; principal; 2020-01-10)
PROC: 0BH17EZ Insertion of Endotracheal Airway into Trachea, Via Natural or Artificial Opening (ICD-10-PCS; 2020-01-10)
PROC: 30233N1 Transfusion of Nonautologous Red Blood Cells into Peripheral Vein, Percutaneous Approach (ICD-10-PCS; 2020-01-18)
DX: A41.9 Sepsis, unspecified organism (principal); J80 Acute respiratory distress syndrome; B20 Human immunodeficiency virus [HIV] disease; G93.41 Metabolic encephalopathy; J15.6 Pneumonia due to other Gram-negative bacteria; B59 Pneumocystosis; R65.21 Severe sepsis with septic shock; J96.01 Acute respiratory failure with hypoxia; J84.9 Interstitial pulmonary disease, unspecified; E46 Unspecified protein-calorie malnutrition; I47.2 Ventricular tachycardia; N17.9 Acute kidney failure, unspecified; E87.1 Hypo-osmolality and hyponatremia; I46.9 Cardiac arrest, cause unspecified; D64.9 Anemia, unspecified; D69.6 Thrombocytopenia, unspecified; E87.5 Hyperkalemia; R00.0 Tachycardia, unspecified; E88.09 Other disorders of plasma-protein metabolism, not elsewhere classified; K21.9 Gastro-esophageal reflux disease without esophagitis; R63.4 Abnormal weight loss; F17.210 Nicotine dependence, cigarettes, uncomplicated; Z20.828 Contact with and (suspected) exposure to other viral communicable diseases
CPT/HCPCS: 31500; 31624; 36415; 36430; 36600; 62328; 70450; 70491; 70553; 71045; 71046; 71275; 74018; 76770; 80048; 80053; 80202; 81001; 82088; 82271; 82330; 82550; 82607; 82728; 82746; 82803; 82945; 82960; 82962; 83010; 83050; 83090; 83520; 83605; 83615; 83690; 83735; 83880; 83921; 84100; 84132; 84134; 84157; 84166; 84244; 84311; 84439; 84443; 84478; 84484; 85025; 85027; 85045; 85379; 85384; 85610; 85652; 85730; 86021; 86038; 86235; 86360; 86361; 86592; 86664; 86665; 86701; 86702; 86850; 86880; 86900; 86901; 86920; 87015; 87040; 87070; 87077; 87101; 87116; 87186; 87205; 87206; 87252; 87529; 87536; 87635; 87799; 87804; 88312; 89050; 92950; 93005; 93010; 93970; 94002; 94003; 94640; 94660; 96365; 96367; 96368; 96375; 99291; J0610; A9576; C9113; C9803; J0171; J0456; J0692; J0696; J1100; J1170; J1450; J1630; J1642; J1644; J1650; J1815; J1940; J2060; J2250; J2270; J2370; J2405; J2543; J2704; J2765; J2920; J2930; J3010; J3370; J3490; J7030; J7040; J7042; J7050; J7060; J7120; J7613; J7614; P9016; P9047; S0028; S0119